=== PATIENT | female | born 1935 | race Caucasian/White ===

== ENCOUNTER → 2020-03-10 11:20 | Outpatient (CLI) | payer OTHER, SELFPAY ==
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
== END ==
PROVIDERS: PCP Student in an Organized Health Care Education/Training Program; Referring Provider Student in an Organized Health Care Education/Training Program; Visit Provider Student in an Organized Health Care Education/Training Program
DX: M43.12 Spondylolisthesis, cervical region (principal); M50.321 Other cervical disc degeneration at C4-C5 level
CPT/HCPCS: 72040

== ENCOUNTER → 2020-03-31 12:49 | Outpatient (CLI) | payer OTHER, SELFPAY ==
--- NOTE | 2020-03-31 12:52 | DI.RAD.S_ITS ---
PROCEDURE: FL BARIUM SWALLOW W SPEECH INDICATIONS: Aspiration COMPARISON: None. TECHNIQUE: Examination was conducted in conjunction with speech pathology per standard protocol. In the lateral projection, filming was performed of the patient swallowing. AP projection filming may also be performed with patient swallowing. COMPARISON: FINDINGS: Function: The oral preparatory phase appears normal, with proper containment. The subsequent oral propulsive phase, pharyngeal phase, and esophageal phase of swallowing also appear normal with all proffered substances. No laryngotracheal penetration or aspiration. No pathologic vallecular pooling. Morphology: No cricopharyngeal bar is identified. No cervical esophageal webs. No Zenker's diverticulum. No strictures. IMPRESSION: No laryngotracheal penetration or aspiration. Dictated by: Ruma Hector MD, PhD on 03/31/2020 at 15:06 Approved by: Ruma Hector MD, PhD on 03/31/2020 at 15:06
--- NOTE | 2020-04-05 12:51 | ST.SWALLOW ---
Visit Care Team Role Provider Type Vargas Riley MD Attending Provider Physician Primary Care Provider Referring Provider Specialty: Internal Medicine Address: [address] [place] [address], [address] [place] [address], [id number] Email: [email or web address] Modified Barium Swallow Study INGREDIENT MIXER Modified Barium Swallow Study Start: 04/01/20 15:20 Freq: Status: Active Protocol: Document 03/31/20 15:20 RAMA (Rec: 04/01/20 15:30 RAMA [id number]) Modified Barium Swallow Study Total Time Visit Start Time 13:30 Visit Stop Time 14:10 Total Visit Minutes [address] Vargas Riley Reason for Referral Aspiration; Unspecified foreign body in respiratory tract Setting Setting Outpatient Care Patient Information Identification Type Name,ID Card Patient History The pt is an 84-yr-old female who c/o frequent coughing and throat clearing, increased with, but not isolated to, oral intake. This has been ongoing for ~20 yrs. The pt has seen many doctors regarding this, without clear identification of cause. She does have a hx of chronic sinusitis. Swallow study was ordered to r/o aspiration as cause of throat congestion. Medical records indicate paraspinal cervical muscle dysfunction. Subjective Observations The pt arrived on time accompanied by her son, who was educated on results with the pt after the study was completed. The pt was seated in fluoroscopy chair, explained procedure, and was in agreement with proceeding. Patient Positioning Position View Lateral Imaging Lateral View Textures Administered Trials Presented Thin Liquid via Spoon,Thin Liquid via Cup,Reserve Liquid via Spoon,Reserve Liquid via Cup,Honey Liquid via Spoon, Dysphagia Blenderized Textures ,Regular Textures Oral Phase Source: MBSIMP (TM) (C) Bolus Specific Scoring Grid Lip Closure No Impairment (WNL) Tongue Control During Bolus Hold No Impairment (WNL) Bolus Prep/Mastication Mild Impairment Bolus Transport/Lingual Motion No Impairment (WNL) A/P Lingual Propulsion Delay No Oral Residue Mild Impairment Residue Clearing No Impairment (WNL) Nasal Regurgitation No Additional Oral Phase Observations Oral Peripheral Exam: Upper dentition is implants; lower front dentition is natural in good condition for age. 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 Pt states for this reason she tends to eat soft foods. All features were symmetrical and WNL of strength, ROM and coordination for age upon oral exam. Oral Prep/Swallow Phases: WFL. Mildly reduced lingual- palatal seal resulted in mild oral residue, which was sufficiently cleared with additional swallow. Prior to secondary swallow, however, oral residue did frequently escape to pharynx while airway was open, which increases the pt's risk of aspiration. She required verbal prompts to produce second swallow. Reduced dentition resulted in mashing-style mastication, which was sufficient for mastication of cookie but is expected to be insufficient for textures such as raw produce and tough meats. Pharyngeal Phase Source: MBSIMP (TM) (C) Bolus Specific Scoring Grid Delayed Initiation of Pharyngeal Swallow Yes: Thin & reg texture escaped to pyriform sinuses; NTL & oral res to vallecula Number of Seconds Delayed (seconds) 1-4 Soft Palate Elevation No Impairment (WNL) Tongue Base Strength/Range of Motion WFL Residue Along the Tongue Base Yes Clearance of Residue Along Tongue Base Minimal Impairment Laryngeal Elevation Mild Impairment Anterior Hyoid Movement Mild Impairment Epiglottic Range of Motion Mild Impairment Vallecular Residue Yes Clearance of Vallecular Residue No Impairment (WNL) Laryngeal Vestibular Closure Mild Impairment Pharyngeal Stripping Wave WFL Posterior Pharyngeal Wall Residue No Upper Esophageal Sphincter Opening No Impairment (WNL) Residue in the Pyriform Sinuses No Esophageal Clearance Upright Position Minimal Impairment Pharyngoesophageal Backflow Observed No: Occasional mild stasis below UES observed, quickly cleared. Additional Pharyngeal Phase Observations Upon close video evaluation, silent flash penetration of thin liquids into laryngeal vestibule was observed during sequential cup sips. No aspiration was noted. Reduced oral sensation and/or lingual weakness resulted in delayed swallow trigger with thin and nectar-thick liquids. Thin liquid and cookie escaped to pyriform sinuses and NTL to vallecula prior to swallow initiation, increasing risk of aspiration. Trigger was timely with HTL and pureed texture. The pt naturally consumed all trials with head in chin-tuck position d/t curvature of cervical spine. This position did not appear to aid oral containment. A/P View Clinical Impressions Dysphagia Type Mild Oropharyngeal Dysphagia secondary to advanced age Findings Oral dysphagia is secondary to limited dentition, impacting mastication with increased complexity of textures; mildly reduced lingual-palatal seal, resulting in oral residue; and reduced oral sensation and /or lingual weakness, resulting in delayed swallow trigger with some consistencies, including oral residue. Pharyngeal dysphagia is secondary to reduced muscle strength and reduce sensation, resulting in incomplete airway closure, reduced hyolaryngeal elevation and anterior propulsion, and mildly reduced epiglottic inversion. These impairments resulted in silent penetration of thin liquids into the laryngeal vestibule (PAS 2) and collection of spilled oral residue in pharynx. The pt did not spontaneously swallow collected residue. When prompted to swallow, the residue cleared. Swallow function with oral intake does not explain her chronic throat clearing, particularly given her apparent reduced sensation. However, these impairments may contribute to reduced management of postnasal drip, if present. Specifically, reduced sensation may lead to absent swallow trigger and silent aspiration of nasal discharge, which may in turn result in laryngeal or pulmonary congestion, triggering chronic coughing. Question laryngeal irritation from long-term coughing and/or subsequent habitual behavior, as well. ENT consultation is recommended for assessment. Immediate results of the MBSS were shared with the pt and her son. Therapy was not recommended at that time; however, upon close review of MBSS video, impairments are identified that may be corrected or improved with outpatient therapy, thus reducing her risk of aspiration and, possibly, reducing chronic cough. Rehabilitation Potential Good Patient Appropriate for Therapy Yes: The pt may benefit from brief outpatient therapy. Recommendations Diet Liquids Order Reserve Diet Order Mechanical Soft Medication Recommendation As Tolerated Aspiration Precautions Recommended Precautions Upright at 90 Degrees,Small Bites/Sips,Double Swallow Treatment Plan Therapy Recommendations Outpatient Speech Therapy Additional Recommended Referrals The pt is scheduled for ENT consultation, which is recommended. Compensatory Strategies Recommendations Sitting Upright (90 deg), Double Swallow,Small Bites and Sips Short Term Goals 1. The pt will perform safe swallow strategies with minimal cuing to reduce risk of aspiration. 2. The pt will perform exercises, with written instructions, to increase efficiency of swallow and decrease risk of aspiration. Nursing Home Goals 1. The pt will tolerate least restrictive diet to meet her nutrition and hydration needs. Placement Recommendation After Discharge Home,Home Care,Outpatient Therapy
== END ==
PROVIDERS: PCP Student in an Organized Health Care Education/Training Program; Referring Provider Student in an Organized Health Care Education/Training Program; Visit Provider Student in an Organized Health Care Education/Training Program
DX: T17.908A Unspecified foreign body in respiratory tract, part unspecified causing other injury, initial encounter (principal)
CPT/HCPCS: 74230; 92611

== ENCOUNTER → 2020-04-16 16:35 | Outpatient (CLI) | payer OTHER, SELFPAY ==
[2020-04-16 18:03] LABS: Add Manual Diff / Slide Review NO; Basophils Absolute Auto 100 /uL (0-100); Basophils Percent Auto 1.4 % (0-2); Eosinophils Absolute Auto 200 /uL (0-450); Eosinophils Percent Auto 3.8 % (2-4); Hemoglobin 9.5 g/dL (12.0-16.0); Lymphocytes Absolute Auto 1000 /uL (1100-4500); Lymphocytes Percent Auto 17.8 % (25-40); Mean Corpuscular HGB Conc 30.8 % (30-36); Mean Corpuscular Hemoglobin 23.3 PG (26-34); Mean Corpuscular Volume 75.8 fL (80-100); Monocytes Absolute Auto 400 /uL (0-900); Monocytes Percent Auto 7.3 % (3-14); Neutrophils Absolute Auto 3700 /uL (1500-7000); Neutrophils Percent Auto 69.7 % (50-75); Platelet Count 162 X10^3/uL (150-400); Red Blood Cell Count 4.08 X10^6/uL (4.0-5.2); Red Cell Distribution Width 19.6 % (11.6-14.8); White Blood Cell Count 5.4 X10^3/uL (4.5-11.0)
[2020-04-16 19:00] LABS: HEMOLYSIS < 15 (0-50); NT-proBNP (BNP-Adult 18+) 1470 pg/mL (<450)
[2020-04-16 19:18] LABS: Alanine Aminotransferase 10 IU/L (<35); Albumin 4.1 g/dL (3.5-5.0); Albumin Globulin Ratio 1.3 (1.0-2.8); Alkaline Phosphatase 63 U/L (38-126); Aspartate Aminotransferase 25 IU/L (14-36); BUN Creatinine Ratio 28.9 (6-22); Bilirubin Total 0.3 mg/dL (0.2-1.3); Blood Urea Nitrogen 33 mg/dL (7-17); Calcium 9.2 mg/dL (8.4-10.2); Carbon Dioxide 25 mmol/L (22-32); Chloride 105 mmol/L (98-107); Estimated Glomerular Filt Rate 45.4 mL/min (>60); Globulin 3.1 g/dL (1.7-4.1); Glucose 129 mg/dL (80-110); Potassium 4.1 mmol/L (3.4-5.1); Sodium 142 mmol/L (137-145); Total Protein 7.2 g/dL (6.3-8.2)
[2020-04-16 19:41] LABS: Vitamin B12 833 pg/mL (239-931)
[2020-04-17 15:27] LABS: HEMOLYSIS < 15 (0-50); Iron 46 ug/dL (37-170)
[2020-04-17 15:37] LABS: Percent Iron Saturation 11 % (15-50); Total Iron Binding Capacity 436 ug/dL (265-497); Transferrin 360 mg/dL (206-381)
[2020-04-17 21:38] LABS: Reticulocyte Count, Percent 0.7 % (1.06-2.63)
== END ==
PROVIDERS: PCP Student in an Organized Health Care Education/Training Program; Referring Provider Student in an Organized Health Care Education/Training Program; Visit Provider Student in an Organized Health Care Education/Training Program
DX: R53.83 Other fatigue (principal); E55.9 Vitamin D deficiency, unspecified; E03.9 Hypothyroidism, unspecified; I10 Essential (primary) hypertension; Z79.899 Other long term (current) drug therapy; E87.70 Fluid overload, unspecified; D64.9 Anemia, unspecified
CPT/HCPCS: 36415; 80053; 82306; 82607; 83540; 83550; 83880; 85025; 85045

== ENCOUNTER → 2020-04-29 15:38 | Outpatient (CLI) | payer OTHER, SELFPAY ==
--- NOTE | 2020-04-29 | DI.CT.S_ITS ---
PROCEDURE: CT SINUS SCREEN WO CON INDICATIONS: CHRONIC PANSINUSITIS TECHNIQUE: Noncontrast 3.0 mm axial images acquired from the frontal sinuses to the mid-sella, with coronal and sagittal reformats. For radiation dose reduction, the following was used: automated exposure control, adjustment of mA and/or kV according to patient size. COMPARISON: None. FINDINGS: Image quality: Excellent. Maxillary Sinuses: There is near complete opacification seen of the right maxillary sinus. Frothy material can be seen within the left maxillary sinus. There is demineralization of the medial cueva of the maxillary sinuses. Ethmoid Air Cells: There is near complete opacification seen of the ethmoid air cells. Portions of the ethmoid air cells have been removed. Remaining ethmoid air cells are demineralized. Sphenoid Sinuses: No bony remodeling or destruction. Mild mucosal thickening is seen within the sphenoid sinuses. Frontal Sinuses: No bony remodeling or destruction. Sinu at least moderate mucosal thickening is seen within the frontal sinuses. Ostiomeatal Complexes: Ostiomeatal complexes are patent. No Di cells. Miscellaneous: Visualized intra-orbital contents are normal. The middle turbinates and superior turbinates have been removed. Nasal polyps are seen posteriorly. There is minimal leftward nasal septal deviation. Incidental note is made of hyperostosis frontalis. This is not considered to be pathologic in a woman of this age. IMPRESSION: Postoperative changes, with removal of the superior turbinates and the middle turbinates and portions the ethmoid air cell septations. Findings of chronic sinusitis can be seen, with demineralization of the medial cueva of the maxillary sinuses as well as the remaining ethmoid bony septations. Paranasal sinus disease is seen, which is most prominent within the right maxillary sinus and the ethmoid air cells. Apparent nasal polyps can be seen posteriorly. Dictated by: Ortiz Duvall M.D. on 04/29/2020 at 15:18 Approved by: Ortiz Duvall M.D. on 04/29/2020 at 15:21
== END ==
PROVIDERS: PCP Student in an Organized Health Care Education/Training Program; Referring Provider Otolaryngology; Visit Provider Otolaryngology
DX: J32.4 Chronic pansinusitis (principal)
CPT/HCPCS: 70486

== ENCOUNTER → 2020-05-12 16:22 | Outpatient (CLI) | payer OTHER, SELFPAY ==
[2020-05-12 16:51] LABS: Reticulocyte Count, Percent 1.7 % (1.06-2.63)
[2020-05-12 16:52] LABS: Hematocrit 33.8 % (36-46); Hemoglobin 10.5 g/dL (12.0-16.0); Mean Corpuscular HGB Conc 30.9 % (30-36); Mean Corpuscular Hemoglobin 24.5 PG (26-34); Mean Corpuscular Volume 79.1 fL (80-100); Platelet Count 163 X10^3/uL (150-400); Red Blood Cell Count 4.27 X10^6/uL (4.0-5.2); Red Cell Distribution Width 22.9 % (11.6-14.8); White Blood Cell Count 6.8 X10^3/uL (4.5-11.0)
[2020-05-12 17:05] LABS: HEMOLYSIS < 15 (0-50); Iron 39 ug/dL (37-170)
[2020-05-12 17:07] LABS: BUN Creatinine Ratio 31.3 (6-22); Blood Urea Nitrogen 31 mg/dL (7-17); Carbon Dioxide 26 mmol/L (22-32); Chloride 106 mmol/L (98-107); Estimated Glomerular Filt Rate 53.4 mL/min (>60); Glucose 107 mg/dL (80-110); HEMOLYSIS < 15 (0-50); Potassium 4.2 mmol/L (3.4-5.1); Sodium 141 mmol/L (137-145)
[2020-05-12 17:14] LABS: NT-proBNP (BNP-Adult 18+) 2270 pg/mL (<450)
[2020-05-12 17:16] LABS: Percent Iron Saturation 9 % (15-50); Total Iron Binding Capacity 419 ug/dL (265-497); Transferrin 337 mg/dL (206-381)
[2020-05-12 17:40] LABS: Ferritin 27 ng/mL (11-264)
[2020-05-12 18:10] LABS: Folate > 20.0 ng/mL (2.76-20.0)
== END ==
PROVIDERS: PCP Student in an Organized Health Care Education/Training Program; Referring Provider Student in an Organized Health Care Education/Training Program; Visit Provider Student in an Organized Health Care Education/Training Program
DX: D64.9 Anemia, unspecified (principal); E87.70 Fluid overload, unspecified; N17.9 Acute kidney failure, unspecified
CPT/HCPCS: 36415; 80048; 82728; 82746; 83540; 83550; 83880; 85027; 85045

== ENCOUNTER 2020-06-22 16:18 | Observation (INO) | payer OTHER, SELFPAY ==
[2020-06-22] VITALS (14 sets, daily range): BP systolic 113–148; BP diastolic 47–95; PULSE 70–84; RESP 16–29; TEMP 36.2–36.4; O2SAT 87–96; BMI 37.8
--- NOTE | 2020-06-22 16:29 | DI.RAD.S_ITS ---
PROCEDURE: XR CHEST 1V INDICATIONS: chest pain TECHNIQUE: One view of the chest was acquired. COMPARISON: None. FINDINGS: Surgical changes and devices: None. Lungs and pleura: Mild coarsened appearance is present within the right base. Mediastinum: Mediastinal contours appear normal. Heart size is enlarged. Bones and chest wall: No suspicious bony lesions. Overlying soft tissues appear unremarkable. IMPRESSION: Mild coarsened appearance of the right base. This could represent dependent edema versus developing pneumonia. Dictated by: Noreen Monahan M.D. on 06/22/2020 at 17:18 Approved by: Noreen Monahan M.D. on 06/22/2020 at 17:21
[2020-06-22] MEDS: ASPIRIN 81 MG CHEW TAB 324 MG PO (16:50)
[2020-06-22 16:57] LABS: Add Manual Diff / Slide Review NO; Basophils Absolute Auto 0 /uL (0-100); Basophils Percent Auto 0.5 % (0-2); Eosinophils Absolute Auto 200 /uL (0-450); Eosinophils Percent Auto 2.4 % (2-4); Hematocrit 38.3 % (36-46); Hemoglobin 12.3 g/dL (12.0-16.0); Lymphocytes Absolute Auto 1200 /uL (1100-4500); Lymphocytes Percent Auto 14.5 % (25-40); Mean Corpuscular HGB Conc 32.1 % (30-36); Mean Corpuscular Hemoglobin 26.7 PG (26-34); Mean Corpuscular Volume 83.3 fL (80-100); Monocytes Absolute Auto 600 /uL (0-900); Monocytes Percent Auto 6.9 % (3-14); Neutrophils Absolute Auto 6300 /uL (1500-7000); Neutrophils Percent Auto 75.7 % (50-75); Platelet Count 161 X10^3/uL (150-400); Red Blood Cell Count 4.59 X10^6/uL (4.0-5.2); White Blood Cell Count 8.3 X10^3/uL (4.5-11.0)
[2020-06-22 17:00] LABS: INR 1.3 (0.9-1.3); Prothrombin Time 15.3 SECONDS (10.1-12.7)
[2020-06-22 17:02] LABS: PTT Partial Thromboplastin Tim 38 SECONDS (26.4-36.2)
[2020-06-22 17:04] LABS: Alanine Aminotransferase 14 IU/L (<35); Albumin 4.3 g/dL (3.5-5.0); Albumin Globulin Ratio 1.2 (1.0-2.8); Alkaline Phosphatase 71 U/L (38-126); Aspartate Aminotransferase 32 IU/L (14-36); BUN Creatinine Ratio 29.2 (6-22); Bilirubin Total 0.5 mg/dL (0.2-1.3); Blood Urea Nitrogen 45 mg/dL (7-17); Calcium 9.4 mg/dL (8.4-10.2); Carbon Dioxide 33 mmol/L (22-32); Chloride 99 mmol/L (98-107); Creatine Kinase 83 U/L (30-135); Estimated Glomerular Filt Rate 32.1 mL/min (>60); Globulin 3.6 g/dL (1.7-4.1); Glucose 107 mg/dL (80-110); HEMOLYSIS 18 (0-50); Lipase 255 U/L (23-300); Potassium 3.5 mmol/L (3.4-5.1); Sodium 140 mmol/L (137-145); Total Protein 7.9 g/dL (6.3-8.2)
--- NOTE | 2020-06-22 17:14 | ED_ITS ---
HPI - Chest Pain General Chief Complaint: Chest Pain Stated Complaint: HARD TIME BREATHING SWEATING SHOULDER PAIN Time Seen by Provider: 06/22/20 16:40 Mode of arrival: Wheelchair History of Present Illness HPI narrative: 84-year-old woman with a history of atrial fibrillation for which she is on apixaban, coronary disease with stenting many years ago, hypertension, hyperlipidemia, congestive heart failure, hypothyroidism presents with 24 hours of increasing anginal type symptoms. Yesterday with doing some simple activities around her house she had some chest pain between her shoulder blades, mild diaphoresis and mild dyspnea that did yevgeniy with rest. This morning she woke up and was more fatigued and short of breath than usual. At 11:00 a.m. she had a particularly severe episode while she was going to the bathroom with pain so severe between the shoulder blades that she had difficulty pulling her pants back. Again, with rest it resolved. She went to a previously scheduled physical therapy appointment (neck pain after a mild fall in number of months ago) and while at physical therapy had pain between her shoulder blades recurrent, diaphoretic, increasing shortness of breath pain up the left side of her neck and was brought to the emergency room for further evaluation. Once resting on the stretcher in the emergency department she is again pain-free. She recently moved from [place] and has been living at [facility] for the last 3 months. She is accompanied by her son in the emergency department. Related Data Home Medications Medication Instructions Recorded Confirmed amlodipine 10 mg tablet 10 mg PO DAILY 03/10/20 04/16/20 diclofenac sodium 1 % topical gel 2 gram TOP QID 03/10/20 04/16/20 zoledronic acid 4 mg intravenous 1 mg IV each 03/10/20 04/16/20 solution Previous Rx's Medication Instructions Recorded furosemide 40 mg tablet 40 mg PO QAM #30 tab 05/13/20 potassium chloride 10 mEq 10 meq PO DAILY #30 tab 05/13/20 tablet,extended release ferrous sulfate 325 mg (65 mg 325 mg PO Q OTHER DAY #45 tab 05/14/20 iron) tablet apixaban 2.5 mg tablet 2.5 mg PO BID #180 tab 05/28/20 budesonide 0.5 mg/2 mL suspension 0.5 mg IRRIGATION DAILY #180 ml 05/28/20 for nebulization levothyroxine 25 mcg tablet 25 mcg PO DAILY #90 tab 05/28/20 lovastatin 20 mg tablet 20 mg PO DAILY #90 tab 05/28/20 sertraline 100 mg tablet 100 mg PO DAILY #90 tab 05/28/20 triamterene 75 1 tab PO DAILY #90 tab 05/28/20 mg-hydrochlorothiazide 50 mg tablet naltrexone 50 mg tablet 50 mg PO DAILY #30 tab 06/08/20 Allergies Allergy/AdvReac Type Severity Reaction Status Date / Time gabapentin AdvReac Mild Sedation Verified 06/22/20 16:28 at 100mg Review of Systems Review of Systems Narrative: Pertinent positive and negative findings as per HPI Remainder of review of systems is otherwise unremarkable for Constitutional: Fevers, chills, ENT: No sore throat, ear pain Respiratory: Cough, wheeze, dyspnea GI: vomiting, : Dysuria, hematuria, flank pain MS: Muscle weakness, numbness, joint swelling or warmth Neuro: Syncope, dizziness, tingling Patient History Medical History (Updated 06/22/20 @ 18:12 by Maggie Ramirez MD) Atrial fibrillation Essential hypertension Hypothyroidism Major depression Mixed hyperlipidemia Volume overload Social History Smoking Status: Former smoker Smoking Status: Former smoker Substance Use Type: does not use Exam Narrative Exam Narrative: General: Healthy appearing, in no acute distress. Able to give a complete and coherent history. Well-nourished well-developed HEENT: Moist mucous membranes, normal sclera with reactive pupils, mildly hard of hearing Neck: No JVD, supple Respiratory: Lungs are clear to auscultation, no wheezing no rales no rhonchi. Full and symmetrical air movement Cardiac: Irregular rate and rhythm no murmurs no bruits Abdomen: Soft, nontender good bowel tones, no flank pain Skin: Warm and dry, no rashes Neurologic: Grossly neurologically intact with no obvious asymmetries or abnormalities Extremities: No trauma, 2+ lower extremity edema with mild chronic venous stasis changes Psych: Cooperative, appropriate insight and affect Initial Vital Signs Initial Vital Signs: Vital Signs Temperature 97.6 F 06/22/20 16:23 Pulse Rate 70 06/22/20 16:23 Respiratory Rate 16 06/22/20 16:23 Blood Pressure 118/74 06/22/20 16:23 Pulse Oximetry 90 L 06/22/20 16:23 Course Orders Ordered: ED Orders 06/22/20 16:29 XR chest 1V Stat EKG-12 Lead Stat 06/22/20 16:40 Complete Blood Count AUTO DIFF Stat Comprehensive Metabolic Panel Stat Lipase Stat Partial Thromboplastin Time Stat Prothrombin Time INR Stat Troponin & CK Cardiac Panel Stat 06/22/20 17:10 COVID19 Stat 06/22/20 17:53 EKG-12 Lead Stat Nitroglycerin (Nitroglycerin 0.4 Mg Sl Tab) 0.4 mg SL [id number] PRN PRN Reason: Chest Pain Discontinued Medications Aspirin (Aspirin 81 Mg Chew Tab) 324 mg PO NOW ONE Stop: 06/22/20 16:43 Last Admin: 06/22/20 16:50 Dose: 324 mg Documented by: BTONER Nitroglycerin (Nitroglycerin Oint 1 Inch/Gm Oint...G.) 0.5 inch TOP NOW ONE Stop: 06/22/20 17:28 Last Admin: 06/22/20 17:45 Dose: 0.5 inch Documented by: Vital Signs Vital signs: Vital Signs - 8 hr 06/22/20 16:23 06/22/20 16:45 06/22/20 16:46 Temperature 97.6 F Pulse Rate 70 83 82 Respiratory Rate 16 29 H 28 H Blood Pressure 118/74 113/78 Pulse Oximetry 90 L 96 96 06/22/20 17:45 Temperature Pulse Rate 77 Respiratory Rate Blood Pressure 139/95 H Pulse Oximetry MDM - Chest Pain Medical Records Data Attestation: I reviewed the patient's medical records. Lab Data Attestation: I reviewed the patient's lab results. Result diagrams: 06/22/20 16:40 06/22/20 16:40 Labs: Lab Results 06/22/20 06/22/20 06/22/20 Range/Units 16:40 16:40 16:40 WBC 8.3 (4.5-11.0) X10^3/uL RBC 4.59 (4.0-5.2) X10^6/uL Hgb 12.3 (12.0-16.0) g/dL Hct 38.3 (36-46) % MCV 83.3 (80-100) fL MCH 26.7 (26-34) PG MCHC 32.1 (30-36) % RDW 23.0 H (11.6-14.8) % Plt Count 161 (150-400) X10^3/uL Neut % (Auto) 75.7 H (50-75) % Lymph % (Auto) 14.5 L (25-40) % Morehouse % (Auto) 6.9 (3-14) % Eos % (Auto) 2.4 (2-4) % Baso % (Auto) 0.5 (0-2) % Neut # (Auto) 6300 (5810-7615) /uL Lymph # (Auto) 1200 (3193-4779) /uL Morehouse # (Auto) 600 (0-900) /uL Eos # (Auto) 200 (0-450) /uL Baso # (Auto) 0 (0-100) /uL RBC Morphology See below Poikilocytosis 1+ H Anisocytosis 1+ H Ovalocytes 1+ H PT 15.3 H (10.1-12.7) SECONDS INR 1.3 (0.9-1.3) APTT 38 H (26.4-36.2) SECONDS Sodium 140 (137-145) mmol/L Potassium 3.5 (3.4-5.1) mmol/L Chloride 99 (98-107) mmol/L Carbon Dioxide 33 H (22-32) mmol/L BUN 45 H (7-17) mg/dL Creatinine 1.54 H (0.52-1.04) mg/dL Estimated GFR 32.1 L (>60) mL/min BUN/Creatinine Ratio 29.2 H (6-22) Glucose 107 (80-110) mg/dL Calcium 9.4 (8.4-10.2) mg/dL Total Bilirubin 0.5 (0.2-1.3) mg/dL AST 32 (14-36) IU/L ALT 14 (<35) IU/L Alkaline Phosphatase 71 (38-126) U/L Total Creatine Kinase 83 (30-135) U/L CK-MB (CK-2) TNP CK-MB (CK-2) Rel Index TNP Troponin I < 0.012 (0.01-0.034) ng/mL Total Protein 7.9 (6.3-8.2) g/dL Albumin 4.3 (3.5-5.0) g/dL Globulin 3.6 (1.7-4.1) g/dL Albumin/Globulin Ratio 1.2 (1.0-2.8) Lipase 255 (23-300) U/L COVID-19 PCR (Negative) 06/22/ Range/Units 17:10 WBC (4.5-11.0) X10^3/uL RBC (4.0-5.2) X10^6/uL Hgb (12.0-16.0) g/dL Hct (36-46) % MCV (80-100) fL MCH (26-34) PG MCHC (30-36) % RDW (11.6-14.8) % Plt Count (150-400) X10^3/uL Neut % (Auto) (50-75) % Lymph % (Auto) (25-40) % Morehouse % (Auto) (3-14) % Eos % (Auto) (2-4) % Baso % (Auto) (0-2) % Neut # (Auto) (6053-1422) /uL Lymph # (Auto) (4250-5797) /uL Morehouse # (Auto) (0-900) /uL Eos # (Auto) (0-450) /uL Baso # (Auto) (0-100) /uL RBC Morphology Poikilocytosis Anisocytosis Ovalocytes PT (10.1-12.7) SECONDS INR (0.9-1.3) APTT (26.4-36.2) SECONDS Sodium (137-145) mmol/L Potassium (3.4-5.1) mmol/L Chloride (98-107) mmol/L Carbon Dioxide (22-32) mmol/L BUN (7-17) mg/dL Creatinine (0.52-1.04) mg/dL Estimated GFR (>60) mL/min BUN/Creatinine Ratio (6-22) Glucose (80-110) mg/dL Calcium (8.4-10.2) mg/dL Total Bilirubin (0.2-1.3) mg/dL AST (14-36) IU/L ALT (<35) IU/L Alkaline Phosphatase (38-126) U/L Total Creatine Kinase (30-135) U/L CK-MB (CK-2) CK-MB (CK-2) Rel Index Troponin I (0.01-0.034) ng/mL Total Protein (6.3-8.2) g/dL Albumin (3.5-5.0) g/dL Globulin (1.7-4.1) g/dL Albumin/Globulin Ratio (1.0-2.8) Lipase (23-300) U/L COVID-19 PCR Negative (Negative) Imaging Data Chest x-ray: Radiologist's Impression: FINDINGS: Surgical changes and devices: None. Lungs and pleura: Mild coarsened appearance is present within the right base. Mediastinum: Mediastinal contours appear normal. Heart size is enlarged. Bones and chest wall: No suspicious bony lesions. Overlying soft tissues appear unremarkable. IMPRESSION: Mild coarsened appearance of the right base. This could represent dependent edema versus developing pneumonia. Dictated by: Noreen Monahan M.D. on 06/22/2020 at 17:18 ECG Data Attestation: I personally reviewed and interpreted this ECG as follows: Interpretation: Atrial fibrillation at a rate of [address] depression in leads 2, AVF and V6 with no ST elevation appreciated. No prior EKGs are available for comparison #2: Completely pain-free at time of EKG Atrial fibrillation at a rate of [address]-T wave changes have normalized No ischemic changes noted MDM Narrative Medical decision making narrative: 84-year-old woman with 24 hours of what sounds like progressive exertional angina, continues to be resolved with rest. Recently established in the [facility]. Diagnosed with anemia and volume overload and diuretics were added in mid May. With the addition of the diuretic, creatinine has increased from 0.99-1.5 for and her anemia has resolved. Over last 24 hours she has had at least 3 distinct episodes of anginal-type chest pain. Initial troponin is unremarkable however EKG shows atrial fibrillation with some mild ST depression inferior laterally. She currently is on apixaban and pain-free 1729 Dr Mello. If EKG changes, then would need to go to [facility]. In the absence of that, would recomment seriel enzymes and stress testing tomorrow. EKG is repeated in the absence of chest pain and inferior lateral ST T wave depressions have completely resolved. Patient is currently on apixaban, heparin is not recommended at this point. Half an inch of nitropaste is placed and she remains pain free at this time. Care is reviewed with Dr. Aj, will be admitted to the hospitalist service with plan as outlined above. Discharge Plan Departure Patient Disposition: Admitted as Observation Clinical Impression: Coronary artery disease with exertional angina
[2020-06-22 17:15] LABS: Troponin I < 0.012 ng/mL (0.01-0.034)
[2020-06-22 17:26] LABS: Anisocytosis 1+; Poikilocytosis 1+
[2020-06-22 17:27] LABS: Ovalocytes 1+
[2020-06-22] MEDS: NITROGLYCERIN OINT 1 INCH/GM OINT...G. 0.5 INCH TOP (17:45)
--- NOTE | 2020-06-22 17:47 | PC.NURSE ---
pt reports having pain in her upper back last evening. again this am. son brought her in. pt recently started on Lasix, K+, and iron after leg swelling a few months ago.
[2020-06-22 18:08] LABS: COVID19 -Nasal RAPID Negative (Negative)
[2020-06-22] MEDS: APIXABAN 5 MG TABLET 2.5 MG PO (21:08)
[2020-06-22 21:30] LABS: NT-proBNP (BNP-Adult 18+) 1970 pg/mL (<450)
[2020-06-22 21:32] LABS: Troponin I < 0.012 ng/mL (0.01-0.034)
[2020-06-23] VITALS (9 sets, daily range): BP systolic 117–135; BP diastolic 51–98; PULSE 52–74; RESP 16–22; TEMP 35.8–36.4; O2SAT 94–96
[2020-06-23] MEDS: ACETAMINOPHEN 325 MG TABLET 650 MG PO (00:01)
--- NOTE | 2020-06-23 00:19 | PC.NURSE ---
Denies any CP & other discomfort. But requested 2 tabs. of Tylenol. States I normally take 2 Tylenol at home to help me sleep. 650 mg. of Tylenol administered, will cont. POC & monitor.
--- NOTE | 2020-06-23 03:54 | PM.HP.1 ---
History of Present Illness History of Present Illness Date Patient Seen: 06/22/20 Time Patient Seen: 20:55 Chief complaint: HARD TIME BREATHING SWEATING SHOULDER PAIN Narrative: This is a aissatou 84-year-old woman Liana Power who presented to the ER with increased anginal pain, focused between her shoulder blades. Yesterday while doing some simple activities around her house she had some chest pain between her shoulder blades, mild diaphoresis and mild dyspnea that did yevgeniy with rest. This morning she woke up and was more fatigued and short of breath than usual. At 11:00 a.m. she had a particularly severe episode while she was going to the bathroom with pain so severe between the shoulder blades that she had difficulty pulling her pants back. Again, with rest it resolved. She went to a previously scheduled physical therapy appointment (neck pain after a mild fall in number of months ago) and while at physical therapy had pain between her shoulder blades recurrent, diaphoretic, increasing shortness of breath pain up the left side of her neck. Patient has a history of atrial fibrillation for which she is on apixaban, coronary disease with stenting 2009, hypertension, hyperlipidemia, congestive heart failure, major depression, hypothyroidism, anemia. Patient's exploration manager is who approximately 1 month ago diagnosed her with fluid overload and peripheral edema placed her on Lasix and potassium patient had been living in [facility] and moved here 3 months ago to live at [facility], her son Raimundo Power lives close. Patients mother and a sister who are both and had heart attacks in their 50s. Once resting on the stretcher in the emergency department she was again pain-free. Patient is resting comfortably in her bed, she is unable to recall when this pain started exactly and is momentarily a poor historian her son notes that while she has only been living with him for the past 3 months he has noted some memory issues and difficulty finding words while conversing with each other. Patient denies any chest pain shortness of breath at this time, denies any previous change in vision weakness difficulty with speech swallowing balance or coordination. She she does note increased fatigue level for the past week, and her son agrees. Patient's son denies any neurological deficits since she has come to live with him. Patient History Medical History (Updated 06/23/20 @ 04:50 by [facility]) Atrial fibrillation CHF (congestive heart failure), NYHA class III Essential hypertension Hypothyroidism Major depression Mixed hyperlipidemia Varicose vein of leg Volume overload Surgical History (Updated 06/23/20 @ 04:50 by JACQUELINE Dewitt) H/O abdominal hysterectomy History of appendectomy History of cataract surgery History of lumbar surgery History of removal of ovarian cyst History of total bilateral knee replacement Family & Social History Family History (Updated 06/23/20 @ 04:51 by JACQUELINE Dewitt) Sister Cancer Heart attack Brother Cancer Mother Heart attack Social History: household members Son lives in the area Prior Living Arrangements [facility] independent Safety & Behavioral: Feels Safe in Current Yes Environment Been Physically Hurt or No Threatened By a Person Suicidal Ideation Description None Suicide Plan Description No Plan Tobacco & Substance use: Smoking Status Former smoker x 50 years alcohol intake never Substance Use Type does not use Meds Home Medications and Allergies Home Medications Medication Instructions Recorded Confirmed Type diclofenac sodium 1 % topical gel 2 gram TOP QID 03/10/20 06/22/20 History furosemide 40 mg tablet 40 mg PO QAM #30 tab 05/13/20 06/22/20 Rx potassium chloride 10 mEq 10 meq PO DAILY #30 tab 05/13/20 06/22/20 Rx tablet,extended release ferrous sulfate 325 mg (65 mg 325 mg PO Q OTHER DAY #45 tab 05/14/20 06/22/20 Rx iron) tablet budesonide 0.5 mg/2 mL suspension 0.5 mg IRRIGATION DAILY #180 ml 05/28/20 06/22/20 Rx for nebulization levothyroxine 25 mcg tablet 25 mcg PO DAILY #90 tab 05/28/20 06/22/20 Rx lovastatin 20 mg tablet 20 mg PO DAILY #90 tab 05/28/20 06/22/20 Rx sertraline 100 mg tablet 100 mg PO DAILY #90 tab 05/28/20 06/22/20 Rx triamterene 75 1 tab PO DAILY #90 tab 05/28/20 06/22/20 Rx mg-hydrochlorothiazide 50 mg tablet naltrexone 50 mg tablet 50 mg PO DAILY #30 tab 06/08/20 06/22/20 Rx apixaban [Eliquis] 2.5 mg PO BID 06/22/20 06/22/20 History oxybutynin chloride 5 mg PO DAILY 06/22/20 06/22/20 History Allergies Allergy/AdvReac Type Severity Reaction Status Date / Time gabapentin AdvReac Mild Sedation Verified 06/22/20 16:28 at 100mg Review of Systems Review of Systems ROS: Yes All systems reviewed with the patient and are negative except as otherwise documented Constitutional Constitutional: Reports excessive sweating and Reports fatigue Cardiovascular Cardiovascular: Reports radiating jaw, neck or arm pain (between shoulder blades ) and Reports palpitations Respiratory Respiratory: Reports system reviewed and no additional complaints, except as documented Gastrointestinal Gastrointestinal: Reports system reviewed and no additional complaints, except as documented Genitourinary Genitourinary: Reports system reviewed and no additional complaints, except as documented Musculoskeletal Musculoskeletal: Reports system reviewed and no additional complaints, except as documented Integumentary/Breasts Skin/Breast: Reports system reviewed and no additional complaints, except as documented Neurologic Neurologic: Reports system reviewed and no additional complaints, except as documented Psychiatric Psychiatric: Reports system reviewed and no additional complaints, except as documented Endocrine Endocrine: Reports excessive sweating, Reports fatigue and Reports palpitations Hematologic/Lymphatic Hematologic/Lymphatic: Reports system reviewed and no additional complaints, except as documented Allergic/Immunologic Allergic/Immunologic: Reports system reviewed and no additional complaints, except as documented Exam Vital Signs (past 8 hours): - 06/22/20 20:55 06/22/20 21:01 06/23/20 00:00 Temperature 97.1 F L 97.0 F L Pulse Rate 84 62 Respiratory Rate 18 16 Blood Pressure 125/47 L 120/51 L Pulse Oximetry 95 96 94 Oxygen Delivery Method Room Air,CPAP Narrative Exam Narrative: Exam Narrative: General: This is a aissatou well groomed, well nourished, female who appears stated age, in no acute distress. Though having to stop and take breaths within a sentence. Her ability to recall a detailed history has decreased only slight from ER notes. HEENT: Normocephalic atraumatic, extraocular muscles intact, normal sclera with reactive pupils, mildly hard of hearing, and missing her dentures. Neck: Supple symmetric trachea midline, no thyroid enlargement, no nontender, no masses, No JVD Respiratory: Lungs in all ortiz are clear to auscultation, no wheezing no rales no rhonchi. Full and symmetrical air movement Cardiac: Irregular rate and rhythm no murmurs no bruits Abdomen: Soft, nontender hyperactive bowel sounds in all 4 quadrants, no guarding or rebound, negative for organomegaly, or masses no CVA tenderness. Skin: Warm and dry, intact without ulcerations, petechiae, or rashes Neurologic: Grossly neurologically intact with no obvious asymmetries or abnormalities Extremities: No cyanosis, clubbing, or edema noted on exam, full range of motion intact and radial and pedal pulses normal. Psych: Cooperative, appropriate insight and affect Objective Labs Result Diagrams: 06/22/20 16:40 06/22/20 16:40 Labs: Laboratory Results - last 24 hr 06/22/20 06/22/20 06/22/20 16:40 16:40 16:40 WBC 8.3 RBC 4.59 Hgb 12.3 Hct 38.3 MCV 83.3 MCH 26.7 MCHC 32.1 RDW 23.0 H Plt Count 161 Neut % (Auto) 75.7 H Lymph % (Auto) 14.5 L [place] % (Auto) 6.9 Eos % (Auto) 2.4 Baso % (Auto) 0.5 Neut # (Auto) 6300 Lymph # (Auto) 1200 [place] # (Auto) 600 Eos # (Auto) 200 Baso # (Auto) 0 RBC Morphology See below Poikilocytosis 1+ H Anisocytosis 1+ H Ovalocytes 1+ H PT 15.3 H INR 1.3 APTT 38 H Sodium 140 Potassium 3.5 Chloride 99 Carbon Dioxide 33 H BUN 45 H Creatinine 1.54 H Estimated GFR 32.1 L BUN/Creatinine Ratio 29.2 H Glucose 107 Calcium 9.4 Total Bilirubin 0.5 AST 32 ALT 14 Alkaline Phosphatase 71 Total Creatine Kinase 83 CK-MB (CK-2) TNP CK-MB (CK-2) Rel Index TNP Troponin I < 0.012 NT-Pro-B Natriuret Pep Total Protein 7.9 Albumin 4.3 Globulin 3.6 Albumin/Globulin Ratio 1.2 Lipase 255 COVID-19 PCR 06/22/20 06/22/20 06/22/20 17:10 21:00 21:00 WBC RBC Hgb Hct MCV MCH MCHC RDW Plt Count Neut % (Auto) Lymph % (Auto) Sum[place] % (Auto) Eos % (Auto) Baso % (Auto) Neut # (Auto) Lymph # (Auto) [place] # (Auto) Eos # (Auto) Baso # (Auto) RBC Morphology Poikilocytosis Anisocytosis Ovalocytes PT INR APTT Sodium Potassium Chloride Carbon Dioxide BUN Creatinine Estimated GFR BUN/Creatinine Ratio Glucose Calcium Total Bilirubin AST ALT Alkaline Phosphatase Total Creatine Kinase CK-MB (CK-2) CK-MB (CK-2) Rel Index Troponin I < 0.012 NT-Pro-B Natriuret Pep 1970 H Total Protein Albumin Globulin Albumin/Globulin Ratio Lipase COVID-19 PCR Negative Assessment & Plan Assessment & Plan narrative: Patient was admitted progressive exertional angina, continues to be resolved with rest. Over last 24 hours she has had at least 3 distinct episodes of anginal-type chest pain. Initial troponin is unremarkable however EKG shows atrial fibrillation with some mild ST depression inferior laterally. 1730 Dr Mello. ER consult If pt has EKG changes is to be transferred to [facility]. Patient is to be admitted for serial enzymes and stress test tomorrow. Repeat EKG in the ER demonstrated inferior lateral ST T wave depressions had completely resolved. Patient requires inpatient medical decision making and management to mitigate her comorbidities of atrial fibrillation coronary artery disease with stents hypertension hyperlipidemia CHF and recent history of volume overload and anemia. 1. Coronary artery disease with exertional angina acute on chronic, present on admission possible AMI -EKG AFib at a rate of [address] depression in leads to AVF and V4 through V6, chest x-ray: Right base mild coarsed-? pneumonia/dependent edema ?, bicarb 33, BUN 45, creatinine 1.54, GFR 32.1, proBNP 1970 -monitor patient for edema and fluid overload, IV lock in no fluids at this time, patient on tele monitoring, vital signs Q 4, I&O Q shift, weight daily. -repeat morning labs amylase, BNP, CBC, D-dimer, magnesium, troponin times 2 q.6 hours. -echo scheduled for tomorrow -continue lovastatin 20 mg once daily -patient was provided nitro paste in the emergency room and angina resolved. 2. Congestive heart failure NYHA functional class 3, acute on chronic, with secondary volume overload and anemia, present on admission -anemia resolved hemoglobin 12.3/hematocrit 38.3 will hold patient's ferrous sulfate. Bicarb 33 -workup for evaluation for COPD, per GOLD guidelines -continue Lasix 40 mg q.day, potassium 10 mEq q.day, continue budesonide 0.5mg/2ml neb -respiratory consult in the morning, physical therapy and OT evaluation -patient continue CPAP usage -chest x-ray see results above -Diagnosed with anemia and volume overload and diuretics were added in mid May. With the addition of the diuretic, creatinine has increased from 0.99-1.5 for and her anemia has resolved. Will continue to monitor patient for fluid overload. 3. Atrial fibrillation, acute on chronic, present on admission -continue patient's apixaban 2.5 mg, and monitor patient's EKG for ST changes. -echo scheduled for tomorrow -EKG see results above -patient to continue on tele medicine -Diagnosed with anemia and volume overload and diuretics were added in mid May. With the addition of the diuretic, creatinine has increased from 0.99-1.5 for and her anemia has resolved. Will continue to monitor labs 4. Essential hypertension, chronic, well controlled, present on admission -Patient to continue the triamterene 75 mg/HCTZ 50 mg p.o. q.day -vital signs Q 4 hours 5. Major depression, chronic, stable, present on admission -patient denies depressive symptoms, or suicidal ideation at this time -patient to continue sertraline 100 mg once daily 6. Hypothyroidism, chronic, present on admission -TSH in the morning, after discussion with the patient and her son they are unsure why she is on thyroid medication has never been given a clear diagnosis for hypothyroidism will test TSH and determine if we will stop her levothyroxine 25 mcg per family's request. Will continue level thyroxine until such time. VTE prophylaxis: Patient is currently on apixaban, heparin is not recommended at this point. Code status: Full code Decision maker: Trung [employer] [id number]: Patient has completed Scores [facility] [place] coma scale eye opening: Spontaneous [place] coma scale verbal response: Orientated [place] coma scale motor response: Obey commands [place] coma scale total score: 15 CHADS-VASc Congestive heart failure: yes Hypertension: yes Age 75 years or older: yes Diabetes mellitus: no Vascular disease: yes Age 65 to 74 years: no Sex category (female): Female Cardiac Risk Index Revised Cardiac Risk Index (Ruben Criteria) [%]: 2.4 Wells' Criteria for PE Clinical signs and symptoms of DVT: No PE is #1 Dx or equally likely: No Heart rate > 100: No Immobilization at least 3 days or surg in previous 4 weeks: No History of PE or DVT: No Hemoptysis: No Malignancy w/Treatment within 6 months or palliative: No Wells' PE Score total: 0 Quality VTE Deep Vein Thrombosis/Pulmonary Embolism Present on Admission: No
[2020-06-23 05:48] LABS: Add Manual Diff / Slide Review NO; Basophils Absolute Auto 100 /uL (0-100); Eosinophils Absolute Auto 200 /uL (0-450); Eosinophils Percent Auto 3.7 % (2-4); Hematocrit 36.6 % (36-46); Hemoglobin 11.6 g/dL (12.0-16.0); Lymphocytes Absolute Auto 1300 /uL (1100-4500); Lymphocytes Percent Auto 24.1 % (25-40); Mean Corpuscular HGB Conc 31.8 % (30-36); Mean Corpuscular Hemoglobin 26.5 PG (26-34); Mean Corpuscular Volume 83.1 fL (80-100); Monocytes Absolute Auto 500 /uL (0-900); Monocytes Percent Auto 9.2 % (3-14); Neutrophils Absolute Auto 3400 /uL (1500-7000); Platelet Count 147 X10^3/uL (150-400); White Blood Cell Count 5.5 X10^3/uL (4.5-11.0)
[2020-06-23 05:53] LABS: D Dimer 208 ng/mL (<230)
[2020-06-23 05:55] LABS: Amylase 67 U/L (30-110); BUN Creatinine Ratio 39.5 (6-22); Blood Urea Nitrogen 45 mg/dL (7-17); Calcium 9.1 mg/dL (8.4-10.2); Carbon Dioxide 36 mmol/L (22-32); Chloride 99 mmol/L (98-107); Estimated Glomerular Filt Rate 45.4 mL/min (>60); Glucose 98 mg/dL (80-110); HEMOLYSIS < 15 (0-50); Magnesium 1.9 mg/dL (1.6-2.3); Potassium 3.4 mmol/L (3.4-5.1); Sodium 138 mmol/L (137-145)
[2020-06-23 06:05] LABS: Troponin I 0.013 ng/mL (0.01-0.034)
[2020-06-23 06:28] LABS: Anisocytosis 1+; Hypochromasia 1+; Microcytosis 1+
[2020-06-23] MEDS: BUDESONIDE 0.5 MG/2 ML NEB INH (07:50)
--- NOTE | 2020-06-23 08:09 | DI.ECHO.S_ITS ---
[place] +---------+ [facility] +---------+ : : [address] : : : : [id number] : : : : Phone: [phone] Echocardiogram Report + + :Name: NATACHA ZAMUDIO Study Date: 06/23/2020 Height: 61 in : :[facility] Weight: 200 lb : : Gender: Female BSA: 1.9 m2 : :: 1935 Age: 84 yrs BP: 125/47 mmHg: :Reason For Study: R/O ACS : :Ordering Physician: OTTONIEL, : :LES MURPHY Performed By: Radha Adair : :Referring: LES PERES : + + Interpretation Summary The left ventricle is mildly dilated. The ejection fraction is estimated to be 40-45%. Left ventricular function has slightly worsened compared to the previous exam. There is mild global hypokinesis of the left ventricle. The right ventricle is normal in size and function. There is severe biatrial enlargement. Procedure: A two-dimensional transthoracic echocardiogram with color flow and Doppler was performed in limited views only. The study quality was technically adequate. Comparison is made with the echocardiogram of 04/21/2020. The patient was in atrial fibrillation with controlled ventricular rate during the exam. Left Ventricle: The left ventricle is mildly dilated. The estimated left ventricular end diastolic volume is 125 ml. There is normal left ventricular wall thickness. The ejection fraction is estimated to be 40-45%. Left ventricular function has slightly worsened compared to the previous exam. There is mild global hypokinesis of the left ventricle. Right Ventricle: The right ventricle is normal in size and function. Atria: There is severe biatrial enlargement. Great Vessels: The IVC is of normal diameter and collapses greater than 50% with a sniff. This suggests a low right atrial pressure of 3 mm Hg. Pericardium/ Pleura There is no pericardial effusion. There is no pleural effusion. MMode/2D Measurements & Calculations LVIDd: 5.7 cm LA A2 area: 47.2 cm2 LVIDs: 4.3 cm LA A4 area: 33.8 cm2 FS: 24.3 % LA length (vol): 7.1 cm IVSd: 0.91 cm LA vol: 190.1 ml LVPWd: 1.0 cm LA vol index: 100.6 ml/m2 LV parrish. diameter/BSA (cm/m^2): 3.0 LV sys. diameter/BSA (cm/m^2): 2.3 RA long axis: 7.9 cm RVD1 (basal): 3.2 cm RA area: 36.3 cm2 TAPSE: 2.1 cm RA vol: 141.1 ml RA : 74.7 ml/m2 IVC diam: 1.4 cm Reading Physician:01:45 PM
[2020-06-23] MEDS: FUROSEMIDE 40 MG TABLET PO (09:43)
[2020-06-23] MEDS: POTASSIUM CHLORIDE 10 MEQ TAB PO (09:43)
[2020-06-23] MEDS: LOVASTATIN 20 MG TABLET PO (09:43)
[2020-06-23] MEDS: SERTRALINE 50 MG TABLET 100 MG PO (09:44)
[2020-06-23] MEDS: TRIAMTERENE/HCTZ 37.5/25 TABLET 1 CAP PO (09:44)
[2020-06-23] MEDS: LEVOTHYROXINE 25 MCG TABLET PO (09:44)
[2020-06-23] MEDS: APIXABAN 5 MG TABLET 2.5 MG PO (09:44)
--- NOTE | 2020-06-23 10:01 | PC.NURSE ---
Addendum entered by Diana Silveira R.N. 06/23/20 12:42: Pt back to [facility] via w/c for the second half of her test. Original Note: Patient to [facility] for stress test via wheelchair.
--- NOTE | 2020-06-23 11:37 | OT.IP.EVAL ---
Past Medical History (Last Updated 06/23/20 @ 04:50 by Juliana Denson [facility] Atrial fibrillation CHF (congestive heart failure), NYHA class III Essential hypertension Hypothyroidism Major depression Mixed hyperlipidemia Varicose vein of leg Volume overload Surgical History (Last Updated 06/23/20 @ 04:50 by [facility] H/O abdominal hysterectomy History of appendectomy History of cataract surgery History of lumbar surgery History of removal of ovarian cyst History of total bilateral knee replacement Occupational Therapy Inpatient Evaluation/Re-Eval M1 PT/OT-IP Prior Functional Status Start: 06/23/20 18:37 Freq: NEEDED Status: Active Protocol: Document 06/23/20 10:46 [facility] (Rec: 06/23/20 19:02 [facility] [id number]) Medical Review Prior Functional Status Medical History Reviewed Yes Communication WNL. Able to make needs known. Mobility and Gait Modified IND with use of 4WW for all mobility and amb at baseline. Activities of Daily Living and IADL's Pt able to do basic ADl's and her son has just started to assist for medication needs and to start assisting for pt's finances. Social History Household Members none Living Arrangements [facility] Facility Number of Floors (Floors) One Floor Number of Stairs To Enter/Railing? 0 ANAMIKA Home Environment Standard Height Toilet,Walk in Shower,Built-In Shower Seat Home Equipment Four Wheel Walker,Straight Cane,Grab Bars Near Toilet, Grab Bars In Shower Employment Status Unknown Additional Social History Comment Pt lives alone in [facility]. Pt moved here 3 months ago from [place]. Pt's son lives closeby who can assist if needed. M2 OT-IP Current Condition Start: 06/23/20 19:02 Freq: Status: Active Protocol: Document 06/23/20 10:46 [facility] (Rec: 06/23/20 19:02 [facility] [id number]) Occupational Therapy Current Condition Current Condition Evaluation Date 06/23/20 Treatment Diagnosis Angina possible CHF Diagnosis Onset Date 06/22/20 M3 OT- IP Subjective and Pain Start: 06/23/20 19:02 Freq: Status: Active Protocol: Document 06/23/20 10:46 [facility] (Rec: 06/23/20 19:02 [facility] [id number]) OT- Subjective Occupational Therapy Visit Type Type Initial Evaluation Visit Start Time 10:45 Visit Stop Time 11:37 Total Visit Minutes 52 Occupational Therapy Visit Comments Patient Comments Pt agreed to do OT eval, pt's son present in the room. Patient/Caregiver Goals TO go home. OT Pain Assessment Pain When Pain Assessed At Rest Pain Present Pain Present Denied Pain M4 OT- IP ADL's Start: 06/23/20 19:02 Freq: Status: Active Protocol: Document 06/23/20 10:46 [facility] (Rec: 06/23/20 19:02 [facility] [id number]) OT NOT-[id number] Comments OT Self-Feeding Comments Pt NPO due to waiting medical testing. OT ADL-Grooming General Evaluation Grooming Ability Standby Assistance Comments OT Grooming Comments VC to keep the 4WW close to her as walking off without it. OT ADL-Oral Care General Eval Oral Care Ability Independent OT ADL-Dressing General Eval Lower Body Dressing Ability Standby Assistance Comments OT Dressing Comments Pt able to do LB dressing with distant supervision. OT ADL-Toileting General Evaluation Toileting Ability Standby Assistance Comments OT Toileting Comments Pt able to do all toileting needs with distant supervision. OT ADL-Bathing Comments OT Bathing Comments NOt performed as pt too tired. M5 OT- IP IADL's Start: 06/23/20 19:02 Freq: Status: Active Protocol: Document 06/23/20 10:46 [facility] (Rec: 06/23/20 19:02 [facility] [id number]) OT-Instrumental Activities of Daily Living Home Safety Awareness Awareness of Need for Assistance at Home Decreased Awareness Ability to Problem Solve Emergency Able to Problem Solve Situations Medication Management Medication Management Comments Pt's son states to start assisting pt with medications, as he has seen that at times she forgets to take her medications Money Management Money Management Comments Pt's son states will now take over her finances. Meal Preparation Meal Preparation Caregiver Provides Assist Fabrication Technician Fabrication Technician Caregiver Provides Assist Driving Driving Concerns Identified Regarding Safety M6 OT- IP Functional Cognition Start: 06/23/20 19:02 Freq: Status: Active Protocol: Document 06/23/20 10:46 [facility] (Rec: 06/23/20 19:02 [facility] [id number]) Cognitive Factors Limiting Selfcare Function Cognitive Ability Level of Alertness Alert Patient Orientation Name,Year,Day of Week,Place Attention Span Ability Capable of Focused Attention, Capable of Sustained Attention Ability to Follow Commands Able to Follow One Step Commands Memory Description Short Term Impaired,Working Impaired Safety Awareness Underestimates Need for Assistance Problem Solving Ability Unable to Identify Errors, Needs Assist to Identify Solutions Executive Function Ability Unable to Filter Distractions, Unable to Remember Details Cognitive Tests SLUMS Pt scored 20/30 which normal score for pt's level of education is 25/30. 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 Pt only able to recall 9 animals in one minute, able to recall 4/5 objects after time passed, not able to recall 4 digit number backwards, not able to draw the number on the clock correctly or draw in the hour hands correctly after time given, and able to answer 2/4 questions right after time passed. Cognitive Comments Cognitive Assessment Comments Pt not recalling to lock the brakes of the 4WW, in addition pointed out to her son the the brakes are not locking properly. Pt also during the session forgot her 4WW. Pt able to say that she uses her 4WW at all times however at times forget to use it, therefore would be a fall risk . Able to give pt and son information regarding factors that influences falls. M7 OT- IP Mobility and Balance Start: 06/23/20 19:02 Freq: Status: Active Protocol: Document 06/23/20 10:46 [facility] (Rec: 06/23/20 19:02 [facility] [id number]) OT- Bed Mobility Assessment Rolling Type of Rolling Roll to Left Level of Assistance Standby Assistance Supine to Sit Supine to Sit Assist Standby Assistance Sit to Supine Sit to Supine Assist Standby Assistance,Bedrails OT-Transfer Assessment Sit to and From Stand Sit to and from Stand Standby Assistance,Contact Guard Assistance,1 Person Assistance Transfers Transfer Ability Standby Assistance,Contact Guard Assistance Technique Transfer Destination Bed,Chair,Toilet Transfer Technique Stand Step Pivot Devices Transfer Assistive Devices None,Gait Belt,4 Wheeled Walker Comments Mobility Comments Pt would benefit from a bed rail for bed mobility needs and pt's son states good understanding. Pt mainly SBA to distant SBA with use of 4WW however at time pt forgetting to use 4WW is CGA for balance as unsteady on her feet. OT- Balance Assessment Sitting Balance and Reactions Static Sitting Balance Ability Good Dynamic Sitting Balance Ability Fair Standing Balance and Reactions Static Standing Balance Ability Fair M8 OT- IP Objective Assessments Start: 06/23/20 19:02 Freq: Status: Active Protocol: Document 06/23/20 10:46 [facility] (Rec: 06/23/20 19:02 [facility] [id number]) OT Gross Range of Motion Upper Extremity Range of Motion ROM Impairments grossly WFL OT Strength Comments Strength Comments 4/5 for BUE OT-Muscle Tone Assessment Muscle Tone WNL Yes M9 OT- IP Assessment and Plan Start: 06/23/20 19:03 Freq: Status: Active Protocol: Document 06/23/20 10:46 [facility] (Rec: 06/23/20 19:02 [facility] [id number]) OT Summary Assessment and Plan Potential Rehabilitation Potential Good Analytic Complexity at Evaluation Low Summary OT Impairments Functional Cognition, Functional Mobility,Bathing, Shower Transfers,Activity Tolerance Progress Towards Goals Progressing Toward Goals Assessment Summary Pt low complexity and main barriers are decreased functional cognition especially with short term memory, decreased dynamic balance especially when she forgets to use her 4WW, and now needing her son to take over doing her medications and finances. Per pt feels that she is baseline with her needs. Ot recommending pt has increased assist especially for IADl needs and would benefit from more assist at home or even go to facility with higher care. Pt's son aware or pt's needs and states to provide with more assist for her. Pt currently has a Life Alert and ability to call for assist at her independent facility. Pt would benefit from home health to help facilitate ways to help with her memory. Goals Grooming Goal Independent Dressing Goal Independent Toileting Goal Independent Bathing Goal Independent Toilet Transfer Goal Independent Shower Transfer Goal Independent Patient/Caregiver Education Goal Caregiver Independent Assisting Patient Days to Meet Goals 3 Frequency of Treatment Frequency Of Treatment Once a Day Treatment Plan OT Treatment Plan ADL Training,Functional Cognition Training,Functional Mobility,Patient/Family Education,Discharge Planning Other Treatment Recommendations and Next shower if still here Treatment Focus Discharge Recommendations Pt would benefit from bed rail OT Discharge Recommendations Home with Assistance,Home Health Transportation Needs at Discharge Private Vehicle
--- NOTE | 2020-06-23 13:04 | CM.DANOTE ---
Patient is an 84 year old female who was admitted on 06/22/20 for SOB, Shoulder Pain. Pt has [facility] for insurance and her PCP is Dr. Vargas Riley. EMR was reviewed. Per MD, pt with coronary artery, Angina at baseline likely with possible CHF. Echo, EKG, and stress test ordered to determine POC needs. PT/OT ordered and pending. SW met bedside with pt and very pleasant son/DPDRISS Eubanks and explained role and they confirm that pt recently moved to [place] from [place] and lives at [facility] and was thriving and independent with ADL's. Son also lives in [place] nearby and was deemed Essential Visitor for the pt as he checks pt's bp daily and provides meds daily to the pt otherwise she is active and independent. Pt is not currently established with a Hand Tile Maker but is agreeable with referral if needed. Pt has been utilizing outpt PT with [facility] at [facility] weekly and was at her appt when she was sent to ED to be evaluated yesterday due to back pain, bp issues, and sweaty. Son very involved and helpful in coordinating any care and aware that pt may be able to d/c home soon pending PT/OT and stress test or if further cardiology issues arise she may need to be transferred. Discharge needs unclear at this time. Plan: SW to follow closely for PT/OT eval and recommendations and Stress test results to determine if she is safe for d/c back to [facility] via son POV and any further identified needs. VICENTE Estevez Discharge Planning/Care Management CM Discharge Assessment Start: 06/23/20 13:01 Freq: Status: Active Protocol: Document 06/23/20 13:02 (Rec: 06/23/20 13:04 [id number]) Discharge Planning Assessment Assigned Chair Finisher VICENTE Carmen/Assigned Designee Name son Raimundo Pwoer Contact Information [phone] Advance Directives? No Advance Directives on File No History Provided By Patient,Medical Record Has Patient been admitted in last 30 No days? Prior Living Arrangements Residential Facility Comment [facility] Independent Household Members none Type of transporation used prior to Relies on Others admit Facility Name Admitted From: [facility] [address] Willing to Return to Facility? Yes Independent with ADL's Yes Is patient alert and oriented? Yes Needs Assistance With Managing Medications,Home Chores / Shopping Caregiver for Another No Community Services used prior to Physical Therapy admission: Comment was established with PT [facility] PT Patient/Family Preference Home with Home Health Barriers to Discharge No Discharge Plan Home with Home Health Community Services Physical Therapy,Home Health Nurse Transportation Arrangement Son bedside and lives local and can provide transport Additional Comment Pending PT/OT eval and recommendations and Stress Test results Whiteboard Updated in Patient Room with Yes name and ext. # of Chair Finisher Review Status In Process Please Provide Date Initial DC 06/23/20 Assessment Was Performed Next Review Type Continued Stay Review
--- NOTE | 2020-06-23 15:37 | PT.IIE ---
Surgical History (Last Updated 06/23/20 @ 04:50 by [facility]) H/O abdominal hysterectomy History of appendectomy History of cataract surgery History of lumbar surgery History of removal of ovarian cyst History of total bilateral knee replacement Medical History (Last Updated 06/23/20 @ 04:50 [facility] Atrial fibrillation CHF (congestive heart failure), NYHA class III Essential hypertension Hypothyroidism Major depression Mixed hyperlipidemia Varicose vein of leg Volume overload Physical Therapy Inpatient Evaluation/Re-Eval M1 PT/OT-IP Prior Functional Status Start: 06/23/20 08:31 Freq: NEEDED Status: Active Protocol: Document 06/23/20 15:37 [facility] (Rec: 06/23/20 17:14 [facility] [id number]) Medical Review Prior Functional Status Medical History Reviewed Yes Communication WNL. Able to make needs known. Mobility and Gait Modified IND with use of 4WW for all mobility and amb at baseline. Activities of Daily Living and IADL's IND for basic ADLs but needs asisstance for other ADLs. Social History Household Members none Living Arrangements [facility] Facility Number of Floors (Floors) One Floor Number of Stairs To Enter/Railing? 0 ANAMIKA Home Environment Standard Height Toilet,Walk in Shower,Built-In Shower Seat Home Equipment Four Wheel Walker,Straight Cane,Grab Bars Near Toilet, Grab Bars In Shower Employment Status Unknown Additional Social History Comment Pt lives alone in [facility]. Pt moved here 3 months ago from [place]. Pt's son lives closeby who can assist if needed. M2 PT-IP Current Condition Start: 06/23/20 08:31 Freq: NEEDED Status: Active Protocol: Document 06/23/20 15:37 [facility] (Rec: 06/23/20 17:10 [facility] [id number]) Physical Therapy Current Condition Current Condition Evaluation Date 06/23/20 Treatment Diagnosis Angina, sweating, difficulty breathing; Decreased activity tolerance Onset Date 06/22/20 Weight Bearing Status Weight Bearing Status Full Weight Bearing M3 PT-IP Subjective Start: 06/23/20 08:31 Freq: NEEDED Status: Active Protocol: Document 06/23/20 15:37 [facility] (Rec: 06/23/20 17:10 [facility] [id number]) Subjective Physical Therapy Visit Type Type Initial Evaluation Visit Start Time 15:14 Visit Stop Time 15:37 Total Visit Minutes 23 Notes SPT Jose led session under direct supervision of PT Blanco. Number of TEST RACK OPERATOR Visits 0 Physical Therapy Visit Comments Patient Comments Pt is agreeable to do PT. M4 PT-IP Mobility and Gait Start: 06/23/20 08:31 Freq: NEEDED Status: Active Protocol: Document 06/23/20 15:37 [facility] (Rec: 06/23/20 17:10 [facility] [id number]) PT-Bed Mobility Assessment Supine to Sit Supine to Sit Minimal Assistance,1 Person Assistance Sit to Supine Sit to Supine Standby Assistance PT-Transfer Assessment Sit to and From Stand Sit to and from Stand Contact Guard Assistance,Use of Upper Extremities Equipment Transfer Assistive Device Gait Belt,4 Wheeled Walker Orthotic/Prosthetic Devices or Brace: No Transfers Transfer Destination Bed,Chair Transfer Technique Amb with 4WW Transfer Ability Level of Assist Contact Guard Assistance,Use of Upper Extremities Comments Mobility Comments Pt was sitting in chair upon arrival. Pt completed sit to stand with 4WW, B armrests, and CGA. Pt then amb ~210 ft with 4WW and CGA. Pt demonstrated step-through gait pattern with decreased step length and decreased feet clearance. Pt c/o fatigue towards the end of the amb. HR maintained in the 60s and 70s and SPO2 maintained in the 90s throughout amb. Pt sat down on L EOB 4WW CGA. Pt completed sit to supine and scooted to the R side with SBA . Pt required 1P min ELECTRICAL AND RADIO MOCK UP MECHANIC for supine to sit at EOB. Pt then stood up, amb ~2 ft, and sat down on chair with CGA FWW. Pt was reclined comfortably in chair. Call light placed within reach. Gait Assessment Gait Gait Assistance Required: Contact Guard Assist Distance (Feet) 210 Assistive Devices Assistive Device Gait Belt,4 Wheeled Walker Orthotic/Prosthetic Devices or Brace: No Gait Deviations General Gait Pattern Decreased Stride Length, Decreased Feet Clearance Factors Limiting Gait Function Factors Limiting Gait Function Decreased Activity Tolerance, Decreased Strength,Poor Balance,Respiratory Distress Comments Gait Comments See mobility comments. Stair Climbing Assessment Comments Stair Climbing Comments Not assessed. PT-Balance Assessment Sitting Balance and Reactions Static Sitting Balance Ability Normal Dynamic Sitting Balance Ability Normal Standing Balance and Reactions Static Standing Balance Ability Good Dynamic Standing Balance Ability Good M5 PT-IP Objective Assessments Start: 06/23/20 08:31 Freq: NEEDED Status: Active Protocol: Document 06/23/20 15:37 [facility] (Rec: 06/23/20 17:10 [facility] [id number]) Orientation Orientation/Cognition Level of Alertness Alert Orientation Name,Age,Birthday,Month,Date, Year,Day of Week,Place, Situation Language Function Ability No Deficits Noted Safety Awareness Understands Safety Issues Memory Description Short Term Impaired Comments Pt is alert but slightly confused. Per OT's assessment, pt scored 20/30 on SLUMS. Gross Range of Motion Lower Extremity ROM Assessment Within Functional Limits Strength Lower Extremity Strength Assessment Within Functional Limits Coordination Assessment Gross Coordination Gross Coordination WNL Muscle Tone Muscle Tone WNL Yes M6 PT-IP Treatment Start: 06/23/20 08:31 Freq: NEEDED Status: Active Protocol: Document 06/23/20 15:37 [facility] (Rec: 06/23/20 17:10 [facility] [id number]) Physical Therapy Treatment Education Education Provided Safety M7 PT-IP Assessment and Plan Start: 06/23/20 08:31 Freq: NEEDED Status: Active Protocol: Document 06/23/20 15:37 [facility] (Rec: 06/23/20 17:10 [facility] [id number]) PT Summary Assessment and Plan Potential Rehabilitation Potential Good Status of Condition at Evaluation Evolving Summary Impairments Pain,ROM,Strength,Balance, Cognition,Bed Mobility, Transfers,Gait,Activity Tolerance Assessment Summary Liana is a 84 yo female who was admitted to the hospital for angina, sweating, and difficulty breathing. At baseline, pt is modified IND with use of 4WW for all mobility and amb. On evaluation, pt requires CGA- SBA for sit to supine, sit <> supine, and amb and requires 1P min ELECTRICAL AND RADIO MOCK UP MECHANIC for supine to sit. Pt amb ~210 ft with 4WW CGA. Pt c/o fatigue towards the end of amb. PT anticipates pt will be safe to d/c home once medically cleared. Pt will benefit from outpatient or HH PT to improve her endurance and balance. Goals Bed Mobility Goal Independent Transfer Goal Independent,Four Wheeled Walker Gait Goal Independent,Four Wheel Walker Gait Distance 300 Days to Meet Goals 3 Frequency of Treatment Frequency Of Treatment Once a Day Treatment Plan Physical Therapy Treatment Plan Bed Mobility Training,Transfer Training,Gait Training, Therapeutic Exercise,Balance Retraining,Post Op Education, Discharge Planning,Hot or Cold Pack,Neuromuscular Re-ed Other Recommendations and Next Treatment check vital signs Focus cont mobility as tolerated Recommendations To Nursing Amount of Assist Needed 1 Person Assist Discharge Recommendations PT Discharge Recommendations Home with Assistance,Home Health,Outpatient PT Transportation Needs at Discharge Private Vehicle This session was led by SPT Jose Rachel and supervised by me PT Gregg Patricio. I personally reviewed and approved this eval noted as well.
[2020-06-23] MEDS: BISACODYL 5 MG TABLET 10 MG PO (15:47)
--- NOTE | 2020-06-23 17:25 | P.DS_ITS ---
History of Present Illness History of Present Illness Date Patient Seen: 06/23/20 Time Patient Seen: 17:25 Chief complaint: HARD TIME BREATHING SWEATING SHOULDER PAIN Narrative: As per GRABIEL Dewitt: This is a aissatou 84-year-old woman Liana Power who presented to the ER with increased anginal pain, focused between her shoulder blades. Yesterday while doing some simple activities around her house she had some chest pain between her shoulder blades, mild diaphoresis and mild dyspnea that did yevgeniy with rest. This morning she woke up and was more fatigued and short of breath than usual. At 11:00 a.m. she had a particularly severe episode while she was going to the bathroom with pain so severe between the shoulder blades that she had difficulty pulling her pants back. Again, with rest it resolved. She went to a previously scheduled physical therapy appointment (neck pain after a mild fall in number of months ago) and while at physical therapy had pain between her shoulder blades recurrent, diaphoretic, increasing shortness of breath pain up the left side of her neck. Patient has a history of atrial fibrillation for which she is on apixaban, coronary disease with stenting 2009, hypertension, hyperlipidemia, congestive heart failure, major depression, hypothyroidism, anemia. 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 Patients mother and a sist er who are both and had heart attacks in their 50s. Once resting on the stretcher in the emergency department she was again pain-free. Patient is resting comfortably in her bed, she is unable to recall when this pain started exactly and is momentarily a poor historian her son notes that wh ile she has only been living with him for the past 3 months he has noted some memory issues and difficulty finding words while conversing with each other. Patient denies any chest pain shortness of breath at this time, denies any previous change in vision weakness difficulty with speech swallowing balance or coordination. She she does note increased fatigue level for the past week, and her son agrees. Patient's son denies any neurological deficits since she has come to live with him. Discharge Providers Provider Date of admission: 06/22/20 18:24 Discharge Date: 06/23/20 Primary care physician: Vargas Riley MD Consults: 06/22/20 20:35 Consult to Discharge Planning Routine Comment: Consult to Occupational Therapy Evaluate & Treat Comment: Physician Instructions: Evaluate and treat Consult to Physical Therapy Evaluate & Treat Comment: Physician Instructions: Evaluate and Treat 06/23/20 05:39 Consult to Respiratory Therapy Evaluate & Treat Comment: CHF exacerbation poss COPD Physician Instructions: Evaluate and treat Discharge provider: Jagdeep Aj DO Summary Hospital Course Discharge Diagnosis: Please see hospital course by problem list noted below Hospital Course: This is an 84-year-old female with past medical history of ch ronic atrial fibrillation, CAD, Patient was admitted progressive exertional angina. Her troponins remained unremarkable. Initially she had some T-wave inversions that then resolved in the emergency department. Cardiology recommended stress testing for further evaluation which was deemed not indic ative of ischemia. Echocardiogram with limited views showed a mild decrease in her ejection fraction to 40-45%. Her symptoms had improved at the time of discharge after light diuresis. She was discharged, and recommend follow-up with her primary care provider as soon as possible for referral to Cardiology. 1. Coronary artery disease with exertional angina, acute on chronic, present on admission, improved -EKG AFib at a rate of [address] depression in leads to AVF and V4 through V6 which improved in the ER. Troponins unremarkable. -stress testing performed per cardiology recommendations, results deemed not indicative of ischemia. -continue medical management with primary care provider, including statin. She is on eliquis for afib. 2. Congestive heart failure, borderline diastolic, acute on chronic, present on admission -consider outpatient PFT for further evaluation. -EF previously normal, limited TTE now 40-45%, borderline systolic failure, may be related to limited evaluation. -consider repeat echo after continued medical therapy. -recommend outpatient evaluation by cardiology. -patient was given light diuresis with slight improvement in symptoms. Continue outpatient furosemide. 3. Atrial fibrillation, acute on chronic, present on admission -continue patient's apixaban 2.5 mg 4. Essential hypertension, chronic, well controlled, present on admission -Patient to continue the triamterene 75 mg/HCTZ 50 mg p.o. q.day, consider cessation of HCTZ while on furosemide as well. 5. Major depression, chronic, stable, present on admission -patient denies depressive symptoms, or suicidal ideation at this time -patient to continue sertraline 100 mg once daily 6. Hypothyroidism, chronic, present on admission - continue home levothyroxine. Exam Vital Signs (past 8 hours): - 06/23/20 11:31 06/23/20 15:38 06/23/20 16:42 Temperature 97.6 F 97.6 F Pulse Rate 60 74 Respiratory Rate 20 18 Blood Pressure 135/71 129/98 H Pulse Oximetry 96 94 94 Oxygen Delivery Method Room Air Oxygen Flow Rate 0 Narrative Exam Narrative: General: Well-developed, well nourished, female who appears stated age, in no acute distress. HEENT: Normocephalic atraumatic, extraocular muscles intact, normal sclera with reactive pupils, mildly hard of hearing, and missing her dentures. Neck: Supple symmetric trachea midline, no thyroid enlargement, no nontender, no masses, No JVD Respiratory: Lungs in all ortiz are clear to auscultation, no wheezing no rales no rhonchi. Full and symmetrical air movement Cardiac: Irregularly irregular rhythm with normal rate, no murmurs, rubs, or gallops. Abdomen: Soft, nontender hyperactive bowel sounds in all 4 quadrants, no guarding or rebound, negative for organomegaly, or masses no CVA tenderness. Skin: Warm and dry, intact without ulcerations, petechiae, or rashes Neurologic: Grossly neurologically intact with no obvious asymmetries or abnormalities Extremities: No cyanosis, clubbing, or edema noted on exam, full range of motion intact and radial and pedal pulses normal. Psych: Cooperative, appropriate insight and affect Objective Labs Result Diagrams: 06/23/20 05:35 06/23/20 05:35 Labs: Laboratory Results - last 24 hr 06/22/20 06/22/20 06/22/20 16:40 17:10 21:00 WBC RBC Hgb Hct MCV MCH MCHC RDW Plt Count Neut % (Auto) Lymph % (Auto) [place] % (Auto) Eos % (Auto) Baso % (Auto) Neut # (Auto) Lymph # (Auto) [place] # (Auto) Eos # (Auto) Baso # (Auto) RBC Morphology See below Hypochromasia Poikilocytosis 1+ H Anisocytosis 1+ H Microcytosis Ovalocytes 1+ H D-Dimer Sodium Potassium Chloride Carbon Dioxide BUN Creatinine Estimated GFR BUN/Creatinine Ratio Glucose Calcium Magnesium Troponin I < 0.012 NT-Pro-B Natriuret Pep Amylase COVID-19 PCR Negative 06/22/20 06/23/20 06/23/20 21:00 05:35 05:35 WBC 5.5 RBC 4.40 Hgb 11.6 L Hct 36.6 MCV 83.1 MCH 26.5 MCHC 31.8 RDW 23.0 H Plt Count 147 L Neut % (Auto) 62.0 Lymph % (Auto) 24.1 L [place] % (Auto) 9.2 Eos % (Auto) 3.7 Baso % (Auto) 1.0 Neut # (Auto) 3400 Lymph # (Auto) 1300 [place] # (Auto) 500 Eos # (Auto) 200 Baso # (Auto) 100 RBC Morphology See below Hypochromasia 1+ H Poikilocytosis Anisocytosis 1+ H Microcytosis 1+ H Ovalocytes D-Dimer 208 Sodium Potassium Chloride Carbon Dioxide BUN Creatinine Estimated GFR BUN/Creatinine Ratio Glucose Calcium Magnesium Troponin I NT-Pro-B Natriuret Pep 1970 H Amylase COVID-19 PCR 06/23/20 05:35 WBC RBC Hgb Hct MCV MCH MCHC RDW Plt Count Neut % (Auto) Lymph % (Auto) [place] % (Auto) Eos % (Auto) Baso % (Auto) Neut # (Auto) Lymph # (Auto) [place] # (Auto) Eos # (Auto) Baso # (Auto) RBC Morphology Hypochromasia Poikilocytosis Anisocytosis Microcytosis Ovalocytes D-Dimer Sodium 138 Potassium 3.4 Chloride 99 Carbon Dioxide 36 H BUN 45 H Creatinine 1.14 H Estimated GFR 45.4 L BUN/Creatinine Ratio 39.5 H Glucose 98 Calcium 9.1 Magnesium 1.9 Troponin I 0.013 NT-Pro-B Natriuret Pep Amylase 67 COVID-19 PCR PFSH Medical History (Updated 06/23/20 @ 04:50 by JACQUELINE Dewitt) Atrial fibrillation CHF (congestive heart failure), NYHA class III Essential hypertension Hypothyroidism Major depression Mixed hyperlipidemia Varicose vein of leg Volume overload Surgical History (Updated 06/23/20 @ 04:50 by JACQUELINE Dewitt) H/O abdominal hysterectomy History of appendectomy History of cataract surgery History of lumbar surgery History of removal of ovarian cyst History of total bilateral knee replacement Family History (Updated 06/23/20 @ 04:51 by Juliana Denson [facility]) Sister Cancer Heart attack Brother Cancer Mother Heart attack Social History household members: none Smoking Status: Former smoker alcohol intake: never Discharge Plan Discharge Plan Patient Disposition: Home Provider Discharge Comment: You were admitted to the hospital with back pain, possible atypical heart pain. You had a stress test which was deemed low risk. Please follow up with Dr. Riley for a referral to cardiology, try and see him next week sometime to check on your symptoms. No medication changes are recommended. Your blood pressure has been okay here. Discharge orders & Medications Prescriptions: Continued furosemide 40 mg tablet 40 mg PO QAM Qty: 30 RF: 1 potassium chloride 10 mEq tablet extended release 10 meq PO DAILY Qty: 30 RF: 1 ferrous sulfate 325 mg (65 mg iron) tablet 325 mg PO Q OTHER DAY Qty: 45 RF: 1 levothyroxine 25 mcg tablet 25 mcg PO DAILY Qty: 90 RF: 3 lovastatin 20 mg tablet 20 mg PO DAILY Qty: 90 RF: 3 sertraline 100 mg tablet 100 mg PO DAILY Qty: 90 RF: 3 triamterene-hydrochlorothiazid 75-50 mg tablet 1 tab PO DAILY Qty: 90 RF: 3 budesonide 0.5 mg/2 mL suspension for nebulization 0.5 mg irrigation DAILY Qty: 180 RF: 3 naltrexone 50 mg tablet 50 mg PO DAILY Qty: 30 RF: 0 diclofenac sodium 1 % gel 2 gram TOP QID RF: 0 Eliquis 2.5 mg Tablet 2.5 mg PO BID RF: 0 oxybutynin chloride 5 mg Tablet 5 mg PO DAILY RF: 0 Follow up/Referrals: Vargas Riley MD [Primary Care Provider] - 1 Week Diet/Activity/Treatments Diet: Diet as Tolerated Activity: As tolerated Visit Report/Discharge Packet Instructions: Heart-Healthy Diet, DI for Atrial Fibrillation, DI for Atypical Chest Pain, Heart Healthy Physical Activity Discharge Data Primary Care Provider: Vargas Riley Attending Provider: Jagdeep Aj VTE Deep Vein Thrombosis/Pulmonary Embolism Present on Admission: No
--- NOTE | 2020-06-23 18:37 | DI.NM.S_ITS ---
DATE OF SERVICE: 06/23/2020 PROCEDURE PERFORMED: Pharmacologic vasodilator stress and rest myocardial perfusion imaging with gating to assess ejection fraction and regional wall motion. ORDERING PROVIDER: Dr. Jagdeep Aj. INDICATIONS: The patient is an 84-year-old female with a history of DE and stenting who presents with interscapular back and chest discomfort. CARDIAC STRESS: 0.4 mg of regadenoson was infused per protocol, augmented with hand sales expert home theater exercise. With this, she had no chest discomfort. Her resting ECG shows atrial fibrillation with occasional PVCs, at times, in a bigeminal pattern. With stress, there were no significant ST-segment shifts. Per protocol, 27.3 millicuries of technetium-99m Myoview was injected and she was imaged 20 minutes later using a gated SPECT acquisition protocol. Earlier in the day while at rest, she had been injected with 12.2 millicuries technetium- 99m Myoview and was imaged 30 minutes later, again using a gated SPECT protocol. FINDINGS: 1. Raw data: There is fair myocardial tracer uptake although the resting images are of somewhat poor quality. There are no prone images to assess for attenuation artifact. Significant breast attenuation artifact is clearly evident. Lung/heart ratio is at the upper limits of normal at 0.40, and the TID ratio was normal at 1.09. 2. Quantitated gated SPECT: Post-stress ejection fraction is estimated at 49% with mild global hypokinesis, possibly somewhat worse in the anterior wall, but no other obvious focal wall motion abnormality. Resting ejection fraction is 53%. The left ventricular volumes are moderately increased with a resting end- diastolic volume of 183 mL. 3. The post-stress supine images show a mild perfusion defect in the mid and distal anterior wall, extending into the anterolateral wall distally. There are no prone images to assess for breast attenuation artifact. The resting images show a similar perfusion pattern without any clear areas of significant improvement. CONCLUSIONS: 1. Abnormal myocardial perfusion study. 2. Mild, fixed mid to distal anterior and anterolateral perfusion defect, likely representing previous myocardial infarction although breast attenuation artifact cannot be entirely excluded. There is no compelling evidence for any significant myocardial ischemia. 3. Mildly reduced left ventricular systolic function with moderately increased left ventricular volumes. 4. No chest discomfort or ECG changes with pharmacologic vasodilator stress. Liana Power - EDMUNDO/mirela/saji doc#: [id number]/job#: [id number] dd: 06/23/2020 16:51:00 dt: 06/23/2020 18:25:00 DICTATING MD/COPIES TO: Rah Mello MD; Jagdeep Aj M.D. COPIES MNE: MERCEDEZ;
--- NOTE | 2020-06-23 18:50 | PC.NURSE ---
Patient was discharge in stable condition. VSS. escorted out to personal vehicle where son was waiting. Patient belongings were taken by son prior to d/c. Patient was able to ambulate to vehicle without difficulty. IV and Tele was removed, compression drg. was placed over IV site as patient was bleeding even after pressure was placed.
== END 2020-06-23 18:52 | disposition home or self-care (01) ==
LOC: ED 18:12 → AC 18:25
PROVIDERS: Nurse Practitioner Family; Admitting Provider Internal Medicine; Emergency Provider Emergency Medicine; PCP Student in an Organized Health Care Education/Training Program; Visit Provider Internal Medicine
DX: I25.119 Atherosclerotic heart disease of native coronary artery with unspecified angina pectoris (principal); R07.9 Chest pain, unspecified; I48.91 Unspecified atrial fibrillation; I10 Essential (primary) hypertension; I50.9 Heart failure, unspecified; E03.9 Hypothyroidism, unspecified; E78.5 Hyperlipidemia, unspecified; F32.9 Major depressive disorder, single episode, unspecified; Z01.812 Encounter for preprocedural laboratory examination; Z20.828 Contact with and (suspected) exposure to other viral communicable diseases
CPT/HCPCS: 36415; 71045; 78452; 80048; 80053; 82150; 82550; 83690; 83735; 83880; 84484; 85025; 85379; 85610; 85730; 87635; 93005; 93010; 93017; 93307; 94640; 94760; 97161; 97165; 97530; 99283; 99284; G0378; A9502; J2785

== ENCOUNTER → 2020-07-01 10:35 | Outpatient (CLI) | payer OTHER, SELFPAY ==
[2020-06-22 21:17] VITALS: BMI 37.8
[2020-07-01 11:48] LABS: Appearance Urine UA CLEAR; Bilirubin Urine UA NEGATIVE (NEGATIVE); Color Urine UA YELLOW; Glucose Urine UA NEGATIVE (Negative); Ketones Urine UA NEGATIVE (NEGATIVE); Leukocyte Esterase Urine UA TRACE (NEGATIVE); Nitrite Urine UA NEGATIVE (Negative); Occult Blood Urine UA TRACE-INTACT (Negative); Protein Urine UA NEGATIVE (Negative); Specific Gravity Urine UA 1.015 (1.000-1.035); Urobilinogen Urine UA 0.2 E.U./dL (0.2)
[2020-07-01 11:59] LABS: Amorphous Sediment Urine 1+; Bacteria Urine Few (2-10); Culture Indicated Urine Cult Not Indicated; Hyaline Casts Urine 0-1/LPF; RBC Urine 0-1/HPF (0-5/HPF); Squamous Epithelial Cell Urine 5-10 /HPF (0-5/HPF); WBC Urine 5-10/HPF (0-5/HPF)
== END ==
PROVIDERS: PCP Student in an Organized Health Care Education/Training Program; Referring Provider Student in an Organized Health Care Education/Training Program; Visit Provider Student in an Organized Health Care Education/Training Program
DX: R30.0 Dysuria (principal)
CPT/HCPCS: 81001

== ENCOUNTER → 2020-07-22 13:23 | Outpatient (CLI) | payer MEDICARE, SELFPAY ==
[2020-06-22 21:17] VITALS: BMI 37.8
[2020-07-22 14:04] LABS: Appearance Urine UA CLEAR; Bilirubin Urine UA NEGATIVE (NEGATIVE); Color Urine UA YELLOW; Glucose Urine UA NEGATIVE (Negative); Ketones Urine UA NEGATIVE (NEGATIVE); Leukocyte Esterase Urine UA 1+ (NEGATIVE); Nitrite Urine UA NEGATIVE (Negative); Occult Blood Urine UA 1+ (Negative); Protein Urine UA NEGATIVE (Negative); Urobilinogen Urine UA 0.2 E.U./dL (0.2)
[2020-07-22 14:20] LABS: Bacteria Urine Occasional (0-1); Culture Indicated Urine Specimen Cultured; RBC Urine 0-1/HPF (0-5/HPF); Squamous Epithelial Cell Urine 1-5 /HPF (0-5/HPF); WBC Urine 1-5/HPF (0-5/HPF)
== END ==
PROVIDERS: PCP Student in an Organized Health Care Education/Training Program; Referring Provider Student in an Organized Health Care Education/Training Program; Visit Provider Student in an Organized Health Care Education/Training Program
DX: R30.0 Dysuria (principal)
CPT/HCPCS: 81001; 87077; 87086; 87147; 87186

== ENCOUNTER → 2020-08-10 14:48 | Outpatient (CLI) | payer MEDICARE, SELFPAY ==
[2020-06-22 21:17] VITALS: BMI 37.8
[2020-08-10 18:34] LABS: Appearance Urine UA CLEAR; Bilirubin Urine UA NEGATIVE (NEGATIVE); Color Urine UA YELLOW; Glucose Urine UA NEGATIVE (Negative); Ketones Urine UA NEGATIVE (NEGATIVE); Leukocyte Esterase Urine UA TRACE (NEGATIVE); Nitrite Urine UA NEGATIVE (Negative); Occult Blood Urine UA 1+ (Negative); Protein Urine UA NEGATIVE (Negative); Urobilinogen Urine UA 0.2 E.U./dL (0.2)
[2020-08-10 19:05] LABS: Bacteria Urine Occasional (0-1); Culture Indicated Urine Specimen Cultured; RBC Urine 0-1/HPF (0-5/HPF); Squamous Epithelial Cell Urine 1-5 /HPF (0-5/HPF); WBC Urine 1-5/HPF (0-5/HPF)
== END ==
PROVIDERS: PCP Student in an Organized Health Care Education/Training Program; Referring Provider Student in an Organized Health Care Education/Training Program; Visit Provider Student in an Organized Health Care Education/Training Program
DX: R30.0 Dysuria (principal)
CPT/HCPCS: 81001; 87086

== ENCOUNTER → 2020-09-02 15:04 | Outpatient (CLI) | payer MEDICARE, SELFPAY ==
[2020-09-01 16:36] VITALS: BMI 37.8
== END ==
PROVIDERS: PCP Student in an Organized Health Care Education/Training Program; Visit Provider Specialist
DX: N39.0 Urinary tract infection, site not specified (principal); N95.2 Postmenopausal atrophic vaginitis; Z87.440 Personal history of urinary (tract) infections
CPT/HCPCS: 81002; 87077; 87086; 87147; 87186; 99214

== ENCOUNTER 2020-09-08 14:30 | Outpatient (RCR) | payer MEDICARE, OTHER, SELFPAY ==
--- NOTE | 2020-04-28 15:15 | PT.OPPOC ---
Physical, Occupational & Speech Therapy At [facility] Current Diagnoses Stiffness of other specified joint, not elsewhere classified (04/28/20) Cervicalgia (04/28/20) Muscle weakness (generalized) (04/28/20) Other muscle spasm (04/28/20) Abnormal posture (04/28/20) Visit Care Team Role Provider Type Vargas Riley MD Attending Provider Physician Primary Care Provider Referring Provider Specialty: Internal Medicine Address: [address] [place] [address], [address], [facility] Email: [email or web address] Plan Of Care PT-OP-T Assessment and Plan Start: 04/29/20 09:20 Freq: Status: Active Protocol: Document 04/28/20 15:15 DLM (Rec: 04/30/20 15:29 DLM [email or web address]) Physical Therapy Assessment Rehab Potential Rehabilitation Potential Good Evaluation Complexity Number of Personal Factors/Comorbidities 3 or More Number of Body Systems Impaired 4 or More Clinical Presentation at Evaluation Evolving Impairments Impairments Activity Tolerance,Functional Activities,Functional Mobility ,Pain,Posture,ROM,Soft Tissue Mobility,Strength Other Concerns Fall Risk yes Goals Three Impairment Decreased cervical strength Short Term Goal (STG) pt will be able to hold head up to eat STG Duration 4 weeks Skilled Nursing Goal (LTG) pt will be able to hold head up to look ahead for functional gait for at least 200 feet with 4WW LTG Duration 12 weeks Two Impairment Cervical pain, 7/10 constant Short Term Goal (STG) Decrease her cervical pain to intermittent STG Duration 4 weeks Skilled Nursing Goal (LTG) Decrease her cervical pain to 3/10 intermittent to improve functional use of neck. LTG Duration 12 weeks One Impairment Decreased cervical AROM Short Term Goal (STG) Pt will be able to lift head to look straight ahead STG Duration 4 weeks Skilled Nursing Goal (LTG) Pt will increase her neck AROM to at least 50% from upright position to allow for functional looking and motion LTG Duration 12 weeks Assessment Summary Assessment Liana presents with severe cervical impairments that limit the functional use of her neck. Her x-ray report shows ligamental laxity at C4- 5 and moderaly severe DDD C5-6 . Her greatest pain at this time is in the soft tissue surrounding the neck with significant tightness. She reports intermittent itching in her arms but no clear pain at this time. She is a good candidate for physical therapy to address her impairments. Anticipate we will have to progress her ROM slowly since I suspect it has been in this severely flexed and right sidebent position since at least September of 2019. Any improvement in her neck AROM will have a positive impact on her ability to eat/swallow and look where she is ambulating. Physical Therapy Plan Frequency and Duration Frequency of Treatment 2x/Week Duration of Treatment 12 weeks Plan of Care Start Date 04/28/20 Plan of Care End Date 07/29/20 Therapeutic Interventions Therapeutic Interventions Home Exercise Program,Joint Mobilizations,Manual Therapy, Patient/Caregiver Education, Self-Care/Home Management,Soft Tissue Mobilization,Taping, Therapeutic Activities, Therapeutic Exercises Modalities Cold Pack/Ice Massage,Electric Stimulation,Hot Packs, Ultrasound Other Therapeutic Interventions Clarify pt allergies before doing any taping Next Visit Focus/Plan Next Note Type Treatment Note Next Visit Plan Submitted for insurance auth for treatment, begin manual therapy and gentle exercises, consider US Plan of Care Dates Plan of Care Start Date 04/28/20 Plan of Care End Date 07/29/20 Electronically Signed by: Angi Harding, PT 04/30/20 5042 Please Sign and Return: I have reviewed this Plan of Care and certify that the skilled therapy services above are required to meet the patient?s needs. Physician Signature Date Printed Name and Credentials
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
--- NOTE | 2020-06-22 16:26 | PT-OP ANOTE ---
Pt attended todays session and immediately reported pain between her shoulder blades. After attempting to use the recumbent elliptical, she noted she was very short of breath, and started sweating severely. Blood pressure was measured at 180/100. Therapist decided to take patient up to ED for testing. Pt's son was contacted and informed.
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
--- NOTE | 2020-07-22 14:20 | PT-OP ANOTE ---
Pt cancelled today's appt due to sore from covid vaccine and not feeling well.
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
--- NOTE | 2020-07-27 14:41 | PT.OPPOC ---
Physical, Occupational & Speech Therapy At [facility] Current Diagnoses Stiffness of other specified joint, not elsewhere classified (07/27/20) Cervicalgia (07/27/20) Muscle weakness (generalized) (07/27/20) Other muscle spasm (07/27/20) Abnormal posture (07/27/20) Visit Care Team Role Provider Type Vargas Riley MD Attending Provider Physician Primary Care Provider Referring Provider Specialty: Internal Medicine Address: [address] [place] [address], [address], [facility] Email: [email or web address] Plan Of Care PT-OP-T Assessment and Plan Start: 04/29/20 09:20 Freq: Status: Active Protocol: Document 07/27/20 13:47 DCW (Rec: 07/27/20 14:40 DCW [id number]) Physical Therapy Assessment Impairments Impairments Activity Tolerance,Functional Activities,Functional Mobility ,Pain,Posture,ROM,Soft Tissue Mobility,Strength Goals Three Impairment Decreased cervical strength Short Term Goal (STG) pt will be able to hold head up to eat STG Duration Met Longterm Goal (LTG) pt will be able to hold head up to look ahead for functional gait for at least 200 feet with 4WW LTG Duration 08/27/20 Two Impairment Cervical pain, 7/10 constant Short Term Goal (STG) Decrease her cervical pain to intermittent STG Duration Met Secondary Special Education Teacher Goal (LTG) Decrease her cervical pain to 3/10 intermittent to improve functional use of neck. LTG Duration 08/27/20 One Impairment Decreased cervical AROM Short Term Goal (STG) Pt will be able to lift head to look straight ahead STG Duration Met Longterm Goal (LTG) Pt will increase her neck AROM to at least 50% from upright position to allow for functional looking and motion LTG Duration 08/27/20 Assessment Summary Assessment Pt making great improvement. Able to hold head in neutral position during ambulation, showing minimal, if any, lateral flexion. Pt slightly stillforward flexed, still limited cervical extension. Continued therapy likely beneficial for improving ROM, posture, and strength. Physical Therapy Plan Frequency and Duration Frequency of Treatment 2x/Week Duration of Treatment 8 weeks Plan of Care Start Date 07/27/20 Plan of Care End Date 09/21/20 Therapeutic Interventions Therapeutic Interventions Home Exercise Program,Joint Mobilizations,Manual Therapy, Patient/Caregiver Education, Self-Care/Home Management,Soft Tissue Mobilization,Taping, Therapeutic Activities, Therapeutic Exercises Modalities Cold Pack/Ice Massage,Electric Stimulation,Hot Packs, Ultrasound Other Therapeutic Interventions Clarify pt allergies before doing any taping Next Visit Focus/Plan Next Note Type Treatment Note Next Visit Plan Assess wall posture added to HEP and added standing ther ex and walk with trekk poles in PT only. Continue CS extension seated with ball/rolled towel behind head and TB HEP in sitting unsupported, manual therapy, and progress to gait activities focusing on spinal extension-possibly try overhead reaching activities to work balance and promote CS extension. Plan of Care Dates Plan of Care Start Date 07/27/20 Plan of Care End Date 09/21/20 Electronically Signed by: Roosevelt Law, PT 07/27/20 [id number] Please Sign and Return: I have reviewed this Plan of Care and certify that the skilled therapy services above are required to meet the patient?s needs. Physician Signature Date Printed Name and Credentials Clinical Instructor Signature Printed Name and Credentials
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
== END 2020-11-12 10:01 | disposition home or self-care (01) ==
LOC: PHYS 14:30
PROVIDERS: PCP Student in an Organized Health Care Education/Training Program; Referring Provider Student in an Organized Health Care Education/Training Program; Visit Provider Student in an Organized Health Care Education/Training Program
DX: M62.838 Other muscle spasm (principal); M54.2 Cervicalgia; R29.3 Abnormal posture; M62.81 Muscle weakness (generalized); M25.69 Stiffness of other specified joint, not elsewhere classified
CPT/HCPCS: 97110; 97116; 97140; 97162

== ENCOUNTER 2020-09-29 14:30 | Outpatient (RCR) | payer MEDICARE, SELFPAY ==
[2020-09-02 15:51] VITALS: BMI 37.8
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
--- NOTE | 2020-09-21 15:40 | PT.OPPOC ---
Physical, Occupational & Speech Therapy At [facility] Current Diagnoses Benign paroxysmal vertigo, unspecified ear (09/21/20) Benign paroxysmal vertigo, right ear (09/21/20) Dizziness and giddiness (09/21/20) Visit Care Team Role Provider Type Vargas Riley MD Attending Provider Physician Family Provider Primary Care Provider Referring Provider Specialty: Internal Medicine Address: [address] [place] [address], [address], [address] Email: [email or web address] Plan Of Care PT-OP-T Assessment and Plan Start: 09/21/20 15:23 Freq: Status: Active Protocol: Document 09/21/20 13:45 DCW (Rec: 09/21/20 15:40 DCW [id number]) Physical Therapy Assessment Rehab Potential Rehabilitation Potential Good Evaluation Complexity Number of Personal Factors/Comorbidities 1-2 Number of Body Systems Impaired 1-2 Clinical Presentation at Evaluation Unstable Goals Two Impairment Positive right Noelle-Hallpike Nursing Home Goal (LTG) Negative positional testing bilaterally LTG Duration 10/22/20 One Impairment Pt reports inability to lie down due to dizziness Nursing Home Goal (LTG) Pt to report no dizziness with bed mobility for two weeks LTG Duration 10/22/20 Assessment Summary Assessment During right [place]-Hallpike test , pt complained of vertigo and demonstrated up-beating, torsional nystagmus lasting approximately 15 seconds, consistent with diagnosis of right-sided posterior canal BPPV, canalithiasis-type. Pt was treated with a right-sided modified Mily maneuver. Pt very fatigued after one treatment, and was unwilling to undergo further testing or treatment at today's session, preferring instead to leave it for next visit. Pt was educated on BPPV, expectations for treatment, possible recurrence (BPPV has a ~50% recurrence rate in the five years following treatment), and post-Mily restrictions. Pt to return in ~1 week for a follow-up appointment, and intermittently afterward as indicated for treatment of BPPV. Physical Therapy Plan Frequency and Duration Frequency of Treatment 1-2x/week Duration of Treatment 6 weeks Plan of Care Start Date 09/21/20 Plan of Care End Date 11/02/20 Therapeutic Interventions Therapeutic Interventions Balance Training,Canalithic Repositioning,Manual Therapy, Neuromuscular Re-education, Therapeutic Exercises, Vestibular Rehabilitation Next Visit Focus/Plan Next Note Type Treatment Note Next Visit Plan Positional testing, CRM as indicated Plan of Care Dates Plan of Care Start Date 09/21/20 Plan of Care End Date 11/02/20 Electronically Signed by: Roosevelt Law, PT 09/21/20 [id number] Please Sign and Return: I have reviewed this Plan of Care and certify that the skilled therapy services above are required to meet the patient?s needs. Physician Signature Date Printed Name and Credentials Clinical Instructor Signature Printed Name and Credentials
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
== END 2020-10-01 08:56 | disposition home or self-care (01) ==
LOC: PHYS 14:30
PROVIDERS: Family Provider Student in an Organized Health Care Education/Training Program; PCP Student in an Organized Health Care Education/Training Program; Referring Provider Student in an Organized Health Care Education/Training Program; Visit Provider Student in an Organized Health Care Education/Training Program
DX: H81.10 Benign paroxysmal vertigo, unspecified ear (principal); H81.11 Benign paroxysmal vertigo, right ear
CPT/HCPCS: 95992; 97140; 97161

== ENCOUNTER → 2020-10-08 09:29 | Outpatient (CLI) | payer MEDICARE, SELFPAY ==
[2020-09-02 15:51] VITALS: BMI 37.8
[2020-10-08 10:05] LABS: Hematocrit 39.9 % (36-46); Hemoglobin 12.8 g/dL (12.0-16.0); Mean Corpuscular Hemoglobin 29.5 PG (26-34); Mean Corpuscular Volume 92.2 fL (80-100); Platelet Count 154 X10^3/uL (150-400); Red Blood Cell Count 4.33 X10^6/uL (4.0-5.2); Red Cell Distribution Width 16.3 % (11.6-14.8); White Blood Cell Count 4.8 X10^3/uL (4.5-11.0)
[2020-10-08 10:29] LABS: BUN Creatinine Ratio 35.3 (6-22); Blood Urea Nitrogen 41 mg/dL (7-17); Calcium 9.6 mg/dL (8.4-10.2); Carbon Dioxide 31 mmol/L (22-32); Chloride 101 mmol/L (98-107); Estimated Glomerular Filt Rate 44.5 mL/min (>60); Glucose 104 mg/dL (80-110); HEMOLYSIS < 15 (0-50); Potassium 3.9 mmol/L (3.4-5.1); Sodium 142 mmol/L (137-145)
[2020-10-10 13:07] LABS: HEMOLYSIS < 15 (0-50); Iron 72 ug/dL (37-170)
[2020-10-10 13:23] LABS: Percent Iron Saturation 19 % (15-50); Total Iron Binding Capacity 385 ug/dL (265-497); Transferrin 295 mg/dL (206-381)
== END ==
PROVIDERS: Family Provider Student in an Organized Health Care Education/Training Program; PCP Student in an Organized Health Care Education/Training Program; Referring Provider Student in an Organized Health Care Education/Training Program; Visit Provider Student in an Organized Health Care Education/Training Program
DX: D50.9 Iron deficiency anemia, unspecified (principal); E87.70 Fluid overload, unspecified; I10 Essential (primary) hypertension; Z79.899 Other long term (current) drug therapy
CPT/HCPCS: 36415; 80048; 83540; 83550; 85027

== ENCOUNTER → 2020-12-01 14:44 | Outpatient (CLI) | payer MEDICARE, SELFPAY ==
[2020-09-02 15:51] VITALS: BMI 37.8
[2020-12-01 15:39] LABS: BUN Creatinine Ratio 30.6 (6-22); Blood Urea Nitrogen 34 mg/dL (7-17); Calcium 9.7 mg/dL (8.4-10.2); Carbon Dioxide 31 mmol/L (22-32); Chloride 100 mmol/L (98-107); Estimated Glomerular Filt Rate 46.8 mL/min (>60); Glucose 113 mg/dL (80-110); HEMOLYSIS < 15 (0-50); Potassium 3.7 mmol/L (3.4-5.1); Sodium 142 mmol/L (137-145)
== END ==
PROVIDERS: Family Provider Student in an Organized Health Care Education/Training Program; PCP Student in an Organized Health Care Education/Training Program; Referring Provider Specialist; Visit Provider Specialist
DX: N39.0 Urinary tract infection, site not specified (principal)
CPT/HCPCS: 36415; 80048

== ENCOUNTER → 2020-12-07 12:00 | Outpatient (CLI) | payer MEDICARE, SELFPAY ==
[2020-09-02 15:51] VITALS: BMI 37.8
--- NOTE | 2020-12-07 12:02 | DI.CT.S_ITS ---
PROCEDURE: CT ABDOMEN PELVIS WO/W CON INDICATIONS: Frequent UTI TECHNIQUE: Optional 5 mm thick noncontrast images acquired from the diaphragm to the symphysis pubis. After the administration of intravenous contrast, 5 mm thick images acquired from the diaphragm to the symphysis pubis after a 10-minute delay. 2 mm thick coronal and sagittal reformats were then performed of the kidneys and ureters. For radiation dose reduction, the following was used: automated exposure control, adjustment of mA and/or kV according to patient size. COMPARISON: None. FINDINGS: Image quality: Excellent. Lung bases: Lung bases are clear. Four-chamber cardiomegaly. Severe coronary artery calcifications. Urinary system: Both kidneys are normal in size, without hydronephrosis or nephrolithiasis on pre-contrast images. No perinephric fat stranding. There is normal bilateral renal enhancement. Renal calyces appear normal in morphology when filled with contrast. Incidental 5 cm exophytic left upper pole renal cyst. Opacified portions of both ureters demonstrate normal caliber. Bladder wall thickness is normal. No calcified bladder stones. Other solid organs: Liver is normal in size and enhancement. Gallbladder is unremarkable . Biliary system is non dilated. Pancreas enhances normally. Spleen is normal in size and enhancement. No adrenal nodules. Peritoneum and bowel: Bowel loops demonstrate normal wall thickness and caliber. No free fluid or air. Advanced sigmoid diverticulosis and diffuse colonic diverticulosis. No evidence of diverticulitis. Nodes and vessels: No retroperitoneal or mesenteric adenopathy by size criteria. Moderate abdominal aortic aneurysm measuring 3.4 x 3.7 cm. Abdominal wall: Small periumbilical hernia containing fat. Pelvis: No pathologic free pelvic fluid. Small bilateral inguinal hernias containing fat. No inguinal adenopathy. Remote hysterectomy. Bones: No suspicious bony lesions. No acute vertebral body compression fractures. Remote right hemilaminectomy and right rosibel and pedicle screw fixation at L4-L5. Probable residual canal stenosis. Severe canal stenosis at L3-L4 and probably moderate canal stenosis at L2-L3. IMPRESSION: 1. No evidence of renal stones, ureteral stones, hydronephrosis, or malignancy. 2. Advanced coronary artery CT atherosclerotic calcifications, four-chamber cardiomegaly. 3. 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 4. Advanced diverticulosis without evidence of diverticulitis. 5. Moderate aortic aneurysm. 6. Bilateral small fat containing inguinal hernias. Dictated by: Aldo Ray M.D. on 12/07/2020 at 13:35 Approved by: Aldo Ray M.D. on 12/07/2020 at 13:42
== END ==
PROVIDERS: Family Provider Student in an Organized Health Care Education/Training Program; PCP Student in an Organized Health Care Education/Training Program; Referring Provider Specialist; Visit Provider Specialist
DX: N39.0 Urinary tract infection, site not specified (principal); Z87.440 Personal history of urinary (tract) infections; K57.90 Diverticulosis of intestine, part unspecified, without perforation or abscess without bleeding; I71.9 Aortic aneurysm of unspecified site, without rupture; K40.00 Bilateral inguinal hernia, with obstruction, without gangrene, not specified as recurrent
CPT/HCPCS: 74178; Q9967

== ENCOUNTER 2021-01-04 13:00 | Outpatient (RCR) | payer MEDICARE, SELFPAY ==
[2020-09-02 15:51] VITALS: BMI 37.8
--- NOTE | 2020-11-08 17:08 | PT.OIE ---
Current Diagnoses Other specific arthropathies, not elsewhere classified, right shoulder (11/08/20) Past Medical History (Last Updated 09/03/20 @ 14:06 by John Connell MD) Arthritis Atrial fibrillation Chest pain CHF (congestive heart failure), NYHA class III Chronic UTI COPD (chronic obstructive pulmonary disease) Coronary stent patent Depression Essential hypertension High blood pressure History of UTI Hypercholesteremia Hypothyroidism Inflammatory bowel disease Major depression Mixed hyperlipidemia Obstructive sleep apnea Osteoarthritis Osteoporosis Postmenopausal atrophic vaginitis UTI (urinary tract infection) Varicose vein of leg Volume overload Past Surgical History (Last Reviewed 09/03/20 @ 14:02 by John Connell MD) H/O abdominal hysterectomy H/O cystoscopy H/O vaginal hysterectomy History of appendectomy History of bladder suspension procedure History of cataract surgery History of lumbar surgery History of removal of ovarian cyst History of total bilateral knee replacement Previous back surgery Total knee replacement status Visit Care Team Role Provider Type Vargas Riley MD Attending Provider Physician Family Provider Primary Care Provider Referring Provider Specialty: Internal Medicine Address: [address] [place] [address], [address], [facility] Email: [email or web address] Physical Therapy Initial Evaluation PT-OP-A Visit Information Start: 11/08/20 12:46 Freq: Status: Active Protocol: Document 11/08/20 09:45 HH (Rec: 11/08/20 12:54 [email or web address]) Out-Patient Physical Therapy Visit Information Visit Information Visit Type Initial Evaluation Visit Note son Raimundo attended session Visit Start Time 09:45 Visit Stop Time 10:30 Total Visit Minutes 45 Visit Number 07/27 Number of V[employer] CREWMEMBER Visits 0 Evaluation Information Evaluation Date 11/08/20 Precautions Precautions Osteopororsis bruise easily depression COPD, A-fib PT-OP-B Current Condition Start: 11/08/20 12:46 Freq: Status: Active Protocol: Document 11/08/20 09:45 HH (Rec: 11/08/20 12:54 [email or web address]) Current Condition History of Current Condition Onset Date years ago but getting worse since 2months ago Current Complaints severe R shoulder pain, decreased in shoulder mobility and strength History of Current Condition Liana is a 84 yo female here with her son today at the clinic for her worsening R shoulder pain. She stated her shoulder does have limited mobility prior but has gotten a lot more painful 7/10 since 2 months ago. Her pain has been affecting her sleep every night even though she sleeps on her back. she also has significant difficulty kelli/ doff bra, jacket and reach over >80 degrees flexion/ abduction. Son Raimundo has to have her with dressing sometimes. Denies tingling/ numbness sensation. Pt recently had a course of PT here for her R sided neck pain and she said it helped her a lot. Pt's cervical x-ray has shown laxity at c4-5 and severe DDD C5-6. Pt uses 4WW with a significant FHP and thoracic kyphosis at baseline. Treatment Goals Patient/Caregiver Goals 1. to regain shoulder mobility and strength 2. to be able to kelli/doff clothes with minimal pain Current Functional Impairments (Reported) Functional Limitations- ADL's unable to reach overhead/ behind her back to kelli/doff jacket, shirts/ bra. Son often needs to assist Functional Limitations- Mobility/Gait uses 4WW at all time Functional Limitations- Other unable to reach overhead unable to maintain good quality of sleep at night d/t severe pain. PT-OP-C Subjective Start: 11/08/20 12:46 Freq: Status: Active Protocol: Document 11/08/20 09:45 (Rec: 11/08/20 17:08 [email or web address]) Patient Questionnaires Quick Dash- Upper Extremity Quick Dash UE Score 70.45 Quick Dash UE Impairment 60 to 79% Impaired (Score 60- 79) PT-OP-E Functional Tests Start: 11/08/20 12:46 Freq: Status: Active Protocol: Document 11/08/20 09:45 HH (Rec: 11/08/20 17:08 [email or web address]) Functional Tests Apley's Scratch Test Action 1- Left to AC joint Action 1- Right unable to reach opposite shoulder Action 2- Left CT junction Action 2- Right R hand up to R ear Action 3- Left T10 Action 3- Right R lateral buttock PT-OP-F Manual Assessment Start: 11/08/20 12:46 Freq: Status: Active Protocol: Document 11/08/20 09:45 HH (Rec: 11/08/20 17:08 [email or web address]) Manual Assessments Soft Tissue Assessment Soft Tissue Mobility Assessment significant hypertonicity at R Pecs, Long bicep tendon and infraspinatus moderate tonicity at supraspinatus and teresminor. Joint Mobility Assessment Joint Mobility Assessment significant muscle guarding noted with PROM on R. Unable to assess joint end feeling. PT-OP-G Mobility & Gait Start: 11/08/20 12:46 Freq: Status: Active Protocol: Document 11/08/20 09:45 HH (Rec: 11/08/20 17:08 [email or web address]) OP Gait Assessment Assistive Devices Assistive Device 4 Wheeled Walker Gait Deviations General Gait Pattern Decreased Stride Length, Decreased Feet Clearance, Flexed Trunk Factors Limiting Gait Function Factors Limiting Gait Function Decreased Activity Tolerance, Decreased Strength,Limited Range of Motion,Pain,Poor Balance,Respiratory Distress PT-OP-J Posture/Palpation/Skin Start: 11/08/20 12:46 Freq: Status: Active Protocol: Document 11/08/20 09:45 HH (Rec: 11/08/20 17:08 [email or web address]) Posture Evaluation Position Standing Head/C-Spine Posture Forward Head T-Spine Posture Increased Kyphosis Shoulder Posture (L) Rounded,(R) Rounded,(R) Forward PT-OP-K Range of Motion Start: 11/08/20 12:46 Freq: Status: Active Protocol: Document 11/08/20 09:45 HH (Rec: 11/08/20 17:08 [email or web address]) Cervical Spine Range of Motion Cervical Spine Active Degrees Testing Position Sitting Flexion 60 Extension 28 Rotation Left 45 Rotation Right 35 Lateral Flexion Left 20 Lateral Flexion Right 20 ROM Limitations Soft Tissue Tightness,Muscle Weakness,Pain Comments pain on R side > L at end range for all ROM Shoulder Goniometric Range of Motion Shoulder Right Passive Shoulder ROM WFL No Testing Position Sitting Flexion 80 Abduction 70 Left Active Shoulder ROM WFL Yes Testing Position Sitting Flexion 115 Abduction 125 External Rotation at 90 degrees 70 Abduction Internal Rotation 80 Right Active Shoulder ROM WFL No Testing Position Sitting Flexion 45 Abduction 40 Comments unable to reach external rotation and internal rotation d/t significant pain severe pain for all ROM pt shows contralateral trunk lean to compensate for R shoulder abd and trunk extension for shoulder flexion . PT-OP-L Special Tests Start: 11/08/20 12:46 Freq: Status: Active Protocol: Document 11/08/20 09:45 HH (Rec: 11/08/20 17:08 [email or web address]) Special Tests Shoulder Special Tests Drop Arm Rotator Cuff Test Results +ve R Comments lift off til 40 degrees but unable to hold trunk compensation noted. AC Joint Compression Test Results severe pain on RUE Other Special Tests Special Tests unable to perform special test d/t significant R shoulder pain for all mobility. PT-OP-Q Treatments Start: 11/08/20 12:46 Freq: Status: Active Protocol: Document 11/08/20 09:45 HH (Rec: 11/08/20 17:08 [email or web address]) Manual Therapy Treatment Soft Tissue Mobilization RTC Body Location R Mobilization Type Sustained Pressure,Trigger Point Release Intensity/Depth Superficial Body Position Hooklying Comments infrapsinatus pecs Body Location R Mobilization Type Sustained Pressure,Trigger Point Release Intensity/Depth Superficial Body Position Hooklying Comments significant pain pec minor and insertion of pec major. bicep tendon Body Location R Mobilization Type Sustained Pressure,Trigger Point Release Intensity/Depth Superficial Body Position Hooklying Comments @ long head tendon Self-Care/Home Management Treatment Education Patient Education Home Exercise Program,Pain Management,Posture,Safety Caregiver Education educated son Raimundo to acquire overhead lauren for future ROM ex at home for patient. PT-OP-T Assessment and Plan Start: 11/08/20 12:46 Freq: Status: Active Protocol: Document 11/08/20 09:45 (Rec: 11/08/20 17:08 [email or web address]) Physical Therapy Assessment Rehab Potential Rehabilitation Potential Fair Evaluation Complexity Number of Personal Factors/Comorbidities 3 or More Number of Body Systems Impaired 4 or More Clinical Presentation at Evaluation Stable Impairments Impairments Activity Tolerance,Balance, Functional Activities, Functional Mobility,Gait,Pain, Posture,ROM,Soft Tissue Mobility,Strength,Tone, Transfers Goals pain Impairment pt has severe pain which wakes her up every night Short Term Goal (STG) pt will have less pain in a daily basis so she can maintain her sleep 3 times/ week without being waken up STG Duration 6 weeks Usp Goal (LTG) pt will have less pain in a daily basis so she can maintain her sleep 5 times/ week without being waken up LTG Duration 12 weeks ROM Impairment pt has very limited shoulder ROM Short Term Goal (STG) pt will show improvements in all planes of R shoulder ROM by 15 degrees so she can kelli /doff shirts/ bra and jacket without increase pain. STG Duration 6 weeks Liquor Inspector Goal (LTG) pt will show improvements in all planes of R shoulder ROM by 30degrees so she can kelli / doff shirts/ bra and jacket without any trunk compensation and increase in pain LTG Duration 12 weeks quickdash Impairment pt scores 70.45 Short Term Goal (STG) pt will score <60 on Quickdash to improve her overall quality of life with less pain . STG Duration 6 weeks Usp Goal (LTG) pt will score <45 on Quickdash to improve her overall quality of life with less pain . LTG Duration 12 weeks Assessment Summary Assessment Liana is a 84 yo fragile female her for her new onset of R severe shoulder pain 01/15 started 2 months ago without known injury. Upon assessment, pt shows signs of frozen shoulder who has very limited AROM (flexion =45, abd= 40) and PROM (80 & 90 degrees). D/ t pt severe pain with any movements, this makes accurate assessment difficulty such as special test, strength and ROM testings. Pt did feel some relief with manual therapy on musculature at R shoulder. Pt will benefit to attempt a course of skilled therapy to reduce her pain sensitivity initially, in order to improve her overall R shoulder ROM, strength and activity tolerance. However, I expect this is possibly a long rehab d/t her cormobidities and overall mobility. Physical Therapy Plan Frequency and Duration Frequency of Treatment 2x/Week Duration of Treatment 12 [email or web address] Plan of Care Start Date 11/08/20 Plan of Care End Date 02/06/21 Therapeutic Interventions Therapeutic Interventions Aquatic Therapy,Balance Training,Gait Training,Home Exercise Program,Joint Mobilizations,Neuromuscular Re -education,Orthotic/Prosthetic Management,Patient/Caregiver Education,Self-Care/Home Management,Soft Tissue Mobilization,Taping, Therapeutic Activities, Therapeutic Exercises Modalities Biofeedback,Cold Pack/Ice Massage,Electric Stimulation, Hot Packs,Infrared Therapy, Iontophoresis,Paraffin Bath, Traction- Mechanical, Ultrasound Next Visit Focus/Plan Next Note Type Treatment Note Next Visit Plan start with manual on RTC, pecs , PROM joint mob lauren if possible.
--- NOTE | 2020-11-08 17:08 | PT.OPPOC ---
Physical, Occupational & Speech Therapy At [facility] Current Diagnoses Other specific arthropathies, not elsewhere classified, right shoulder (11/08/20) Visit Care Team Role Provider Type Vargas Riley MD Attending Provider Physician Family Provider Primary Care Provider Referring Provider Specialty: Internal Medicine Address: [address] [place] [address], [address], [facility] Email: [email or web address] Plan Of Care PT-OP-T Assessment and Plan Start: 11/08/20 12:46 Freq: Status: Active Protocol: Document 11/08/20 09:45 (Rec: 11/08/20 17:08 [email or web address]) Physical Therapy Assessment Rehab Potential Rehabilitation Potential Fair Evaluation Complexity Number of Personal Factors/Comorbidities 3 or More Number of Body Systems Impaired 4 or More Clinical Presentation at Evaluation Stable Impairments Impairments Activity Tolerance,Balance, Functional Activities, Functional Mobility,Gait,Pain, Posture,ROM,Soft Tissue Mobility,Strength,Tone, Transfers Goals pain Impairment pt has severe pain which wakes her up every night Short Term Goal (STG) pt will have less pain in a daily basis so she can maintain her sleep 3 times/ week without being waken up STG Duration 6 weeks Group Home Goal (LTG) pt will have less pain in a daily basis so she can maintain her sleep 5 times/ week without being waken up LTG Duration 12 weeks ROM Impairment pt has very limited shoulder ROM Short Term Goal (STG) pt will show improvements in all planes of R shoulder ROM by 15 degrees so she can kelli /doff shirts/ bra and jacket without increase pain. STG Duration 6 weeks [employer] Intelligence Officer Chief Goal (LTG) pt will show improvements in all planes of R shoulder ROM by 30degrees so she can kelli / doff shirts/ bra and jacket without any trunk compensation and increase in pain LTG Duration 12 weeks quickdash Impairment pt scores 70.45 Short Term Goal (STG) pt will score <60 on Quickdash to improve her overall quality of life with less pain . STG Duration 6 weeks Group Home Goal (LTG) pt will score <45 on Quickdash to improve her overall quality of life with less pain . LTG Duration 12 weeks Assessment Summary Assessment Liana is a 84 yo fragile female her for her new onset of R severe shoulder pain 01/15 started 2 months ago without known injury. Upon assessment, pt shows signs of frozen shoulder who has very limited AROM (flexion =45, abd= 40) and PROM (80 & 90 degrees). D/ t pt severe pain with any movements, this makes accurate assessment difficulty such as special test, strength and ROM testings. Pt did feel some relief with manual therapy on musculature at R shoulder. Pt will benefit to attempt a course of skilled therapy to reduce her pain sensitivity initially, in order to improve her overall R shoulder ROM, strength and activity tolerance. However, I expect this is possibly a long rehab d/t her cormobidities and overall mobility. Physical Therapy Plan Frequency and Duration Frequency of Treatment 2x/Week Duration of Treatment 12 [email or web address] Plan of Care Start Date 11/08/20 Plan of Care End Date 02/06/21 Therapeutic Interventions Therapeutic Interventions Aquatic Therapy,Balance Training,Gait Training,Home Exercise Program,Joint Mobilizations,Neuromuscular Re -education,Orthotic/Prosthetic Management,Patient/Caregiver Education,Self-Care/Home Management,Soft Tissue Mobilization,Taping, Therapeutic Activities, Therapeutic Exercises Modalities Biofeedback,Cold Pack/Ice Massage,Electric Stimulation, Hot Packs,Infrared Therapy, Iontophoresis,Paraffin Bath, Traction- Mechanical, Ultrasound Next Visit Focus/Plan Next Note Type Treatment Note Next Visit Plan start with manual on RTC, pecs , PROM joint mob lauren if possible. Plan of Care Dates Plan of Care Start Date 11/08/20 Plan of Care End Date 02/06/21 Electronically Signed by: Gregg Patricio PT 11/08/20 [id number] Please Sign and Return: I have reviewed this Plan of Care and certify that the skilled therapy services above are required to meet the patient?s needs. Physician Signature Date Printed Name and Credentials Clinical Instructor Signature Printed Name and Credentials
--- NOTE | 2020-11-12 11:14 | PT.OTN ---
Current Diagnoses Other specific arthropathies, not elsewhere classified, right shoulder (11/12/20) Physical Therapy Treatment Note PT-OP-A Visit Information Start: 11/08/20 12:46 Freq: Status: Active Protocol: Document 11/12/20 10:32 HH (Rec: 11/12/20 11:14 HH [id number]) Out-Patient Physical Therapy Visit Information Visit Information Visit Type Treatment Note Visit Start Time 10:32 Visit Stop Time 11:15 Total Visit Minutes 43 Visit Number 08/27 Number of BINDER CUTTER HAND Visits 0 PT-OP-B Current Condition Start: 11/08/20 12:46 Freq: Status: Active Protocol: Document 11/08/20 09:45 HH (Rec: 11/08/20 12:54 HH [email or web address]) Current Condition History of Current Condition Onset Date years ago but getting worse since 2months ago Current Complaints severe R shoulder pain, decreased in shoulder mobility and strength History of Current Condition Liana is a 84 yo female here with her son today at the clinic for her worsening R shoulder pain. She stated her shoulder does have limited mobility prior but has gotten a lot more painful 7/10 since 2 months ago. Her pain has been affecting her sleep every night even though she sleeps on her back. she also has significant difficulty kelli/ doff bra, jacket and reach over >80 degrees flexion/ abduction. Son Raimundo has to have her with dressing sometimes. Denies tingling/ numbness sensation. Pt recently had a course of PT here for her R sided neck pain and she said it helped her a lot. Pt's cervical x-ray has shown laxity at c4-5 and severe DDD C5-6. Pt uses 4WW with a significant FHP and thoracic kyphosis at baseline. Treatment Goals Patient/Caregiver Goals 1. to regain shoulder mobility and strength 2. to be able to kelli/doff clothes with minimal pain Current Functional Impairments (Reported) Functional Limitations- ADL's unable to reach overhead/ behind her back to kelli/doff jacket, shirts/ bra. Son often needs to assist Functional Limitations- Mobility/Gait uses 4WW at all time Functional Limitations- Other unable to reach overhead unable to maintain good quality of sleep at night d/t severe pain. PT-OP-C Subjective Start: 11/08/20 12:46 Freq: Status: Active Protocol: Document 11/12/20 10:32 HH (Rec: 11/12/20 11:14 HH [id number]) OP-PT Subjective Patient Comments Patient Comments i think my pain was a little less at night yesterday. Patient Reported Progress Improving PT-OP-E Functional Tests Start: 11/08/20 12:46 Freq: Status: Active Protocol: Document 11/08/20 09:45 HH (Rec: 11/08/20 17:08 [email or web address]) Functional Tests Apley's Scratch Test Action 1- Left to AC joint Action 1- Right unable to reach opposite shoulder Action 2- Left CT junction Action 2- Right R hand up to R ear Action 3- Left T10 Action 3- Right R lateral buttock PT-OP-F Manual Assessment Start: 11/08/20 12:46 Freq: Status: Active Protocol: Document 11/08/20 09:45 HH (Rec: 11/08/20 17:08 [email or web address]) Manual Assessments Soft Tissue Assessment Soft Tissue Mobility Assessment significant hypertonicity at R Pecs, Long bicep tendon and infraspinatus moderate tonicity at supraspinatus and teresminor. Joint Mobility Assessment Joint Mobility Assessment significant muscle guarding noted with PROM on R. Unable to assess joint end feeling. PT-OP-G Mobility & Gait Start: 11/08/20 12:46 Freq: Status: Active Protocol: Document 11/08/20 09:45 HH (Rec: 11/08/20 17:08 [email or web address]) OP Gait Assessment Assistive Devices Assistive Device 4 Wheeled Walker Gait Deviations General Gait Pattern Decreased Stride Length, Decreased Feet Clearance, Flexed Trunk Factors Limiting Gait Function Factors Limiting Gait Function Decreased Activity Tolerance, Decreased Strength,Limited Range of Motion,Pain,Poor Balance,Respiratory Distress PT-OP-J Posture/Palpation/Skin Start: 11/08/20 12:46 Freq: Status: Active Protocol: Document 11/08/20 09:45 HH (Rec: 11/08/20 17:08 [email or web address]) Posture Evaluation Position Standing Head/C-Spine Posture Forward Head T-Spine Posture Increased Kyphosis Shoulder Posture (L) Rounded,(R) Rounded,(R) Forward PT-OP-K Range of Motion Start: 11/08/20 12:46 Freq: Status: Active Protocol: Document 11/08/20 09:45 HH (Rec: 11/08/20 17:08 [email or web address]) Cervical Spine Range of Motion Cervical Spine Active Degrees Testing Position Sitting Flexion 60 Extension 28 Rotation Left 45 Rotation Right 35 Lateral Flexion Left 20 Lateral Flexion Right 20 ROM Limitations Soft Tissue Tightness,Muscle Weakness,Pain Comments pain on R side > L at end range for all ROM Shoulder Goniometric Range of Motion Shoulder Right Passive Shoulder ROM WFL No Testing Position Sitting Flexion 80 Abduction 70 Left Active Shoulder ROM WFL Yes Testing Position Sitting Flexion 115 Abduction 125 External Rotation at 90 degrees 70 Abduction Internal Rotation 80 Right Active Shoulder ROM WFL No Testing Position Sitting Flexion 45 Abduction 40 Comments unable to reach external rotation and internal rotation d/t significant pain severe pain for all ROM pt shows contralateral trunk lean to compensate for R shoulder abd and trunk extension for shoulder flexion . PT-OP-L Special Tests Start: 11/08/20 12:46 Freq: Status: Active Protocol: Document 11/08/20 09:45 HH (Rec: 11/08/20 17:08 [email or web address]) Special Tests Shoulder Special Tests Drop Arm Rotator Cuff Test Results +ve R Comments lift off til 40 degrees but unable to hold trunk compensation noted. AC Joint Compression Test Results severe pain on RUE Other Special Tests Special Tests unable to perform special test d/t significant R shoulder pain for all mobility. PT-OP-Q Treatments Start: 11/08/20 12:46 Freq: Status: Active Protocol: Document 11/12/20 10:32 HH (Rec: 11/12/20 11:14 HH [id number]) Therapeutic Exercises Supine Exercises PROM Supine Exercise Name flexion, abduction Side right Reps/Minutes 8 mins Comments flexion up to 80, abduction approx 90 Standing Exercises OH lauren Standing Exercise Name up to approx 90 degrees Side bilateral Comments for HEP Manual Therapy Treatment Soft Tissue Mobilization RTC Body Location R Mobilization Type Sustained Pressure,Trigger Point Release Intensity/Depth Superficial Body Position Hooklying Comments infrapsinatus pecs Body Location R Mobilization Type Sustained Pressure,Trigger Point Release Intensity/Depth Superficial Body Position Hooklying Comments significant pain pec minor and insertion of pec major. bicep tendon Body Location R Mobilization Type Sustained Pressure,Trigger Point Release Intensity/Depth Superficial Body Position Hooklying Comments @ long head tendon Joint Mobilizations scap Joint R Comments movement inititation elevation, depression, retraction, protraction stiffness noted. PT-OP-T Assessment and Plan Start: 11/08/20 12:46 Freq: Status: Active Protocol: Document 11/12/20 10:32 (Rec: 11/12/20 11:14 [id number]) Physical Therapy Assessment Goals pain Impairment pt has severe pain which wakes her up every night Short Term Goal (STG) pt will have less pain in a daily basis so she can maintain her sleep 3 times/ week without being waken up STG Duration 6 weeks Environmental Compliance Specialist Goal (LTG) pt will have less pain in a daily basis so she can maintain her sleep 5 times/ week without being waken up LTG Duration 12 weeks ROM Impairment pt has very limited shoulder ROM Short Term Goal (STG) pt will show improvements in all planes of R shoulder ROM by 15 degrees so she can kelli /doff shirts/ bra and jacket without increase pain. STG Duration 6 weeks Custodial Goal (LTG) pt will show improvements in all planes of R shoulder ROM by 30degrees so she can kelli / doff shirts/ bra and jacket without any trunk compensation and increase in pain LTG Duration 12 weeks quickdash Impairment pt scores 70.45 Short Term Goal (STG) pt will score <60 on Quickdash to improve her overall quality of life with less pain . STG Duration 6 weeks Custodial Goal (LTG) pt will score <45 on Quickdash to improve her overall quality of life with less pain . LTG Duration 12 weeks Two Impairment Positive right [place]Hall[place] LTG Duration Met One Impairment Pt reports inability to lie down due to dizziness LTG Duration Met Assessment Summary Assessment today session focused on manual therapy for pain desensitization. Noticed pt has significant crepitus at R GH joint which indicates possible severe OA. She overall leticia well with improved passive ROM. Added pulleys to her HEP. Physical Therapy Plan Frequency and Duration Frequency of Treatment 2x/Week Duration of Treatment 12 [email or web address] Plan of Care Start Date 11/08/20 Plan of Care End Date 02/06/21 Therapeutic Interventions Therapeutic Interventions Aquatic Therapy,Balance Training,Gait Training,Home Exercise Program,Joint Mobilizations,Neuromuscular Re -education,Orthotic/Prosthetic Management,Patient/Caregiver Education,Self-Care/Home Management,Soft Tissue Mobilization,Taping, Therapeutic Activities, Therapeutic Exercises Modalities Biofeedback,Cold Pack/Ice Massage,Electric Stimulation, Hot Packs,Infrared Therapy, Iontophoresis,Paraffin Bath, Traction- Mechanical, Ultrasound Discharge Physical Therapy Discharge Reasons Goals Met Next Visit Focus/Plan Next Note Type Treatment Note Next Visit Plan start with manual on RTC, pecs , PROM at this point joint mob lauren if possible.
--- NOTE | 2020-11-17 16:09 | PT.OTN ---
Current Diagnoses Other specific arthropathies, not elsewhere classified, right shoulder (11/17/20) Physical Therapy Treatment Note PT-OP-A Visit Information Start: 11/08/20 12:46 Freq: Status: Active Protocol: Document 11/17/20 15:13 HH (Rec: 11/17/20 16:09 HH [id number]) Out-Patient Physical Therapy Visit Information Visit Information Visit Type Treatment Note Visit Start Time 15:15 Visit Stop Time 16:00 Total Visit Minutes 45 Visit Number / Number of SENIOR JAVA UI DEVELOPER Visits 0 PT-OP-B Current Condition Start: 11/08/20 12:46 Freq: Status: Active Protocol: Document 11/08/20 09:45 HH (Rec: 11/08/20 12:54 HH [email or web address]) Current Condition History of Current Condition Onset Date years ago but getting worse since 2months ago Current Complaints severe R shoulder pain, decreased in shoulder mobility and strength History of Current Condition Liana is a 84 yo female here with her son today at the clinic for her worsening R shoulder pain. She stated her shoulder does have limited mobility prior but has gotten a lot more painful 7/10 since 2 months ago. Her pain has been affecting her sleep every night even though she sleeps on her back. she also has significant difficulty kelli/ doff bra, jacket and reach over >80 degrees flexion/ abduction. Son Raimundo has to have her with dressing sometimes. Denies tingling/ numbness sensation. Pt recently had a course of PT here for her R sided neck pain and she said it helped her a lot. Pt's cervical x-ray has shown laxity at c4-5 and severe DDD C5-6. Pt uses 4WW with a significant FHP and thoracic kyphosis at baseline. Treatment Goals Patient/Caregiver Goals 1. to regain shoulder mobility and strength 2. to be able to kelli/doff clothes with minimal pain Current Functional Impairments (Reported) Functional Limitations- ADL's unable to reach overhead/ behind her back to kelli/doff jacket, shirts/ bra. Son often needs to assist Functional Limitations- Mobility/Gait uses 4WW at all time Functional Limitations- Other unable to reach overhead unable to maintain good quality of sleep at night d/t severe pain. PT-OP-C Subjective Start: 11/08/20 12:46 Freq: Status: Active Protocol: Document 11/17/20 15:13 HH (Rec: 11/17/20 16:09 [id number]) OP-PT Subjective Patient Comments Patient Comments My shoulder is getting better because i slept pretty good without ibuprofen for the very first time from couple night ago. Patient Reported Progress Improving PT-OP-E Functional Tests Start: 11/08/20 12:46 Freq: Status: Active Protocol: Document 11/08/20 09:45 HH (Rec: 11/08/20 17:08 [email or web address]) Functional Tests Apley's Scratch Test Action 1- Left to AC joint Action 1- Right unable to reach opposite shoulder Action 2- Left CT junction Action 2- Right R hand up to R ear Action 3- Left T10 Action 3- Right R lateral buttock PT-OP-F Manual Assessment Start: 11/08/20 12:46 Freq: Status: Active Protocol: Document 11/08/20 09:45 HH (Rec: 11/08/20 17:08 [email or web address]) Manual Assessments Soft Tissue Assessment Soft Tissue Mobility Assessment significant hypertonicity at R Pecs, Long bicep tendon and infraspinatus moderate tonicity at supraspinatus and teresminor. Joint Mobility Assessment Joint Mobility Assessment significant muscle guarding noted with PROM on R. Unable to assess joint end feeling. PT-OP-G Mobility & Gait Start: 11/08/20 12:46 Freq: Status: Active Protocol: Document 11/08/20 09:45 HH (Rec: 11/08/20 17:08 [email or web address]) OP Gait Assessment Assistive Devices Assistive Device 4 Wheeled Walker Gait Deviations General Gait Pattern Decreased Stride Length, Decreased Feet Clearance, Flexed Trunk Factors Limiting Gait Function Factors Limiting Gait Function Decreased Activity Tolerance, Decreased Strength,Limited Range of Motion,Pain,Poor Balance,Respiratory Distress PT-OP-J Posture/Palpation/Skin Start: 11/08/20 12:46 Freq: Status: Active Protocol: Document 11/08/20 09:45 HH (Rec: 11/08/20 17:08 [email or web address]) Posture Evaluation Position Standing Head/C-Spine Posture Forward Head T-Spine Posture Increased Kyphosis Shoulder Posture (L) Rounded,(R) Rounded,(R) Forward PT-OP-K Range of Motion Start: 11/08/20 12:46 Freq: Status: Active Protocol: Document 11/08/20 09:45 HH (Rec: 11/08/20 17:08 [email or web address]) Cervical Spine Range of Motion Cervical Spine Active Degrees Testing Position Sitting Flexion 60 Extension 28 Rotation Left 45 Rotation Right 35 Lateral Flexion Left 20 Lateral Flexion Right 20 ROM Limitations Soft Tissue Tightness,Muscle Weakness,Pain Comments pain on R side > L at end range for all ROM Shoulder Goniometric Range of Motion Shoulder Right Passive Shoulder ROM WFL No Testing Position Sitting Flexion 80 Abduction 70 Left Active Shoulder ROM WFL Yes Testing Position Sitting Flexion 115 Abduction 125 External Rotation at 90 degrees 70 Abduction Internal Rotation 80 Right Active Shoulder ROM WFL No Testing Position Sitting Flexion 45 Abduction 40 Comments unable to reach external rotation and internal rotation d/t significant pain severe pain for all ROM pt shows contralateral trunk lean to compensate for R shoulder abd and trunk extension for shoulder flexion . PT-OP-L Special Tests Start: 11/08/20 12:46 Freq: Status: Active Protocol: Document 11/08/20 09:45 HH (Rec: 11/08/20 17:08 [email or web address]) Special Tests Shoulder Special Tests Drop Arm Rotator Cuff Test Results +ve R Comments lift off til 40 degrees but unable to hold trunk compensation noted. AC Joint Compression Test Results severe pain on RUE Other Special Tests Special Tests unable to perform special test d/t significant R shoulder pain for all mobility. PT-OP-Q Treatments Start: 11/08/20 12:46 Freq: Status: Active Protocol: Document 11/17/20 15:13 HH (Rec: 11/17/20 16:09 [id number]) Therapeutic Exercises Supine Exercises shoulder ER w/ dowel Side bilateral Resistance AAROM Reps/Minutes 5 x2 Comments pain noted. cues on pain free range PROM Supine Exercise Name flexion, abduction Side right Reps/Minutes 8 mins Comments flexion up to 80, abduction approx 90 shld ff w/dowel Side bilateral Resistance AAROM Reps/Minutes 5x3 Comments pain noted, cues to pain free range Sitting Exercises scap retraction Sitting Exercise Name cervical ext w/ chin nod awareness positioning then scap retract/down Side bilateral Reps/Minutes 5 sec x5 Standing Exercises OH lauren Standing Exercise Name up to approx 90 degrees Side bilateral Comments for HEP Manual Therapy Treatment Soft Tissue Mobilization RTC Body Location R Mobilization Type Sustained Pressure,Trigger Point Release Intensity/Depth Superficial Body Position Hooklying Comments infrapsinatus pecs Body Location R Mobilization Type Sustained Pressure,Trigger Point Release Intensity/Depth Superficial Body Position Hooklying Comments reduced pain pec minor and insertion of pec major. bicep tendon Body Location R Mobilization Type Sustained Pressure,Trigger Point Release Intensity/Depth Superficial Body Position Hooklying Comments @ long head tendon PT-OP-T Assessment and Plan Start: 11/08/20 12:46 Freq: Status: Active Protocol: Document 11/17/20 15:13 (Rec: 11/17/20 16:09 [id number]) Physical Therapy Assessment Goals pain Impairment pt has severe pain which wakes her up every night Short Term Goal (STG) pt will have less pain in a daily basis so she can maintain her sleep 3 times/ week without being waken up STG Duration 6 weeks Prison Goal (LTG) pt will have less pain in a daily basis so she can maintain her sleep 5 times/ week without being waken up LTG Duration 12 weeks ROM Impairment pt has very limited shoulder ROM Short Term Goal (STG) pt will show improvements in all planes of R shoulder ROM by 15 degrees so she can kelli /doff shirts/ bra and jacket without increase pain. STG Duration 6 weeks Prison Goal (LTG) pt will show improvements in all planes of R shoulder ROM by 30degrees so she can kelli / doff shirts/ bra and jacket without any trunk compensation and increase in pain LTG Duration 12 weeks quickdash Impairment pt scores 70.45 Short Term Goal (STG) pt will score <60 on Quickdash to improve her overall quality of life with less pain . STG Duration 6 weeks Office Machines Sales Representative Goal (LTG) pt will score <45 on Quickdash to improve her overall quality of life with less pain . LTG Duration 12 weeks Assessment Summary Assessment Pt rpeorts improved night pain and able to sleep the past few nights without taking ibuprofen. Gave pt HEP with JIHAN aguilar with cane and scap retraction. Physical Therapy Plan Frequency and Duration Frequency of Treatment 2x/Week Duration of Treatment 12 [email or web address] Plan of Care Start Date 11/08/20 Plan of Care End Date 02/06/21 Therapeutic Interventions Therapeutic Interventions Aquatic Therapy,Balance Training,Gait Training,Home Exercise Program,Joint Mobilizations,Neuromuscular Re -education,Orthotic/Prosthetic Management,Patient/Caregiver Education,Self-Care/Home Management,Soft Tissue Mobilization,Taping, Therapeutic Activities, Therapeutic Exercises Modalities Biofeedback,Cold Pack/Ice Massage,Electric Stimulation, Hot Packs,Infrared Therapy, Iontophoresis,Paraffin Bath, Traction- Mechanical, Ultrasound Next Visit Focus/Plan Next Note Type Treatment Note Next Visit Plan start with manual on RTC, pecs , PROM at this point joint mob lauren if possible.
--- NOTE | 2020-11-19 11:17 | PT.OTN ---
Current Diagnoses Other specific arthropathies, not elsewhere classified, right shoulder (11/19/20) Physical Therapy Treatment Note PT-OP-A Visit Information Start: 11/08/20 12:46 Freq: Status: Active Protocol: Document 11/19/20 10:32 HH (Rec: 11/19/20 11:17 HH [id number]) Out-Patient Physical Therapy Visit Information Visit Information Visit Type Treatment Note Visit Start Time 10:30 Visit Stop Time 11:25 Total Visit Minutes 55 Visit Number 10/25 Number of INDUSTRIAL REHABILITATION CONSULTANT Visits 0 PT-OP-B Current Condition Start: 11/08/20 12:46 Freq: Status: Active Protocol: Document 11/08/20 09:45 HH (Rec: 11/08/20 12:54 HH [email or web address]) Current Condition History of Current Condition Onset Date years ago but getting worse since 2months ago Current Complaints severe R shoulder pain, decreased in shoulder mobility and strength History of Current Condition Liana is a 84 yo female here with her son today at the clinic for her worsening R shoulder pain. She stated her shoulder does have limited mobility prior but has gotten a lot more painful 7/10 since 2 months ago. Her pain has been affecting her sleep every night even though she sleeps on her back. she also has significant difficulty kelli/ doff bra, jacket and reach over >80 degrees flexion/ abduction. Son Raimundo has to have her with dressing sometimes. Denies tingling/ numbness sensation. Pt recently had a course of PT here for her R sided neck pain and she said it helped her a lot. Pt's cervical x-ray has shown laxity at c4-5 and severe DDD C5-6. Pt uses 4WW with a significant FHP and thoracic kyphosis at baseline. Treatment Goals Patient/Caregiver Goals 1. to regain shoulder mobility and strength 2. to be able to kelli/doff clothes with minimal pain Current Functional Impairments (Reported) Functional Limitations- ADL's unable to reach overhead/ behind her back to kelli/doff jacket, shirts/ bra. Son often needs to assist Functional Limitations- Mobility/Gait uses 4WW at all time Functional Limitations- Other unable to reach overhead unable to maintain good quality of sleep at night d/t severe pain. PT-OP-C Subjective Start: 11/08/20 12:46 Freq: Status: Active Protocol: Document 11/19/20 10:32 HH (Rec: 11/19/20 11:17 [id number]) OP-PT Subjective Patient Comments Patient Comments My shoulder is hurting more yesterday but i did sleep well after i saw you last time Patient Reported Progress Same PT-OP-E Functional Tests Start: 11/08/20 12:46 Freq: Status: Active Protocol: Document 11/08/20 09:45 HH (Rec: 11/08/20 17:08 [email or web address]) Functional Tests Apley's Scratch Test Action 1- Left to AC joint Action 1- Right unable to reach opposite shoulder Action 2- Left CT junction Action 2- Right R hand up to R ear Action 3- Left T10 Action 3- Right R lateral buttock PT-OP-F Manual Assessment Start: 11/08/20 12:46 Freq: Status: Active Protocol: Document 11/08/20 09:45 HH (Rec: 11/08/20 17:08 [email or web address]) Manual Assessments Soft Tissue Assessment Soft Tissue Mobility Assessment significant hypertonicity at R Pecs, Long bicep tendon and infraspinatus moderate tonicity at supraspinatus and teresminor. Joint Mobility Assessment Joint Mobility Assessment significant muscle guarding noted with PROM on R. Unable to assess joint end feeling. PT-OP-G Mobility & Gait Start: 11/08/20 12:46 Freq: Status: Active Protocol: Document 11/08/20 09:45 HH (Rec: 11/08/20 17:08 [email or web address]) OP Gait Assessment Assistive Devices Assistive Device 4 Wheeled Walker Gait Deviations General Gait Pattern Decreased Stride Length, Decreased Feet Clearance, Flexed Trunk Factors Limiting Gait Function Factors Limiting Gait Function Decreased Activity Tolerance, Decreased Strength,Limited Range of Motion,Pain,Poor Balance,Respiratory Distress PT-OP-J Posture/Palpation/Skin Start: 11/08/20 12:46 Freq: Status: Active Protocol: Document 11/08/20 09:45 HH (Rec: 11/08/20 17:08 [email or web address]) Posture Evaluation Position Standing Head/C-Spine Posture Forward Head T-Spine Posture Increased Kyphosis Shoulder Posture (L) Rounded,(R) Rounded,(R) Forward PT-OP-K Range of Motion Start: 11/08/20 12:46 Freq: Status: Active Protocol: Document 11/08/20 09:45 HH (Rec: 11/08/20 17:08 [email or web address]) Cervical Spine Range of Motion Cervical Spine Active Degrees Testing Position Sitting Flexion 60 Extension 28 Rotation Left 45 Rotation Right 35 Lateral Flexion Left 20 Lateral Flexion Right 20 ROM Limitations Soft Tissue Tightness,Muscle Weakness,Pain Comments pain on R side > L at end range for all ROM Shoulder Goniometric Range of Motion Shoulder Right Passive Shoulder ROM WFL No Testing Position Sitting Flexion 80 Abduction 70 Left Active Shoulder ROM WFL Yes Testing Position Sitting Flexion 115 Abduction 125 External Rotation at 90 degrees 70 Abduction Internal Rotation 80 Right Active Shoulder ROM WFL No Testing Position Sitting Flexion 45 Abduction 40 Comments unable to reach external rotation and internal rotation d/t significant pain severe pain for all ROM pt shows contralateral trunk lean to compensate for R shoulder abd and trunk extension for shoulder flexion . PT-OP-L Special Tests Start: 11/08/20 12:46 Freq: Status: Active Protocol: Document 11/08/20 09:45 HH (Rec: 11/08/20 17:08 [email or web address]) Special Tests Shoulder Special Tests Drop Arm Rotator Cuff Test Results +ve R Comments lift off til 40 degrees but unable to hold trunk compensation noted. AC Joint Compression Test Results severe pain on RUE Other Special Tests Special Tests unable to perform special test d/t significant R shoulder pain for all mobility. PT-OP-Q Treatments Start: 11/08/20 12:46 Freq: Status: Active Protocol: Document 11/19/20 10:32 HH (Rec: 11/19/20 11:17 [id number]) Manual Therapy Treatment Soft Tissue Mobilization RTC Body Location R Mobilization Type Sustained Pressure,Trigger Point Release Intensity/Depth Superficial Body Position Hooklying Comments infrapsinatus pecs Body Location R Mobilization Type Sustained Pressure,Trigger Point Release Intensity/Depth Superficial Body Position Hooklying Comments pain at pec minor and insertion of pec major. bicep tendon Body Location R Mobilization Type Sustained Pressure,Trigger Point Release Intensity/Depth Superficial Body Position Hooklying Comments @ long head tendon PT-OP-R Modalities Start: 11/08/20 12:46 Freq: Status: Active Protocol: Document 11/19/20 10:32 HH (Rec: 11/19/20 11:17 [id number]) Hot Pack/Cold Pack Treatment MHP Location R shoulder Patient Position Hooklying Treatment Duration (minutes) 10 Patient Tolerance Good Ultrasound Therapy Treatment Right Shoulder Treatment Duration (minutes) 5 Patient Position Hooklying Coupling Medium Ultrasound Gel Applicator Size (cm2) 5 Frequency Setting (mHz) 1 Mode Setting Continuous Duty Cycle 100% Intensity Setting (w/cm2) 1.2 Comments R GHJ PT-OP-T Assessment and Plan Start: 11/08/20 12:46 Freq: Status: Active Protocol: Document 11/19/20 10:32 (Rec: 11/19/20 11:17 HH [id number]) Physical Therapy Assessment Goals pain Impairment pt has severe pain which wakes her up every night Short Term Goal (STG) pt will have less pain in a daily basis so she can maintain her sleep 3 times/ week without being waken up STG Duration 6 weeks Penitentiary Goal (LTG) pt will have less pain in a daily basis so she can maintain her sleep 5 times/ week without being waken up LTG Duration 12 weeks ROM Impairment pt has very limited shoulder ROM Short Term Goal (STG) pt will show improvements in all planes of R shoulder ROM by 15 degrees so she can kelli /doff shirts/ bra and jacket without increase pain. STG Duration 6 weeks Potable Water Treatment Operator Goal (LTG) pt will show improvements in all planes of R shoulder ROM by 30degrees so she can kelli / doff shirts/ bra and jacket without any trunk compensation and increase in pain LTG Duration 12 weeks quickdash Impairment pt scores 70.45 Short Term Goal (STG) pt will score <60 on Quickdash to improve her overall quality of life with less pain . STG Duration 6 weeks Penitentiary Goal (LTG) pt will score <45 on Quickdash to improve her overall quality of life with less pain . LTG Duration 12 weeks Assessment Summary Assessment pt has more pain possibly d/t soulder flexion exercise with PVC bar from last visit. This session focused mostly on manual therapy,ultrasound and hot pack for pain management. pt leticia session well Physical Therapy Plan Frequency and Duration Frequency of Treatment 2x/Week Duration of Treatment 12 [email or web address] Plan of Care Start Date 11/08/20 Plan of Care End Date 02/06/21 Therapeutic Interventions Therapeutic Interventions Aquatic Therapy,Balance Training,Gait Training,Home Exercise Program,Joint Mobilizations,Neuromuscular Re -education,Orthotic/Prosthetic Management,Patient/Caregiver Education,Self-Care/Home Management,Soft Tissue Mobilization,Taping, Therapeutic Activities, Therapeutic Exercises Modalities Biofeedback,Cold Pack/Ice Massage,Electric Stimulation, Hot Packs,Infrared Therapy, Iontophoresis,Paraffin Bath, Traction- Mechanical, Ultrasound Next Visit Focus/Plan Next Note Type Treatment Note Next Visit Plan start with manual on RTC, pecs , PROM at this point joint mob lauren if possible.
--- NOTE | 2020-11-24 15:21 | PT.OTN ---
Current Diagnoses Other specific arthropathies, not elsewhere classified, right shoulder (11/24/20) Physical Therapy Treatment Note PT-OP-A Visit Information Start: 11/08/20 12:46 Freq: Status: Active Protocol: Document 11/24/20 12:58 HH (Rec: 11/24/20 15:21 HH [id number]) Out-Patient Physical Therapy Visit Information Visit Information Visit Type Treatment Note Visit Note pt is 10 mins late Visit Start Time 13:10 Visit Stop Time 14:05 Total Visit Minutes 55 Visit Number 11/24 Number of ROLLER COASTER OPERATOR Visits 0 PT-OP-B Current Condition Start: 11/08/20 12:46 Freq: Status: Active Protocol: Document 11/08/20 09:45 HH (Rec: 11/08/20 12:54 HH [email or web address]) Current Condition History of Current Condition Onset Date years ago but getting worse since 2months ago Current Complaints severe R shoulder pain, decreased in shoulder mobility and strength History of Current Condition Liana is a 84 yo female here with her son today at the clinic for her worsening R shoulder pain. She stated her shoulder does have limited mobility prior but has gotten a lot more painful 7/10 since 2 months ago. Her pain has been affecting her sleep every night even though she sleeps on her back. she also has significant difficulty kelli/ doff bra, jacket and reach over >80 degrees flexion/ abduction. Son Raimundo has to have her with dressing sometimes. Denies tingling/ numbness sensation. Pt recently had a course of PT here for her R sided neck pain and she said it helped her a lot. Pt's cervical x-ray has shown laxity at c4-5 and severe DDD C5-6. Pt uses 4WW with a significant FHP and thoracic kyphosis at baseline. Treatment Goals Patient/Caregiver Goals 1. to regain shoulder mobility and strength 2. to be able to kelli/doff clothes with minimal pain Current Functional Impairments (Reported) Functional Limitations- ADL's unable to reach overhead/ behind her back to kelli/doff jacket, shirts/ bra. Son often needs to assist Functional Limitations- Mobility/Gait uses 4WW at all time Functional Limitations- Other unable to reach overhead unable to maintain good quality of sleep at night d/t severe pain. PT-OP-C Subjective Start: 11/08/20 12:46 Freq: Status: Active Protocol: Document 11/24/20 12:58 HH (Rec: 11/24/20 15:21 [id number]) OP-PT Subjective Patient Comments Patient Comments I felt pretty good but last night Patient Reported Progress Same PT-OP-E Functional Tests Start: 11/08/20 12:46 Freq: Status: Active Protocol: Document 11/08/20 09:45 HH (Rec: 11/08/20 17:08 [email or web address]) Functional Tests Apley's Scratch Test Action 1- Left to AC joint Action 1- Right unable to reach opposite shoulder Action 2- Left CT junction Action 2- Right R hand up to R ear Action 3- Left T10 Action 3- Right R lateral buttock PT-OP-F Manual Assessment Start: 11/08/20 12:46 Freq: Status: Active Protocol: Document 11/08/20 09:45 HH (Rec: 11/08/20 17:08 [email or web address]) Manual Assessments Soft Tissue Assessment Soft Tissue Mobility Assessment significant hypertonicity at R Pecs, Long bicep tendon and infraspinatus moderate tonicity at supraspinatus and teresminor. Joint Mobility Assessment Joint Mobility Assessment significant muscle guarding noted with PROM on R. Unable to assess joint end feeling. PT-OP-G Mobility & Gait Start: 11/08/20 12:46 Freq: Status: Active Protocol: Document 11/08/20 09:45 HH (Rec: 11/08/20 17:08 [email or web address]) OP Gait Assessment Assistive Devices Assistive Device 4 Wheeled Walker Gait Deviations General Gait Pattern Decreased Stride Length, Decreased Feet Clearance, Flexed Trunk Factors Limiting Gait Function Factors Limiting Gait Function Decreased Activity Tolerance, Decreased Strength,Limited Range of Motion,Pain,Poor Balance,Respiratory Distress PT-OP-J Posture/Palpation/Skin Start: 11/08/20 12:46 Freq: Status: Active Protocol: Document 11/08/20 09:45 HH (Rec: 11/08/20 17:08 [email or web address]) Posture Evaluation Position Standing Head/C-Spine Posture Forward Head T-Spine Posture Increased Kyphosis Shoulder Posture (L) Rounded,(R) Rounded,(R) Forward PT-OP-K Range of Motion Start: 11/08/20 12:46 Freq: Status: Active Protocol: Document 11/08/20 09:45 HH (Rec: 11/08/20 17:08 [email or web address]) Cervical Spine Range of Motion Cervical Spine Active Degrees Testing Position Sitting Flexion 60 Extension 28 Rotation Left 45 Rotation Right 35 Lateral Flexion Left 20 Lateral Flexion Right 20 ROM Limitations Soft Tissue Tightness,Muscle Weakness,Pain Comments pain on R side > L at end range for all ROM Shoulder Goniometric Range of Motion Shoulder Right Passive Shoulder ROM WFL No Testing Position Sitting Flexion 80 Abduction 70 Left Active Shoulder ROM WFL Yes Testing Position Sitting Flexion 115 Abduction 125 External Rotation at 90 degrees 70 Abduction Internal Rotation 80 Right Active Shoulder ROM WFL No Testing Position Sitting Flexion 45 Abduction 40 Comments unable to reach external rotation and internal rotation d/t significant pain severe pain for all ROM pt shows contralateral trunk lean to compensate for R shoulder abd and trunk extension for shoulder flexion . PT-OP-L Special Tests Start: 11/08/20 12:46 Freq: Status: Active Protocol: Document 11/08/20 09:45 HH (Rec: 11/08/20 17:08 [email or web address]) Special Tests Shoulder Special Tests Drop Arm Rotator Cuff Test Results +ve R Comments lift off til 40 degrees but unable to hold trunk compensation noted. AC Joint Compression Test Results severe pain on RUE Other Special Tests Special Tests unable to perform special test d/t significant R shoulder pain for all mobility. PT-OP-Q Treatments Start: 11/08/20 12:46 Freq: Status: Active Protocol: Document 11/24/20 12:58 HH (Rec: 11/24/20 15:21 HH [id number]) Therapeutic Exercises Supine Exercises PROM Supine Exercise Name flexion, abduction Side right Reps/Minutes 8 mins Comments very painful today. Sitting Exercises scap retraction Side bilateral Reps/Minutes 10 x2 Standing Exercises OH lauren Standing Exercise Name up to approx 90 degrees Side bilateral Comments for HEP Manual Therapy Treatment Soft Tissue Mobilization RTC Body Location R Mobilization Type Sustained Pressure,Trigger Point Release Intensity/Depth Superficial Body Position Hooklying Comments infrapsinatus pecs Body Location R Mobilization Type Sustained Pressure,Trigger Point Release Intensity/Depth Superficial Body Position Hooklying Comments pain at pec minor and insertion of pec major. bicep tendon Body Location R Mobilization Type Sustained Pressure,Trigger Point Release Intensity/Depth Superficial Body Position Hooklying Comments @ long head tendon Self-Care/Home Management Treatment Education Patient Education Body Mechanics,Home Exercise Program,Joint Protection,Pain Management,Posture Other Education educated pt to use extra pillow to place behind her R shoulder during sleep for shoulder stability. PT-OP-R Modalities Start: 11/08/20 12:46 Freq: Status: Active Protocol: Document 11/24/20 12:58 (Rec: 11/24/20 15:21 [id number]) Electric Stimulation Electric Stimulation Interferential Current (IFC) Body Location R shoulder Duration (Minutes) 10 Patient Position Supine Hot Pack/Cold Pack Treatment MHP Location R shoulder Patient Position Hooklying Treatment Duration (minutes) 10 Patient Tolerance Good Ultrasound Therapy Treatment Right Shoulder Treatment Duration (minutes) 5 Patient Position Hooklying Coupling Medium Ultrasound Gel Applicator Size (cm2) 5 Frequency Setting (mHz) 1 Mode Setting Continuous Duty Cycle 100% Intensity Setting (w/cm2) 1.2 Comments R GHJ PT-OP-T Assessment and Plan Start: 11/08/20 12:46 Freq: Status: Active Protocol: Document 11/24/20 12:58 (Rec: 11/24/20 15:21 [email or web address]) Physical Therapy Assessment Goals pain Impairment pt has severe pain which wakes her up every night Short Term Goal (STG) pt will have less pain in a daily basis so she can maintain her sleep 3 times/ week without being waken up STG Duration 6 weeks Snf Goal (LTG) pt will have less pain in a daily basis so she can maintain her sleep 5 times/ week without being waken up LTG Duration 12 weeks ROM Impairment pt has very limited shoulder ROM Short Term Goal (STG) pt will show improvements in all planes of R shoulder ROM by 15 degrees so she can kelli /doff shirts/ bra and jacket without increase pain. STG Duration 6 weeks Snf Goal (LTG) pt will show improvements in all planes of R shoulder ROM by 30degrees so she can kelli / doff shirts/ bra and jacket without any trunk compensation and increase in pain LTG Duration 12 weeks quickdash Impairment pt scores 70.45 Short Term Goal (STG) pt will score <60 on Quickdash to improve her overall quality of life with less pain . STG Duration 6 weeks Snf Goal (LTG) pt will score <45 on Quickdash to improve her overall quality of life with less pain . LTG Duration 12 weeks Assessment Summary Assessment Pt cont to have high pain sensitivity. Educated pt to acquire lauren since she feels relieved using it in the clinic. Also Spent time educating her to [place pillow underneath R shoulder for support during sleep for pain management. Used modalities ( estim + hot pack ) at the end session for pain management and pt felt great after Physical Therapy Plan Frequency and Duration Frequency of Treatment 2x/Week Duration of Treatment 12 [email or web address] Plan of Care Start Date 11/08/20 Plan of Care End Date 02/06/21 Therapeutic Interventions Therapeutic Interventions Aquatic Therapy,Balance Training,Gait Training,Home Exercise Program,Joint Mobilizations,Neuromuscular Re -education,Orthotic/Prosthetic Management,Patient/Caregiver Education,Self-Care/Home Management,Soft Tissue Mobilization,Taping, Therapeutic Activities, Therapeutic Exercises Modalities Biofeedback,Cold Pack/Ice Massage,Electric Stimulation, Hot Packs,Infrared Therapy, Iontophoresis,Paraffin Bath, Traction- Mechanical, Ultrasound Discharge Physical Therapy Discharge Reasons Goals Met Next Visit Focus/Plan Next Note Type Treatment Note Next Visit Plan start with manual on RTC, pecs , PROM at this point joint mob lauren if possible.
--- NOTE | 2020-12-01 16:12 | PT.OTN ---
Current Diagnoses Other specific arthropathies, not elsewhere classified, right shoulder (12/01/20) Physical Therapy Treatment Note PT-OP-A Visit Information Start: 11/08/20 12:46 Freq: Status: Active Protocol: Document 12/01/20 15:27 HH (Rec: 12/01/20 16:12 HH [id number]) Out-Patient Physical Therapy Visit Information Visit Information Visit Type Treatment Note Visit Start Time 15:18 Visit Stop Time 16:11 Total Visit Minutes 53 Visit Number 12/25 Number of SNAP SHEARER Visits 0 PT-OP-B Current Condition Start: 11/08/20 12:46 Freq: Status: Active Protocol: Document 11/08/20 09:45 HH (Rec: 11/08/20 12:54 HH [email or web address]) Current Condition History of Current Condition Onset Date years ago but getting worse since 2months ago Current Complaints severe R shoulder pain, decreased in shoulder mobility and strength History of Current Condition Liana is a 84 yo female here with her son today at the clinic for her worsening R shoulder pain. She stated her shoulder does have limited mobility prior but has gotten a lot more painful 7/10 since 2 months ago. Her pain has been affecting her sleep every night even though she sleeps on her back. she also has significant difficulty kelli/ doff bra, jacket and reach over >80 degrees flexion/ abduction. Son Raimundo has to have her with dressing sometimes. Denies tingling/ numbness sensation. Pt recently had a course of PT here for her R sided neck pain and she said it helped her a lot. Pt's cervical x-ray has shown laxity at c4-5 and severe DDD C5-6. Pt uses 4WW with a significant FHP and thoracic kyphosis at baseline. Treatment Goals Patient/Caregiver Goals 1. to regain shoulder mobility and strength 2. to be able to kelli/doff clothes with minimal pain Current Functional Impairments (Reported) Functional Limitations- ADL's unable to reach overhead/ behind her back to kelli/doff jacket, shirts/ bra. Son often needs to assist Functional Limitations- Mobility/Gait uses 4WW at all time Functional Limitations- Other unable to reach overhead unable to maintain good quality of sleep at night d/t severe pain. PT-OP-C Subjective Start: 11/08/20 12:46 Freq: Status: Active Protocol: Document 12/01/20 15:27 HH (Rec: 12/01/20 16:12 [id number]) OP-PT Subjective Patient Comments Patient Comments I got my lauren now. Sindhu been using a pillow to place underneath my shoulder to sleep and it helped. But my twin bed is so small so it keeps falling off. Patient Reported Progress Improving PT-OP-E Functional Tests Start: 11/08/20 12:46 Freq: Status: Active Protocol: Document 11/08/20 09:45 HH (Rec: 11/08/20 17:08 [email or web address]) Functional Tests Apley's Scratch Test Action 1- Left to AC joint Action 1- Right unable to reach opposite shoulder Action 2- Left CT junction Action 2- Right R hand up to R ear Action 3- Left T10 Action 3- Right R lateral buttock PT-OP-F Manual Assessment Start: 11/08/20 12:46 Freq: Status: Active Protocol: Document 11/08/20 09:45 HH (Rec: 11/08/20 17:08 [email or web address]) Manual Assessments Soft Tissue Assessment Soft Tissue Mobility Assessment significant hypertonicity at R Pecs, Long bicep tendon and infraspinatus moderate tonicity at supraspinatus and teresminor. Joint Mobility Assessment Joint Mobility Assessment significant muscle guarding noted with PROM on R. Unable to assess joint end feeling. PT-OP-G Mobility & Gait Start: 11/08/20 12:46 Freq: Status: Active Protocol: Document 11/08/20 09:45 HH (Rec: 11/08/20 17:08 [email or web address]) OP Gait Assessment Assistive Devices Assistive Device 4 Wheeled Walker Gait Deviations General Gait Pattern Decreased Stride Length, Decreased Feet Clearance, Flexed Trunk Factors Limiting Gait Function Factors Limiting Gait Function Decreased Activity Tolerance, Decreased Strength,Limited Range of Motion,Pain,Poor Balance,Respiratory Distress PT-OP-J Posture/Palpation/Skin Start: 11/08/20 12:46 Freq: Status: Active Protocol: Document 11/08/20 09:45 HH (Rec: 11/08/20 17:08 [email or web address]) Posture Evaluation Position Standing Head/C-Spine Posture Forward Head T-Spine Posture Increased Kyphosis Shoulder Posture (L) Rounded,(R) Rounded,(R) Forward PT-OP-K Range of Motion Start: 11/08/20 12:46 Freq: Status: Active Protocol: Document 11/08/20 09:45 HH (Rec: 11/08/20 17:08 [email or web address]) Cervical Spine Range of Motion Cervical Spine Active Degrees Testing Position Sitting Flexion 60 Extension 28 Rotation Left 45 Rotation Right 35 Lateral Flexion Left 20 Lateral Flexion Right 20 ROM Limitations Soft Tissue Tightness,Muscle Weakness,Pain Comments pain on R side > L at end range for all ROM Shoulder Goniometric Range of Motion Shoulder Right Passive Shoulder ROM WFL No Testing Position Sitting Flexion 80 Abduction 70 Left Active Shoulder ROM WFL Yes Testing Position Sitting Flexion 115 Abduction 125 External Rotation at 90 degrees 70 Abduction Internal Rotation 80 Right Active Shoulder ROM WFL No Testing Position Sitting Flexion 45 Abduction 40 Comments unable to reach external rotation and internal rotation d/t significant pain severe pain for all ROM pt shows contralateral trunk lean to compensate for R shoulder abd and trunk extension for shoulder flexion . PT-OP-L Special Tests Start: 11/08/20 12:46 Freq: Status: Active Protocol: Document 11/08/20 09:45 HH (Rec: 11/08/20 17:08 [email or web address]) Special Tests Shoulder Special Tests Drop Arm Rotator Cuff Test Results +ve R Comments lift off til 40 degrees but unable to hold trunk compensation noted. AC Joint Compression Test Results severe pain on RUE Other Special Tests Special Tests unable to perform special test d/t significant R shoulder pain for all mobility. PT-OP-Q Treatments Start: 11/08/20 12:46 Freq: Status: Active Protocol: Document 12/01/20 15:27 HH (Rec: 12/01/20 16:12 [id number]) Therapeutic Exercises Standing Exercises OH lauren Standing Exercise Name flexion, scaption, abduction Side bilateral Comments for HEP wall posture, back to wall Standing Exercise Name with scap retraction Resistance standing Equipment Used 4WW locked in front Reps/Minutes 5 sec hold x5 Comments cued upright posture wall Manual Therapy Treatment Soft Tissue Mobilization RTC Body Location R Mobilization Type Sustained Pressure,Trigger Point Release Intensity/Depth Superficial Body Position Hooklying Comments infrapsinatus pecs Body Location R Mobilization Type Sustained Pressure,Trigger Point Release Intensity/Depth Superficial Body Position Hooklying Comments pain at pec minor and insertion of pec major. bicep tendon Body Location R Mobilization Type Sustained Pressure,Trigger Point Release Intensity/Depth Superficial Body Position Hooklying Comments @ long head tendon PT-OP-R Modalities Start: 11/08/20 12:46 Freq: Status: Active Protocol: Document 12/01/20 15:27 (Rec: 12/01/20 16:12 [id number]) Hot Pack/Cold Pack Treatment MHP Location R shoulder Patient Position Hooklying Treatment Duration (minutes) 10 Patient Tolerance Good Ultrasound Therapy Treatment Right Shoulder Treatment Duration (minutes) 5 Patient Position Hooklying Coupling Medium Ultrasound Gel Applicator Size (cm2) 5 Frequency Setting (mHz) 1 Mode Setting Continuous Duty Cycle 100% Intensity Setting (w/cm2) 1.5 Comments R GHJ PT-OP-T Assessment and Plan Start: 11/08/20 12:46 Freq: Status: Active Protocol: Document 12/01/20 15:27 (Rec: 12/01/20 16:12 [id number]) Physical Therapy Assessment Goals pain Impairment pt has severe pain which wakes her up every night Short Term Goal (STG) pt will have less pain in a daily basis so she can maintain her sleep 3 times/ week without being waken up STG Duration 6 weeks Gas Refrigerator Servicer Goal (LTG) pt will have less pain in a daily basis so she can maintain her sleep 5 times/ week without being waken up LTG Duration 12 weeks ROM Impairment pt has very limited shoulder ROM Short Term Goal (STG) pt will show improvements in all planes of R shoulder ROM by 15 degrees so she can kelli /doff shirts/ bra and jacket without increase pain. STG Duration 6 weeks Gas Refrigerator Servicer Goal (LTG) pt will show improvements in all planes of R shoulder ROM by 30degrees so she can kelli / doff shirts/ bra and jacket without any trunk compensation and increase in pain LTG Duration 12 weeks quickdash Impairment pt scores 70.45 Short Term Goal (STG) pt will score <60 on Quickdash to improve her overall quality of life with less pain . STG Duration 6 weeks Gas Refrigerator Servicer Goal (LTG) pt will score <45 on Quickdash to improve her overall quality of life with less pain . LTG Duration 12 weeks Assessment Summary Assessment Pt shows reduced pain and slight increased ROM today. She also acquired her new shoulder lauren which will be beneficial to her. Spent time educating pt to be compliant with her HEP everyday. Physical Therapy Plan Frequency and Duration Frequency of Treatment 2x/Week Duration of Treatment 12 [email or web address] Plan of Care Start Date 11/08/20 Plan of Care End Date 02/06/21 Therapeutic Interventions Therapeutic Interventions Aquatic Therapy,Balance Training,Gait Training,Home Exercise Program,Joint Mobilizations,Neuromuscular Re -education,Orthotic/Prosthetic Management,Patient/Caregiver Education,Self-Care/Home Management,Soft Tissue Mobilization,Taping, Therapeutic Activities, Therapeutic Exercises Modalities Biofeedback,Cold Pack/Ice Massage,Electric Stimulation, Hot Packs,Infrared Therapy, Iontophoresis,Paraffin Bath, Traction- Mechanical, Ultrasound Next Visit Focus/Plan Next Note Type Treatment Note Next Visit Plan start with manual on RTC, pecs , PROM at this point joint mob lauren if possible.
--- NOTE | 2020-12-03 12:12 | PT.OTN ---
Current Diagnoses Other specific arthropathies, not elsewhere classified, right shoulder (12/03/20) Physical Therapy Treatment Note PT-OP-A Visit Information Start: 11/08/20 12:46 Freq: Status: Active Protocol: Document 12/03/20 10:32 HH (Rec: 12/03/20 12:08 HH [id number]) Out-Patient Physical Therapy Visit Information Visit Information Visit Type Treatment Note Visit Start Time 10:32 Visit Stop Time 11:26 Total Visit Minutes 54 Visit Number 01/24 Number of DATA SCIENCES DIRECTOR Visits 0 PT-OP-B Current Condition Start: 11/08/20 12:46 Freq: Status: Active Protocol: Document 11/08/20 09:45 HH (Rec: 11/08/20 12:54 HH [email or web address]) Current Condition History of Current Condition Onset Date years ago but getting worse since 2months ago Current Complaints severe R shoulder pain, decreased in shoulder mobility and strength History of Current Condition Liana is a 84 yo female here with her son today at the clinic for her worsening R shoulder pain. She stated her shoulder does have limited mobility prior but has gotten a lot more painful 7/10 since 2 months ago. Her pain has been affecting her sleep every night even though she sleeps on her back. she also has significant difficulty kelli/ doff bra, jacket and reach over >80 degrees flexion/ abduction. Son Raimundo has to have her with dressing sometimes. Denies tingling/ numbness sensation. Pt recently had a course of PT here for her R sided neck pain and she said it helped her a lot. Pt's cervical x-ray has shown laxity at c4-5 and severe DDD C5-6. Pt uses 4WW with a significant FHP and thoracic kyphosis at baseline. Treatment Goals Patient/Caregiver Goals 1. to regain shoulder mobility and strength 2. to be able to kelli/doff clothes with minimal pain Current Functional Impairments (Reported) Functional Limitations- ADL's unable to reach overhead/ behind her back to kelli/doff jacket, shirts/ bra. Son often needs to assist Functional Limitations- Mobility/Gait uses 4WW at all time Functional Limitations- Other unable to reach overhead unable to maintain good quality of sleep at night d/t severe pain. PT-OP-C Subjective Start: 11/08/20 12:46 Freq: Status: Active Protocol: Document 12/03/20 10:32 HH (Rec: 12/03/20 12:08 [id number]) OP-PT Subjective Patient Comments Patient Comments Im a little sore today but its not too bad now. I bring my towel to check if i support my shoulder the right way at night. Patient Reported Progress Improving PT-OP-E Functional Tests Start: 11/08/20 12:46 Freq: Status: Active Protocol: Document 11/08/20 09:45 HH (Rec: 11/08/20 17:08 [email or web address]) Functional Tests Apley's Scratch Test Action 1- Left to AC joint Action 1- Right unable to reach opposite shoulder Action 2- Left CT junction Action 2- Right R hand up to R ear Action 3- Left T10 Action 3- Right R lateral buttock PT-OP-F Manual Assessment Start: 11/08/20 12:46 Freq: Status: Active Protocol: Document 11/08/20 09:45 HH (Rec: 11/08/20 17:08 [email or web address]) Manual Assessments Soft Tissue Assessment Soft Tissue Mobility Assessment significant hypertonicity at R Pecs, Long bicep tendon and infraspinatus moderate tonicity at supraspinatus and teresminor. Joint Mobility Assessment Joint Mobility Assessment significant muscle guarding noted with PROM on R. Unable to assess joint end feeling. PT-OP-G Mobility & Gait Start: 11/08/20 12:46 Freq: Status: Active Protocol: Document 11/08/20 09:45 HH (Rec: 11/08/20 17:08 [email or web address]) OP Gait Assessment Assistive Devices Assistive Device 4 Wheeled Walker Gait Deviations General Gait Pattern Decreased Stride Length, Decreased Feet Clearance, Flexed Trunk Factors Limiting Gait Function Factors Limiting Gait Function Decreased Activity Tolerance, Decreased Strength,Limited Range of Motion,Pain,Poor Balance,Respiratory Distress PT-OP-J Posture/Palpation/Skin Start: 11/08/20 12:46 Freq: Status: Active Protocol: Document 11/08/20 09:45 HH (Rec: 11/08/20 17:08 [email or web address]) Posture Evaluation Position Standing Head/C-Spine Posture Forward Head T-Spine Posture Increased Kyphosis Shoulder Posture (L) Rounded,(R) Rounded,(R) Forward PT-OP-K Range of Motion Start: 11/08/20 12:46 Freq: Status: Active Protocol: Document 11/08/20 09:45 HH (Rec: 11/08/20 17:08 [email or web address]) Cervical Spine Range of Motion Cervical Spine Active Degrees Testing Position Sitting Flexion 60 Extension 28 Rotation Left 45 Rotation Right 35 Lateral Flexion Left 20 Lateral Flexion Right 20 ROM Limitations Soft Tissue Tightness,Muscle Weakness,Pain Comments pain on R side > L at end range for all ROM Shoulder Goniometric Range of Motion Shoulder Right Passive Shoulder ROM WFL No Testing Position Sitting Flexion 80 Abduction 70 Left Active Shoulder ROM WFL Yes Testing Position Sitting Flexion 115 Abduction 125 External Rotation at 90 degrees 70 Abduction Internal Rotation 80 Right Active Shoulder ROM WFL No Testing Position Sitting Flexion 45 Abduction 40 Comments unable to reach external rotation and internal rotation d/t significant pain severe pain for all ROM pt shows contralateral trunk lean to compensate for R shoulder abd and trunk extension for shoulder flexion . PT-OP-L Special Tests Start: 11/08/20 12:46 Freq: Status: Active Protocol: Document 11/08/20 09:45 HH (Rec: 11/08/20 17:08 [email or web address]) Special Tests Shoulder Special Tests Drop Arm Rotator Cuff Test Results +ve R Comments lift off til 40 degrees but unable to hold trunk compensation noted. AC Joint Compression Test Results severe pain on RUE Other Special Tests Special Tests unable to perform special test d/t significant R shoulder pain for all mobility. PT-OP-Q Treatments Start: 11/08/20 12:46 Freq: Status: Active Protocol: Document 12/03/20 10:32 HH (Rec: 12/03/20 12:08 [id number]) Therapeutic Exercises Supine Exercises PROM Supine Exercise Name flexion, abduction Side right Reps/Minutes 8 mins Comments very painful today. Standing Exercises OH lauren Standing Exercise Name flexion, scaption, abduction Side bilateral Reps/Minutes 8 mins wall posture, back to wall Standing Exercise Name with scap retraction Resistance standing Equipment Used 4WW locked in front Reps/Minutes 5 sec hold x5 Comments cued upright posture wall Manual Therapy Treatment Soft Tissue Mobilization RTC Body Location R Mobilization Type Sustained Pressure,Trigger Point Release Intensity/Depth Superficial Body Position Hooklying Comments infrapsinatus pecs Body Location R Mobilization Type Sustained Pressure,Trigger Point Release Intensity/Depth Superficial Body Position Hooklying Comments pain at pec minor and insertion of pec major. bicep tendon Body Location R Mobilization Type Sustained Pressure,Trigger Point Release Intensity/Depth Superficial Body Position Hooklying Comments @ long head tendon PT-OP-R Modalities Start: 11/08/20 12:46 Freq: Status: Active Protocol: Document 12/03/20 10:32 (Rec: 12/03/20 12:08 [id number]) Hot Pack/Cold Pack Treatment MHP Location R shoulder Patient Position Hooklying Treatment Duration (minutes) 10 Patient Tolerance Good Ultrasound Therapy Treatment Right Shoulder Treatment Duration (minutes) 5 Patient Position Hooklying Coupling Medium Ultrasound Gel Applicator Size (cm2) 5 Frequency Setting (mHz) 1 Mode Setting Continuous Duty Cycle 100% Intensity Setting (w/cm2) 1.5 Comments R GHJ PT-OP-T Assessment and Plan Start: 11/08/20 12:46 Freq: Status: Active Protocol: Document 12/03/20 10:32 (Rec: 12/03/20 12:08 [id number]) Physical Therapy Assessment Goals pain Impairment pt has severe pain which wakes her up every night Short Term Goal (STG) pt will have less pain in a daily basis so she can maintain her sleep 3 times/ week without being waken up STG Duration 6 weeks Insurance Sales Producer Goal (LTG) pt will have less pain in a daily basis so she can maintain her sleep 5 times/ week without being waken up LTG Duration 12 weeks ROM Impairment pt has very limited shoulder ROM Short Term Goal (STG) pt will show improvements in all planes of R shoulder ROM by 15 degrees so she can kelli /doff shirts/ bra and jacket without increase pain. STG Duration 6 weeks [facility] Goal (LTG) pt will show improvements in all planes of R shoulder ROM by 30degrees so she can kelli / doff shirts/ bra and jacket without any trunk compensation and increase in pain LTG Duration 12 weeks quickdash Impairment pt scores 70.45 Short Term Goal (STG) pt will score <60 on Quickdash to improve her overall quality of life with less pain . STG Duration 6 weeks Insurance Sales Producer Goal (LTG) pt will score <45 on Quickdash to improve her overall quality of life with less pain . LTG Duration 12 weeks Assessment Summary Assessment pt came in with increased shoulder pain but improved after lauren exercises. 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 She has significant muscle guarding and joint crepitus with minimal movements. Explained to pt to do HEP such as lauren at home frequently. Physical Therapy Plan Frequency and Duration Frequency of Treatment 2x/Week Duration of Treatment 12 [email or web address] Plan of Care Start Date 11/08/20 Plan of Care End Date 02/06/21 Therapeutic Interventions Therapeutic Interventions Aquatic Therapy,Balance Training,Gait Training,Home Exercise Program,Joint Mobilizations,Neuromuscular Re -education,Orthotic/Prosthetic Management,Patient/Caregiver Education,Self-Care/Home Management,Soft Tissue Mobilization,Taping, Therapeutic Activities, Therapeutic Exercises Modalities Biofeedback,Cold Pack/Ice Massage,Electric Stimulation, Hot Packs,Infrared Therapy, Iontophoresis,Paraffin Bath, Traction- Mechanical, Ultrasound Next Visit Focus/Plan Next Note Type Treatment Note Next Visit Plan start with manual on RTC, pecs , PROM at this point joint mob lauren if possible.
--- NOTE | 2020-12-08 16:13 | PT.OTN ---
Current Diagnoses Other specific arthropathies, not elsewhere classified, right shoulder (12/08/20) Physical Therapy Treatment Note PT-OP-A Visit Information Start: 11/08/20 12:46 Freq: Status: Active Protocol: Document 12/08/20 15:27 HH (Rec: 12/08/20 16:13 HH [id number]) Out-Patient Physical Therapy Visit Information Visit Information Visit Type Treatment Note Visit Start Time 15:15 Visit Stop Time 16:10 Total Visit Minutes 55 Visit Number 02/24 Number of SNAKER TRACTOR DRIVER Visits 0 PT-OP-B Current Condition Start: 11/08/20 12:46 Freq: Status: Active Protocol: Document 11/08/20 09:45 HH (Rec: 11/08/20 12:54 HH [email or web address]) Current Condition History of Current Condition Onset Date years ago but getting worse since 2months ago Current Complaints severe R shoulder pain, decreased in shoulder mobility and strength History of Current Condition Liana is a 84 yo female here with her son today at the clinic for her worsening R shoulder pain. She stated her shoulder does have limited mobility prior but has gotten a lot more painful 7/10 since 2 months ago. Her pain has been affecting her sleep every night even though she sleeps on her back. she also has significant difficulty kelli/ doff bra, jacket and reach over >80 degrees flexion/ abduction. Son Raimundo has to have her with dressing sometimes. Denies tingling/ numbness sensation. Pt recently had a course of PT here for her R sided neck pain and she said it helped her a lot. Pt's cervical x-ray has shown laxity at c4-5 and severe DDD C5-6. Pt uses 4WW with a significant FHP and thoracic kyphosis at baseline. Treatment Goals Patient/Caregiver Goals 1. to regain shoulder mobility and strength 2. to be able to kelli/doff clothes with minimal pain Current Functional Impairments (Reported) Functional Limitations- ADL's unable to reach overhead/ behind her back to kelli/doff jacket, shirts/ bra. Son often needs to assist Functional Limitations- Mobility/Gait uses 4WW at all time Functional Limitations- Other unable to reach overhead unable to maintain good quality of sleep at night d/t severe pain. PT-OP-C Subjective Start: 11/08/20 12:46 Freq: Status: Active Protocol: Document 12/08/20 15:27 HH (Rec: 12/08/20 16:13 [id number]) OP-PT Subjective Patient Comments Patient Comments Using pillow support under my R shoulder has been very helpful at night. I do think my pain has been less during the week since starting PT. But im still not doing too much with my home exercises and i know i need to be more compliant: Patient Reported Progress Improving PT-OP-E Functional Tests Start: 11/08/20 12:46 Freq: Status: Active Protocol: Document 11/08/20 09:45 HH (Rec: 11/08/20 17:08 [email or web address]) Functional Tests Apley's Scratch Test Action 1- Left to AC joint Action 1- Right unable to reach opposite shoulder Action 2- Left CT junction Action 2- Right R hand up to R ear Action 3- Left T10 Action 3- Right R lateral buttock PT-OP-F Manual Assessment Start: 11/08/20 12:46 Freq: Status: Active Protocol: Document 11/08/20 09:45 HH (Rec: 11/08/20 17:08 [email or web address]) Manual Assessments Soft Tissue Assessment Soft Tissue Mobility Assessment significant hypertonicity at R Pecs, Long bicep tendon and infraspinatus moderate tonicity at supraspinatus and teresminor. Joint Mobility Assessment Joint Mobility Assessment significant muscle guarding noted with PROM on R. Unable to assess joint end feeling. PT-OP-G Mobility & Gait Start: 11/08/20 12:46 Freq: Status: Active Protocol: Document 11/08/20 09:45 HH (Rec: 11/08/20 17:08 [email or web address]) OP Gait Assessment Assistive Devices Assistive Device 4 Wheeled Walker Gait Deviations General Gait Pattern Decreased Stride Length, Decreased Feet Clearance, Flexed Trunk Factors Limiting Gait Function Factors Limiting Gait Function Decreased Activity Tolerance, Decreased Strength,Limited Range of Motion,Pain,Poor Balance,Respiratory Distress PT-OP-J Posture/Palpation/Skin Start: 11/08/20 12:46 Freq: Status: Active Protocol: Document 11/08/20 09:45 HH (Rec: 11/08/20 17:08 [email or web address]) Posture Evaluation Position Standing Head/C-Spine Posture Forward Head T-Spine Posture Increased Kyphosis Shoulder Posture (L) Rounded,(R) Rounded,(R) Forward PT-OP-K Range of Motion Start: 11/08/20 12:46 Freq: Status: Active Protocol: Document 11/08/20 09:45 HH (Rec: 11/08/20 17:08 [email or web address]) Cervical Spine Range of Motion Cervical Spine Active Degrees Testing Position Sitting Flexion 60 Extension 28 Rotation Left 45 Rotation Right 35 Lateral Flexion Left 20 Lateral Flexion Right 20 ROM Limitations Soft Tissue Tightness,Muscle Weakness,Pain Comments pain on R side > L at end range for all ROM Shoulder Goniometric Range of Motion Shoulder Right Passive Shoulder ROM WFL No Testing Position Sitting Flexion 80 Abduction 70 Left Active Shoulder ROM WFL Yes Testing Position Sitting Flexion 115 Abduction 125 External Rotation at 90 degrees 70 Abduction Internal Rotation 80 Right Active Shoulder ROM WFL No Testing Position Sitting Flexion 45 Abduction 40 Comments unable to reach external rotation and internal rotation d/t significant pain severe pain for all ROM pt shows contralateral trunk lean to compensate for R shoulder abd and trunk extension for shoulder flexion . PT-OP-L Special Tests Start: 11/08/20 12:46 Freq: Status: Active Protocol: Document 11/08/20 09:45 HH (Rec: 11/08/20 17:08 [email or web address]) Special Tests Shoulder Special Tests Drop Arm Rotator Cuff Test Results +ve R Comments lift off til 40 degrees but unable to hold trunk compensation noted. AC Joint Compression Test Results severe pain on RUE Other Special Tests Special Tests unable to perform special test d/t significant R shoulder pain for all mobility. PT-OP-Q Treatments Start: 11/08/20 12:46 Freq: Status: Active Protocol: Document 12/08/20 15:27 HH (Rec: 12/08/20 16:13 [id number]) Therapeutic Exercises Sitting Exercises shoulder ER Side bilateral Equipment Used PVC Reps/Minutes 8 x2 Comments cues on keeping elbows next to ribcage, pain noted. Standing Exercises OH lauren Standing Exercise Name flexion, scaption, abduction Side bilateral Reps/Minutes 8 mins wall posture, back to wall Standing Exercise Name with scap retraction Resistance standing Equipment Used 4WW locked in front Reps/Minutes 5 sec hold x5 x2 Comments cued upright posture wall PT-OP-R Modalities Start: 11/08/20 12:46 Freq: Status: Active Protocol: Document 12/08/20 15:27 HH (Rec: 12/08/20 16:13 [id number]) Hot Pack/Cold Pack Treatment MHP Location R shoulder Patient Position Hooklying Treatment Duration (minutes) 10 Patient Tolerance Good Ultrasound Therapy Treatment Right Shoulder Treatment Duration (minutes) 8 Patient Position Hooklying Coupling Medium Ultrasound Gel Applicator Size (cm2) 5 Frequency Setting (mHz) 1 Mode Setting Continuous Duty Cycle 100% Intensity Setting (w/cm2) 1.5 Comments R GHJ PT-OP-T Assessment and Plan Start: 11/08/20 12:46 Freq: Status: Active Protocol: Document 12/08/20 15:27 (Rec: 12/08/20 16:13 [id number]) Physical Therapy Assessment Goals pain Impairment pt has severe pain which wakes her up every night Short Term Goal (STG) pt will have less pain in a daily basis so she can maintain her sleep 3 times/ week without being waken up STG Duration 6 weeks Television Specialist Goal (LTG) pt will have less pain in a daily basis so she can maintain her sleep 5 times/ week without being waken up LTG Duration 12 weeks ROM Impairment pt has very limited shoulder ROM Short Term Goal (STG) pt will show improvements in all planes of R shoulder ROM by 15 degrees so she can kelli /doff shirts/ bra and jacket without increase pain. STG Duration 6 weeks Television Specialist Goal (LTG) pt will show improvements in all planes of R shoulder ROM by 30degrees so she can kelli / doff shirts/ bra and jacket without any trunk compensation and increase in pain LTG Duration 12 weeks quickdash Impairment pt scores 70.45 Short Term Goal (STG) pt will score <60 on Quickdash to improve her overall quality of life with less pain . STG Duration 6 weeks Television Specialist Goal (LTG) pt will score <45 on Quickdash to improve her overall quality of life with less pain . LTG Duration 12 weeks Assessment Summary Assessment Pt stated with improved pain since IE and better sleep at night with pillow support. However, pt's ROM is still very limited with significant crepitus. Continue ROM ex as leticia Physical Therapy Plan Frequency and Duration Frequency of Treatment 2x/Week Duration of Treatment 12 [email or web address] Plan of Care Start Date 11/08/20 Plan of Care End Date 02/06/21 Therapeutic Interventions Therapeutic Interventions Aquatic Therapy,Balance Training,Gait Training,Home Exercise Program,Joint Mobilizations,Neuromuscular Re -education,Orthotic/Prosthetic Management,Patient/Caregiver Education,Self-Care/Home Management,Soft Tissue Mobilization,Taping, Therapeutic Activities, Therapeutic Exercises Modalities Biofeedback,Cold Pack/Ice Massage,Electric Stimulation, Hot Packs,Infrared Therapy, Iontophoresis,Paraffin Bath, Traction- Mechanical, Ultrasound Next Visit Focus/Plan Next Note Type Treatment Note Next Visit Plan start with manual on RTC, pecs , PROM at this point joint mob lauren if possible.
--- NOTE | 2020-12-10 16:00 | PT.OTN ---
Current Diagnoses Other specific arthropathies, not elsewhere classified, right shoulder (12/10/20) Physical Therapy Treatment Note PT-OP-A Visit Information Start: 11/08/20 12:46 Freq: Status: Active Protocol: Document 12/10/20 15:51 OF (Rec: 12/10/20 16:00 OF [email or web address]) Out-Patient Physical Therapy Visit Information Visit Information Visit Type Treatment Note Visit Start Time 15:15 Visit Stop Time 15:52 Total Visit Minutes 37 Visit Number 03/27 Number of AUTOMOTIVE ELECTRICIAN HELPER Visits 0 Evaluation Information Evaluation Date 11/08/20 Precautions Precautions Osteopororsis bruise easily depression COPD, A-fib PT-OP-B Current Condition Start: 11/08/20 12:46 Freq: Status: Active Protocol: Document 11/08/20 09:45 HH (Rec: 11/08/20 12:54 HH [email or web address]) Current Condition History of Current Condition Onset Date years ago but getting worse since 2months ago Current Complaints severe R shoulder pain, decreased in shoulder mobility and strength History of Current Condition Liana is a 84 yo female here with her son today at the clinic for her worsening R shoulder pain. She stated her shoulder does have limited mobility prior but has gotten a lot more painful 7/10 since 2 months ago. Her pain has been affecting her sleep every night even though she sleeps on her back. she also has significant difficulty kelli/ doff bra, jacket and reach over >80 degrees flexion/ abduction. Son Raimundo has to have her with dressing sometimes. Denies tingling/ numbness sensation. Pt recently had a course of PT here for her R sided neck pain and she said it helped her a lot. Pt's cervical x-ray has shown laxity at c4-5 and severe DDD C5-6. Pt uses 4WW with a significant FHP and thoracic kyphosis at baseline. Treatment Goals Patient/Caregiver Goals 1. to regain shoulder mobility and strength 2. to be able to kelli/doff clothes with minimal pain Current Functional Impairments (Reported) Functional Limitations- ADL's unable to reach overhead/ behind her back to kelli/doff jacket, shirts/ bra. Son often needs to assist Functional Limitations- Mobility/Gait uses 4WW at all time Functional Limitations- Other unable to reach overhead unable to maintain good quality of sleep at night d/t severe pain. PT-OP-C Subjective Start: 11/08/20 12:46 Freq: Status: Active Protocol: Document 12/10/20 15:51 OF (Rec: 12/10/20 16:00 OF [email or web address]) OP-PT Subjective Patient Comments Patient Comments Pt states she is tired, had a big day at [facility] Patient Reported Progress Same OP-PT Pain Assessment Pain Assessment Grid Paper Pain Assessment Grid Completed Yes: 10/16 at R shldr PT-OP-E Functional Tests Start: 11/08/20 12:46 Freq: Status: Active Protocol: Document 11/08/20 09:45 HH (Rec: 11/08/20 17:08 [email or web address]) Functional Tests Apley's Scratch Test Action 1- Left to AC joint Action 1- Right unable to reach opposite shoulder Action 2- Left CT junction Action 2- Right R hand up to R ear Action 3- Left T10 Action 3- Right R lateral buttock PT-OP-F Manual Assessment Start: 11/08/20 12:46 Freq: Status: Active Protocol: Document 11/08/20 09:45 HH (Rec: 11/08/20 17:08 [email or web address]) Manual Assessments Soft Tissue Assessment Soft Tissue Mobility Assessment significant hypertonicity at R Pecs, Long bicep tendon and infraspinatus moderate tonicity at supraspinatus and teresminor. Joint Mobility Assessment Joint Mobility Assessment significant muscle guarding noted with PROM on R. Unable to assess joint end feeling. PT-OP-G Mobility & Gait Start: 11/08/20 12:46 Freq: Status: Active Protocol: Document 11/08/20 09:45 HH (Rec: 11/08/20 17:08 [email or web address]) OP Gait Assessment Assistive Devices Assistive Device 4 Wheeled Walker Gait Deviations General Gait Pattern Decreased Stride Length, Decreased Feet Clearance, Flexed Trunk Factors Limiting Gait Function Factors Limiting Gait Function Decreased Activity Tolerance, Decreased Strength,Limited Range of Motion,Pain,Poor Balance,Respiratory Distress PT-OP-J Posture/Palpation/Skin Start: 11/08/20 12:46 Freq: Status: Active Protocol: Document 11/08/20 09:45 HH (Rec: 11/08/20 17:08 [email or web address]) Posture Evaluation Position Standing Head/C-Spine Posture Forward Head T-Spine Posture Increased Kyphosis Shoulder Posture (L) Rounded,(R) Rounded,(R) Forward PT-OP-K Range of Motion Start: 11/08/20 12:46 Freq: Status: Active Protocol: Document 11/08/20 09:45 HH (Rec: 11/08/20 17:08 HH [email or web address]) Cervical Spine Range of Motion Cervical Spine Active Degrees Testing Position Sitting Flexion 60 Extension 28 Rotation Left 45 Rotation Right 35 Lateral Flexion Left 20 Lateral Flexion Right 20 ROM Limitations Soft Tissue Tightness,Muscle Weakness,Pain Comments pain on R side > L at end range for all ROM Shoulder Goniometric Range of Motion Shoulder Right Passive Shoulder ROM WFL No Testing Position Sitting Flexion 80 Abduction 70 Left Active Shoulder ROM WFL Yes Testing Position Sitting Flexion 115 Abduction 125 External Rotation at 90 degrees 70 Abduction Internal Rotation 80 Right Active Shoulder ROM WFL No Testing Position Sitting Flexion 45 Abduction 40 Comments unable to reach external rotation and internal rotation d/t significant pain severe pain for all ROM pt shows contralateral trunk lean to compensate for R shoulder abd and trunk extension for shoulder flexion . PT-OP-L Special Tests Start: 11/08/20 12:46 Freq: Status: Active Protocol: Document 11/08/20 09:45 HH (Rec: 11/08/20 17:08 HH [email or web address]) Special Tests Shoulder Special Tests Drop Arm Rotator Cuff Test Results +ve R Comments lift off til 40 degrees but unable to hold trunk compensation noted. AC Joint Compression Test Results severe pain on RUE Other Special Tests Special Tests unable to perform special test d/t significant R shoulder pain for all mobility. PT-OP-Q Treatments Start: 11/08/20 12:46 Freq: Status: Active Protocol: Document 12/10/20 15:51 OF (Rec: 12/10/20 16:00 OF [email or web address]) Therapeutic Exercises Supine Exercises PROM Supine Exercise Name flexion, abduction Side right Reps/Minutes 8 mins Comments very painful today. Limited to 90 degrees DNF Supine Exercise Name chin nod head contact table Reps/Minutes 5 x5 Sitting Exercises GH extension Sitting Exercise Name GH extension Cervical Extension Sitting Exercise Name Ball > towel roll behind head Reps/Minutes 5x10 sec Comments standing with cues for shoulder retraction Standing Exercises OH lauren Standing Exercise Name flexion, scaption, abduction Side bilateral Reps/Minutes 8 mins standing rows and GH ext Side bilateral Resistance Tb #2 Reps/Minutes 2x10 Comments Cues for tall posture, scap stab, CS neutral ext- row Manual Therapy Treatment Soft Tissue Mobilization 2 Intensity/Depth Moderate Body Position Supine Comments A/P, inferior glides Self-Care/Home Management Treatment Education Patient Education Home Exercise Program Other Education Pt agreeable to AAROM for shoulder flexion and ABD PT-OP-R Modalities Start: 11/08/20 12:46 Freq: Status: Active Protocol: Document 12/08/20 15:27 HH (Rec: 12/08/20 16:13 HH [id number]) Hot Pack/Cold Pack Treatment MHP Location R shoulder Patient Position Hooklying Treatment Duration (minutes) 10 Patient Tolerance Good Ultrasound Therapy Treatment Right Shoulder Treatment Duration (minutes) 8 Patient Position Hooklying Coupling Medium Ultrasound Gel Applicator Size (cm2) 5 Frequency Setting (mHz) 1 Mode Setting Continuous Duty Cycle 100% Intensity Setting (w/cm2) 1.5 Comments R GHJ PT-OP-T Assessment and Plan Start: 11/08/20 12:46 Freq: Status: Active Protocol: Document 12/10/20 15:51 OF (Rec: 12/10/20 16:00 OF [email or web address]) Physical Therapy Assessment Rehab Potential Rehabilitation Potential Good Evaluation Complexity Number of Personal Factors/Comorbidities 1-2 Number of Body Systems Impaired 1-2 Impairments Impairments Balance,Coordination, Functional Activities Assessment Summary Assessment Pt has limited shoulder ROM, difficulty with AAROM. She is pleasant, requires cues for proper set up and positioning for AAROM Physical Therapy Plan Frequency and Duration Frequency of Treatment 2x/Week Duration of Treatment 12 weeks Plan of Care Start Date 11/08/20 Plan of Care End Date 02/06/21 Next Visit Focus/Plan Next Note Type Treatment Note Next Visit Plan continue AAROM, progress mobs, postural work
--- NOTE | 2020-12-13 16:04 | PT.OTN ---
Current Diagnoses Other specific arthropathies, not elsewhere classified, right shoulder (12/13/20) Physical Therapy Treatment Note PT-OP-A Visit Information Start: 11/08/20 12:46 Freq: Status: Active Protocol: Document 12/13/20 13:01 HH (Rec: 12/13/20 13:50 HH [id number]) Out-Patient Physical Therapy Visit Information Visit Information Visit Type Progress Note Visit Start Time 13:00 Visit Stop Time 13:54 Total Visit Minutes 54 Visit Number 04/26 Number of [employer] Visits 0 PT-OP-B Current Condition Start: 11/08/20 12:46 Freq: Status: Active Protocol: Document 11/08/20 09:45 HH (Rec: 11/08/20 12:54 HH [email or web address]) Current Condition History of Current Condition Onset Date years ago but getting worse since 2months ago Current Complaints severe R shoulder pain, decreased in shoulder mobility and strength History of Current Condition Liana is a 84 yo female here with her son today at the clinic for her worsening R shoulder pain. She stated her shoulder does have limited mobility prior but has gotten a lot more painful 7/10 since 2 months ago. Her pain has been affecting her sleep every night even though she sleeps on her back. she also has significant difficulty kelli/ doff bra, jacket and reach over >80 degrees flexion/ abduction. Son Raimundo has to have her with dressing sometimes. Denies tingling/ numbness sensation. Pt recently had a course of PT here for her R sided neck pain and she said it helped her a lot. Pt's cervical x-ray has shown laxity at c4-5 and severe DDD C5-6. Pt uses 4WW with a significant FHP and thoracic kyphosis at baseline. Treatment Goals Patient/Caregiver Goals 1. to regain shoulder mobility and strength 2. to be able to kelli/doff clothes with minimal pain Current Functional Impairments (Reported) Functional Limitations- ADL's unable to reach overhead/ behind her back to kelli/doff jacket, shirts/ bra. Son often needs to assist Functional Limitations- Mobility/Gait uses 4WW at all time Functional Limitations- Other unable to reach overhead unable to maintain good quality of sleep at night d/t severe pain. PT-OP-C Subjective Start: 11/08/20 12:46 Freq: Status: Active Protocol: Document 12/13/20 13:01 HH (Rec: 12/13/20 13:50 [id number]) OP-PT Subjective Patient Comments Patient Comments Sindhu been sleeping better becuase of putting a pillow underneath my R shoulder Patient Reported Progress Same PT-OP-E Functional Tests Start: 11/08/20 12:46 Freq: Status: Active Protocol: Document 11/08/20 09:45 HH (Rec: 11/08/20 17:08 [email or web address]) Functional Tests Apley's Scratch Test Action 1- Left to AC joint Action 1- Right unable to reach opposite shoulder Action 2- Left CT junction Action 2- Right R hand up to R ear Action 3- Left T10 Action 3- Right R lateral buttock PT-OP-F Manual Assessment Start: 11/08/20 12:46 Freq: Status: Active Protocol: Document 11/08/20 09:45 HH (Rec: 11/08/20 17:08 [email or web address]) Manual Assessments Soft Tissue Assessment Soft Tissue Mobility Assessment significant hypertonicity at R Pecs, Long bicep tendon and infraspinatus moderate tonicity at supraspinatus and teresminor. Joint Mobility Assessment Joint Mobility Assessment significant muscle guarding noted with PROM on R. Unable to assess joint end feeling. PT-OP-G Mobility & Gait Start: 11/08/20 12:46 Freq: Status: Active Protocol: Document 11/08/20 09:45 HH (Rec: 11/08/20 17:08 [email or web address]) OP Gait Assessment Assistive Devices Assistive Device 4 Wheeled Walker Gait Deviations General Gait Pattern Decreased Stride Length, Decreased Feet Clearance, Flexed Trunk Factors Limiting Gait Function Factors Limiting Gait Function Decreased Activity Tolerance, Decreased Strength,Limited Range of Motion,Pain,Poor Balance,Respiratory Distress PT-OP-J Posture/Palpation/Skin Start: 11/08/20 12:46 Freq: Status: Active Protocol: Document 11/08/20 09:45 HH (Rec: 11/08/20 17:08 [email or web address]) Posture Evaluation Position Standing Head/C-Spine Posture Forward Head T-Spine Posture Increased Kyphosis Shoulder Posture (L) Rounded,(R) Rounded,(R) Forward PT-OP-K Range of Motion Start: 11/08/20 12:46 Freq: Status: Active Protocol: Document 12/13/20 13:01 (Rec: 12/13/20 16:04 [id number]) Shoulder Goniometric Range of Motion Shoulder Right Passive Shoulder ROM WFL No Testing Position Sitting Flexion 90 Abduction 84 PT-OP-L Special Tests Start: 11/08/20 12:46 Freq: Status: Active Protocol: Document 11/08/20 09:45 (Rec: 11/08/20 17:08 [email or web address]) Special Tests Shoulder Special Tests Drop Arm Rotator Cuff Test Results +ve R Comments lift off til 40 degrees but unable to hold trunk compensation noted. AC Joint Compression Test Results severe pain on RUE Other Special Tests Special Tests unable to perform special test d/t significant R shoulder pain for all mobility. PT-OP-Q Treatments Start: 11/08/20 12:46 Freq: Status: Active Protocol: Document 12/13/20 13:01 (Rec: 12/13/20 13:50 [id number]) Therapeutic Exercises Standing Exercises OH lauren Standing Exercise Name flexion, scaption, abduction Side bilateral Reps/Minutes 8 mins PT-OP-R Modalities Start: 11/08/20 12:46 Freq: Status: Active Protocol: Document 12/13/20 13:01 (Rec: 12/13/20 13:50 [id number]) Ultrasound Therapy Treatment Right Shoulder Treatment Duration (minutes) 8 Patient Position Hooklying Coupling Medium Ultrasound Gel Applicator Size (cm2) 5 Frequency Setting (mHz) 1 Mode Setting Continuous Duty Cycle 100% Intensity Setting (w/cm2) 1.5 Comments R GHJ PT-OP-T Assessment and Plan Start: 11/08/20 12:46 Freq: Status: Active Protocol: Document 12/13/20 13:01 (Rec: 12/13/20 13:50 [id number]) Physical Therapy Assessment Goals pain Impairment pt has severe pain which wakes her up every night Short Term Goal (STG) 6/7 goal met pt has been sleeping well with a pillow underneath her R shoulder. Pt has not been waking up by pain couple nights a week. pt will have less pain in a daily basis so she can maintain her sleep 3 times/ week without being waken up STG Duration 6 weeks Skilled Nursing Goal (LTG) pt will have less pain in a daily basis so she can maintain her sleep 5 times/ week without being waken up LTG Duration 12 weeks ROM Impairment pt has very limited shoulder ROM Short Term Goal (STG) 6/7 cont in progress FF= 88degrees passively abd= 85 degrees passively. pt will show improvements in all planes of R shoulder ROM by 15 degrees so she can kelli /doff shirts/ bra and jacket without increase pain. STG Duration 6 weeks Skilled Nursing Goal (LTG) pt will show improvements in all planes of R shoulder ROM by 30degrees so she can kelli / doff shirts/ bra and jacket without any trunk compensation and increase in pain LTG Duration 12 weeks quickdash Impairment pt scores 70.45 Short Term Goal (STG) 6 goal met. Pt scores 59 points today. pt will score <60 on Quickdash to improve her overall quality of life with less pain . STG Duration 6 weeks Skilled Nursing Goal (LTG) pt will score <45 on Quickdash to improve her overall quality of life with less pain . LTG Duration 12 weeks Assessment Summary Assessment [facility] today. Pt reports she has improved quality of sleep recently with the support from pillow underneath her R shoulder. However, her ROM and strength and overall pain have been the same since IE possibly d/t her severe OA. Spent most of this session to educate patient to reach out her PCP and possibly get a second opinion from orthopedic surgeon. Pt most likely might benefit from cortisone injection for pain management. Discussed with pt to continue PT for 1x/wk x 4 weeks and focus on ROM and pain management. Physical Therapy Plan Frequency and Duration Frequency of Treatment 1x/Week Duration of Treatment 12 weeks Plan of Care Start Date 11/08/20 Plan of Care End Date 02/06/21 Therapeutic Interventions Therapeutic Interventions Aquatic Therapy,Balance Training,Gait Training,Home Exercise Program,Joint Mobilizations,Neuromuscular Re -education,Orthotic/Prosthetic Management,Patient/Caregiver Education,Self-Care/Home Management,Soft Tissue Mobilization,Taping, Therapeutic Activities, Therapeutic Exercises Modalities Biofeedback,Cold Pack/Ice Massage,Electric Stimulation, Hot Packs,Infrared Therapy, Iontophoresis,Paraffin Bath, Traction- Mechanical, Ultrasound Next Visit Focus/Plan Next Note Type Treatment Note Next Visit Plan continue AAROM, progress mobs, postural work
--- NOTE | 2020-12-21 13:51 | PT.OTN ---
Current Diagnoses Other specific arthropathies, not elsewhere classified, right shoulder (12/21/20) Physical Therapy Treatment Note PT-OP-A Visit Information Start: 11/08/20 12:46 Freq: Status: Active Protocol: Document 12/21/20 12:59 HH (Rec: 12/21/20 13:51 HH [id number]) Out-Patient Physical Therapy Visit Information Visit Information Visit Type Treatment Note Visit Start Time 13:00 Visit Stop Time 13:55 Total Visit Minutes 55 Visit Number 05/27 Number of FOSTER WINDER Visits 0 PT-OP-B Current Condition Start: 11/08/20 12:46 Freq: Status: Active Protocol: Document 11/08/20 09:45 HH (Rec: 11/08/20 12:54 HH [email or web address]) Current Condition History of Current Condition Onset Date years ago but getting worse since 2months ago Current Complaints severe R shoulder pain, decreased in shoulder mobility and strength History of Current Condition Liana is a 84 yo female here with her son today at the clinic for her worsening R shoulder pain. She stated her shoulder does have limited mobility prior but has gotten a lot more painful 7/10 since 2 months ago. Her pain has been affecting her sleep every night even though she sleeps on her back. she also has significant difficulty kelli/ doff bra, jacket and reach over >80 degrees flexion/ abduction. Son Raimundo has to have her with dressing sometimes. Denies tingling/ numbness sensation. Pt recently had a course of PT here for her R sided neck pain and she said it helped her a lot. Pt's cervical x-ray has shown laxity at c4-5 and severe DDD C5-6. Pt uses 4WW with a significant FHP and thoracic kyphosis at baseline. Treatment Goals Patient/Caregiver Goals 1. to regain shoulder mobility and strength 2. to be able to kelli/doff clothes with minimal pain Current Functional Impairments (Reported) Functional Limitations- ADL's unable to reach overhead/ behind her back to kelli/doff jacket, shirts/ bra. Son often needs to assist Functional Limitations- Mobility/Gait uses 4WW at all time Functional Limitations- Other unable to reach overhead unable to maintain good quality of sleep at night d/t severe pain. PT-OP-C Subjective Start: 11/08/20 12:46 Freq: Status: Active Protocol: Document 12/21/20 12:59 HH (Rec: 12/21/20 13:51 HH [id number]) OP-PT Subjective Patient Comments Patient Comments My sleep has been getting better because of the pillow and doing the lauren before bed. Patient Reported Progress Improving PT-OP-E Functional Tests Start: 11/08/20 12:46 Freq: Status: Active Protocol: Document 11/08/20 09:45 HH (Rec: 11/08/20 17:08 [email or web address]) Functional Tests Apley's Scratch Test Action 1- Left to AC joint Action 1- Right unable to reach opposite shoulder Action 2- Left CT junction Action 2- Right R hand up to R ear Action 3- Left T10 Action 3- Right R lateral buttock PT-OP-F Manual Assessment Start: 11/08/20 12:46 Freq: Status: Active Protocol: Document 11/08/20 09:45 HH (Rec: 11/08/20 17:08 [email or web address]) Manual Assessments Soft Tissue Assessment Soft Tissue Mobility Assessment significant hypertonicity at R Pecs, Long bicep tendon and infraspinatus moderate tonicity at supraspinatus and teresminor. Joint Mobility Assessment Joint Mobility Assessment significant muscle guarding noted with PROM on R. Unable to assess joint end feeling. PT-OP-G Mobility & Gait Start: 11/08/20 12:46 Freq: Status: Active Protocol: Document 11/08/20 09:45 HH (Rec: 11/08/20 17:08 [email or web address]) OP Gait Assessment Assistive Devices Assistive Device 4 Wheeled Walker Gait Deviations General Gait Pattern Decreased Stride Length, Decreased Feet Clearance, Flexed Trunk Factors Limiting Gait Function Factors Limiting Gait Function Decreased Activity Tolerance, Decreased Strength,Limited Range of Motion,Pain,Poor Balance,Respiratory Distress PT-OP-J Posture/Palpation/Skin Start: 11/08/20 12:46 Freq: Status: Active Protocol: Document 11/08/20 09:45 HH (Rec: 11/08/20 17:08 [email or web address]) Posture Evaluation Position Standing Head/C-Spine Posture Forward Head T-Spine Posture Increased Kyphosis Shoulder Posture (L) Rounded,(R) Rounded,(R) Forward PT-OP-K Range of Motion Start: 11/08/20 12:46 Freq: Status: Active Protocol: Document 12/13/20 13:01 HH (Rec: 12/13/20 16:04 [id number]) Shoulder Goniometric Range of Motion Shoulder Right Passive Shoulder ROM WFL No Testing Position Sitting Flexion 90 Abduction 84 PT-OP-L Special Tests Start: 11/08/20 12:46 Freq: Status: Active Protocol: Document 11/08/20 09:45 HH (Rec: 11/08/20 17:08 [email or web address]) Special Tests Shoulder Special Tests Drop Arm Rotator Cuff Test Results +ve R Comments lift off til 40 degrees but unable to hold trunk compensation noted. AC Joint Compression Test Results severe pain on RUE Other Special Tests Special Tests unable to perform special test d/t significant R shoulder pain for all mobility. PT-OP-Q Treatments Start: 11/08/20 12:46 Freq: Status: Active Protocol: Document 12/21/20 12:59 HH (Rec: 12/21/20 13:51 [id number]) Therapeutic Exercises Supine Exercises shoulder ER w/ dowel Supine Exercise Name for HEP Side bilateral Reps/Minutes 10 x2 Comments cues to keep shoulder close to ribcage. Standing Exercises OH lauren Standing Exercise Name flexion, scaption, abduction Side bilateral Reps/Minutes 8 mins Comments less pain reported. wall posture, back to wall Standing Exercise Name with scap retraction Resistance standing Equipment Used 4WW locked in front Reps/Minutes 5 sec hold x5 x2 Comments cued upright posture wall PT-OP-R Modalities Start: 11/08/20 12:46 Freq: Status: Active Protocol: Document 12/21/20 12:59 HH (Rec: 12/21/20 13:51 [id number]) Hot Pack/Cold Pack Treatment MHP Location R shoulder Patient Position Hooklying Treatment Duration (minutes) 10 Patient Tolerance Good Ultrasound Therapy Treatment Right Shoulder Treatment Duration (minutes) 8 Patient Position Hooklying Coupling Medium Ultrasound Gel Applicator Size (cm2) 5 Frequency Setting (mHz) 1 Mode Setting Continuous Duty Cycle 100% Intensity Setting (w/cm2) 1.5 Comments R GHJ PT-OP-T Assessment and Plan Start: 11/08/20 12:46 Freq: Status: Active Protocol: Document 12/21/20 12:59 HH (Rec: 12/21/20 13:51 [id number]) Physical Therapy Assessment Goals pain Impairment pt has severe pain which wakes her up every night Short Term Goal (STG) 6 goal met pt has been sleeping well with a pillow underneath her R shoulder. Pt has not been waking up by pain couple nights a week. pt will have less pain in a daily basis so she can maintain her sleep 3 times/ week without being waken up STG Duration 6 weeks Snf Goal (LTG) pt will have less pain in a daily basis so she can maintain her sleep 5 times/ week without being waken up LTG Duration 12 weeks ROM Impairment pt has very limited shoulder ROM Short Term Goal (STG) 6 cont in progress FF= 88degrees passively abd= 85 degrees passively. pt will show improvements in all planes of R shoulder ROM by 15 degrees so she can kelli /doff shirts/ bra and jacket without increase pain. STG Duration 6 weeks Respiratory Care Assistant Goal (LTG) pt will show improvements in all planes of R shoulder ROM by 30degrees so she can kelli / doff shirts/ bra and jacket without any trunk compensation and increase in pain LTG Duration 12 weeks quickdash Impairment pt scores 70.45 Short Term Goal (STG) 12/13 goal met. Pt scores 59 points today. pt will score <60 on Quickdash to improve her overall quality of life with less pain . STG Duration 6 weeks Snf Goal (LTG) pt will score <45 on Quickdash to improve her overall quality of life with less pain . LTG Duration 12 weeks Assessment Summary Assessment pt has not been seen for 2 weeks and she reports her pain is getting less with improved sleep. She has been more compliant to her HEP. Added supine shoulder ER today. Physical Therapy Plan Frequency and Duration Frequency of Treatment 1x/Week Duration of Treatment 12 weeks Plan of Care Start Date 11/08/20 Plan of Care End Date 02/06/21 Therapeutic Interventions Therapeutic Interventions Aquatic Therapy,Balance Training,Gait Training,Home Exercise Program,Joint Mobilizations,Neuromuscular Re -education,Orthotic/Prosthetic Management,Patient/Caregiver Education,Self-Care/Home Management,Soft Tissue Mobilization,Taping, Therapeutic Activities, Therapeutic Exercises Modalities Biofeedback,Cold Pack/Ice Massage,Electric Stimulation, Hot Packs,Infrared Therapy, Iontophoresis,Paraffin Bath, Traction- Mechanical, Ultrasound Next Visit Focus/Plan Next Note Type Treatment Note Next Visit Plan continue AAROM, progress mobs, postural work
--- NOTE | 2020-12-28 13:43 | PT.OTN ---
Current Diagnoses Other specific arthropathies, not elsewhere classified, right shoulder (12/28/20) Physical Therapy Treatment Note PT-OP-A Visit Information Start: 11/08/20 12:46 Freq: Status: Active Protocol: Document 12/28/20 13:00 HH (Rec: 12/28/20 13:43 HH [id number]) Out-Patient Physical Therapy Visit Information Visit Information Visit Type Treatment Note Visit Start Time 13:00 Visit Stop Time 13:54 Total Visit Minutes 54 Visit Number 06/26 Number of CATERING DRIVER Visits 0 PT-OP-B Current Condition Start: 11/08/20 12:46 Freq: Status: Active Protocol: Document 11/08/20 09:45 HH (Rec: 11/08/20 12:54 HH [email or web address]) Current Condition History of Current Condition Onset Date years ago but getting worse since 2months ago Current Complaints severe R shoulder pain, decreased in shoulder mobility and strength History of Current Condition Liana is a 84 yo female here with her son today at the clinic for her worsening R shoulder pain. She stated her shoulder does have limited mobility prior but has gotten a lot more painful 7/10 since 2 months ago. Her pain has been affecting her sleep every night even though she sleeps on her back. she also has significant difficulty kelli/ doff bra, jacket and reach over >80 degrees flexion/ abduction. Son Raimundo has to have her with dressing sometimes. Denies tingling/ numbness sensation. Pt recently had a course of PT here for her R sided neck pain and she said it helped her a lot. Pt's cervical x-ray has shown laxity at c4-5 and severe DDD C5-6. Pt uses 4WW with a significant FHP and thoracic kyphosis at baseline. Treatment Goals Patient/Caregiver Goals 1. to regain shoulder mobility and strength 2. to be able to kelli/doff clothes with minimal pain Current Functional Impairments (Reported) Functional Limitations- ADL's unable to reach overhead/ behind her back to kelli/doff jacket, shirts/ bra. Son often needs to assist Functional Limitations- Mobility/Gait uses 4WW at all time Functional Limitations- Other unable to reach overhead unable to maintain good quality of sleep at night d/t severe pain. PT-OP-C Subjective Start: 11/08/20 12:46 Freq: Status: Active Protocol: Document 12/28/20 13:00 HH (Rec: 12/28/20 13:43 [id number]) OP-PT Subjective Patient Comments Patient Comments My shoulder only wakes me occasionally when my pillows slip out of the way. My pain is normally 3 but 6 when it gets bad Patient Reported Progress Improving PT-OP-E Functional Tests Start: 11/08/20 12:46 Freq: Status: Active Protocol: Document 11/08/20 09:45 HH (Rec: 11/08/20 17:08 [email or web address]) Functional Tests Apley's Scratch Test Action 1- Left to AC joint Action 1- Right unable to reach opposite shoulder Action 2- Left CT junction Action 2- Right R hand up to R ear Action 3- Left T10 Action 3- Right R lateral buttock PT-OP-F Manual Assessment Start: 11/08/20 12:46 Freq: Status: Active Protocol: Document 11/08/20 09:45 HH (Rec: 11/08/20 17:08 [email or web address]) Manual Assessments Soft Tissue Assessment Soft Tissue Mobility Assessment significant hypertonicity at R Pecs, Long bicep tendon and infraspinatus moderate tonicity at supraspinatus and teresminor. Joint Mobility Assessment Joint Mobility Assessment significant muscle guarding noted with PROM on R. Unable to assess joint end feeling. PT-OP-G Mobility & Gait Start: 11/08/20 12:46 Freq: Status: Active Protocol: Document 11/08/20 09:45 HH (Rec: 11/08/20 17:08 [email or web address]) OP Gait Assessment Assistive Devices Assistive Device 4 Wheeled Walker Gait Deviations General Gait Pattern Decreased Stride Length, Decreased Feet Clearance, Flexed Trunk Factors Limiting Gait Function Factors Limiting Gait Function Decreased Activity Tolerance, Decreased Strength,Limited Range of Motion,Pain,Poor Balance,Respiratory Distress PT-OP-J Posture/Palpation/Skin Start: 11/08/20 12:46 Freq: Status: Active Protocol: Document 11/08/20 09:45 HH (Rec: 11/08/20 17:08 [email or web address]) Posture Evaluation Position Standing Head/C-Spine Posture Forward Head T-Spine Posture Increased Kyphosis Shoulder Posture (L) Rounded,(R) Rounded,(R) Forward PT-OP-K Range of Motion Start: 11/08/20 12:46 Freq: Status: Active Protocol: Document 12/13/20 13:01 (Rec: 12/13/20 16:04 [id number]) Shoulder Goniometric Range of Motion Shoulder Right Passive Shoulder ROM WFL No Testing Position Sitting Flexion 90 Abduction 84 PT-OP-L Special Tests Start: 11/08/20 12:46 Freq: Status: Active Protocol: Document 11/08/20 09:45 HH (Rec: 11/08/20 17:08 [email or web address]) Special Tests Shoulder Special Tests Drop Arm Rotator Cuff Test Results +ve R Comments lift off til 40 degrees but unable to hold trunk compensation noted. AC Joint Compression Test Results severe pain on RUE Other Special Tests Special Tests unable to perform special test d/t significant R shoulder pain for all mobility. PT-OP-Q Treatments Start: 11/08/20 12:46 Freq: Status: Active Protocol: Document 12/28/20 13:00 (Rec: 12/28/20 13:43 [id number]) Therapeutic Exercises Supine Exercises shoulder ER w/ dowel Supine Exercise Name for HEP Side bilateral Reps/Minutes 10 x2 Comments cues to keep shoulder close to ribcage. Standing Exercises shoulder ER Standing Exercise Name AAROM Equipment Used PVC Comments cues with elbow to ribcage, [place] lauren Standing Exercise Name flexion, scaption, abduction Side bilateral Reps/Minutes 8 mins Comments less pain reported. wall posture, back to wall Standing Exercise Name with scap retraction Resistance standing Equipment Used 4WW locked in front Reps/Minutes 5 sec hold x5 x2 Comments cued upright posture wall PT-OP-R Modalities Start: 11/08/20 12:46 Freq: Status: Active Protocol: Document 12/28/20 13:00 (Rec: 12/28/20 13:43 [id number]) Hot Pack/Cold Pack Treatment MHP Location R shoulder Patient Position Hooklying Treatment Duration (minutes) 10 Patient Tolerance Good Ultrasound Therapy Treatment Right Shoulder Treatment Duration (minutes) 8 Patient Position Hooklying Coupling Medium Ultrasound Gel Applicator Size (cm2) 5 Frequency Setting (mHz) 1 Mode Setting Continuous Duty Cycle 100% Intensity Setting (w/cm2) 1.5 Comments R GHJ PT-OP-T Assessment and Plan Start: 11/08/20 12:46 Freq: Status: Active Protocol: Document 12/28/20 13:00 (Rec: 12/28/20 13:43 [id number]) Physical Therapy Assessment Goals pain Impairment pt has severe pain which wakes her up every night Short Term Goal (STG) 6/7 goal met pt has been sleeping well with a pillow underneath her R shoulder. Pt has not been waking up by pain couple nights a week. pt will have less pain in a daily basis so she can maintain her sleep 3 times/ week without being waken up STG Duration 6 weeks Group Home Goal (LTG) pt will have less pain in a daily basis so she can maintain her sleep 5 times/ week without being waken up LTG Duration 12 weeks ROM Impairment pt has very limited shoulder ROM Short Term Goal (STG) 6/7 cont in progress FF= 88degrees passively abd= 85 degrees passively. pt will show improvements in all planes of R shoulder ROM by 15 degrees so she can kelli /doff shirts/ bra and jacket without increase pain. STG Duration 6 weeks Clearance Coordinator Goal (LTG) pt will show improvements in all planes of R shoulder ROM by 30degrees so she can kelli / doff shirts/ bra and jacket without any trunk compensation and increase in pain LTG Duration 12 weeks quickdash Impairment pt scores 70.45 Short Term Goal (STG) 67 goal met. Pt scores 59 points today. pt will score <60 on Quickdash to improve her overall quality of life with less pain . STG Duration 6 weeks Clearance Coordinator Goal (LTG) pt will score <45 on Quickdash to improve her overall quality of life with less pain . LTG Duration 12 weeks Assessment Summary Assessment Pt has less night pain and has been compliant to her HEP. However, there's not much meaningful ROM incresae. Added ER stretch in upright position with minimal pain. Expect pt to be DC next week. Physical Therapy Plan Frequency and Duration Frequency of Treatment 1x/Week Duration of Treatment 12 weeks Plan of Care Start Date 11/08/20 Plan of Care End Date 02/06/21 Therapeutic Interventions Therapeutic Interventions Aquatic Therapy,Balance Training,Gait Training,Home Exercise Program,Joint Mobilizations,Neuromuscular Re -education,Orthotic/Prosthetic Management,Patient/Caregiver Education,Self-Care/Home Management,Soft Tissue Mobilization,Taping, Therapeutic Activities, Therapeutic Exercises Modalities Biofeedback,Cold Pack/Ice Massage,Electric Stimulation, Hot Packs,Infrared Therapy, Iontophoresis,Paraffin Bath, Traction- Mechanical, Ultrasound Next Visit Focus/Plan Next Note Type Treatment Note Next Visit Plan continue JIHAN, progress mobs, postural work
--- NOTE | 2021-01-04 13:53 | PT.OTN ---
Current Diagnoses Other specific arthropathies, not elsewhere classified, right shoulder (01/04/21) Physical Therapy Treatment Note PT-OP-A Visit Information Start: 11/08/20 12:46 Freq: Status: Active Protocol: Document 01/04/21 13:03 HH (Rec: 01/04/21 13:50 HH [id number]) Out-Patient Physical Therapy Visit Information Visit Information Visit Type Discharge Summary Visit Start Time 13:01 Visit Stop Time 13:54 Total Visit Minutes 53 Visit Number Number of TOBACCO WEIGHER Visits 0 PT-OP-B Current Condition Start: 11/08/20 12:46 Freq: Status: Active Protocol: Document 11/08/20 09:45 HH (Rec: 11/08/20 12:54 HH [email or web address]) Current Condition History of Current Condition Onset Date years ago but getting worse since 2months ago Current Complaints severe R shoulder pain, decreased in shoulder mobility and strength History of Current Condition Liana is a 84 yo female here with her son today at the clinic for her worsening R shoulder pain. She stated her shoulder does have limited mobility prior but has gotten a lot more painful 7/10 since 2 months ago. Her pain has been affecting her sleep every night even though she sleeps on her back. she also has significant difficulty kelli/ doff bra, jacket and reach over >80 degrees flexion/ abduction. Son Raimundo has to have her with dressing sometimes. Denies tingling/ numbness sensation. Pt recently had a course of PT here for her R sided neck pain and she said it helped her a lot. Pt's cervical x-ray has shown laxity at c4-5 and severe DDD C5-6. Pt uses 4WW with a significant FHP and thoracic kyphosis at baseline. Treatment Goals Patient/Caregiver Goals 1. to regain shoulder mobility and strength 2. to be able to kelli/doff clothes with minimal pain Current Functional Impairments (Reported) Functional Limitations- ADL's unable to reach overhead/ behind her back to kelli/doff jacket, shirts/ bra. Son often needs to assist Functional Limitations- Mobility/Gait uses 4WW at all time Functional Limitations- Other unable to reach overhead unable to maintain good quality of sleep at night d/t severe pain. PT-OP-C Subjective Start: 11/08/20 12:46 Freq: Status: Active Protocol: Document 01/04/21 13:03 HH (Rec: 01/04/21 13:50 [id number]) OP-PT Subjective Patient Comments Patient Comments I havent done much exercise the past few days since its so hot. But if i do it, my days will be better. I can sleep pretty well consistently Patient Reported Progress Same PT-OP-E Functional Tests Start: 11/08/20 12:46 Freq: Status: Active Protocol: Document 11/08/20 09:45 HH (Rec: 11/08/20 17:08 [email or web address]) Functional Tests Apley's Scratch Test Action 1- Left to AC joint Action 1- Right unable to reach opposite shoulder Action 2- Left CT junction Action 2- Right R hand up to R ear Action 3- Left T10 Action 3- Right R lateral buttock PT-OP-F Manual Assessment Start: 11/08/20 12:46 Freq: Status: Active Protocol: Document 11/08/20 09:45 HH (Rec: 11/08/20 17:08 [email or web address]) Manual Assessments Soft Tissue Assessment Soft Tissue Mobility Assessment significant hypertonicity at R Pecs, Long bicep tendon and infraspinatus moderate tonicity at supraspinatus and teresminor. Joint Mobility Assessment Joint Mobility Assessment significant muscle guarding noted with PROM on R. Unable to assess joint end feeling. PT-OP-G Mobility & Gait Start: 11/08/20 12:46 Freq: Status: Active Protocol: Document 11/08/20 09:45 HH (Rec: 11/08/20 17:08 [email or web address]) OP Gait Assessment Assistive Devices Assistive Device 4 Wheeled Walker Gait Deviations General Gait Pattern Decreased Stride Length, Decreased Feet Clearance, Flexed Trunk Factors Limiting Gait Function Factors Limiting Gait Function Decreased Activity Tolerance, Decreased Strength,Limited Range of Motion,Pain,Poor Balance,Respiratory Distress PT-OP-J Posture/Palpation/Skin Start: 11/08/20 12:46 Freq: Status: Active Protocol: Document 11/08/20 09:45 HH (Rec: 11/08/20 17:08 [email or web address]) Posture Evaluation Position Standing Head/C-Spine Posture Forward Head T-Spine Posture Increased Kyphosis Shoulder Posture (L) Rounded,(R) Rounded,(R) Forward PT-OP-K Range of Motion Start: 11/08/20 12:46 Freq: Status: Active Protocol: Document 12/13/20 13:01 (Rec: 12/13/20 16:04 [id number]) Shoulder Goniometric Range of Motion Shoulder Right Passive Shoulder ROM WFL No Testing Position Sitting Flexion 90 Abduction 84 PT-OP-L Special Tests Start: 11/08/20 12:46 Freq: Status: Active Protocol: Document 11/08/20 09:45 HH (Rec: 11/08/20 17:08 [email or web address]) Special Tests Shoulder Special Tests Drop Arm Rotator Cuff Test Results +ve R Comments lift off til 40 degrees but unable to hold trunk compensation noted. AC Joint Compression Test Results severe pain on RUE Other Special Tests Special Tests unable to perform special test d/t significant R shoulder pain for all mobility. PT-OP-Q Treatments Start: 11/08/20 12:46 Freq: Status: Active Protocol: Document 01/04/21 13:03 HH (Rec: 01/04/21 13:50 [id number]) Therapeutic Exercises Supine Exercises shoulder ER w/ dowel Supine Exercise Name for HEP Side bilateral Reps/Minutes 10 x2 Comments cues to keep shoulder close to ribcage. Standing Exercises [place] lauren Standing Exercise Name flexion, scaption, abduction Side bilateral Reps/Minutes 8 mins Comments less pain reported. wall posture, back to wall Standing Exercise Name with scap retraction Resistance standing Equipment Used 4WW locked in front Reps/Minutes 5 sec hold x5 x2 Comments cued upright posture wall Manual Therapy Treatment Soft Tissue Mobilization RTC Body Location R Mobilization Type Sustained Pressure,Trigger Point Release Intensity/Depth Superficial Body Position Hooklying Comments infrapsinatus pecs Body Location R Mobilization Type Sustained Pressure,Trigger Point Release Intensity/Depth Superficial Body Position Hooklying Comments pain at pec minor and insertion of pec major. PT-OP-R Modalities Start: 11/08/20 12:46 Freq: Status: Active Protocol: Document 01/04/21 13:03 (Rec: 01/04/21 13:50 [id number]) Hot Pack/Cold Pack Treatment Cold Pack Patient Position Hooklying Treatment Duration (minutes) 15 Patient Tolerance Good Ultrasound Therapy Treatment Right Shoulder Treatment Duration (minutes) 8 Patient Position Hooklying Coupling Medium Ultrasound Gel Applicator Size (cm2) 5 Frequency Setting (mHz) 1 Mode Setting Continuous Duty Cycle 100% Intensity Setting (w/cm2) 1.5 Comments R GHJ PT-OP-T Assessment and Plan Start: 11/08/20 12:46 Freq: Status: Active Protocol: Document 01/04/21 13:03 (Rec: 01/04/21 13:50 [id number]) Physical Therapy Assessment Goals pain Impairment pt has severe pain which wakes her up every night Short Term Goal (STG) 6 goal met pt has been sleeping well with a pillow underneath her R shoulder. Pt has not been waking up by pain couple nights a week. pt will have less pain in a daily basis so she can maintain her sleep 3 times/ week without being waken up STG Duration 6 weeks Piping Blocker Goal (LTG) pt will have less pain in a daily basis so she can maintain her sleep 5 times/ week without being waken up LTG Duration 12 weeks ROM Impairment pt has very limited shoulder ROM Short Term Goal (STG) 6/7 cont in progress FF= 88degrees passively abd= 85 degrees passively. pt will show improvements in all planes of R shoulder ROM by 15 degrees so she can kelli /doff shirts/ bra and jacket without increase pain. STG Duration 6 weeks Care Home Goal (LTG) pt will show improvements in all planes of R shoulder ROM by 30degrees so she can kelli / doff shirts/ bra and jacket without any trunk compensation and increase in pain LTG Duration 12 weeks quickdash Impairment pt scores 70.45 Short Term Goal (STG) 6/7 goal met. Pt scores 59 points today. pt will score <60 on Quickdash to improve her overall quality of life with less pain . STG Duration 6 weeks Care Home Goal (LTG) pt will score <45 on Quickdash to improve her overall quality of life with less pain . LTG Duration 12 weeks Assessment Summary Assessment pt's progress has been plateaued but she noticed she is able to manage her symptoms by using lauren, scap retraction. Pt agrees to be discharged today. Physical Therapy Plan Frequency and Duration Frequency of Treatment 1x/Week Duration of Treatment 12 weeks Plan of Care Start Date 11/08/20 Plan of Care End Date 02/06/21 Therapeutic Interventions Therapeutic Interventions Aquatic Therapy,Balance Training,Gait Training,Home Exercise Program,Joint Mobilizations,Neuromuscular Re -education,Orthotic/Prosthetic Management,Patient/Caregiver Education,Self-Care/Home Management,Soft Tissue Mobilization,Taping, Therapeutic Activities, Therapeutic Exercises Modalities Biofeedback,Cold Pack/Ice Massage,Electric Stimulation, Hot Packs,Infrared Therapy, Iontophoresis,Paraffin Bath, Traction- Mechanical, Ultrasound Next Visit Focus/Plan Next Note Type Treatment Note Next Visit Plan continue AAROM, progress mobs, postural work
== END 2021-01-04 14:20 | disposition home or self-care (01) ==
LOC: PHYS 13:00
PROVIDERS: Family Provider Student in an Organized Health Care Education/Training Program; PCP Student in an Organized Health Care Education/Training Program; Referring Provider Student in an Organized Health Care Education/Training Program; Visit Provider Student in an Organized Health Care Education/Training Program
DX: M12.811 Other specific arthropathies, not elsewhere classified, right shoulder (principal)
CPT/HCPCS: 95851; 97032; 97035; 97110; 97140; 97163; 97535

== ENCOUNTER → 2021-03-10 12:14 | Outpatient (CLI) | payer MEDICARE, SELFPAY ==
[2020-09-02 15:51] VITALS: BMI 37.8
[2021-03-10 13:31] LABS: Alanine Aminotransferase 14 IU/L (<35); Albumin 4.5 g/dL (3.5-5.0); Albumin Globulin Ratio 1.4 (1.0-2.8); Alkaline Phosphatase 53 U/L (38-126); Aspartate Aminotransferase 33 IU/L (14-36); BUN Creatinine Ratio 27.8 (6-22); Bilirubin Total 0.5 mg/dL (0.2-1.3); Blood Urea Nitrogen 25 mg/dL (7-17); Calcium 9.2 mg/dL (8.4-10.2); Carbon Dioxide 28 mmol/L (22-32); Chloride 105 mmol/L (98-107); Estimated Glomerular Filt Rate 59.5 mL/min (>60); Globulin 3.2 g/dL (1.7-4.1); Glucose 93 mg/dL (80-110); HEMOLYSIS < 15 (0-50); Lactate Dehydrogenase 571 U/L (313-618); Potassium 3.9 mmol/L (3.4-5.1); Sodium 141 mmol/L (137-145); Total Protein 7.7 g/dL (6.3-8.2)
[2021-03-10 13:45] LABS: HEMOLYSIS < 15 (0-50); Iron 76 ug/dL (37-170)
[2021-03-10 13:55] LABS: Percent Iron Saturation 21 % (15-50); Total Iron Binding Capacity 360 ug/dL (265-497); Transferrin 299 mg/dL (206-381)
[2021-03-10 14:05] LABS: Ferritin 52 ng/mL (11-264)
[2021-03-10 14:09] LABS: Add Manual Diff / Slide Review NO; Basophils Absolute Auto 0 /uL (0-100); Basophils Percent Auto 0.9 % (0-2); Eosinophils Absolute Auto 100 /uL (0-450); Eosinophils Percent Auto 2.7 % (2-4); Hematocrit 39.8 % (36-46); Lymphocytes Absolute Auto 900 /uL (1100-4500); Lymphocytes Percent Auto 16.6 % (25-40); Mean Corpuscular HGB Conc 32.8 % (30-36); Mean Corpuscular Hemoglobin 31.1 PG (26-34); Mean Corpuscular Volume 94.8 fL (80-100); Monocytes Absolute Auto 400 /uL (0-900); Monocytes Percent Auto 7.2 % (3-14); Neutrophils Absolute Auto 3900 /uL (1500-7000); Neutrophils Percent Auto 72.6 % (50-75); Platelet Count 134 X10^3/uL (150-400); Red Cell Distribution Width 15.4 % (11.6-14.8); White Blood Cell Count 5.3 X10^3/uL (4.5-11.0)
[2021-03-10 14:15] LABS: Reticulocyte Count, Percent 1.1 % (1.06-2.63)
[2021-03-10 14:18] LABS: TSH w/ Reflex to FT4 3.28 uIU/mL (0.47-4.68)
[2021-03-10 14:20] LABS: Vitamin B12 911 pg/mL (239-931)
== END ==
PROVIDERS: Family Provider Student in an Organized Health Care Education/Training Program; PCP Student in an Organized Health Care Education/Training Program; Referring Provider Student in an Organized Health Care Education/Training Program; Visit Provider Student in an Organized Health Care Education/Training Program
DX: R53.83 Other fatigue (principal); D50.9 Iron deficiency anemia, unspecified
CPT/HCPCS: 36415; 80053; 82607; 82728; 83540; 83550; 83615; 84443; 85025; 85045

== ENCOUNTER → 2021-03-28 11:00 | Outpatient (CLI) | payer MEDICARE, SELFPAY ==
[2020-09-02 15:51] VITALS: BMI 37.8
== END ==
PROVIDERS: Family Provider Student in an Organized Health Care Education/Training Program; PCP Student in an Organized Health Care Education/Training Program; Referring Provider Student in an Organized Health Care Education/Training Program; Visit Provider Student in an Organized Health Care Education/Training Program
DX: Z78.0 Asymptomatic menopausal state (principal); M85.852 Other specified disorders of bone density and structure, left thigh; M85.851 Other specified disorders of bone density and structure, right thigh
CPT/HCPCS: 77080

== ENCOUNTER 2021-04-24 20:16 | Emergency (ER) | payer MEDICARE, SELFPAY ==
[2020-09-02 15:51] VITALS: BMI 37.8
[2021-04-24] VITALS (7 sets, daily range): BP systolic 123–159; BP diastolic 62–68; PULSE 68–76; RESP 24–28; TEMP 36.5; O2SAT 94–97; BMI 38.0
--- NOTE | 2021-04-24 20:33 | DI.RAD.S_ITS ---
PROCEDURE: XR CHEST 1V INDICATIONS: short of breath, leg swelling, off lasix TECHNIQUE: One view of the chest was acquired. COMPARISON: [facility], CR, XR CHEST 1V, 06/22/2020, 16:40. FINDINGS: Surgical changes and devices: None. Lungs and pleura: Mild interstitial prominence suggesting mild pulmonary congestion. No pleural effusions or pneumothorax. Mediastinum: Mediastinal contours appear normal. Heart size is [id number] increased. Aortic calcification consistent with atherosclerosis. Bones and chest wall: No suspicious bony lesions. Overlying soft tissues appear unremarkable. IMPRESSION: 1. Aoplanqi-fa-tofebt cardiomegaly. 2. Mild pulmonary congestion. No confluent pulmonary edema. Dictated by: Isabelle Bui M.D. on 04/24/2021 at 21:05 Approved by: Isabelle Bui M.D. on 04/24/2021 at 21:07
[2021-04-24 20:53] LABS: Add Manual Diff / Slide Review NO; Basophils Absolute Auto 0 /uL (0-100); Basophils Percent Auto 0.9 % (0-2); Eosinophils Absolute Auto 100 /uL (0-450); Eosinophils Percent Auto 2.5 % (2-4); Hematocrit 37.1 % (36-46); Hemoglobin 11.9 g/dL (12.0-16.0); Lymphocytes Absolute Auto 900 /uL (1100-4500); Lymphocytes Percent Auto 15.9 % (25-40); Mean Corpuscular HGB Conc 32.1 % (30-36); Mean Corpuscular Volume 96.5 fL (80-100); Monocytes Absolute Auto 400 /uL (0-900); Monocytes Percent Auto 6.8 % (3-14); Neutrophils Absolute Auto 4100 /uL (1500-7000); Neutrophils Percent Auto 73.9 % (50-75); Platelet Count 139 X10^3/uL (150-400); Red Blood Cell Count 3.85 X10^6/uL (4.0-5.2); Red Cell Distribution Width 15.3 % (11.6-14.8); White Blood Cell Count 5.5 X10^3/uL (4.5-11.0)
[2021-04-24 21:13] LABS: Alanine Aminotransferase 17 IU/L (<35); Albumin 4.3 g/dL (3.5-5.0); Albumin Globulin Ratio 1.4 (1.0-2.8); Alkaline Phosphatase 48 U/L (38-126); Aspartate Aminotransferase 30 IU/L (14-36); BUN Creatinine Ratio 33.7 (6-22); Bilirubin Total 0.3 mg/dL (0.2-1.3); Blood Urea Nitrogen 35 mg/dL (7-17); Calcium 9.4 mg/dL (8.4-10.2); Carbon Dioxide 24 mmol/L (22-32); Chloride 109 mmol/L (98-107); Creatine Kinase 69 U/L (30-135); Estimated Glomerular Filt Rate 50.4 mL/min (>60); Globulin 3.1 g/dL (1.7-4.1); Glucose 127 mg/dL (80-110); HEMOLYSIS < 15 (0-50); Magnesium 1.7 mg/dL (1.6-2.3); Sodium 144 mmol/L (137-145); Total Protein 7.4 g/dL (6.3-8.2)
[2021-04-24 21:24] LABS: NT-proBNP (BNP-Adult 18+) 3790 pg/mL (<450); Troponin I < 0.012 ng/mL (0.01-0.034)
--- NOTE | 2021-04-25 04:06 | ED_ITS ---
HPI - SOB/Dyspnea General Chief Complaint: Shortness of Breath/Dyspnea Stated Complaint: SOB SWELLING RETAINING FLUID Time Seen by Provider: 04/24/21 20:25 Source: patient Mode of arrival: Wheelchair Limitations: no limitations History of Present Illness HPI Narrative: 85-year-old female former smoker with history of AFib on anticoagulation, hyperlipidemia, hypertension, CHF presents with her son in the chief complaint of of some mild shortness of breath and fatigue over the past few days. She has had some increased shortness of breath with exertion, when lying flat and states that she thinks her ankles are a bit swollen. She has no significant work of breathing and denies any dizziness, weakness or lighth eadedness. Additionally, she has been treated by ENT for a sinus infection with antibiotics. She denies any abdominal pain, nausea, vomiting or diarrhea. She has had no dysuria, frequency or urgency. 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 Her symptoms seem to be correlated with this change Related Data Home Medications Medication Instructions Recorded Confirmed Calicum 1 tab PO DAILY 10/26/20 03/10/21 VITAMIN E 400 unit PO DAILY 10/26/20 03/10/21 cholecalciferol (vitamin D3) 50 50 mcg PO DAILY 11/25/20 03/10/21 mcg (2,000 unit) capsule mecobalamin (vitamin B12) 1,000 1,000 mcg PO DAILY 11/25/20 03/10/21 mcg chewable tablet Previous Rx's Medication Instructions Recorded budesonide 0.5 mg/2 mL suspension 0.5 mg IRRIGATION DAILY #180 ml 05/28/20 for nebulization levothyroxine 25 mcg tablet 25 mcg PO DAILY #90 tab 05/28/20 lovastatin 20 mg tablet 20 mg PO DAILY #90 tab 05/28/20 sertraline 100 mg tablet 100 mg PO DAILY #90 tab 05/28/20 apixaban 5 mg tablet 5 mg PO BID #60 tab 07/01/20 furosemide 40 mg tablet 40 mg PO Q OTHER DAY #15 tab 07/01/20 ospemifene 60 mg tablet (Osphena) 60 mg PO DAILY #90 tab 09/07/20 potassium chloride 10 mEq 10 meq PO Q OTHER DAY #45 tab 11/09/20 tablet,extended release estradiol (Estrace) 1 g VAGINAL .COMPLEX #42.5 g 11/16/20 clobetasol 0.05 % topical gel 1 applic TOPICAL DAILY #30 g 02/23/21 ferrous sulfate 325 mg (65 mg 325 mg PO Q OTHER DAY #45 tab 04/19/21 iron) tablet triamterene 75 1 tab PO DAILY #90 tab 04/21/21 mg-hydrochlorothiazide 50 mg tablet Allergies Allergy/AdvReac Type Severity Reaction Status Date / Time gabapentin AdvReac Mild Sedation Verified 03/10/21 11:29 at 100mg Review of Systems Review of Systems Narrative: GENERAL: Denies chills, fatigue, malaise, fever, sweats. HEENT: Denies sinus pain, ear pain, sore throat, difficulty swallowing, dizziness. RESPIRATORY: See HPI CARDIOVASCULAR: See HPI GASTROINTESTINAL: Denies nausea, vomiting, abdominal pain, diarrhea, constipation, melena. : Denies dysuria, frequency, incontinence, hematuria, urinary retention. MUSCULOSKELETAL: See HPI SKIN: Denies rash, skin lesions, or other NEUROLOGIC: Denies weakness, headache, numbness, change in speech, confusion, seizures, incoordination. PSYCHIATRIC: No concerning psychosocial issues. 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 Social History marital status: number of children: 4 household members: none Smoking Status: Former smoker alcohol intake: never Smoking Status: Former smoker Substance Use Type: does not use Exam Narrative Exam Narrative: GENERAL: [85 year old patient appears stated age. Well-developed patient, in mild distress. GCS 15 no significant work of breathing, no need for supplemental oxygen. No conversational dyspnea HEAD: Atraumatic. Normocephalic. EYES: Pupils equal round and reactive. Extraocular motions intact. No scleral icterus. No injection or drainage. ENT: Nose without bleeding, purulent drainage. Throat without erythema, tons illar hypertrophy or exudate. Airway patent. NECK: Trachea midline. Non tender CARDIOVASCULAR: Regular rate and rhythm without murmurs, gallops, or rubs. RESPIRATORY: Very faint crackles in bilateral bases, no use of accessory muscles or intercostals GASTROINTESTINAL: Abdomen soft, non-tender, nondistended. EXTREMITIES: Very minimal swelling around the ankles, no significant lower extremity edema BACK: Nontender without deformity or crepitance. No flank tenderness. NEURO: AOx3. SKIN: No rash or erythema of visible areas Initial Vital Signs Initial Vital Signs: Vital Signs Pulse Rate 76 04/24/21 20:41 Respiratory Rate 26 H 04/24/21 20:41 Pulse Oximetry 95 04/24/21 20:41 Course Orders Ordered: ED Orders 04/24/21 20:33 XR chest 1V Stat EKG-12 Lead Stat 04/24/21 20:40 Complete Blood Count AUTO DIFF Stat Comprehensive Metabolic Panel Stat Magnesium Stat NT-proBNP (BNP-Adult 18+) Stat Troponin & CK Cardiac Panel Stat Vital Signs Vital signs: Vital Signs - 8 hr 04/24/21 20:41 04/24/21 20:47 04/24/21 21:00 Temperature 97.7 F Pulse Rate 76 68 73 Respiratory Rate 26 H 26 H 28 H Blood Pressure 154/68 H Pulse Oximetry 95 96 94 04/24/21 21:01 04/24/21 21:30 04/24/21 21:31 Temperature Pulse Rate 70 71 70 Respiratory Rate 27 H 27 H 24 Blood Pressure 159/62 H 123/62 Pulse Oximetry 94 94 95 04/24/21 22:00 Temperature Pulse Rate 70 Respiratory Rate 24 Blood Pressure Pulse Oximetry 97 MDM - SOB/Dyspnea Lab Data Result diagrams: 04/24/21 20:40 04/24/21 20:40 Labs: Lab Results 04/24/21 04/24/21 Range/Units 20:40 20:40 WBC 5.5 (4.5-11.0) X10^3/uL RBC 3.85 L (4.0-5.2) X10^6/uL Hgb 11.9 L (12.0-16.0) g/dL Hct 37.1 (36-46) % MCV 96.5 (80-100) fL MCH 31.0 (26-34) PG MCHC 32.1 (30-36) % RDW 15.3 H (11.6-14.8) % Plt Count 139 L (150-400) X10^3/uL Neut % (Auto) 73.9 (50-75) % Lymph % (Auto) 15.9 L (25-40) % Ballard % (Auto) 6.8 (3-14) % Eos % (Auto) 2.5 (2-4) % Baso % (Auto) 0.9 (0-2) % Neut # (Auto) 4100 (2423-5375) /uL Lymph # (Auto) 900 L (4653-2173) /uL Ballard # (Auto) 400 (0-900) /uL Eos # (Auto) 100 (0-450) /uL Baso # (Auto) 0 (0-100) /uL Sodium 144 (137-145) mmol/L Potassium 4.0 (3.4-5.1) mmol/L Chloride 109 H (98-107) mmol/L Carbon Dioxide 24 (22-32) mmol/L BUN 35 H (7-17) mg/dL Creatinine 1.04 (0.52-1.04) mg/dL Estimated GFR 50.4 L (>60) mL/min BUN/Creatinine Ratio 33.7 H (6-22) Glucose 127 H (80-110) mg/dL Calcium 9.4 (8.4-10.2) mg/dL Magnesium 1.7 (1.6-2.3) mg/dL Total Bilirubin 0.3 (0.2-1.3) mg/dL AST 30 (14-36) IU/L ALT 17 (<35) IU/L Alkaline Phosphatase 48 (38-126) U/L Total Creatine Kinase 69 (30-135) U/L CK-MB (CK-2) TNP CK-MB (CK-2) Rel Index TNP Troponin I < 0.012 (0.01-0.034) ng/mL NT-Pro-B Natriuret Pep 3790 H (<450) pg/mL Total Protein 7.4 (6.3-8.2) g/dL Albumin 4.3 (3.5-5.0) g/dL Globulin 3.1 (1.7-4.1) g/dL Albumin/Globulin Ratio 1.4 (1.0-2.8) Imaging Data Chest x-ray: Radiologist's Impression: [address] [address] XRay Report Signed Patient: Liana Power MR#: [id number] : 1935 Acct:[id number] Age/Sex: 85 / F Date of Service: 04/24/21 Loc: ED Accession Number: [id number] ?? Procedure: XR chest 1V Ordering Provider: Chinedu Sanchez D.O. PROCEDURE:? XR CHEST 1V ? INDICATIONS:? short of breath, leg swelling, off lasix ? TECHNIQUE:? One view of the chest was acquired.? ? COMPARISON:? [facility], CR, XR CHEST 1V, 06/22/2020, 16:40. ? FINDINGS:? ? Surgical changes and devices:? None.? ? Lungs and pleura:? Mild interstitial prominence suggesting mild pulmonary congestion.? No pleural effusions or pneumothorax.? ? Mediastinum:? Mediastinal contours appear normal.? Heart size is moderate-to- severely increased.? Aortic calcification consistent with atherosclerosis. ? Bones and chest wall:? No suspicious bony lesions.? Overlying soft tissues appear unremarkable.? ? IMPRESSION:? ? 1. [id number]-dj-[id number] cardiomegaly. 2. Mild pulmonary congestion.? No confluent pulmonary edema.? Dictated by: Isabelle Bui M.D. on 04/24/2021 at 21:05 ? ? Approved by: Isabelle Bui M.D. on 04/24/2021 at 21:07 ? MDM Narrative Medical decision making narrative: Patient has many classic features of an acute exacerbation of CHF after stopping her Lasix. This includes orthopnea, exertional dyspnea, and minimal lower extremity swelling. Chest x-ray shows some subtle findings and her BNP is elevated. This being said she is not any significant respiratory distress and requires no supplemental oxygen. I discussed with the patient and family about starting back up on the Lasix as it was most recently prescribed and following closely with her care team. She has been given return precautions and questions have been answered to their apparent satisfaction Discharge Plan Departure Patient Disposition: Home Clinical Impression: Acute CHF Qualifiers: Heart failure type: unspecified Qualified Code(s): I50.9 - Heart failure, unspecified Instructions: DI for Heart Failure, DI for Fatigue Activity Restrictions/Additional Instructions: *You have been diagnosed with [fatigue and swelling, likely due to a slight exacerbation of congestive heart failure *What to do: * please go back on your Lasix as previously prescribed (every other day) and otherwise continue to take your regular medications as directed. [ ] New medication prescriptions sent to your pharmacy: [ ] [ ] New medication written as a paper prescription [x ] No new medications given *Please follow up with your primary care provider in 2-3 days, call for an appointment. Let them know you were seen in the Emergency Department and that we ask that you be seen in follow up. We will electronically transmit a record of today's note if your PCP is in our system *If you do not have a primary care provider please contact the [facility] Resource line at [phone]. They will ask some questions about your medical history and help get you set up with a doctor in the community. *Return to Emergency Department if you should have any new, worsening or concerning symptoms, such as [fever greater than 101 F, shaking chills, worsening pain, persistent vomiting or other bothersome symptoms] Prescriptions: No Action levothyroxine 25 mcg tablet 25 mcg PO DAILY Qty: 90 RF: 3 lovastatin 20 mg tablet 20 mg PO DAILY Qty: 90 RF: 3 sertraline 100 mg tablet 100 mg PO DAILY Qty: 90 RF: 3 budesonide 0.5 mg/2 mL suspension for nebulization 0.5 mg irrigation DAILY Qty: 180 RF: 3 Osphena 60 mg tablet 60 mg PO DAILY Qty: 90 RF: 3 potassium chloride 10 mEq tablet extended release 10 meq PO Q OTHER DAY Qty: 45 RF: 1 clobetasol 0.05 % gel 1 applic topical DAILY Qty: 30 RF: 1 ferrous sulfate 325 mg (65 mg iron) tablet 325 mg PO Q OTHER DAY Qty: 45 RF: 1 triamterene-hydrochlorothiazid 75-50 mg tablet 1 tab PO DAILY Qty: 90 RF: 3 estradiol [Estrace] 0.01 % (0.1 mg/gram) cream 1 g vaginal .COMPLEX Qty: 42.5 RF: 1 Eliquis 5 mg tablet 5 mg PO BID Qty: 60 RF: 11 furosemide 40 mg tablet 40 mg PO Q OTHER DAY Qty: 15 RF: 11 Calicum 600 mg 1 tab PO DAILY RF: 0 VITAMIN E 400 unit PO DAILY RF: 0 cholecalciferol (vitamin D3) 50 mcg (2,000 unit) capsule 50 mcg PO DAILY RF: 0 mecobalamin (vitamin B12) 1,000 mcg tablet,chewable 1,000 mcg PO DAILY RF: 0 Referrals: Vargas Riley MD [Primary Care Provider] -
== END 2021-04-24 22:34 | disposition home or self-care (01) ==
PROVIDERS: Emergency Provider Emergency Medicine; Family Provider Student in an Organized Health Care Education/Training Program; PCP Student in an Organized Health Care Education/Training Program
DX: I11.0 Hypertensive heart disease with heart failure (principal); Z87.891 Personal history of nicotine dependence
CPT/HCPCS: 36415; 71045; 80053; 82550; 83735; 83880; 84484; 85025; 93005; 93010; 99283; 99285

== ENCOUNTER → 2021-06-03 10:29 | Outpatient (CLI) | payer MEDICARE, SELFPAY ==
[2020-09-02 15:51] VITALS: BMI 37.8
[2021-06-03 11:53] LABS: COVID19 -Nasal RAPID Negative (Negative)
== END ==
PROVIDERS: Family Provider Student in an Organized Health Care Education/Training Program; PCP Student in an Organized Health Care Education/Training Program; Visit Provider Nurse Practitioner Family
DX: Z20.822 Contact with and (suspected) exposure to COVID-19 (principal)
CPT/HCPCS: 87635; C9803

== ENCOUNTER → 2021-06-06 07:27 | Outpatient (CLI) | payer MEDICARE, SELFPAY ==
[2020-09-02 15:51] VITALS: BMI 37.8
--- NOTE | 2021-06-06 | DI.ECHO.S_ITS ---
[place] [facility]---------+ [facility] +---------+ : : [address] : : : : [id number] : : : : Phone: [phone]+ Echocardiogram Report + + :Name: NATACHA ZAMUDIO Study Date: 06/06/2021 Height: 61 in : :[facility] ReadingLocation: Weight: 215 lb : : Gender: Female BSA: 1.9 m2 : :: 1935 Age: 85 yrs BP: 137/92 mmHg: :Reason For Study: ATHEROSCLEROTIC HEART DISEASE : :Ordering Physician: WALTER, : :ANGELICA Performed By: Radha Adair : :Referring: ANGELICA WATSON : + + Interpretation Summary The left ventricle is mildly dilated. The ejection fraction is estimated to be 35-40%. Diastolic function could not be accurately assessed due to atrial fibrillation. Right ventricular systolic function is at the lower limits of normal. Severe biatrial enlargement. There is severe mitral regurgitation. There is mild aortic regurgitation. There is moderate to severe tricuspid regurgitation. PASP is approximately 55 to 60 mmHg. Compared to the prior study dated 06/23/2020, the EF has decreased slightly. Procedure: A two-dimensional transthoracic echocardiogram with color flow and Doppler was performed. The study quality was technically adequate. Comparison is made with the echocardiogram of 06/23/2020. The patient was in atrial fibrillation with heart rates between 53-77 bpm during the exam. Left Ventricle: The left ventricle is mildly dilated. The estimated left ventricular end diastolic volume is 126 ml. There is normal left ventricular wall thickness. The ejection fraction is estimated to be 35-40%. Diastolic function could not be accurately assessed due to atrial fibrillation. Right Ventricle: The right ventricle is normal size. Right ventricular systolic function is at the lower limits of normal. Atria: Both atria are severely dilated. There is no Doppler evidence for an interatrial shunt. Mitral Valve: There is moderate mitral annular calcification. The mitral valve leaflets are mildly calcified. There is severe mitral regurgitation. Aortic Valve: The aortic valve is trileaflet. The aortic valve opens well. There is no aortic valve stenosis. There is mild aortic regurgitation. Tricuspid Valve: The tricuspid valve leaflets are thin and pliable. There is moderate to severe tricuspid regurgitation. PASP is approximately 55 to 60 mmHg. Pulmonic Valve: The pulmonic valve leaflets are thin and pliable; valve motion is normal. There is mild pulmonic regurgitation. Great Vessels: The aortic root is normal size. The dimensions of the ascending aorta are normal. The IVC is of normal diameter and collapses greater than 50% with a sniff. This suggests a low right atrial pressure of 3 mm Hg. Pericardium/ Pleura There is no pericardial effusion. There is no pleural effusion. MMode/2D Measurements & Calculations LVIDd: 5.7 cm LVOT diam: 2.1 cm LVIDs: 4.6 cm Ao root diam: 3.6 cm FS: 19.3 % asc Aorta Diam: 3.3 cm IVSd: 0.94 cm Ao Arch Diam (Prox Trans): 2.3 cm LVPWd: 0.98 cm LV parrish. diameter/BSA (cm/m^2): 2.9 LV sys. diameter/BSA (cm/m^2): 2.3 LA A2 area: 43.9 cm2 RA long axis: 8.8 cm LA A4 area: 41.2 cm2 RA area: 40.3 cm2 LA length (vol): 8.0 cm RA vol: 156.9 ml LA vol: 191.0 ml RA : 80.6 ml/m2 LA vol index: 98.0 ml/m2 IVC diam: 1.8 cm RVD1 (basal): 3.7 cm TAPSE: 1.7 cm Doppler Measurements & Calculations Ao V2 max: 109.4 cm/sec LVOT Max Shahab: 65.3 cm/sec Ao V2 mean: 77.9 cm/sec LV V1 max P.7 mmHg Ao max P.8 mmHg LV V1 VTI: 15.7 cm Ao mean P.7 mmHg DIAMOND(I,D): 2.5 cm2 Ao V2 VTI: 22.8 cm DIAMOND(V,D): 2.1 cm2 sev ratio: 0.69 DIAMOND indexed to BSA (cm^2/m^2): 1.3 AI P1/2t: 1111 msec AI dec slope: 95.1 cm/sec2 Med Peak E' Shahab: 4.2 cm/sec TR max shahab: 362.3 cm/sec Lat Peak E' Shahab: 6.1 cm/sec TR max P.5 mmHg MVA(VTI): 1.2 cm2 PA V2 max: 74.9 cm/sec MR ERO: 0.23 cm2 PA V2 mean: 49.2 cm/sec PA mean P.1 mmHg PA pr(Accel): 41.3 mmHg MV V2 mean: 94.1 cm/sec MR PISA: 3.6 cm2 MV mean P.7 mmHg MR flow rate: 135.3 cm3/sec MV V2 VTI: 49.1 cm MR PISA radius: 0.76 cm SV(LVOT): 56.5 ml Reading Physician:10:55 AM
--- NOTE | 2021-06-07 18:25 | DI.NM.S_ITS ---
DATE OF SERVICE: 06/06/2021 PROCEDURE: Pharmacological perfusion study. DATE OF STUDY: June 06, 2021. INDICATIONS: Underlying CAD with history of TN, CHF with LV ejection fraction 40-45 percent June 2020, atrial fibrillation, hypertension and hyperlipidemia. RADIOPHARMACEUTICAL: 25.7 millicurie technetium-99m Myoview IV was injected at stress and 23.8 millicurie technetium-99m Myoview IV was injected at rest. CARDIAC STRESS: The patient underwent IV Lexiscan perfusion study under the supervision of an attending staff. The patient remained hemodynamically stable. No anginal symptoms. Baseline rhythm was AFib with some nonspecific ST/T changes. During stress, no convincing new ischemic changes seen. The patient remained in AFib. RAW DATA: Breast shadow was seen. There was increased subdiaphragmatic activity. GATED STUDY: Resting LV ejection fraction 49 percent and stress LV ejection fraction 38 percent. Global hypokinesis. Resting end-diastolic volume 232 mL. TID ratio 0.99 and lung heart ratio 0.22, which is within normal limits. On June 22, 2020, resting LV ejection fraction was 53 percent and stress LV ejection fraction 49 percent, and resting end-diastolic volume was 183 mL. MYOCARDIAL PERFUSION SCAN: Please note, there are no stress prone images. Stress supine and resting supine images were compared to each other. There is a predominantly fixed, small to moderate size, mildly decreased perfusion of mid to distal anterior wall extending into the distal anterior lateral wall. In addition to the fixed defect, there is a moderate size reversible perfusion defect in the inferior wall as well as inferolateral wall. CONCLUSION: This is an abnormal moderate to high risk myocardial perfusion study. The patient has predominantly fixed, small to moderate size, mildly decreased perfusion of mid to distal anterior wall extending into the distal anterolateral wall which could be due to previous TN however breast attenuation artifact cannot be ruled out. This defect was seen in June 2020 as well. In addition to that, there is another moderate size reversible perfusion defect in the inferior wall extending into the inferolateral wall which was not seen in June 2020, suggesting reversible ischemia in the dominant RCA territory. In comparison to previous study done in June 2020, there is a worsening LV dilatation. Resting end- diastolic volume 232 mL. Previously it was 183 mL. Post stress ejection fraction has decreased to 38 percent. In the previous study, post stress ejection fraction was 49 percent. Liana Power KATE/mirela/margo doc#: [id number]/job#: [id number] dd: 06/07/2021 17:13:00 dt: 06/07/2021 18:10:00 DICTATING MD/COPIES TO: Bettina Clemons MD COPIES MNE: ALLISON;
== END ==
PROVIDERS: Family Provider Student in an Organized Health Care Education/Training Program; PCP Student in an Organized Health Care Education/Training Program; Referring Provider Nurse Practitioner Acute Care; Visit Provider Nurse Practitioner Acute Care
DX: I08.3 Combined rheumatic disorders of mitral, aortic and tricuspid valves (principal); R94.39 Abnormal result of other cardiovascular function study; I25.119 Atherosclerotic heart disease of native coronary artery with unspecified angina pectoris; I25.2 Old myocardial infarction; I48.91 Unspecified atrial fibrillation; I11.0 Hypertensive heart disease with heart failure; E78.5 Hyperlipidemia, unspecified
CPT/HCPCS: 78452; 93017; 93306; A9502; J2785

== ENCOUNTER → 2021-06-10 08:55 | Outpatient (CLI) | payer MEDICARE, SELFPAY ==
[2020-09-02 15:51] VITALS: BMI 37.8
[2021-06-10 09:24] LABS: Add Manual Diff / Slide Review NO; Basophils Absolute Auto 100 /uL (0-100); Basophils Percent Auto 1.4 % (0-2); Eosinophils Absolute Auto 200 /uL (0-450); Eosinophils Percent Auto 4.8 % (2-4); Hematocrit 40.7 % (36-46); Hemoglobin 13.4 g/dL (12.0-16.0); Lymphocytes Absolute Auto 900 /uL (1100-4500); Lymphocytes Percent Auto 20.7 % (25-40); Mean Corpuscular Hemoglobin 30.9 PG (26-34); Mean Corpuscular Volume 93.6 fL (80-100); Monocytes Absolute Auto 300 /uL (0-900); Monocytes Percent Auto 7.4 % (3-14); Neutrophils Absolute Auto 2900 /uL (1500-7000); Neutrophils Percent Auto 65.7 % (50-75); Platelet Count 128 X10^3/uL (150-400); Red Blood Cell Count 4.35 X10^6/uL (4.0-5.2); Red Cell Distribution Width 14.7 % (11.6-14.8); White Blood Cell Count 4.3 X10^3/uL (4.5-11.0)
[2021-06-10 09:35] LABS: INR 1.3 (0.9-1.3); Prothrombin Time 15.3 SECONDS (10.1-12.7)
[2021-06-10 10:34] LABS: BUN Creatinine Ratio 33.3 (6-22); Blood Urea Nitrogen 30 mg/dL (7-17); Calcium 9.5 mg/dL (8.4-10.2); Carbon Dioxide 31 mmol/L (22-32); Chloride 104 mmol/L (98-107); Cholesterol 134 mg/dL (140-199); Estimated Glomerular Filt Rate 59.5 mL/min (>60); Glucose 104 mg/dL (80-110); HDL Cholesterol 40 mg/dL (40-60); HEMOLYSIS < 15 (0-50); LDL Cholesterol Calculated 72 mg/dL (<100); Potassium 4.2 mmol/L (3.4-5.1); Sodium 142 mmol/L (137-145); Triglycerides 112 mg/dL (35-150)
== END ==
PROVIDERS: Family Provider Student in an Organized Health Care Education/Training Program; PCP Student in an Organized Health Care Education/Training Program; Referring Provider Internal Medicine Cardiovascular Disease; Visit Provider Internal Medicine Cardiovascular Disease
DX: E78.5 Hyperlipidemia, unspecified (principal); I50.9 Heart failure, unspecified; I25.119 Atherosclerotic heart disease of native coronary artery with unspecified angina pectoris
CPT/HCPCS: 36415; 80048; 80061; 85025; 85610

== ENCOUNTER 2021-06-13 12:20 | Emergency (ER) | payer MEDICARE, SELFPAY ==
[2020-09-02 15:51] VITALS: BMI 37.8
[2021-06-13 12:25] VITALS: BP 136/78; PULSE 74; RESP 22; TEMP 36.4; O2SAT 94; BMI 40.6
[2021-06-13 12:28] VITALS: PULSE 71; O2SAT 94
[2021-06-13 12:30] VITALS: BP 136/78; PULSE 76; O2SAT 93
[2021-06-13 13:00] VITALS: BP 142/65; PULSE 51; O2SAT 94
[2021-06-13 13:30] VITALS: BP 142/67; PULSE 57; O2SAT 94
--- NOTE | 2021-06-13 13:32 | DI.RAD.S_ITS ---
PROCEDURE: XR FEMUR LT MIN 2V INDICATIONS: Leg pain TECHNIQUE: 2 views of the femur were acquired. COMPARISON: None. FINDINGS: Bones: No fractures or dislocations. No suspicious bony lesions. Knee arthroplasty is present. Hardware is intact. Soft tissues: No suspicious soft tissue calcifications or masses. IMPRESSION: No visualized acute fracture or dislocation. However, if clinical concern and/or pain persist, short interval imaging followup in 7-10 days is recommended, as occult injury cannot be definitively excluded. Dictated by: Noreen Monahan M.D. on 06/13/2021 at 14:35 Approved by: Noreen Monahan M.D. on 06/13/2021 at 14:36
--- NOTE | 2021-06-13 13:32 | DI.RAD.S_ITS ---
PROCEDURE: XR TIBIA FIBULA LT 2V INDICATIONS: Leg pain TECHNIQUE: 2 views of the tibia and fibula were acquired. COMPARISON: [facility], CR, XR FEMUR LT MIN 2V, 06/13/2021, 13:36. [facility], CR, XR KNEE LT 3V, 06/13/2021, 13:36. FINDINGS: Bones: No fractures or dislocations. No suspicious bony lesions. Knee arthroplasty is present without evidence of hardware fracture or periprosthetic lucency to suggest loosening. Soft tissues: No suspicious soft tissue calcifications or masses. IMPRESSION: No visualized acute fracture or dislocation. However, if clinical concern and/or pain persist, short interval imaging followup in 7-10 days is recommended, as occult injury cannot be definitively excluded. Dictated by: Noreen Monahan M.D. on 06/13/2021 at 14:36 Approved by: Noreen Monahan M.D. on 06/13/2021 at 14:37
--- NOTE | 2021-06-13 13:32 | DI.RAD.S_ITS ---
PROCEDURE: XR KNEE LT 3V INDICATIONS: Leg pain TECHNIQUE: 3 views of the knee were acquired. COMPARISON: None. FINDINGS: Bones: No fractures or dislocations. No suspicious bony lesions. The arthroplasty is present. Hardware is intact without evidence of hardware fracture or periprosthetic lucency to suggest loosening. Soft tissues: No joint effusion. No suspicious soft tissue calcifications. IMPRESSION: No visualized acute fracture or dislocation. However, if clinical concern and/or pain persist, short interval imaging followup in 7-10 days is recommended, as occult injury cannot be definitively excluded. Dictated by: Noreen Monahan M.D. on 06/13/2021 at 14:36 Approved by: Noreen Monahan M.D. on 06/13/2021 at 14:36
--- NOTE | 2021-06-13 13:32 | DI.US.S_ITS ---
PROCEDURE: US PERIPH VENOUS LOW EXTREM LT INDICATIONS: LEFT CHA PAIN. HISTORY OF DEEP VEIN THROMBOSIS. TECHNIQUE: Real-time imaging, as well as color and pulse Doppler interrogation, were performed of the lower extremity deep veins from the inguinal ligament to the popliteal fossa. COMPARISON: None. FINDINGS: The common femoral, femoral and popliteal veins are normally compressible, and free of intraluminal thrombus. Color and pulse Doppler demonstrate normal phasic intraluminal flow. There is normal augmentation response to distal compression maneuver. IMPRESSION: Negative for deep venous thrombosis. Dictated by: Ortiz Duvall M.D. on 06/13/2021 at 13:06 Approved by: Ortiz Duvall M.D. on 06/13/2021 at 13:06
--- NOTE | 2021-06-13 13:35 | ED.EXTPRO ---
HPI - Extremity Problem <Sarthak Calle PA-C - Last Filed: 06/13/21 15:24> General Chief complaint: Extremity Problem,Nontraumatic Stated complaint: Lt Leg Hurt Time Seen by Provider: 06/13/21 12:35 Source: patient and family Mode of arrival: Ambulatory Limitations: no limitations History of Present Illness HPI Narrative: 85-year-old female with past medical history CAD, status post stents, AFib on Eliquis, hypothyroidism, hypertension, hyperlipidemia, COPD, CHF presents to the ED with 3 days of left craig pain. Patient brought in by her son, who states that she had a coronary perfusion study performed last week, is headed to the [facility] in a couple days for further diagnosis/treatment of new blockages. Patient is on metoprolol, furosemide, triamterene hydrochlorothiazide. Patient denies numbness, tingling, weakness. Patient denies fever, chills, chest pain, shortness of breath, cough, abdominal pain, nausea, vomiting, lightheadedness, dizziness, syncope. Patient has a distant history of DVT. Patient denies trauma. Related Data Home Medications Medication Instructions Recorded Confirmed Calicum 1 tab PO DAILY 10/26/20 03/10/21 VITAMIN E 400 unit PO DAILY 10/26/20 03/10/21 cholecalciferol (vitamin D3) 50 50 mcg PO DAILY 11/25/20 03/10/21 mcg (2,000 unit) capsule mecobalamin (vitamin B12) 1,000 1,000 mcg PO DAILY 11/25/20 03/10/21 mcg chewable tablet ResMed ASV 05/09/21 05/09/21 metoprolol succinate 25 mg 25 mg PO DAILY 05/09/21 05/09/21 tablet,extended release 24 hr omeprazole 20 mg capsule,delayed 20 mg PO DAILY 05/09/21 05/09/21 release Previous Rx's Medication Instructions Recorded budesonide 0.5 mg/2 mL suspension 0.5 mg (2 mL) IRRIGATION DAILY 05/28/20 for nebulization #180 ml lovastatin 20 mg tablet 20 mg PO DAILY #90 tab 05/28/20 apixaban 5 mg tablet 5 mg PO BID #60 tab 07/01/20 furosemide 40 mg tablet 40 mg PO Q OTHER DAY #15 tab 07/01/20 ospemifene 60 mg tablet (Osphena) 60 mg PO DAILY #90 tab 09/07/20 potassium chloride 10 mEq 10 meq PO Q OTHER DAY #45 tab 11/09/20 tablet,extended release estradiol (Estrace) 1 g VAGINAL .COMPLEX #42.5 g 11/16/20 clobetasol 0.05 % topical gel 1 applic TOPICAL DAILY #30 g 02/23/21 ferrous sulfate 325 mg (65 mg 325 mg PO Q OTHER DAY #45 tab 04/19/21 iron) tablet triamterene 75 1 tab PO DAILY #90 tab 04/21/21 mg-hydrochlorothiazide 50 mg tablet levothyroxine 25 mcg tablet 25 mcg PO DAILY #90 tab 05/19/21 mirabegron 50 mg tablet,extended 50 mg PO DAILY #90 tab 05/24/21 release 24 hr (Myrbetriq) sertraline 100 mg tablet 100 mg PO DAILY #90 tab 05/24/21 Allergies Allergy/AdvReac Type Severity Reaction Status Date / Time gabapentin AdvReac Mild Sedation Verified 06/13/21 12:32 at 100mg Review of Systems <Sarthak Calle PA-C - Last Filed: 06/13/21 15:24> Review of Systems ROS Unobtainable: All systems reviewed & are unremarkable except as noted in HPI and below Constitutional Constitutional: Denies chills, Denies fatigue, Denies fever(s), Denies frequent falls, Denies lethargy and Denies weakness Eyes Eyes: Denies change in vision, Denies eye discharge, Denies irritation and Denies loss of vision ENT Ears, Nose, Mouth, and Throat: Denies change in voice, Denies dizziness, Denies neck pain, Denies sore throat and Denies throat swelling Cardiovascular Cardiovascular: Denies chest pain, Denies irregular heart rhythm, Denies lightheadedness, Denies palpitations, Denies dyspnea, Denies dyspnea on exertion and Denies orthopnea Respiratory Respiratory: Denies cough, Denies dyspnea, Denies dyspnea on exertion and Denies wheezing Gastrointestinal Gastrointestinal: Denies abdominal pain, Denies change in bowel habits, Denies diarrhea, Denies nausea and Denies vomiting Genitourinary Genitourinary: Denies hematuria, Denies flank pain, Denies urinary incontinence and Denies urinary urgency Musculoskeletal Musculoskeletal: Denies back pain, Denies muscle weakness, Denies neck pain, Denies numbness and Denies tingling Comments: Left craig pain Integumentary/Breasts Skin/Breast: Denies pruritus, Denies erythema, Denies rash and Denies wounds Neurologic Neurologic: Denies behavioral changes, Denies confusion, Denies dizziness, Denies frequent falls, Denies loss of vision, Denies numbness, Denies tingling and Denies weakness Psychiatric Psychiatric: Denies anxiety, Denies behavioral changes, Denies confusion, Denies depression, Denies homicidal ideation and Denies suicidal ideation Endocrine Endocrine: Denies fatigue, Denies flushing and Denies palpitations Hematologic/Lymphatic Hematologic/Lymphatic: Denies easy bruising Allergic/Immunologic Allergic/Immunologic: Denies urticaria, Denies throat swelling and Denies wheezing Patient History <Sarthak Calle PA-C - Last Filed: 06/13/21 15:24> Medical History Arthritis Atrial fibrillation Chest pain CHF (congestive heart failure), NYHA class III Chronic UTI COPD (chronic obstructive pulmonary disease) Coronary stent patent Depression Essential hypertension High blood pressure Hypercholesteremia Hypothyroidism Inflammatory bowel disease Major depression Mixed hyperlipidemia Obstructive sleep apnea Osteoarthritis Osteoporosis 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 Social History marital status: number of children: 4 household members: none Smoking Status: Former smoker alcohol intake: never Smoking Status: Former smoker alcohol intake frequency: 0-2 drinks per day Substance Use Type: does not use Exam <Sarthak Calle PA-C - Last Filed: 06/13/21 15:24> Initial Vital Signs Initial Vital Signs: Vital Signs Temperature 97.6 F 06/13/21 12:25 Pulse Rate 74 06/13/21 12:25 Respiratory Rate 22 12/06/21 12:25 Blood Pressure 136/78 06/13/21 12:25 Pulse Oximetry 94 06/13/21 12:25 Const General: cooperative, healthy appearing and comfortable [facility] Head: normal to inspection Eyes General: appearance normal, both eyes and all related structures Neck Neck: normal visual inspection Chest Chest: normal inspection of the chest Resp Effort & Inspection: normal respiratory effort Auscultation: clear to auscultation bilaterally Cardio Rate: regular rate Rhythm: regular rhythm GI Inspection: normal to inspection Palpation: soft and No tender Skin General: no rashes or lesions noted Extrem General: normal to inspection, full ROM, capillary refill normal and no calf tenderness Left lower extremity: full ROM and normal capillary refill; No no edema Other: Left distal femur, left craig tender to palpation. No bruising, injuries, deformities noted. Range of motion intact. Strength and sensation intact. Neurovascularly intact. <Maggie Ramirez MD - Last Filed: 06/13/21 16:23> Initial Vital Signs Initial Vital Signs: Vital Signs Temperature 97.6 F 06/13/21 12:25 Pulse Rate 74 06/13/21 12:25 Respiratory Rate 22 06/13/21 12:25 Blood Pressure 136/78 06/13/21 12:25 Pulse Oximetry 94 06/13/21 12:25 Course <Sarthak Calle PA-C - Last Filed: 06/13/21 15:24> Course Course Narrative: Labs within normal limits. X-rays and lower extremity Doppler negative for fractures, dislocations, DVT. Patient's symptoms rectally due to musculoskeletal sprain or strain. Will discharge home with ED return precautions. Orders Ordered: ED Orders 06/13/21 13:32 perip venous low extrem lt Stat XR femur LT min 2V Stat XR knee LT 3V Stat XR tibia fibula LT 2V Stat 06/13/21 14:40 CBC Auto Diff [Complete Blood Count AUTO DIFF] Stat CMP [Comprehensive Metabolic Panel] Stat PT [Prothrombin Time INR] Stat PTT [Partial Thromboplastin Time] Stat Vital Signs Vital signs: Vital Signs - 8 hr 06/13/21 12:25 06/13/21 12:28 06/13/21 12:30 Temperature 97.6 F Pulse Rate 74 71 76 Respiratory Rate 22 Blood Pressure 136/78 136/78 Pulse Oximetry 94 94 93 12/06/21 13:00 06/13/21 13:30 06/13/21 15:21 Temperature Pulse Rate 51 L 57 L 57 L Respiratory Rate 17 Blood Pressure 142/65 H 142/67 H 157/74 H Pulse Oximetry 94 94 95 <Maggie Ramirez MD - Last Filed: 06/13/21 16:23> Orders Ordered: ED Orders 06/13/21 13:32 US periph venous low extrem lt Stat XR femur LT min 2V Stat XR knee LT 3V Stat XR tibia fibula LT 2V Stat 06/13/21 14:40 CBC Auto Diff [Complete Blood Count AUTO DIFF] Stat CMP [Comprehensive Metabolic Panel] Stat PT [Prothrombin Time INR] Stat PTT [Partial Thromboplastin Time] Stat Vital Signs Vital signs: Vital Signs - 8 hr 06/13/21 12:25 06/13/21 12:28 06/13/21 12:30 Temperature 97.6 F Pulse Rate 74 71 76 Respiratory Rate 22 Blood Pressure 136/78 136/78 Pulse Oximetry 94 94 93 06/13/21 13:00 06/13/21 13:30 06/13/21 15:21 Temperature Pulse Rate 51 L 57 L 57 L Respiratory Rate 17 Blood Pressure 142/65 H 142/67 H 157/74 H Pulse Oximetry 94 94 95 MDM - Extremity (Nontraumatic) <Sarthak Calle PA-C - Last Filed: 06/13/21 15:24> Lab Data Lab results narrative: Labs within normal limits Result diagrams: 06/13/21 14:40 06/13/21 14:40 Labs: Lab Results 06/13/21 06/13/21 06/13/21 Range/Units 14:40 14:40 14:40 WBC 5.3 (4.5-11.0) X10^3/uL RBC 4.20 (4.0-5.2) X10^6/uL Hgb 12.9 (12.0-16.0) g/dL Hct 39.1 (36-46) % MCV 93.2 (80-100) fL MCH 30.6 (26-34) PG MCHC 32.9 (30-36) % RDW 14.6 (11.6-14.8) % Plt Count 128 L (150-400) X10^3/uL Neut % (Auto) 68.3 (50-75) % Lymph % (Auto) 19.9 L (25-40) % Glenn % (Auto) 7.0 (3-14) % Eos % (Auto) 3.9 (2-4) % Baso % (Auto) 0.9 (0-2) % Neut # (Auto) 3600 (1010-5822) /uL Lymph # (Auto) 1100 (5085-5414) /uL Glenn # (Auto) 400 (0-900) /uL Eos # (Auto) 200 (0-450) /uL Baso # (Auto) 0 (0-100) /uL PT 19.0 H (10.1-12.7) SECONDS INR 1.7 H (0.9-1.3) APTT 40 H (26.4-36.2) SECONDS Sodium 140 (137-145) mmol/L Potassium 4.0 (3.4-5.1) mmol/L Chloride 102 (98-107) mmol/L Carbon Dioxide 30 (22-32) mmol/L BUN 30 H (7-17) mg/dL Creatinine 0.82 (0.52-1.04) mg/dL Estimated GFR > 60.0 (>60) mL/min BUN/Creatinine Ratio 36.6 H (6-22) Glucose 83 (80-110) mg/dL Calcium 9.2 (8.4-10.2) mg/dL Total Bilirubin 0.5 (0.2-1.3) mg/dL AST 31 (14-36) IU/L ALT 15 (<35) IU/L Alkaline Phosphatase 45 (38-126) U/L Total Protein 7.1 (6.3-8.2) g/dL Albumin 4.1 (3.5-5.0) g/dL Globulin 3.0 (1.7-4.1) g/dL Albumin/Globulin Ratio 1.4 (1.0-2.8) Urine Dip Bedside Urine Glucose Negative Bedside Urine Bilirubin - Negative Bedside Urine Ketone +/- 5 Urine Specific [place] 1.015 Bedside Urine Occult Blood - Negative Bedside Urine pH 6.0 Bedside Urine Protein - Negative Bedside Urine Urobilinogen - Negative Bedside Urine Nitrite - Negative Bedside Urine Leukocytes - Negative Esterase Imaging Data US - DVT: Radiologist's Impression: PROCEDURE:? US PERIPH VENOUS LOW EXTREM LT ? INDICATIONS:? LEFT CRAIG PAIN. HISTORY OF DEEP VEIN THROMBOSIS. ? TECHNIQUE:? Real-time imaging, as well as color and pulse Doppler interrogation, were performed of the lower extremity deep veins from the inguinal ligament to the popliteal fossa.? ? COMPARISON:? None. ? FINDINGS:? The common femoral, femoral and popliteal veins are normally compressible, and free of intraluminal thrombus.? Color and pulse Doppler demonstrate normal phasic intraluminal flow.? There is normal augmentation response to distal compression maneuver. ? ? IMPRESSION:? ? Negative for deep venous thrombosis. ? ? Dictated by: Ortiz Duvall M.D. on 06/13/2021 at 13:06 ? ? Approved by: Ortiz Duvall M.D. on 06/13/2021 at 13:06 ? Extremity x-ray #1: Radiologist's Impression: PROCEDURE:? XR TIBIA FIBULA LT 2V ? INDICATIONS:? Leg pain ? TECHNIQUE:? 2 views of the tibia and fibula were acquired.? ? COMPARISON:? [facility], CR, XR FEMUR LT MIN 2V, 06/13/2021, 13:36.? [facility], CR, XR KNEE LT 3V, 06/13/2021, 13:36. ? FINDINGS:? ? Bones:? No fractures or dislocations.? No suspicious bony lesions.? Knee arthroplasty is present without evidence of hardware fracture or periprosthetic lucency to suggest loosening. ? Soft tissues:? No suspicious soft tissue calcifications or masses.? ? IMPRESSION:? No visualized acute fracture or dislocation. However, if clinical concern and/or pain persist, short interval imaging followup in 7-10 days is recommended, as occult injury cannot be definitively excluded. ? ? Dictated by: Noreen Monahan M.D. on 06/13/2021 at 14:36 ? ? Approved by: Noreen Monahan M.D. on 06/13/2021 at 14:37 ? Extremity x-ray #2: Radiologist's Impression: PROCEDURE:? XR KNEE LT 3V ? INDICATIONS:? Leg pain ? TECHNIQUE:? 3 views of the knee were acquired.? ? COMPARISON:? None. ? FINDINGS:? ? Bones:? No fractures or dislocations.? No suspicious bony lesions.? The arthroplasty is present.? Hardware is intact without evidence of hardware fracture or periprosthetic lucency to suggest loosening. ? Soft tissues:? No joint effusion.? No suspicious soft tissue calcifications.? ? ? IMPRESSION:? No visualized acute fracture or dislocation. However, if clinical concern and/or pain persist, short interval imaging followup in 7-10 days is recommended, as occult injury cannot be definitively excluded. ? ? Dictated by: Noreen Monahan M.D. on 06/13/2021 at 14:36 ? ? Approved by: Noreen Monahan M.D. on 06/13/2021 at 14:36 ? Extremity x-ray #3: Radiologist's Impression: PROCEDURE:? XR FEMUR LT MIN 2V ? INDICATIONS:? Leg pain ? TECHNIQUE:? 2 views of the femur were acquired.? ? COMPARISON:? None. ? FINDINGS:? ? Bones:? No fractures or dislocations.? No suspicious bony lesions.? Knee arthroplasty is present.? Hardware is intact. ? Soft tissues:? No suspicious soft tissue calcifications or masses.? ? IMPRESSION:? No visualized acute fracture or dislocation. However, if clinical concern and/or pain persist, short interval imaging followup in 7-10 days is recommended, as occult injury cannot be definitively excluded. ? ? Dictated by: Noreen Monahan M.D. on 06/13/2021 at 14:35 ? ? Approved by: Noreen Monahan M.D. on 06/13/2021 at 14:36 ? [facility] Narrative Medical decision making narrative: 85-year-old female with past medical history CAD, status post stents, AFib on Eliquis, hypothyroidism, hypertension, hyperlipidemia, COPD, CHF presents to the ED with 3 days of left craig pain. Concern for DVT versus fracture/dislocation versus musculoskeletal strain/sprain. Will order Doppler ultrasound left lower extremity, x-rays left lower extremity, labs, coags. Will reassess. <Maggie Ramirez MD - Last Filed: 06/13/21 16:23> Lab Data Labs: Lab Results 06/13/21 06/13/21 06/13/21 Range/Units 14:40 14:40 14:40 WBC 5.3 (4.5-11.0) X10^3/uL RBC 4.20 (4.0-5.2) X10^6/uL Hgb 12.9 (12.0-16.0) g/dL Hct 39.1 (36-46) % MCV 93.2 (80-100) fL MCH 30.6 (26-34) PG MCHC 32.9 (30-36) % RDW 14.6 (11.6-14.8) % Plt Count 128 L (150-400) X10^3/uL Neut % (Auto) 68.3 (50-75) % Lymph % (Auto) 19.9 L (25-40) % Glenn % (Auto) 7.0 (3-14) % Eos % (Auto) 3.9 (2-4) % Baso % (Auto) 0.9 (0-2) % Neut # (Auto) 3600 (4132-9717) /uL Lymph # (Auto) 1100 (4402-0322) /uL Glenn # (Auto) 400 (0-900) /uL Eos # (Auto) 200 (0-450) /uL Baso # (Auto) 0 (0-100) /uL PT 19.0 H (10.1-12.7) SECONDS INR 1.7 H (0.9-1.3) APTT 40 H (26.4-36.2) SECONDS Sodium 140 (137-145) mmol/L Potassium 4.0 (3.4-5.1) mmol/L Chloride 102 (98-107) mmol/L Carbon Dioxide 30 (22-32) mmol/L BUN 30 H (7-17) mg/dL Creatinine 0.82 (0.52-1.04) mg/dL Estimated GFR > 60.0 (>60) mL/min BUN/Creatinine Ratio 36.6 H (6-22) Glucose 83 (80-110) mg/dL Calcium 9.2 (8.4-10.2) mg/dL Total Bilirubin 0.5 (0.2-1.3) mg/dL AST 31 (14-36) IU/L ALT 15 (<35) IU/L Alkaline Phosphatase 45 (38-126) U/L Total Protein 7.1 (6.3-8.2) g/dL Albumin 4.1 (3.5-5.0) g/dL Globulin 3.0 (1.7-4.1) g/dL Albumin/Globulin Ratio 1.4 (1.0-2.8) Urine Dip Bedside Urine Glucose Negative Bedside Urine Bilirubin - Negative Bedside Urine Ketone +/- 5 Urine Specific [place] 1.015 Bedside Urine Occult Blood - Negative Bedside Urine pH 6.0 Bedside Urine Protein - Negative Bedside Urine Urobilinogen - Negative Bedside Urine Nitrite - Negative Bedside Urine Leukocytes - Negative Esterase Discharge Plan Departure Patient Disposition: Home Clinical Impression: Acute leg pain Instructions: DI for Leg Pain Activity Restrictions/Additional Instructions: You were evaluated in the ED today for left leg pain. Your labs were normal. Your x-rays and ultrasound were normal, did not show any evidence of DVT or fractures/dislocations. You may take Tylenol or ibuprofen for your symptoms. Return to the ED if your pain worsens, you experience numbness, tingling, weakness. You may follow-up with your PCP. Prescriptions: No Action lovastatin 20 mg tablet 20 mg PO DAILY Qty: 90 3RF budesonide 0.5 mg/2 mL suspension for nebulization 0.5 mg irrigation DAILY Qty: 180 3RF Osphena 60 mg tablet 60 mg PO DAILY Qty: 90 3RF Rx Instructions: must administer with food, preferably a high-fat meal potassium chloride 10 mEq tablet extended release 10 meq PO Q OTHER DAY Qty: 45 1RF Rx Instructions: Every other day clobetasol 0.05 % gel 1 applic topical DAILY Qty: 30 1RF Rx Instructions: Apply to itchy area daily until symptoms resolve. May use intermittently as needed ferrous sulfate 325 mg (65 mg iron) tablet 325 mg PO Q OTHER DAY Qty: 45 1RF triamterene-hydrochlorothiazid 75-50 mg tablet 1 tab PO DAILY Qty: 90 3RF levothyroxine 25 mcg tablet 25 mcg PO DAILY Qty: 90 3RF Myrbetriq 50 mg tablet extended release 24 hr 50 mg PO DAILY Qty: 90 1RF sertraline 100 mg tablet 100 mg PO DAILY Qty: 90 2RF estradiol [Estrace] 0.01 % (0.1 mg/gram) cream 1 g vaginal .COMPLEX Qty: 42.5 1RF Rx Instructions: every night x14 days then twice weekly. Eliquis 5 mg tablet 5 mg PO BID Qty: 60 11RF furosemide 40 mg tablet 40 mg PO Q OTHER DAY Qty: 15 11RF Calicum 600 mg 1 tab PO DAILY 0RF VITAMIN E 400 unit PO DAILY 0RF metoprolol succinate 25 mg tablet extended release 24 hr 25 mg PO DAILY 0RF omeprazole 20 mg capsule,delayed release(DR/EC) 20 mg PO DAILY 0RF (DME) ResMed ASV See Rx Instructions .ROUTE .MEDSUPPLY 0RF Rx Instructions: EPAP: 1.0 Min: 6 Max PS: 15 cholecalciferol (vitamin D3) 50 mcg (2,000 unit) capsule 50 mcg PO DAILY 0RF mecobalamin (vitamin B12) 1,000 mcg tablet,chewable 1,000 mcg PO DAILY 0RF Referrals: Vargas Riley MD [Primary Care Provider] - <Maggie Ramirez MD - Last Filed: 06/13/21 16:23> Cosign ED Attending Cosignature Attestation: I was immediately available in the department for consultation throughout this patient's visit. I agree with documentation as above. Maggie Ramirez MD
[2021-06-13 14:55] LABS: Add Manual Diff / Slide Review NO; Basophils Absolute Auto 0 /uL (0-100); Basophils Percent Auto 0.9 % (0-2); Eosinophils Absolute Auto 200 /uL (0-450); Eosinophils Percent Auto 3.9 % (2-4); Hematocrit 39.1 % (36-46); Hemoglobin 12.9 g/dL (12.0-16.0); Lymphocytes Absolute Auto 1100 /uL (1100-4500); Lymphocytes Percent Auto 19.9 % (25-40); Mean Corpuscular HGB Conc 32.9 % (30-36); Mean Corpuscular Hemoglobin 30.6 PG (26-34); Mean Corpuscular Volume 93.2 fL (80-100); Monocytes Absolute Auto 400 /uL (0-900); Neutrophils Absolute Auto 3600 /uL (1500-7000); Neutrophils Percent Auto 68.3 % (50-75); Platelet Count 128 X10^3/uL (150-400); Red Cell Distribution Width 14.6 % (11.6-14.8); White Blood Cell Count 5.3 X10^3/uL (4.5-11.0)
[2021-06-13 15:02] LABS: INR 1.7 (0.9-1.3)
[2021-06-13 15:04] LABS: PTT Partial Thromboplastin Tim 40 SECONDS (26.4-36.2)
[2021-06-13 15:11] LABS: Alanine Aminotransferase 15 IU/L (<35); Albumin 4.1 g/dL (3.5-5.0); Albumin Globulin Ratio 1.4 (1.0-2.8); Alkaline Phosphatase 45 U/L (38-126); Aspartate Aminotransferase 31 IU/L (14-36); BUN Creatinine Ratio 36.6 (6-22); Bilirubin Total 0.5 mg/dL (0.2-1.3); Blood Urea Nitrogen 30 mg/dL (7-17); Calcium 9.2 mg/dL (8.4-10.2); Carbon Dioxide 30 mmol/L (22-32); Chloride 102 mmol/L (98-107); Estimated Glomerular Filt Rate > 60.0 mL/min (>60); Glucose 83 mg/dL (80-110); HEMOLYSIS < 15 (0-50); Sodium 140 mmol/L (137-145); Total Protein 7.1 g/dL (6.3-8.2)
[2021-06-13 15:21] VITALS: BP 157/74; PULSE 57; RESP 17; O2SAT 95
== END 2021-06-13 15:28 | disposition home or self-care (01) ==
PROVIDERS: Emergency Provider Student in an Organized Health Care Education/Training Program; Family Provider Student in an Organized Health Care Education/Training Program; PCP Student in an Organized Health Care Education/Training Program
DX: M79.662 Pain in left lower leg (principal)
CPT/HCPCS: 36415; 73552; 73562; 73590; 80053; 81003; 85025; 85610; 85730; 93971; 99284

== ENCOUNTER → 2021-09-13 10:46 | Outpatient (CLI) | payer MEDICARE, SELFPAY ==
[2020-09-02 15:51] VITALS: BMI 37.8
[2021-09-13 14:38] LABS: BUN Creatinine Ratio 31.3 (6-22); Blood Urea Nitrogen 31 mg/dL (7-17); Calcium 9.2 mg/dL (8.4-10.2); Carbon Dioxide 30 mmol/L (22-32); Chloride 103 mmol/L (98-107); Estimated Glomerular Filt Rate 53.3 mL/min (>60); Glucose 122 mg/dL (80-110); HEMOLYSIS < 15 (0-50); Potassium 3.9 mmol/L (3.4-5.1); Sodium 142 mmol/L (137-145)
== END ==
PROVIDERS: Family Provider Student in an Organized Health Care Education/Training Program; PCP Student in an Organized Health Care Education/Training Program; Referring Provider Nurse Practitioner Acute Care; Visit Provider Nurse Practitioner Acute Care
DX: I50.20 Unspecified systolic (congestive) heart failure (principal)
CPT/HCPCS: 36415; 80048

== ENCOUNTER → 2022-04-21 13:30 | Outpatient (CLI) | payer MEDICARE, SELFPAY ==
[2020-09-02 15:51] VITALS: BMI 37.8
--- NOTE | 2022-04-21 14:12 | DI.ECHO.S_ITS ---
Interpretation Summary The left ventricle is mildly dilated. The ejection fraction is estimated to be 40-45%. There is moderate global hypokinesis of the left ventricle. Diastolic function could not be accurately assessed due to atrial fibrillation. The right ventricle is normal in size and function. Both atria are severely dilated. There is mild mitral regurgitation. There is mild aortic regurgitation. There is moderate tricuspid regurgitation. The right ventricular systolic pressure is estimated to be at least 46 mmHg based on an estimated right atrial pressure of 3 mm Hg. Compared to the prior study dated 06/06/2021, the EF has slightly increased while the PA pressure has decreased. Procedure: A two-dimensional transthoracic echocardiogram with color flow and Doppler was performed. The study quality was technically adequate. Comparison is made with the echocardiogram of 06/06/2021. Left Ventricle: The left ventricle is mildly dilated. There is normal left ventricular wall thickness. Left ventricular systolic function is moderately reduced. The ejection fraction is estimated to be 40-45%. There is moderate global hypokinesis of the left ventricle. Diastolic function could not be accurately assessed due to atrial fibrillation. Right Ventricle: The right ventricle is normal in size and function. Atria: Both atria are severely dilated. The interatrial septum grossly appears intact with no obvious evidence for an atrial septal defect. Mitral Valve: There is moderate mitral annular calcification. The mitral valve mean gradient is 5.8 mmHg. There is mild mitral regurgitation. Aortic Valve: The aortic valve opens well. There is no aortic valve stenosis. There is mild aortic regurgitation. Tricuspid Valve: The tricuspid valve is normal in structure and function. There is moderate tricuspid regurgitation. The right ventricular systolic pressure is estimated to be at least 46 mmHg based on an estimated right atrial pressure of 3 mm Hg. Pulmonic Valve: The pulmonic valve is not well seen, but is grossly normal. There is no pulmonic valvular regurgitation. Great Vessels: The aortic root is normal size. The dimensions of the ascending aorta are normal. The IVC is of normal diameter and collapses greater than 50% with a sniff. This suggests a low right atrial pressure of 3 mm Hg. Pericardium/ Pleura There is no pericardial effusion. There is no pleural effusion. MMode/2D Measurements & Calculations LVIDd: 6.1 cm LVOT diam: 2.2 cm LVIDs: 4.9 cm Ao root diam: 3.7 cm FS: 19.1 % asc Aorta Diam: 3.4 cm IVSd: 1.3 cm LVPWd: 1.2 cm LV parrish. diameter/BSA (cm/m^2): 3.1 LV sys. diameter/BSA (cm/m^2): 2.5 LA A4 area: 45.5 cm2 RA long axis: 8.4 cm LA length (vol): 8.6 cm RA area: 33.4 cm2 RA vol: 112.7 ml RA : 58.1 ml/m2 IVC diam: 2.0 cm TAPSE: 2.1 cm Doppler Measurements & Calculations Ao V2 max: 145.2 cm/sec LVOT Max Shahab: 86.1 cm/sec Ao V2 mean: 101.8 cm/sec LV V1 max P.0 mmHg Ao max P.4 mmHg LV V1 VTI: 19.6 cm Ao mean P.5 mmHg DIAMOND(I,D): 2.3 cm2 Ao V2 VTI: 32.5 cm DIAMOND(V,D): 2.3 cm2 sev ratio: 0.60 DIAMOND indexed to BSA (cm^2/m^2): 1.2 MVA(VTI): 1.6 cm2 TR max shahab: 327.0 cm/sec TR max P.8 mmHg MV V2 mean: 112.5 cm/sec SV(LVOT): 76.3 ml MV mean P.8 mmHg MV V2 VTI: 48.0 cm Reading Physician:05:07 PM
== END ==
PROVIDERS: Family Provider Student in an Organized Health Care Education/Training Program; PCP Student in an Organized Health Care Education/Training Program; Referring Provider Internal Medicine Cardiovascular Disease; Visit Provider Internal Medicine Cardiovascular Disease
DX: I50.20 Unspecified systolic (congestive) heart failure (principal); I08.3 Combined rheumatic disorders of mitral, aortic and tricuspid valves
CPT/HCPCS: 93306

== ENCOUNTER → 2022-07-26 15:35 | Outpatient (CLI) | payer MEDICARE, SELFPAY ==
[2020-09-02 15:51] VITALS: BMI 37.8
[2022-07-26 16:40] LABS: Add Manual Diff / Slide Review NO; Basophils Absolute Auto 100 /uL (0-100); Basophils Percent Auto 1.2 % (0-2); Eosinophils Absolute Auto 300 /uL (0-450); Eosinophils Percent Auto 4.9 % (2-4); Hematocrit 37.8 % (36-46); Hemoglobin 12.3 g/dL (12.0-16.0); Lymphocytes Absolute Auto 900 /uL (1100-4500); Lymphocytes Percent Auto 17.1 % (25-40); Mean Corpuscular HGB Conc 32.6 % (30-36); Mean Corpuscular Hemoglobin 30.4 PG (26-34); Mean Corpuscular Volume 93.5 fL (80-100); Monocytes Absolute Auto 400 /uL (0-900); Monocytes Percent Auto 7.4 % (3-14); Neutrophils Absolute Auto 3600 /uL (1500-7000); Neutrophils Percent Auto 69.4 % (50-75); Platelet Count 137 X10^3/uL (150-400); Red Blood Cell Count 4.04 X10^6/uL (4.0-5.2); Red Cell Distribution Width 14.1 % (11.6-14.8); White Blood Cell Count 5.2 X10^3/uL (4.5-11.0)
[2022-07-26 17:03] LABS: Alanine Aminotransferase 16 IU/L (<35); Alkaline Phosphatase 67 U/L (38-126); Aspartate Aminotransferase 27 IU/L (14-36); BUN Creatinine Ratio 31.3 (6-22); Bilirubin Total 0.3 mg/dL (0.2-1.3); Blood Urea Nitrogen 26 mg/dL (7-17); Carbon Dioxide 29 mmol/L (22-32); Chloride 103 mmol/L (98-107); Estimated Glomerular Filt Rate > 60 mL/min (>60); Glucose 136 mg/dL (80-110); HEMOLYSIS < 15 (0-50); Potassium 3.8 mmol/L (3.4-5.1); Sodium 142 mmol/L (137-145); Total Protein 7.5 g/dL (6.3-8.2)
[2022-07-28 16:48] LABS: Albumin Globulin Ratio 1.1 (1.0-2.8); Globulin 3.5 g/dL (1.7-4.1)
== END ==
PROVIDERS: Family Provider Student in an Organized Health Care Education/Training Program; PCP Student in an Organized Health Care Education/Training Program; Referring Provider Otolaryngology; Visit Provider Otolaryngology
DX: Z01.812 Encounter for preprocedural laboratory examination (principal)
CPT/HCPCS: 36415; 80053; 85025

== ENCOUNTER → 2022-11-07 13:37 | Outpatient (CLI) | payer MEDICARE, SELFPAY ==
[2020-09-02 15:51] VITALS: BMI 37.8
== END ==
PROVIDERS: Family Provider Student in an Organized Health Care Education/Training Program; PCP Student in an Organized Health Care Education/Training Program; Visit Provider Specialist
DX: I10 Essential (primary) hypertension (principal); N39.46 Mixed incontinence; N95.2 Postmenopausal atrophic vaginitis
CPT/HCPCS: 51798; 87077; 87086; 87186; 99215

== ENCOUNTER → 2022-12-11 09:58 | Outpatient (CLI) | payer MEDICARE, SELFPAY ==
[2020-09-02 15:51] VITALS: BMI 37.8
[2022-12-11 10:46] LABS: Amorphous Sediment Urine 1+; Bacteria Urine Occasional (0-1); Hyaline Casts Urine 0-1/LPF; RBC Urine 1-5/HPF (0-5/HPF); Squamous Epithelial Cell Urine 1-5 /HPF (0-5/HPF); WBC Urine 1-5/HPF (0-5/HPF)
== END ==
PROVIDERS: Family Provider Student in an Organized Health Care Education/Training Program; PCP Student in an Organized Health Care Education/Training Program; Visit Provider Specialist
DX: N39.46 Mixed incontinence (principal); N95.2 Postmenopausal atrophic vaginitis; Z87.440 Personal history of urinary (tract) infections
CPT/HCPCS: 81015; 99214

== ENCOUNTER → 2023-03-20 10:25 | Outpatient (CLI) | payer MEDICARE, SELFPAY ==
[2020-09-02 15:51] VITALS: BMI 37.8
[2023-03-20 12:36] LABS: Add Manual Diff / Slide Review NO; Basophils Absolute Auto 0 /uL (0-100); Basophils Percent Auto 0.7 % (0-2); Eosinophils Absolute Auto 200 /uL (0-450); Eosinophils Percent Auto 4.4 % (2-4); Hematocrit 37.9 % (36-46); Hemoglobin 12.7 g/dL (12.0-16.0); Lymphocytes Absolute Auto 1000 /uL (1100-4500); Lymphocytes Percent Auto 20.4 % (25-40); Mean Corpuscular HGB Conc 33.4 % (30-36); Mean Corpuscular Hemoglobin 30.4 PG (26-34); Monocytes Absolute Auto 300 /uL (0-900); Monocytes Percent Auto 6.7 % (3-14); Neutrophils Absolute Auto 3300 /uL (1500-7000); Neutrophils Percent Auto 67.8 % (50-75); Platelet Count 123 X10^3/uL (150-400); Red Blood Cell Count 4.16 X10^6/uL (4.0-5.2); Red Cell Distribution Width 16.6 % (11.6-14.8); White Blood Cell Count 4.9 X10^3/uL (4.5-11.0)
[2023-03-20 12:55] LABS: Hemoglobin A1C% w Est Avg Glu 5.4 % (4.0-6.0)
[2023-03-20 13:09] LABS: Alanine Aminotransferase 15 IU/L (<35); Albumin Globulin Ratio 1.5 (1.0-2.8); Alkaline Phosphatase 56 U/L (38-126); Aspartate Aminotransferase 31 IU/L (14-36); BUN Creatinine Ratio 28.9 (6-22); Bilirubin Total 0.6 mg/dL (0.2-1.3); Blood Urea Nitrogen 28 mg/dL (7-17); Calcium 8.7 mg/dL (8.4-10.2); Carbon Dioxide 26 mmol/L (22-32); Chloride 103 mmol/L (98-107); Cholesterol 124 mg/dL (140-199); Estimated Glomerular Filt Rate 57 mL/min (>60); Globulin 2.6 g/dL (1.7-4.1); Glucose 80 mg/dL (80-110); HDL Cholesterol 41 mg/dL (40-60); HEMOLYSIS < 15 (0-50); LDL Cholesterol Calculated 62 mg/dL (<100); Potassium 4.3 mmol/L (3.4-5.1); Sodium 139 mmol/L (137-145); Total Protein 6.6 g/dL (6.3-8.2); Triglycerides 105 mg/dL (35-150)
== END ==
PROVIDERS: Family Provider Student in an Organized Health Care Education/Training Program; PCP Pediatrics; Referring Provider Nurse Practitioner Acute Care; Visit Provider Nurse Practitioner Acute Care
DX: R53.83 Other fatigue (principal); I10 Essential (primary) hypertension; E78.5 Hyperlipidemia, unspecified; E03.9 Hypothyroidism, unspecified; E78.2 Mixed hyperlipidemia; Q30.9 Congenital malformation of nose, unspecified; Z87.440 Personal history of urinary (tract) infections
CPT/HCPCS: 36415; 80053; 80061; 83036; 84443; 85025

== ENCOUNTER 2023-03-26 14:25 | Emergency (ER) | payer MEDICARE, SELFPAY ==
[2020-09-02 15:51] VITALS: BMI 37.8
[2023-03-26 14:26] VITALS: BP 138/67; PULSE 68; RESP 16; TEMP 37; O2SAT 96; BMI 41.9
--- NOTE | 2023-03-26 14:47 | DI.CT.S_ITS ---
PROCEDURE: CT CERVICAL SPINE WO CON INDICATIONS: Fall on thinners TECHNIQUE: Noncontrast 3 mm thick sections acquired from the skull base to the T4 level. Sagittal and coronal reformats were then constructed. For radiation dose reduction, the following was used: automated exposure control, adjustment of mA and/or kV according to patient size. COMPARISON: None. FINDINGS: Image quality: Excellent. Bones: No fractures or dislocations. Visualized superior ribs are intact. Degenerative disc disease at C4-5, C5-6, and C6-7. Soft tissues: Prevertebral soft tissues are normal in thickness. No paravertebral hematomas. No apical pneumothoraces. The carotid bulbs have atherosclerotic calcifications. IMPRESSION: 1. No acute abnormality of the cervical spine. 2. Degenerative disc disease. Dictated by: Steffen Lazo M.D. on 03/26/2023 at 15:29 Approved by: Steffen Lazo M.D. on 03/26/2023 at 15:31
--- NOTE | 2023-03-26 14:47 | DI.CT.S_ITS ---
PROCEDURE: CT HEAD/BRAIN WO CON INDICATIONS: fall on thinners TECHNIQUE: Noncontrast 4.5 mm thick angled axial sections acquired from the foramen magnum to the vertex, with coronal and sagittal reformats. For radiation dose reduction, the following was used: automated exposure control, adjustment of mA and/or kV according to patient size. COMPARISON: None. FINDINGS: Image quality: Excellent. CSF spaces: Basal cisterns are patent. No extra-axial fluid collections. The ventricles are symmetric in size and shape. Brain: No intracranial bleeds or masses. There is cerebral volume loss for age, with resultant ventricular and sulcal prominence. There are periventricular and deep white matter chronic small vessel ischemic changes. There is intracranial internal carotid artery atherosclerosis. Skull and face: Calvarium and visualized facial bones appear intact, without suspicious lesions. Sinuses: Visualized sinuses and mastoids are clear. IMPRESSION: 1. No acute intracranial abnormality. 2. Cerebral volume loss and small vessel ischemic changes. Dictated by: Steffen Lazo M.D. on 03/26/2023 at 15:28 Approved by: Steffen Lazo M.D. on 03/26/2023 at 15:29
--- NOTE | 2023-03-26 15:33 | ED.FALL ---
HPI - Fall General Chief Complaint: Fall Stated Complaint: fell T-1 takes blood thinner Time Seen by Provider: 03/26/23 14:46 Source: patient and family Mode of arrival: Wheelchair History of Present Illness HPI Narrative: Patient is an 87-year-old female who is here for evaluation of a fall that occurred yesterday. Patient is not exactly sure how she fell but she thinks she just lost her balance. It was potentially the slippers she was wearing at the time. She did hit her head. No loss of consciousness. The paramedics did have to come and pick her up. She started have bruising around her left eye overnight. She also sustained an abrasion to her right knee. She is here with family because of the bruising around her left eye and the fall on blood thinners. Related Data Home Medications Medication Instructions Recorded Confirmed VITAMIN E 400 unit PO DAILY 10/26/20 02/20/23 cholecalciferol (vitamin D3) 50 50 mcg PO DAILY 11/25/20 02/20/23 mcg (2,000 unit) capsule mecobalamin (vitamin B12) 1,000 1,000 mcg PO DAILY 11/25/20 02/20/23 mcg chewable tablet ResMed ASV 05/09/21 02/20/23 Aircurve 10 ASV 03/09/22 02/20/23 Calicum 2 tab PO DAILY 06/06/22 02/20/23 furosemide 40 mg tablet 40 mg PO DAILY 06/06/22 02/20/23 metoprolol succinate 25 mg 25 mg PO DAILY 06/06/22 02/20/23 tablet,extended release 24 hr Previous Rx's Medication Instructions Recorded apixaban 5 mg tablet 5 mg PO BID #60 tabs 06/22/21 potassium chloride 10 mEq 10 meq PO DAILY #30 tabs 06/22/21 tablet,extended release clobetasol 0.05 % topical gel See Rx Instructions .Route 11/14/21 .COMPLEX #30 grams ferrous sulfate 325 mg (65 mg 325 mg PO 2XW #20 tabs 06/06/22 iron) tablet lovastatin 20 mg tablet 20 mg PO DAILY #90 tabs 06/06/22 levothyroxine 25 mcg tablet 25 mcg PO DAILY #90 tabs 07/31/22 mirabegron 50 mg tablet,extended 50 mg PO DAILY #90 tabs 07/31/22 release 24 hr (Myrbetriq) sertraline 100 mg tablet 100 mg PO DAILY #90 tabs 07/31/22 ospemifene 60 mg tablet (Osphena) 60 mg PO DAILY #90 tabs 11/07/22 cephalexin 250 mg capsule 250 mg PO BEDTIME #60 caps 12/11/22 clomipramine 25 mg capsule 25 mg PO DAILY OCD #90 caps 03/16/23 Allergies Allergy/AdvReac Type Severity Reaction Status Date / Time gabapentin AdvReac Mild Sedation Verified 02/20/23 11:22 at 100mg Review of Systems Constitutional Constitutional: Reports system reviewed and no additional complaints, except as documented Cardiovascular Cardiovascular: Reports system reviewed and no additional complaints, except as documented Musculoskeletal Musculoskeletal: Reports system reviewed and no additional complaints, except as documented Integumentary/Breasts Skin/Breast: Reports system reviewed and no additional complaints, except as documented Neurologic Neurologic: Reports system reviewed and no additional complaints, except as documented Hematologic/Lymphatic On Anticoagulants: No Patient History Medical History Anemia Arthritis Asthma Atrial fibrillation CHF (congestive heart failure), NYHA class III Chronic UTI Constipation COPD (chronic obstructive pulmonary disease) Coronary artery disease involving [place] heart Coronary artery disease with exertional angina Depression Essential hypertension High blood pressure History of UTI Hypothyroidism Inflammatory bowel disease Major depression Mixed hyperlipidemia Mixed incontinence Nasal septal perforation Nose abnormality Obstructive sleep apnea OCD (obsessive compulsive disorder) Osteoarthritis Osteoporosis 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 Rotator cuff arthropathy of right shoulder Sleep apnea Varicose vein of leg Surgical History Coronary stent patent H/O abdominal hysterectomy H/O cystoscopy H/O vaginal hysterectomy History of appendectomy History of bladder suspension procedure History of cataract surgery History of knee replacement History of liver biopsy History of lumbar surgery History of removal of ovarian cyst History of total bilateral knee replacement Previous back surgery Total knee replacement status Family History Sister Cancer Heart attack Brother Cancer Mother Heart attack Stroke Hypertension Father Hypertension Social History marital status: number of children: 4 household members: none Smoking Status: Former smoker alcohol intake: never Smoking Status: Former smoker alcohol intake frequency: 0-2 drinks per day Substance Use Type: does not use Exam Initial Vital Signs Initial Vital Signs: Vital Signs Temperature 98.6 F 03/26/23 14:26 Pulse Rate 68 03/26/23 14:26 Respiratory Rate 16 03/26/23 14:26 Blood Pressure 138/67 03/26/23 14:26 Pulse Oximetry 96 03/26/23 14:26 Oxygen Delivery Method Room Air 03/26/23 14:26 HENMT Head: normal to inspection and normocephalic Eyes Other: Bruising to the medial and inferior aspect of the left periorbital region Resp Effort & Inspection: normal respiratory effort Cardio Rate: regular rate Skin Other: Bruising to the periorbital region of the left eye and a skin abrasion to the anterior right knee. Neuro General: patient alert, patient awake and moves all extremities Extrem General: normal to inspection and capillary refill normal Course Orders Ordered: ED Orders 03/26/23 14:46 EKG-12 Lead Routine 03/26/23 14:47 CT cervical spine wo con Stat CT head/brain wo con Stat Vital Signs Vital signs: Vital Signs - 8 hr 03/26/23 14:26 Temperature 98.6 F Pulse Rate 68 Respiratory Rate 16 Blood Pressure 138/67 Pulse Oximetry 96 Oxygen Delivery Method Room Air MDM - Fall Imaging Data CT scan - head: Radiologist's Impression: PROCEDURE:? CT HEAD/BRAIN WO CON ? INDICATIONS:? fall on thinners ? TECHNIQUE:? Noncontrast 4.5 mm thick angled axial sections acquired from the foramen magnum to the vertex, with coronal and sagittal reformats.? For radiation dose reduction, the following was used:? automated exposure control, adjustment of mA and/or kV according to patient size.? ? COMPARISON:? None. ? FINDINGS:? Image quality:? Excellent.? ? CSF spaces:? Basal cisterns are patent.? No extra-axial fluid collections.? The ventricles are symmetric in size and shape.? ? Brain:? No intracranial bleeds or masses.? There is cerebral volume loss for age, with resultant ventricular and sulcal prominence.? There are periventricular and deep white matter chronic small vessel ischemic changes.? There is intracranial internal carotid artery atherosclerosis.? ? Skull and face:? Calvarium and visualized facial bones appear intact, without suspicious lesions.? ? Sinuses:? Visualized sinuses and mastoids are clear.? ? IMPRESSION:? 1. No acute intracranial abnormality. 2. Cerebral volume loss and small vessel ischemic changes.? CT - cervical spine: Radiologist's Impression: PROCEDURE:? CT CERVICAL SPINE WO CON ? INDICATIONS:? Fall on thinners ? TECHNIQUE:? Noncontrast 3 mm thick sections acquired from the skull base to the T4 level.? Sagittal and coronal reformats were then constructed.? For radiation dose reduction, the following was used:? automated exposure control, adjustment of mA and/or kV according to patient size.? ? COMPARISON:? None. ? FINDINGS:? Image quality:? Excellent.? ? Bones:? No fractures or dislocations.? Visualized superior ribs are intact.? Degenerative disc disease at C4-5, C5-6, and C6-7. ? Soft tissues:? Prevertebral soft tissues are normal in thickness.? No paravertebral hematomas.? No apical pneumothoraces.? The carotid bulbs have atherosclerotic calcifications. ? ? IMPRESSION:? 1. No acute abnormality of the cervical spine. 2. Degenerative disc disease.? ECG Data Interpretation: Atrial fibrillation Ventricular rate is [address] T wave changes MDM Narrative Medical decision making narrative: CT scan showed no acute pathology. Patient has no other orthopedic injuries. No further radiologic studies needed. Had a discussion with her regarding the importance of trying to avoid falling. We discussed things she could try at home to try to minimize this issue. Will discharge patient home. She was given return precautions. She expressed understanding and agreement. Discharge Plan Departure Patient Disposition: Home Clinical Impression: Contusion of eye, left Instructions: How to Prevent Falls Activity Restrictions/Additional Instructions: Continue to take all of your medications as directed. It is important that you try to avoid falling. Return to the emergency department for new or worsening symptoms. Prescriptions: No Action potassium chloride 10 mEq tablet extended release 10 meq PO DAILY Qty: 30 2RF clobetasol 0.05 % gel See Rx Instructions .ROUTE .COMPLEX Qty: 30 3RF Dose Instruction: APPLY TO ITCHY AREA DAILY UNTIL SYMPTOMS RESOLVE. MAY USE INTERMITTENTLY NEEDED Rx Instructions: APPLY TO ITCHY AREA DAILY UNTIL SYMPTOMS RESOLVE. MAY USE INTERMITTENTLY NEEDED metoprolol succinate 25 mg tablet extended release 24 hr 25 mg PO DAILY sertraline 100 mg tablet 100 mg PO DAILY Qty: 90 2RF Myrbetriq 50 mg tablet extended release 24 hr 50 mg PO DAILY Qty: 90 2RF levothyroxine 25 mcg tablet 25 mcg PO DAILY Qty: 90 2RF clomipramine 25 mg capsule 25 mg PO DAILY Qty: 90 0RF ferrous sulfate 325 mg (65 mg iron) tablet 325 mg PO 2XW Qty: 20 3RF furosemide 40 mg tablet 40 mg PO DAILY lovastatin 20 mg tablet 20 mg PO DAILY Qty: 90 3RF VITAMIN E 400 unit PO DAILY Calicum 600 mg 2 tab PO DAILY apixaban 5 mg tablet 5 mg PO BID Qty: 60 11RF (DME) ResMed ASV See Rx Instructions .Route .MEDSUPPLY Rx Instructions: EPAP: 1.0 Min: 6 Max PS: 15 (DME) Aircurve 10 ASV See Rx Instructions .Route .MEDSUPPLY Rx Instructions: Pressure: EPAP 7 Min PS 6 Max PS 15 DME: [facility] 02/2022 cholecalciferol (vitamin D3) 50 mcg (2,000 unit) capsule 50 mcg PO DAILY mecobalamin (vitamin B12) 1,000 mcg tablet,chewable 1,000 mcg PO DAILY Osphena 60 mg tablet 60 mg PO DAILY Qty: 90 5RF Rx Instructions: must administer with food, preferably a high-fat meal cephalexin 250 mg capsule 250 mg PO BEDTIME Qty: 60 0RF Referrals: Miki Soares MD [Primary Care Provider] - Stand Alone Forms: Patient Portal/API
[2023-03-26 16:09] VITALS: BP 136/108; PULSE 65; O2SAT 95
== END 2023-03-26 16:13 | disposition home or self-care (01) ==
PROVIDERS: Emergency Provider Emergency Medicine; Family Provider Student in an Organized Health Care Education/Training Program; PCP Pediatrics
DX: S00.12XA Contusion of left eyelid and periocular area, initial encounter (principal); S80.211A Abrasion, right knee, initial encounter; W18.30XA Fall on same level, unspecified, initial encounter; Z79.01 Long term (current) use of anticoagulants
CPT/HCPCS: 36415; 70450; 72125; 93005; 99284

== ENCOUNTER → 2023-03-30 10:45 | Outpatient (CLI) | payer MEDICARE, SELFPAY ==
[2020-09-02 15:51] VITALS: BMI 37.8
[2023-03-30 10:56] LABS: Appearance Urine UA CLEAR; Bilirubin Urine UA NEGATIVE (NEGATIVE); Color Urine UA YELLOW; Glucose Urine UA NEGATIVE (Negative); Ketones Urine UA NEGATIVE (NEGATIVE); Leukocyte Esterase Urine UA 1+ (NEGATIVE); Nitrite Urine UA NEGATIVE (Negative); Occult Blood Urine UA NEGATIVE (Negative); Protein Urine UA NEGATIVE (Negative); Urobilinogen Urine UA 0.2 E.U./dL (0.2)
[2023-03-30 11:06] LABS: Bacteria Urine None Seen; Culture Indicated Urine Specimen Cultured; RBC Urine 0-1/HPF (0-5/HPF); Squamous Epithelial Cell Urine 5-10 /HPF (0-5/HPF); WBC Urine 5-10/HPF (0-5/HPF)
== END ==
PROVIDERS: Family Provider Student in an Organized Health Care Education/Training Program; PCP Pediatrics; Referring Provider Pediatrics; Visit Provider Pediatrics
DX: E03.9 Hypothyroidism, unspecified (principal); E78.2 Mixed hyperlipidemia; Q30.9 Congenital malformation of nose, unspecified; Z87.440 Personal history of urinary (tract) infections; I10 Essential (primary) hypertension
CPT/HCPCS: 81001; 87086

== ENCOUNTER → 2023-04-19 11:49 | Outpatient (CLI) | payer MEDICARE, SELFPAY ==
[2020-09-02 15:51] VITALS: BMI 37.8
== END ==
PROVIDERS: Family Provider Student in an Organized Health Care Education/Training Program; PCP Pediatrics; Visit Provider Specialist
DX: Z87.440 Personal history of urinary (tract) infections (principal)
CPT/HCPCS: 87086

== ENCOUNTER → 2023-04-30 14:12 | Outpatient (CLI) | payer MEDICARE, SELFPAY ==
[2020-09-02 15:51] VITALS: BMI 37.8
--- NOTE | 2023-04-30 | DI.ECHO.S_ITS ---
[facility] +---------+ : : [address] [place] : : : : [id number] : : : : Phone: [phone] Echocardiogram Report + + :Name: NATACHA ZAMUDIO Study Date: 04/30/2023 Height: 61 in : :[facility] ReadingLocation: Weight: 218 lb : : Gender: Female BSA: 2.0 m2 : :: 1935 Age: 87 yrs BP: 137/73 mmHg: :Reason For Study: Chronic Systilic Heart Failure : :Ordering Physician: ANGELICA, : :WALTER Performed By: Carolyn Gamez : :Referring: WALTER DOMINGUEZ : + + Interpretation Summary The left ventricle is mildly dilated. The ejection fraction is estimated to be 35-40%. Diastolic function could not be accurately assessed due to atrial fibrillation. The left atrium is severely dilated. Right ventricular systolic function is mild to moderately reduced. The right atrium is mild to moderately dilated. There is moderate mitral regurgitation. There is mild aortic regurgitation. The right ventricular systolic pressure is estimated to be at least 41 mmHg based on an estimated right atrial pressure of 3 mm Hg. Compared to the prior study dated 04/21/2022, there is a slight decrease in biventricular systolic function. Procedure: A two-dimensional transthoracic echocardiogram with color flow and Doppler was performed. The study quality was technically adequate. Comparison is made with the echocardiogram of 04/21/2022. Left Ventricle: The left ventricle is mildly dilated. Left ventricular wall thickness is mildly increased. The ejection fraction is estimated to be 35- 40%. Diastolic function could not be accurately assessed due to atrial fibrillation. Right Ventricle: The right ventricle is normal size. Right ventricular systolic function is mild to moderately reduced. Atria: The left atrium is severely dilated. The right atrium is mild to moderately dilated. There is no Doppler evidence for an interatrial shunt. Mitral Valve: The mitral valve leaflets are slightly calcified. There is moderate mitral annular calcification. The mitral valve mean gradient is 4 mmHg. There is moderate mitral regurgitation. Aortic Valve: The aortic valve is trileaflet. There is mild aortic valve sclerosis. There is no aortic valve stenosis. There is mild aortic regurgitation. Tricuspid Valve: The tricuspid valve is normal. There is no tricuspid stenosis. There is mild to moderate tricuspid regurgitation. The right ventricular systolic pressure is estimated to be at least 41 mmHg based on an estimated right atrial pressure of 3 mm Hg. Pulmonic Valve: The pulmonic valve is not well visualized. There is no pulmonic valvular stenosis. There is trace pulmonic regurgitation. Great Vessels: The aortic root is normal size. The ascending aorta is normal in size. The pulmonary artery is normal size. The IVC is of normal diameter and collapses greater than 50% with a sniff. This suggests a low right atrial pressure of 3 mm Hg. Pericardium/ Pleura There is no pericardial effusion. MMode/2D Measurements & Calculations LVIDd: 5.4 cm LVOT diam: 2.0 cm LVIDs: 3.6 cm Ao root diam: 3.4 cm FS: 33.3 % asc Aorta Diam: 3.4 cm IVSd: 1.5 cm LVPWd: 1.2 cm LV parrish. diameter/BSA (cm/m^2): 2.8 LV sys. diameter/BSA (cm/m^2): 1.8 LA A2 area: 39.5 cm2 RA long axis: 6.9 cm LA A4 area: 28.8 cm2 RA area: 21.6 cm2 LA length (vol): 7.5 cm RA vol: 57.8 ml LA vol: 128.7 ml RA : 29.5 ml/m2 LA vol index: 65.7 ml/m2 RVD1 (basal): 3.1 cm LVLs ap4: 6.5 cm LVLd ap2: 6.8 cm TAPSE_phl: 1.4 cm LVLs ap2: 6.9 cm Doppler Measurements & Calculations Ao V2 max: 118.8 cm/sec LVOT Max Shahab: 62.4 cm/sec Ao V2 mean: 84.2 cm/sec LV V1 max P.6 mmHg Ao max P.0 mmHg LV V1 VTI: 14.1 cm Ao mean P.2 mmHg DIAMOND(I,D): 1.6 cm2 Ao V2 VTI: 27.9 cm DIAMOND(V,D): 1.6 cm2 sev ratio: 0.51 DIAMOND indexed to BSA (cm^2/m^2): 0.81 MVA(VTI): 1.0 cm2 TR max shahab: 262.3 cm/sec TR max P.9 mmHg PA V2 max: 83.9 cm/sec PA V2 mean: 55.5 cm/sec PA mean P.0 mmHg PA pr(Accel): 38.5 mmHg MV V2 mean: 88.2 cm/sec SV(LVOT): 44.4 ml MV mean P.7 mmHg MV V2 VTI: 44.0 cm AV VR_phl: 0.52 DIAMOND(VTI)/BSA_phl: 0.81 Reading Physician:11:00 AM
== END ==
PROVIDERS: Family Provider Student in an Organized Health Care Education/Training Program; PCP Pediatrics; Referring Provider Nurse Practitioner Acute Care; Visit Provider Nurse Practitioner Acute Care
DX: I08.3 Combined rheumatic disorders of mitral, aortic and tricuspid valves (principal); I50.22 Chronic systolic (congestive) heart failure
CPT/HCPCS: 93306

== ENCOUNTER → 2023-07-05 14:04 | Outpatient (CLI) | payer MEDICARE, SELFPAY ==
[2020-09-02 15:51] VITALS: BMI 37.8
== END ==
PROVIDERS: Family Provider Student in an Organized Health Care Education/Training Program; PCP Family Medicine; Visit Provider Family Medicine
DX: Z87.440 Personal history of urinary (tract) infections (principal)
CPT/HCPCS: 87086

== ENCOUNTER → 2023-08-23 09:02 | Outpatient (CLI) | payer MEDICARE, SELFPAY ==
[2020-09-02 15:51] VITALS: BMI 37.8
[2023-08-23 10:06] LABS: BUN Creatinine Ratio 34.3 (6-22); Blood Urea Nitrogen 34 mg/dL (7-17); Calcium 8.5 mg/dL (8.4-10.2); Carbon Dioxide 27 mmol/L (22-32); Chloride 106 mmol/L (98-107); Estimated Glomerular Filt Rate 55 mL/min (>60); Glucose 87 mg/dL (80-110); HEMOLYSIS < 15 (0-50); Potassium 4.4 mmol/L (3.4-5.1); Sodium 141 mmol/L (137-145)
== END ==
PROVIDERS: Family Provider Student in an Organized Health Care Education/Training Program; PCP Family Medicine; Referring Provider Internal Medicine Cardiovascular Disease; Visit Provider Internal Medicine Cardiovascular Disease
DX: I50.22 Chronic systolic (congestive) heart failure (principal)
CPT/HCPCS: 36415; 80048

== ENCOUNTER 2024-03-09 14:10 | Emergency (ER) | payer MEDICARE, SELFPAY ==
[2020-09-02 15:51] VITALS: BMI 37.8
[2024-03-09] VITALS (18 sets, daily range): BP systolic 111–205; BP diastolic 55–100; PULSE 58–86; RESP 18–29; TEMP 36.4; O2SAT 93–97; BMI 41.5
--- NOTE | 2024-03-09 14:36 | DI.RAD.S_ITS ---
PROCEDURE: XR CHEST 1V INDICATIONS: Shortness of breath TECHNIQUE: One view of the chest was acquired. COMPARISON: [facility], , XR CHEST 1V, 06/22/2020, 16:40. [facility], CR, XR CHEST 1V, 04/24/2021, 20:42. FINDINGS: Surgical changes and devices: None. Lungs and pleura: Lungs are clear. Apparent left retrocardiac opacity is favored to reflect overlying soft tissue. No pleural effusions or pneumothorax. Mediastinum: Mediastinal contours appear normal. Moderate to severe cardiomegaly, stable. Aortic arch is calcified, indicating atherosclerosis. Bones and chest wall: No suspicious bony lesions. Overlying soft tissues appear unremarkable. Degenerative changes of the right humeral head with remodeling. IMPRESSION: 1. No acute cardiopulmonary process. 2. Moderate to severe cardiomegaly, stable. Dictated by: Hellen Martell M.D. on 03/09/2024 at 14:09 Approved by: Hellen Martell M.D. on 03/09/2024 at 14:28
--- NOTE | 2024-03-09 14:53 | EKG_ITS ---
[facility] [address] [place] [address] Test Date: 2024-03-09 Pat Name: Liana Power Department: Room: Gender: Female [employer]: : 1935 Requested By: Order Number: [id number] Reading MD: Inocente Valladares MD Measurements Intervals Walker Rate: 69 P: AK: QRS: -35 QRSD: 90 T: 147 QT: 368 QTc: 394 Interpretive Statements Atrial fibrillation with premature ventricular or aberrantly conducted complexes Left axis deviation Inferior infarct , age undetermined Cannot rule out Anterior infarct , age undetermined NO SIGNIFICANT CHANGE FROM PRIOR TRACING Electronically Signed On 03-10-2024 8:59:32 PDT by Inocente Valladares MD
[2024-03-09 14:59] LABS: Add Manual Diff / Slide Review NO; Basophils Absolute Auto 100 /uL (0-100); Basophils Percent Auto 1.4 % (0-2); Eosinophils Absolute Auto 200 /uL (0-450); Eosinophils Percent Auto 3.3 % (2-4); Hematocrit 41.6 % (36-46); Hemoglobin 13.8 g/dL (12.0-16.0); Lymphocytes Absolute Auto 900 /uL (1100-4500); Lymphocytes Percent Auto 18.2 % (25-40); Mean Corpuscular HGB Conc 33.1 % (30-36); Mean Corpuscular Hemoglobin 31.8 PG (26-34); Monocytes Absolute Auto 400 /uL (0-900); Monocytes Percent Auto 7.7 % (3-14); Neutrophils Absolute Auto 3500 /uL (1500-7000); Neutrophils Percent Auto 69.4 % (50-75); Platelet Count 145 X10^3/uL (150-400); Red Blood Cell Count 4.33 X10^6/uL (4.0-5.2); Red Cell Distribution Width 14.3 % (11.6-14.8)
--- NOTE | 2024-03-09 15:04 | PC.NURSE ---
Pt is alert but not oriented to date or exact place. Son at bedside. He reports increasing urinary incontinence over past 2 weeks and concerns for dehydration. He also states she had an unwitnessed fall 2 nights ago and declined EMS transport. She denies hitting head. Is on thinners. C/O LEFT knee pain. She also reported lightheadedness, chest pain, and dark, tarry stool. Pt denies any chest pain at this time. Pt denies abdominal pain as well. Hx of cardiac stent and Afib. Call light within reach. Encouraged to use for needs.
[2024-03-09 15:08] LABS: Alanine Aminotransferase 14 IU/L (<35); Albumin 4.4 g/dL (3.5-5.0); Albumin Globulin Ratio 1.4 (1.0-2.8); Alkaline Phosphatase 41 U/L (38-126); Aspartate Aminotransferase 34 IU/L (14-36); BUN Creatinine Ratio 33.1 (6-22); Bilirubin Total 0.6 mg/dL (0.2-1.3); Blood Urea Nitrogen 43 mg/dL (7-17); Calcium 9.5 mg/dL (8.4-10.2); Carbon Dioxide 22 mmol/L (22-32); Chloride 104 mmol/L (98-107); Estimated Glomerular Filt Rate 40 mL/min (>60); Globulin 3.1 g/dL (1.7-4.1); Glucose 91 mg/dL (80-110); HEMOLYSIS 60 (0-50); Lactate (Lactic Acid) 1.5 mmol/L (0.7-2.1); Potassium 4.3 mmol/L (3.4-5.1); Sodium 140 mmol/L (137-145); Total Protein 7.5 g/dL (6.3-8.2)
[2024-03-09 15:11] LABS: INR 1.5 (0.9-1.3); Prothrombin Time 17.4 SECONDS (9.4-12.5)
[2024-03-09 15:19] LABS: NT-proBNP (BNP-Adult 18+) 1240 pg/mL (<450); Troponin I < 0.012 ng/mL (0.01-0.034)
--- NOTE | 2024-03-09 16:51 | ED.CHESTPAIN ---
HPI - Chest Pain General Chief Complaint: Chest Pain Stated Complaint: dizziness, chest pain, weakness Time Seen by Provider: 03/09/24 16:35 Related Data Home Medications Medication Instructions Recorded Confirmed VITAMIN E 400 unit PO DAILY 10/26/20 01/17/24 cholecalciferol (vitamin D3) 50 50 mcg PO DAILY 11/25/20 01/17/24 mcg (2,000 unit) capsule mecobalamin (vitamin B12) 1,000 1,000 mcg PO DAILY 11/25/20 01/17/24 mcg chewable tablet ResMed ASV 05/09/21 01/17/24 Aircurve 10 ASV 03/09/22 01/17/24 Calicum 2 tab PO DAILY 06/06/22 01/17/24 furosemide 40 mg tablet 40 mg PO DAILY 06/06/22 01/17/24 metoprolol succinate 25 mg 25 mg PO DAILY 06/06/22 01/17/24 tablet,extended release 24 hr Previous Rx's Medication Instructions Recorded apixaban 5 mg tablet 5 mg PO BID #60 tabs 06/22/21 potassium chloride 10 mEq 10 meq PO DAILY #30 tabs 06/22/21 tablet,extended release clobetasol 0.05 % topical gel See Rx Instructions .Route 11/14/21 .COMPLEX #30 grams lovastatin 20 mg tablet 20 mg PO DAILY #90 tabs 06/06/22 nystatin 100,000 unit/gram topical 1 applic topical BID #30 grams 11/23/23 powder nystatin 100,000 unit/gram topical 1 applic topical BID #15 grams 12/18/23 ointment sertraline 50 mg tablet 50 mg PO DAILY #30 tabs 12/19/23 clomipramine 25 mg capsule 25 mg PO DAILY OCD #90 caps 01/17/24 ferrous sulfate 325 mg (65 mg 325 mg PO 2XW #8 tabs 01/17/24 iron) tablet (FeroSul) levothyroxine 25 mcg tablet 25 mcg PO DAILY #90 tabs 01/17/24 sertraline 100 mg tablet 100 mg PO DAILY #90 tabs 01/17/24 mirabegron 50 mg tablet,extended 50 mg PO DAILY #90 tabs 01/18/24 release 24 hr (Myrbetriq) ospemifene 60 mg tablet (Osphena) 60 mg PO DAILY #90 tabs 01/21/24 Allergies Allergy/AdvReac Type Severity Reaction Status Date / Time gabapentin AdvReac Mild Sedation Verified 01/17/24 11:29 at 100mg Patient History Medical History (Updated 11/26/23 @ 08:57 by Jasmin Boston DO) CHF (congestive heart failure), NYHA class III Coronary artery disease with exertional angina Atrial fibrillation Sleep apnea OCD (obsessive compulsive disorder) Nose abnormality History of UTI Postmenopausal atrophic vaginitis Mixed incontinence High blood pressure Coronary artery disease involving [place] heart Chronic UTI Asthma Arthritis Anemia Rotator cuff arthropathy of right shoulder Postmenopausal atrophic vaginitis Osteoporosis Osteoarthritis Inflammatory bowel disease Depression COPD (chronic obstructive pulmonary disease) Obstructive sleep apnea Varicose vein of leg Constipation Major depression Mixed hyperlipidemia Essential hypertension Hypothyroidism Nasal septal perforation Surgical History History of liver biopsy History of knee replacement H/O vaginal hysterectomy History of bladder suspension procedure Total knee replacement status H/O cystoscopy Coronary stent patent Previous back surgery History of total bilateral knee replacement History of lumbar surgery History of appendectomy History of removal of ovarian cyst H/O abdominal hysterectomy History of cataract surgery Family History Sister Cancer Heart attack Brother Cancer Mother Heart attack Stroke Hypertension Father Hypertension Social History marital status: number of children: 4 household members: none Smoking Status: Former smoker alcohol intake: never Smoking Status: Former smoker alcohol intake frequency: 0-2 drinks per day Substance Use Type: does not use Exam Initial Vital Signs Initial Vital Signs: Vital Signs Temperature 97.6 F 03/09/24 14:28 Pulse Rate 67 03/09/24 14:28 Respiratory Rate 18 03/09/24 14:28 Blood Pressure 111/55 L 03/09/24 14:28 Pulse Oximetry 93 03/09/24 14:28 Oxygen Delivery Method Room Air 03/09/24 14:28 Course Orders Ordered: ED Orders 03/09/24 14:36 XR chest 1V Stat EKG-12 Lead Stat Measure peak expiratory flow ONCE RT Consult Eval and Treat NOW 03/09/24 14:50 Complete Blood Count AUTO DIFF Stat Comprehensive Metabolic Panel Stat Lactate (Lactic Acid) Stat NT-proBNP (BNP-Adult 18+) Stat Prothrombin Time INR Stat Troponin I Stat Vital Signs Vital signs: Vital Signs - 8 hr 03/09/24 14:28 03/09/24 14:48 03/09/24 15:00 Temperature 97.6 F Pulse Rate 67 71 69 Respiratory Rate 18 29 H 25 H Blood Pressure 111/55 L Pulse Oximetry 93 96 95 Oxygen Delivery Method Room Air 03/09/24 15:16 03/09/24 15:16 03/09/24 15:30 Temperature Pulse Rate 68 68 Respiratory Rate 26 H 25 H Blood Pressure 136/62 Pulse Oximetry 94 93 Oxygen Delivery Method 03/09/24 15:30 03/09/24 16:00 03/09/24 16:00 Temperature Pulse Rate 58 L Respiratory Rate 24 Blood Pressure 159/70 H 153/65 H Pulse Oximetry 94 Oxygen Delivery Method MDM - Chest Pain Lab Data 03/09/24 14:50 03/09/24 14:50 Labs: Lab Results 03/09/24 Range/Units 14:50 WBC 5.0 (4.5-11.0) X10^3/uL RBC 4.33 (4.0-5.2) X10^6/uL Hgb 13.8 (12.0-16.0) g/dL Hct 41.6 (36-46) % MCV 96.0 (80-100) fL MCH 31.8 (26-34) PG MCHC 33.1 (30-36) % RDW 14.3 (11.6-14.8) % Plt Count 145 L (150-400) X10^3/uL Neut % (Auto) 69.4 (50-75) % Lymph % (Auto) 18.2 L (25-40) % [place] % (Auto) 7.7 (3-14) % Eos % (Auto) 3.3 (2-4) % Baso % (Auto) 1.4 (0-2) % Neut # (Auto) 3500 (9647-1572) /uL Lymph # (Auto) 900 L (0928-2327) /uL [place] # (Auto) 400 (0-900) /uL Eos # (Auto) 200 (0-450) /uL Baso # (Auto) 100 (0-100) /uL PT 17.4 H (9.4-12.5) SECONDS INR 1.5 H (0.9-1.3) Sodium 140 (137-145) mmol/L Potassium 4.3 (3.4-5.1) mmol/L Chloride 104 (98-107) mmol/L Carbon Dioxide 22 (22-32) mmol/L BUN 43 H (7-17) mg/dL Creatinine 1.30 H (0.52-1.04) mg/dL Estimated GFR 40 L (>60) mL/min BUN/Creatinine Ratio 33.1 H (6-22) Glucose 91 (80-110) mg/dL Lactate 1.5 (0.7-2.1) mmol/L Calcium 9.5 (8.4-10.2) mg/dL Total Bilirubin 0.6 (0.2-1.3) mg/dL AST 34 (14-36) IU/L ALT 14 (<35) IU/L Alkaline Phosphatase 41 (38-126) U/L Troponin I < 0.012 (0.01-0.034) ng/mL NT-Pro-B Natriuret Pep 1240 H (<450) pg/mL Total Protein 7.5 (6.3-8.2) g/dL Albumin 4.4 (3.5-5.0) g/dL Globulin 3.1 (1.7-4.1) g/dL Albumin/Globulin Ratio 1.4 (1.0-2.8) Imaging Data Chest x-ray: Radiologist's Impression: Close Chest X-Ray (Signed) Hellen Martell - 03/09/24 Echocardiogram Ultrasound (Signed) Ioana Delgado - 04/30/[address] (Signed) Steffen Lazo - 03/26/[address] (Signed) Steffen Lazo - 03/26/23 Echocardiogram Ultrasound (Signed) Ioana Delgado - 04/21/22 Vascular Ultrasound (Signed) Ortiz Duvall - 06/13/21 Tibia/Fibula X-Ray (Signed) Noreen Monahan - 06/13/21 Knee X-Ray (Signed) Noreen Monahan - 06/13/21 Femur X-Ray (Signed) Noreen Monahan - 06/13/21 Radiology Report (Cancelled) Bettina Clemons - 06/07/21 Myocardial Perfusion Scan Nuc Med (Signed) Bettina Clemons - 06/07/21 Echocardiogram Ultrasound (Signed) Ioana Delgado - 06/06/21 Chest X-Ray (Signed) Eduard Buivelasquez - 04/24/21 DEXA Result 03/28/21 Bone Densitometry 03/28/21 Abdomen/Pelvis CT (Signed) Aldo Ray - 12/07/20 Radiology Report (Cancelled) Rah Mello - 06/23/20 Myocardial Perfusion Scan Nuc Med (Signed) Rah Mello - 06/23/20 Telemetry Strips 06/22/20 Chest X-Ray (Signed) Noreen Monahan - 06/22/[address] (Signed) Rod Duvallsse - 04/29/20 DI Result 04/21/20 Modified Barium Swallow (Signed) Ruma Hector - 03/31/20 Cervical Spine X-Ray (Signed) Esdras Greenwood - 03/10/20 Launch?Image [address] [address] XRay Report Signed Patient: Liana Power MR#: [id number] : 1935 Acct:[id number] Age/Sex: 88 / F Date of Service: 03/09/24 Loc: ED Accession Number: [id number] Procedure: XR chest 1V Ordering Provider: Reanna Garland D.O. PROCEDURE: XR CHEST 1V INDICATIONS: Shortness of breath TECHNIQUE: One view of the chest was acquired. [facility] 16[facility], 04/24/2021, 20:42. FINDINGS: Surgical changes and devices: None. Lungs and pleura: Lungs are clear. Apparent left retrocardiac opacity is favored to reflect overlying soft tissue. No pleural effusions or pneumothorax. Mediastinum: Mediastinal contours appear normal. Moderate to severe cardiomegaly, stable. Aortic arch is calcified, indicating atherosclerosis. Bones and chest wall: No suspicious bony lesions. Overlying soft tissues appear unremarkable. Degenerative changes of the right humeral head with remodeling. IMPRESSION: 1. No acute cardiopulmonary process. 2. Moderate to severe cardiomegaly, stable. Dictated by: Hellen Martell M.D. on 03/09/2024 at 14:09 Approved by: Hellen Martell M.D. on 03/09/2024 at 14:28 ECG Data Attestation: I personally reviewed and interpreted this ECG as follows: Prior ECG tracings: available for review Interpretation: EKG shows AFib, rate of 69 QRS of 90 QTC of 394, left axis deviation. Patient has prior from 918 which shows AFib right bundle-branch block with similar ST segments. MDM Narrative Medical decision making narrative: Labs show white count of hemoglobin of 13.8 platelets of 145, consistent with patient's priors patient appears to have chronic thrombocytopenia. INR 1.5. Sodium is 1.3 up from priors in August 2023 normal electrolytes BUN is 43, glucose is 91, lactate 1.5 with normal LFTs, troponin less than 0.012 with a BNP of 12 40. Patient actually appears to be higher on prior visits over the past several years. Chest x-ray is negative for acute change, moderate to severe cardiomegaly which is stable. EKG shows AFib, rate of 69 QRS of 90 QTC of 394, left axis deviation. Discharge Plan Departure Prescriptions: No Action potassium chloride 10 mEq tablet extended release 10 meq PO DAILY Qty: 30 2RF clobetasol 0.05 % gel See Rx Instructions .ROUTE .COMPLEX Qty: 30 3RF Dose Instruction: APPLY TO ITCHY AREA DAILY UNTIL SYMPTOMS RESOLVE. MAY USE INTERMITTENTLY NEEDED Rx Instructions: APPLY TO ITCHY AREA DAILY UNTIL SYMPTOMS RESOLVE. MAY USE INTERMITTENTLY NEEDED metoprolol succinate 25 mg tablet extended release 24 hr 25 mg PO DAILY nystatin 100,000 unit/gram ointment 1 applic topical BID Qty: 15 1RF levothyroxine 25 mcg tablet 25 mcg PO DAILY Qty: 90 1RF clomipramine 25 mg capsule 25 mg PO DAILY Qty: 90 1RF sertraline 100 mg tablet 100 mg PO DAILY Qty: 90 1RF ferrous sulfate [FeroSul] 325 mg (65 mg iron) tablet 325 mg PO 2XW Qty: 8 1RF Myrbetriq 50 mg tablet extended release 24 hr 50 mg PO DAILY Qty: 90 1RF Osphena 60 mg tablet 60 mg PO DAILY Qty: 90 5RF furosemide 40 mg tablet 40 mg PO DAILY lovastatin 20 mg tablet 20 mg PO DAILY Qty: 90 3RF VITAMIN E 400 unit PO DAILY Calicum 600 mg 2 tab PO DAILY apixaban 5 mg tablet 5 mg PO BID Qty: 60 11RF nystatin 100,000 unit/gram powder 1 applic topical BID Qty: 30 0RF sertraline 50 mg tablet 50 mg PO DAILY Qty: 30 3RF (DME) ResMed ASV See Rx Instructions .Route .MEDSUPPLY Rx Instructions: EPAP: 1.0 Min: 6 Max PS: 15 (DME) Aircurve 10 ASV See Rx Instructions .Route .MEDSUPPLY Rx Instructions: Pressure: EPAP 7 Min PS 6 Max PS 15 DME: [facility] 02/2022 cholecalciferol (vitamin D3) 50 mcg (2,000 unit) capsule 50 mcg PO DAILY mecobalamin (vitamin B12) 1,000 mcg tablet,chewable 1,000 mcg PO DAILY Referrals: Jasmin Boston DO [Primary Care Provider] -
[2024-03-09 17:37] LABS: Bacteria Urine Many (>30); Culture Indicated Urine Specimen Cultured; RBC Urine 0-1/HPF (0-5/HPF); Squamous Epithelial Cell Urine >30 /HPF (0-5/HPF); Urine Volume 10mL (spun); WBC Urine 30-100/HPF (0-5/HPF)
--- NOTE | 2024-03-09 17:38 | EKG_ITS ---
[address] [address] Test Date: 2024-03-09 Pat Name: Liana Power Department: Room: Gender: Female [employer]order [employer]: RIMA : 1935 Requested By: Order Number: [id number] Reading MD: Inocente Valladares MD Measurements Intervals [place] Rate: 69 P: AR: QRS: -23 QRSD: 90 T: 176 QT: 370 QTc: 396 Interpretive Statements Atrial fibrillation Low voltage QRS Inferior infarct , age undetermined Cannot rule out Anterior infarct , age undetermined Electronically Signed On 03-10-2024 8:59:10 PDT by Inocente Valladares MD
[2024-03-09 17:54] LABS: Troponin I < 0.012 ng/mL (0.01-0.034)
--- NOTE | 2024-03-09 19:07 | DI.CT.S_ITS ---
PROCEDURE: CT HEAD/BRAIN WO CON INDICATIONS: GLF, 'DIZZINESS' X 3 DAYS TECHNIQUE: Noncontrast 4.5 mm thick angled axial sections acquired from the foramen magnum to the vertex, with coronal and sagittal reformats. For radiation dose reduction, the following was used: automated exposure control, adjustment of mA and/or kV according to patient size. COMPARISON: [facility], CT, CT HEAD/BRAIN WO CON, 03/26/2023, 15:07. FINDINGS: Image quality: Diagnostic. CSF spaces: Basal cisterns are patent. No extra-axial fluid collections. The ventricles are symmetric in size and shape. Brain: No intracranial bleeds or masses. There is cerebral volume loss for age, with resultant ventricular and sulcal prominence. There are periventricular and deep white matter chronic small vessel ischemic changes. There is intracranial internal carotid artery atherosclerosis. Skull and face: Calvarium and visualized facial bones appear intact, without suspicious lesions. Sinuses: Prior endoscopic sinonasal surgery. Mild mucosal thickening. The mastoid air cells are clear. IMPRESSION: No acute intracranial pathology. Dictated by: Ubaldo Gardiner M.D. on 03/09/2024 at 19:33 Approved by: Ubaldo Gardiner M.D. on 03/09/2024 at 19:35
--- NOTE | 2024-03-09 19:08 | ED_ITS ---
HPI - Chest Pain General Chief Complaint: Chest Pain Stated Complaint: dizziness, chest pain, weakness Time Seen by Provider: 03/09/24 16:35 History of Present Illness HPI narrative: 88-year-old female with history of depression, hypertension, AFib on Eliquis, CHF, CAD presents with her son for multiple complaints. History obtained from son at bedside with the patient's permission. Several days ago patient had a fall in the bathroom after losing her balance. At that time she was evaluated by paramedics but she did not want to come to the ED. yesterday patient had chest pain but did not tell anyone about it until today. Continues to report dizziness that she can not describe, she sometimes states that she feels lightheaded, sometimes she states like ?the bed is rotating?. Son states that patient has not been eating or drinking very much over the last several days, not wanting to go out for meals and only eating peanut butter and jelly sandwiches. After telling her son about her chest pain son did not feel comfortable waiting for a primary care appointment and decided to take her into the emergency department. On the way to the ER patient also stated that she was having black stools. Related Data Home Medications Medication Instructions Recorded Confirmed VITAMIN E 400 unit PO DAILY 10/26/20 01/17/24 cholecalciferol (vitamin D3) 50 50 mcg PO DAILY 11/25/20 01/17/24 mcg (2,000 unit) capsule mecobalamin (vitamin B12) 1,000 1,000 mcg PO DAILY 11/25/20 01/17/24 mcg chewable tablet ResMed ASV 05/09/21 01/17/24 Aircurve 10 ASV 03/09/22 01/17/24 Calicum 2 tab PO DAILY 06/06/22 01/17/24 furosemide 40 mg tablet 40 mg PO DAILY 06/06/22 01/17/24 metoprolol succinate 25 mg 25 mg PO DAILY 06/06/22 01/17/24 tablet,extended release 24 hr Previous Rx's Medication Instructions Recorded apixaban 5 mg tablet 5 mg PO BID #60 tabs 06/22/21 potassium chloride 10 mEq 10 meq PO DAILY #30 tabs 06/22/21 tablet,extended release clobetasol 0.05 % topical gel See Rx Instructions .Route 11/14/21 .COMPLEX #30 grams lovastatin 20 mg tablet 20 mg PO DAILY #90 tabs 06/06/22 nystatin 100,000 unit/gram topical 1 applic topical BID #30 grams 11/23/23 powder nystatin 100,000 unit/gram topical 1 applic topical BID #15 grams 12/18/23 ointment sertraline 50 mg tablet 50 mg PO DAILY #30 tabs 12/19/23 clomipramine 25 mg capsule 25 mg PO DAILY OCD #90 caps 01/17/24 ferrous sulfate 325 mg (65 mg 325 mg PO 2XW #8 tabs 01/17/24 iron) tablet (FeroSul) levothyroxine 25 mcg tablet 25 mcg PO DAILY #90 tabs 01/17/24 sertraline 100 mg tablet 100 mg PO DAILY #90 tabs 01/17/24 mirabegron 50 mg tablet,extended 50 mg PO DAILY #90 tabs 01/18/24 release 24 hr (Myrbetriq) ospemifene 60 mg tablet (Osphena) 60 mg PO DAILY #90 tabs 01/21/24 cephalexin 500 mg capsule 500 mg PO BID #10 caps 03/09/24 Allergies Allergy/AdvReac Type Severity Reaction Status Date / Time gabapentin AdvReac Mild Sedation Verified 01/17/24 11:29 at 100mg Patient History Medical History (Updated 03/09/24 @ 20:11 by Reanna Puentes MD) CHF (congestive heart failure), NYHA class III Coronary artery disease with exertional angina Atrial fibrillation Sleep apnea OCD (obsessive compulsive disorder) Nose abnormality History of UTI Postmenopausal atrophic vaginitis Mixed incontinence High blood pressure Coronary artery disease involving [place] heart Chronic UTI Asthma Arthritis Anemia Rotator cuff arthropathy of right shoulder Postmenopausal atrophic vaginitis Osteoporosis Osteoarthritis Inflammatory bowel disease Depression COPD (chronic obstructive pulmonary disease) Obstructive sleep apnea Varicose vein of leg Constipation Major depression Mixed hyperlipidemia Essential hypertension Hypothyroidism Nasal septal perforation Surgical History History of liver biopsy History of knee replacement H/O vaginal hysterectomy History of bladder suspension procedure Total knee replacement status H/O cystoscopy Coronary stent patent Previous back surgery History of total bilateral knee replacement History of lumbar surgery History of appendectomy History of removal of ovarian cyst H/O abdominal hysterectomy History of cataract surgery Family History Sister Cancer Heart attack Brother Cancer Mother Heart attack Stroke Hypertension Father Hypertension Social History marital status: number of children: 4 household members: none Smoking Status: Former smoker alcohol intake: never Smoking Status: Former smoker alcohol intake frequency: 0-2 drinks per day Substance Use Type: does not use Exam Initial Vital Signs Initial Vital Signs: Vital Signs Temperature 97.6 F 03/09/24 14:28 Pulse Rate 67 03/09/24 14:28 Respiratory Rate 18 03/09/24 14:28 Blood Pressure 111/55 L 03/09/24 14:28 Pulse Oximetry 93 03/09/24 14:28 Oxygen Delivery Method Room Air 03/09/24 14:28 Const: Awake, alert, no acute distress, nontoxic appearing Cardiac: Irregularly irregular rhythm RESP: unlabored, clear bilaterally, no wheezing GI: Soft, nontender, nondistended Skin: Warm, Dry, intact, no rashes Neuro: AO x2, CN II-XII grossly intact, moves all extremities, ambulatory with walker Course Orders Ordered: Discontinued Medications Cephalexin HCl (Cephalexin 250 Mg Capsule) 500 mg PO NOW ONE Stop: 03/09/24 19:47 Last Admin: 03/09/24 19:53 Dose: 500 mg Documented By: SB Vital Signs Vital signs: Vital Signs - 8 hr 03/09/24 14:28 03/09/24 14:48 03/09/24 15:00 Temperature 97.6 F Pulse Rate 67 71 69 Respiratory Rate 18 29 H 25 H Blood Pressure 111/55 L Pulse Oximetry 93 96 95 Oxygen Delivery Method Room Air 03/09/24 15:16 03/09/24 15:16 03/09/24 15:30 Temperature Pulse Rate 68 68 Respiratory Rate 26 H 25 H Blood Pressure 136/62 Pulse Oximetry 94 93 Oxygen Delivery Method 03/09/24 15:30 03/09/24 16:00 03/09/24 16:00 Temperature Pulse Rate 58 L Respiratory Rate 24 Blood Pressure 159/70 H 153/65 H Pulse Oximetry 94 Oxygen Delivery Method 03/09/24 16:30 03/09/24 16:31 03/09/24 16:31 Temperature Pulse Rate 64 68 Respiratory Rate 24 24 Blood Pressure 174/70 H Pulse Oximetry 95 95 Oxygen Delivery Method 03/09/24 17:30 03/09/24 17:41 03/09/24 17:41 Temperature Pulse Rate 69 67 Respiratory Rate 24 25 H Blood Pressure 146/67 H Pulse Oximetry 96 97 Oxygen Delivery Method Room Air 03/09/24 18:00 03/09/24 18:01 03/09/24 18:01 Temperature Pulse Rate 67 68 Respiratory Rate Blood Pressure 153/76 H Pulse Oximetry 96 96 Oxygen Delivery Method 03/09/24 18:30 03/09/24 18:30 03/09/24 19:01 Temperature Pulse Rate 61 72 Respiratory Rate Blood Pressure 143/100 H Pulse Oximetry 96 94 Oxygen Delivery Method Room Air 03/09/24 19:02 03/09/24 19:02 03/09/24 19:30 Temperature Pulse Rate 69 63 Respiratory Rate Blood Pressure 205/89 H Pulse Oximetry 94 96 Oxygen Delivery Method 03/09/24 19:49 03/09/24 19:49 Temperature Pulse Rate 72 Respiratory Rate 18 Blood Pressure 166/77 H Pulse Oximetry 93 Oxygen Delivery Method MDM - Chest Pain Lab Data 03/09/24 14:50 03/09/24 14:50 Labs: Lab Results 03/09/24 03/09/24 03/09/24 Range/Units 14:50 17:06 17:22 WBC 5.0 (4.5-11.0) X10^3/uL RBC 4.33 (4.0-5.2) X10^6/uL Hgb 13.8 (12.0-16.0) g/dL Hct 41.6 (36-46) % MCV 96.0 (80-100) fL MCH 31.8 (26-34) PG MCHC 33.1 (30-36) % RDW 14.3 (11.6-14.8) % Plt Count 145 L (150-400) X10^3/uL Neut % (Auto) 69.4 (50-75) % Lymph % (Auto) 18.2 L (25-40) % [place] % (Auto) 7.7 (3-14) % Eos % (Auto) 3.3 (2-4) % Baso % (Auto) 1.4 (0-2) % Neut # (Auto) 3500 (1557-0757) /uL Lymph # (Auto) 900 L (3121-9074) /uL [place] # (Auto) 400 (0-900) /uL Eos # (Auto) 200 (0-450) /uL Baso # (Auto) 100 (0-100) /uL PT 17.4 H (9.4-12.5) SECONDS INR 1.5 H (0.9-1.3) Sodium 140 (137-145) mmol/L Potassium 4.3 (3.4-5.1) mmol/L Chloride 104 (98-107) mmol/L Carbon Dioxide 22 (22-32) mmol/L BUN 43 H (7-17) mg/dL Creatinine 1.30 H (0.52-1.04) mg/dL Estimated GFR 40 L (>60) mL/min BUN/Creatinine Ratio 33.1 H (6-22) Glucose 91 (80-110) mg/dL Lactate 1.5 (0.7-2.1) mmol/L Calcium 9.5 (8.4-10.2) mg/dL Total Bilirubin 0.6 (0.2-1.3) mg/dL AST 34 (14-36) IU/L ALT 14 (<35) IU/L Alkaline Phosphatase 41 (38-126) U/L Troponin I < 0.012 < 0.012 (0.01-0.034) ng/mL NT-Pro-B Natriuret Pep 1240 H (<450) pg/mL Total Protein 7.5 (6.3-8.2) g/dL Albumin 4.4 (3.5-5.0) g/dL Globulin 3.1 (1.7-4.1) g/dL Albumin/Globulin Ratio 1.4 (1.0-2.8) Urine RBC 0-1/hpf (0-5/HPF) Urine WBC 30-100/hpf H (0-5/HPF) Ur Squamous Epith Cells >30 /hpf H (0-5/HPF) Urine Bacteria Many (>30) H (None) Ur Culture Indicated? Specimen cultured Vol Urine Centrifuged 10ml (spun) Urine Dip Bedside Urine Glucose Negative Bedside Urine Bilirubin - Negative Bedside Urine Ketone - Negative Urine Specific [place] 1.015 Bedside Urine Occult Blood +/- Bedside Urine pH 6.0 Bedside Urine Protein +/- 15 Bedside Urine Urobilinogen - Negative Bedside Urine Nitrite + Positive Bedside Urine Leukocytes +++ 500 Esterase MDM Narrative Medical decision making narrative: Nontoxic appearing patient with multiple complaints. Poor historian, patient relies on her son for pretty much all of the history. Exam unremarkable, abdomen soft, lungs clear, patient has mild confusion but is pleasant and comfortable in ED bed. Laboratory work reviewed, no significant abnormalities identified. WBC count 5.0, hemoglobin 13.8, platelet count 145 (baseline 120-140), sodium 140, potassium 4.3, creatinine 1.30, mildly increased from baseline (0.8-1.0), troponin undetectable x2. Head CT negative for acute findings. Chest x-ray negative for acute process. With normal hemoglobin and absolutely no abdominal tenderness I have very low suspicion for GI bleed. Patient was ambulatory with a walker without any difficulty. EKG negative for signs of acute ischemia, and with undetectable troponins x2 unlikely to be ACS at this time. UA positive for WBCs, many bacteria, leukocyte esterase. Plan to treat empirically as urinary tract infection. It has been over a year since patient had culture in our facility, and so plan to start with empiric Keflex for treatment. First dose given in the emergency department and prescription sent to pharmacy of choice. Son at bedside strongly counseled to bring patient in for primary care follow up appointment. Discharge Plan Departure Patient Disposition: Home Clinical Impression: Dizziness, Chest pain, Acute UTI, Dark stools Instructions: DI for Urinary Tract Infection (UTI) Activity Restrictions/Additional Instructions: Your blood work today is reassuring, in your CT scan did not show any concerning findings.. You do have a urinary tract infection, which may be contributing to your symptoms. Finish all of your medications as prescribed. Your blood work is normal, I do not suspect that you have a GI bleed at this time. Follow up with your primary care doctor. Prescriptions: New cephalexin 500 mg capsule 500 mg PO BID Qty: 10 0RF No Action potassium chloride 10 mEq tablet extended release 10 meq PO DAILY Qty: 30 2RF clobetasol 0.05 % gel See Rx Instructions .ROUTE .COMPLEX Qty: 30 3RF Dose Instruction: APPLY TO ITCHY AREA DAILY UNTIL SYMPTOMS RESOLVE. MAY USE INTERMITTENTLY NEEDED Rx Instructions: APPLY TO ITCHY AREA DAILY UNTIL SYMPTOMS RESOLVE. MAY USE INTERMITTENTLY NEEDED metoprolol succinate 25 mg tablet extended release 24 hr 25 mg PO DAILY nystatin 100,000 unit/gram ointment 1 applic topical BID Qty: 15 1RF levothyroxine 25 mcg tablet 25 mcg PO DAILY Qty: 90 1RF clomipramine 25 mg capsule 25 mg PO DAILY Qty: 90 1RF sertraline 100 mg tablet 100 mg PO DAILY Qty: 90 1RF ferrous sulfate [FeroSul] 325 mg (65 mg iron) tablet 325 mg PO 2XW Qty: 8 1RF Myrbetriq 50 mg tablet extended release 24 hr 50 mg PO DAILY Qty: 90 1RF Osphena 60 mg tablet 60 mg PO DAILY Qty: 90 5RF furosemide 40 mg tablet 40 mg PO DAILY lovastatin 20 mg tablet 20 mg PO DAILY Qty: 90 3RF VITAMIN E 400 unit PO DAILY Calicum 600 mg 2 tab PO DAILY apixaban 5 mg tablet 5 mg PO BID Qty: 60 11RF nystatin 100,000 unit/gram powder 1 applic topical BID Qty: 30 0RF sertraline 50 mg tablet 50 mg PO DAILY Qty: 30 3RF (DME) ResMed ASV See Rx Instructions .Route .MEDSUPPLY Rx Instructions: EPAP: 1.0 Min: 6 Max PS: 15 (DME) Aircurve 10 ASV See Rx Instructions .Route .MEDSUPPLY Rx Instructions: Pressure: EPAP 7 Min PS 6 Max PS 15 DME: [employer] 02/2022 cholecalciferol (vitamin D3) 50 mcg (2,000 unit) capsule 50 mcg PO DAILY mecobalamin (vitamin B12) 1,000 mcg tablet,chewable 1,000 mcg PO DAILY Referrals: Jasmin Boston DO [Primary Care Provider] - Stand Alone Forms: Patient Portal/API
[2024-03-09] MEDS: cephALEXin 250 MG CAPSULE 500 MG PO (19:53)
--- NOTE | 2024-03-09 19:53 | PC.NURSE ---
did an ambulation trial with this pt, she reported dizziness throughout the entire walk but ambulated perfectly. We discussed her dizziness being a symptom of her UTI and not drinking water today.
== END 2024-03-09 20:30 | disposition home or self-care (01) ==
PROVIDERS: Emergency Medicine; Emergency Provider Emergency Medicine; Family Provider Student in an Organized Health Care Education/Training Program; PCP Family Medicine
DX: R07.9 Chest pain, unspecified (principal); N39.0 Urinary tract infection, site not specified; R42 Dizziness and giddiness; R19.5 Other fecal abnormalities; Z79.01 Long term (current) use of anticoagulants
CPT/HCPCS: 36415; 70450; 71045; 80053; 81003; 81015; 83605; 83880; 84484; 85025; 85610; 87077; 87086; 87186; 93005; 93010; 99284

== ENCOUNTER → 2024-03-21 10:50 | Outpatient (CLI) | payer MEDICARE, SELFPAY ==
[2020-09-02 15:51] VITALS: BMI 37.8
[2024-03-21 11:52] LABS: Appearance Urine UA SL CLOUDY; Bilirubin Urine UA NEGATIVE (NEGATIVE); Color Urine UA YELLOW; Glucose Urine UA NEGATIVE (Negative); Ketones Urine UA TRACE (NEGATIVE); Leukocyte Esterase Urine UA 2+ (NEGATIVE); Nitrite Urine UA NEGATIVE (Negative); Occult Blood Urine UA NEGATIVE (Negative); Protein Urine UA TRACE (Negative); Specific Gravity Urine UA 1.025 (1.000-1.035); Urobilinogen Urine UA 0.2 E.U./dL (0.2)
[2024-03-21 11:53] LABS: pH Urine UA 5.5 (4.5-8.0)
[2024-03-21 12:00] LABS: Urine Volume 10mL (spun)
[2024-03-21 12:01] LABS: RBC Urine None Seen (0-5/HPF); Squamous Epithelial Cell Urine 5-10 /HPF (0-5/HPF); WBC Urine 5-10/HPF (0-5/HPF)
[2024-03-21 12:02] LABS: Bacteria Urine Few (2-10); Culture Indicated Urine Specimen Cultured
[2024-03-21 12:17] LABS: BUN Creatinine Ratio 29.9 (6-22); Blood Urea Nitrogen 32 mg/dL (7-17); Calcium 9.1 mg/dL (8.4-10.2); Carbon Dioxide 26 mmol/L (22-32); Chloride 103 mmol/L (98-107); Estimated Glomerular Filt Rate 50 mL/min (>60); Glucose 93 mg/dL (80-110); HEMOLYSIS 25 (0-50); Phosphorous 3.7 mg/dL (2.8-4.1); Potassium 4.4 mmol/L (3.4-5.1); Sodium 138 mmol/L (137-145)
[2024-03-24 11:53] LABS: TSH w/ Reflex to FT4 5.49 uIU/mL (0.47-4.68)
[2024-03-24 12:27] LABS: Free T4, Direct Thyroxine 0.91 ng/dL (0.78-2.19)
== END ==
PROVIDERS: Family Provider Student in an Organized Health Care Education/Training Program; PCP Family Medicine; Referring Provider Family Medicine; Visit Provider Family Medicine
DX: E03.9 Hypothyroidism, unspecified (principal); R19.5 Other fecal abnormalities; N39.0 Urinary tract infection, site not specified; R42 Dizziness and giddiness; N17.9 Acute kidney failure, unspecified
CPT/HCPCS: 36415; 80069; 81001; 84439; 84443; 87086

== ENCOUNTER → 2024-03-24 09:53 | Outpatient (CLI) | payer MEDICARE, SELFPAY ==
[2020-09-02 15:51] VITALS: BMI 37.8
[2024-03-26 11:16] LABS: Fecal Immunochemical Test Negative (Negative)
== END ==
LOC: LAB 09:54
PROVIDERS: Family Provider Student in an Organized Health Care Education/Training Program; PCP Family Medicine; Referring Provider Family Medicine; Visit Provider Family Medicine
DX: R19.5 Other fecal abnormalities (principal); N39.0 Urinary tract infection, site not specified; R42 Dizziness and giddiness; E03.9 Hypothyroidism, unspecified; N17.9 Acute kidney failure, unspecified
CPT/HCPCS: 82274

== ENCOUNTER → 2024-04-21 12:25 | Outpatient (CLI) | payer MEDICARE, SELFPAY ==
[2020-09-02 15:51] VITALS: BMI 37.8
--- NOTE | 2024-04-21 12:26 | DI.ECHO.S_ITS ---
[facility] : : [id number] [place] : : [id number] : : Phone: [phone] Echocardiogram Report + + :Name: NATACHA ZAMUDIO Study Date: 04/21/2024 Height: 61 in : :[facility] ReadingLocation: Weight: 220 lb : : Gender: Female BSA: 2.0 m2 : :: 1935 Age: 88 yrs BP: 133/81 mmHg: :Reason For Study: SYSTOLIC HEART FAILURE : :Ordering Physician: MICHELE, : :IOANA Ramirez Performed By: Radha Adair : :Referring: IOANA BAUTISTA : + + Interpretation Summary The ejection fraction is estimated to be 35-40%. Diastolic function could not be accurately assessed due to atrial fibrillation. The left atrium is severely dilated. The right ventricle is normal in size and function. There is moderate mitral regurgitation. There is mild aortic regurgitation. There is moderate tricuspid regurgitation. The right ventricular systolic pressure is estimated to be at least 36 mmHg based on an estimated right atrial pressure of 3 mm Hg. Compared to the prior study dated 04/30/2023, no change. Procedure: A two-dimensional transthoracic echocardiogram with color flow and Doppler was performed. The study quality was technically adequate. Comparison is made with the echocardiogram of 04/30/2023. The patient was in atrial fibrillation with heart rates between 64-83 bpm during the exam. Left Ventricle: The left ventricle is normal in size. Left ventricular wall thickness is mildly increased. The ejection fraction is estimated to be 35- 40%. Diastolic function could not be accurately assessed due to atrial fibrillation. Right Ventricle: The right ventricle is normal in size and function. Atria: The left atrium is severely dilated. Right atrial size is normal. There is no Doppler evidence for an interatrial shunt. Mitral Valve: The mitral valve leaflets are mildly calcified. There is mild mitral annular calcification. Calcified mitral apparatus. There is moderate mitral regurgitation. Aortic Valve: The aortic valve is trileaflet. The aortic valve opens well. There is no aortic valve stenosis. There is mild aortic regurgitation. Tricuspid Valve: The tricuspid valve is normal in structure and function. There is moderate tricuspid regurgitation. The right ventricular systolic pressure is estimated to be at least 36 mmHg based on an estimated right atrial pressure of 3 mm Hg. Pulmonic Valve: The pulmonic valve leaflets are thin and pliable; valve motion is normal. There is mild pulmonic regurgitation. Great Vessels: The aortic root is normal size. The dimensions of the ascending aorta are normal. The IVC is of normal diameter and collapses greater than 50% with a sniff. This suggests a low right atrial pressure of 3 mm Hg. Pericardium/ Pleura There is no pericardial effusion. There is no pleural effusion. MMode/2D Measurements & Calculations LVIDd: 4.7 cm LVOT diam: 2.2 cm LVIDs: 3.8 cm Ao root diam: 3.7 cm FS: 19.3 % asc Aorta Diam: 3.3 cm IVSd: 0.92 cm Ao Arch Diam (Prox Trans): 2.2 cm LVPWd: 1.1 cm LV parrish. diameter/BSA (cm/m^2): 2.4 LV sys. diameter/BSA (cm/m^2): 1.9 LA A2 area: 42.6 cm2 RA long axis: 6.9 cm LA A4 area: 36.1 cm2 RA area: 20.7 cm2 LA length (vol): 7.2 cm RA vol: 52.8 ml LA vol: 180.9 ml RA : 26.8 ml/m2 LA vol index: 92.0 ml/m2 IVC diam: 1.6 cm RVD1 (basal): 3.1 cm RVD2 (mid): 2.4 cm TAPSE: 1.6 cm Doppler Measurements & Calculations Ao V2 max: 119.4 cm/sec LVOT Max Shahab: 64.5 cm/sec Ao V2 mean: 84.7 cm/sec LV V1 max P.7 mmHg Ao max P.7 mmHg LV V1 VTI: 14.8 cm Ao mean P.1 mmHg DIAMOND(I,D): 2.1 cm2 Ao V2 VTI: 27.9 cm DIAMOND(V,D): 2.1 cm2 sev ratio: 0.53 DIAMOND indexed to BSA (cm^2/m^2): 1.1 AI P1/2t: 552.8 msec AI dec slope: 202.3 cm/sec2 MV E max shahab: 135.2 cm/sec TR max shahab: 288.3 cm/sec MV A max shahab: 0.60 cm/sec TR max P.2 mmHg MV E/A: 226.1 PA V2 max: 69.0 cm/sec Med Peak E' Shahab: 4.7 cm/sec PA V2 mean: 48.7 cm/sec E/E' med: 28.9 PA mean P.0 mmHg Lat Peak E' Shahab: 7.8 cm/sec PA pr(Accel): 53.3 mmHg E/E' lat: 17.2 E/e' average: 23.1 MV dec time: 0.37 sec MVA(VTI): 1.4 cm2 MV V2 mean: 95.5 cm/sec SV(LVOT): 57.7 ml MV mean P.5 mmHg MV V2 VTI: 41.8 cm Reading Physician:07:45 PM
== END ==
LOC: ECHO 12:26
PROVIDERS: Family Provider Student in an Organized Health Care Education/Training Program; PCP Family Medicine; Referring Provider Internal Medicine Cardiovascular Disease; Visit Provider Internal Medicine Cardiovascular Disease
DX: I50.22 Chronic systolic (congestive) heart failure (principal); I08.3 Combined rheumatic disorders of mitral, aortic and tricuspid valves
CPT/HCPCS: 93306

== ENCOUNTER → 2024-05-30 09:01 | Outpatient (CLI) | payer MEDICARE, SELFPAY ==
[2020-09-02 15:51] VITALS: BMI 37.8
[2024-05-30 12:33] LABS: Appearance Urine UA CLEAR; Bilirubin Urine UA NEGATIVE (NEGATIVE); Color Urine UA YELLOW; Glucose Urine UA NEGATIVE (Negative); Ketones Urine UA NEGATIVE (NEGATIVE); Leukocyte Esterase Urine UA 1+ (NEGATIVE); Nitrite Urine UA NEGATIVE (Negative); Occult Blood Urine UA NEGATIVE (Negative); Protein Urine UA NEGATIVE (Negative); Urobilinogen Urine UA 0.2 E.U./dL (0.2)
[2024-05-30 12:34] LABS: pH Urine UA 5.5 (4.5-8.0)
[2024-05-30 12:35] LABS: Urine Volume 10mL (spun)
[2024-05-30 12:38] LABS: Bacteria Urine Few (2-10); Culture Indicated Urine Specimen Cultured; RBC Urine None Seen (0-5/HPF); Squamous Epithelial Cell Urine 1-5 /HPF (0-5/HPF); WBC Urine 1-5/HPF (0-5/HPF)
== END ==
PROVIDERS: Family Provider Student in an Organized Health Care Education/Training Program; PCP Family Medicine; Referring Provider Family Medicine; Visit Provider Family Medicine
DX: R30.0 Dysuria (principal)
CPT/HCPCS: 36415; 81001; 87077; 87086

== ENCOUNTER → 2024-07-18 10:26 | Outpatient (CLI) | payer MEDICARE, SELFPAY ==
[2020-09-02 15:51] VITALS: BMI 37.8
[2024-07-18 11:20] LABS: BUN Creatinine Ratio 31.3 (6-22); Blood Urea Nitrogen 35 mg/dL (7-17); Calcium 9.8 mg/dL (8.4-10.2); Carbon Dioxide 29 mmol/L (22-32); Chloride 104 mmol/L (98-107); Estimated Glomerular Filt Rate 47 mL/min (>60); Glucose 97 mg/dL (80-110); HEMOLYSIS < 15 (0-50); Potassium 4.7 mmol/L (3.4-5.1); Sodium 141 mmol/L (137-145)
[2024-07-18 15:10] LABS: Appearance Urine UA CLEAR; Bilirubin Urine UA NEGATIVE (NEGATIVE); Color Urine UA YELLOW; Glucose Urine UA NEGATIVE (Negative); Ketones Urine UA NEGATIVE (NEGATIVE); Leukocyte Esterase Urine UA 1+ (NEGATIVE); Nitrite Urine UA NEGATIVE (Negative); Occult Blood Urine UA NEGATIVE (Negative); Protein Urine UA NEGATIVE (Negative); Urobilinogen Urine UA 0.2 E.U./dL (0.2)
[2024-07-18 15:14] LABS: pH Urine UA 5.5 (4.5-8.0)
[2024-07-18 15:19] LABS: Bacteria Urine Moderate (10-30); RBC Urine 1-5/HPF (0-5/HPF); Squamous Epithelial Cell Urine 5-10 /HPF (0-5/HPF); Urine Volume 10mL (spun); WBC Urine 5-10/HPF (0-5/HPF)
[2024-07-18 15:20] LABS: Culture Indicated Urine Specimen Cultured
== END ==
LOC: LAB 10:27
PROVIDERS: Family Provider Student in an Organized Health Care Education/Training Program; PCP Family Medicine; Referring Provider Family Medicine; Visit Provider Family Medicine
DX: E66.01 Morbid (severe) obesity due to excess calories (principal); I50.9 Heart failure, unspecified; E03.9 Hypothyroidism, unspecified; I25.118 Atherosclerotic heart disease of native coronary artery with other forms of angina pectoris; F32.9 Major depressive disorder, single episode, unspecified; I11.0 Hypertensive heart disease with heart failure; G31.84 Mild cognitive impairment of uncertain or unknown etiology; Z87.440 Personal history of urinary (tract) infections; R30.9 Painful micturition, unspecified
CPT/HCPCS: 36415; 80048; 81001; 87086

== ENCOUNTER 2024-07-24 17:53 | Emergency (ER) | payer MEDICARE, SELFPAY ==
[2020-09-02 15:51] VITALS: BMI 37.8
[2024-07-24] VITALS (13 sets, daily range): BP systolic 134–159; BP diastolic 61–93; PULSE 65–79; RESP 14–26; TEMP 36.5; O2SAT 96–98; BMI 40.6
--- NOTE | 2024-07-24 18:13 | EKG_ITS ---
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
--- NOTE | 2024-07-24 19:31 | DI.CT.S_ITS ---
PROCEDURE: CT HEAD/BRAIN WO CON INDICATIONS: fall, hit head on eliquis TECHNIQUE: Noncontrast 4.5 mm thick angled axial sections acquired from the foramen magnum to the vertex, with coronal and sagittal reformats. For radiation dose reduction, the following was used: automated exposure control, adjustment of mA and/or kV according to patient size. COMPARISON: [facility], CT, CT HEAD/BRAIN WO CON, 03/09/2024, 19:13. FINDINGS: Image quality: Diagnostic CSF spaces: Basal cisterns are patent. Lateral ventricles are symmetric. Volume: Vascular calcifications. Periventricular white matter disease is commonly seen with chronic microangiopathy. Volume loss is present. These findings are [id number] Brain: No intracranial hemorrhage. Sales-white differentiation is grossly maintained. Craniofacial structures: Paranasal sinus postsurgical changes and mucosal thickening. IMPRESSION: No acute intracranial pathology. Dictated by: Stephen Covarrubias M.D. on 07/24/2024 at 20:19 Approved by: Stephen Covarrubias M.D. on 07/24/2024 at 20:21
--- NOTE | 2024-07-24 19:31 | DI.CT.S_ITS ---
PROCEDURE: CT CERVICAL SPINE WO CON INDICATIONS: fall, hit head on eliquis TECHNIQUE: Noncontrast 3 mm thick sections acquired from the skull base to the T4 level. Sagittal and coronal reformats were then constructed. For radiation dose reduction, the following was used: automated exposure control, adjustment of mA and/or kV according to patient size. COMPARISON: [facility], CT, CT CERVICAL SPINE WO CON, 03/26/2023, 15:07. FINDINGS: Image quality: Diagnostic Bones: Similar C1 on C2 interval to prior imaging with slight subluxation of the right-sided facet. There is also unchanged C4 on C5 trace anterolisthesis and reversal of the normal cervical lordosis. Vertebral body heights are well maintained. Moderate spondylotic changes overall. Prominent likely degenerative pannus around the C1-C2 articulation. Soft tissues: No pneumothorax at the lung apex. Prominent prevertebral soft tissues also similar to prior There are vascular calcifications. IMPRESSION: No displaced fracture or traumatic subluxation. Similar subluxed appearance of the C1-C2 articulation as before. Background moderate degenerative changes. If there is high concern for further derangement, consider MRI evaluation. Dictated by: Stephen Covarrubias M.D. on 07/24/2024 at 20:21 Approved by: Stephen Covarrubias M.D. on 07/24/2024 at 20:23
--- NOTE | 2024-07-24 19:43 | PC.NURSE ---
Pt to imaging via ED stretcher with automotive refinish technician
--- NOTE | 2024-07-24 20:21 | PC.NURSE ---
Assisted pt to restroom via wheel chair and 1 person assist.
--- NOTE | 2024-07-24 21:00 | ED.FALL ---
HPI - Fall General Chief Complaint: Trauma Stated Complaint: Fall on thinners Time Seen by Provider: 07/24/24 19:31 Source: patient and EMS Mode of arrival: EMS Limitations: no limitations History of Present Illness HPI Narrative: 88-year-old female on Eliquis for atrial fibrillation, history of CAD, CHF, mild cognitive impairment, dyslipidemia patient had reported mechanical ground level fall with a trip and fall face 1st hitting head and left elbow. Complaint of skin tear on the elbow denies any headache or neck pain, no nausea or vomiting no other complaints currently. Patient was walking states that she was sort of tripped over some laundry that fell onto the floor and went bent over and went forward when she went to pick it up. She states she did land on her face. She denies any pain of her face or head. No neck pain, no back pain. No chest pain or shortness of breath. Denies any nausea or vomiting. Main complaint is abrasion or skin tear on her right arm. Denies any other bony changes does have little bit discomfort in her knees sudden noted she was little contusion. But she has been ambulating on it without issue. She does take medication for hypertension, dyslipidemia has a history of COPD, chronic kidney disease and CHF son states EF was about 30-40% on last check. Has had a cardiac stent and bilateral knee replacement. Neither her nor something or tetanus is up-to-date. No allergies reported. No tobacco, alcohol or recreational drugs. Dr. Dorantes is her primary care physician. Related Data Home Medications Medication Instructions Recorded Confirmed VITAMIN E 400 unit PO DAILY 10/26/20 05/30/24 cholecalciferol (vitamin D3) 50 50 mcg PO DAILY 11/25/20 05/30/24 mcg (2,000 unit) capsule mecobalamin (vitamin B12) 1,000 1,000 mcg PO DAILY 11/25/20 05/30/24 mcg chewable tablet ResMed ASV 05/09/21 04/01/24 Aircurve 10 ASV 03/09/22 04/01/24 Calicum 2 tab PO DAILY 06/06/22 05/30/24 furosemide 40 mg tablet 40 mg PO DAILY 06/06/22 05/30/24 metoprolol succinate 25 mg 25 mg PO DAILY 06/06/22 05/30/24 tablet,extended release 24 hr Previous Rx's Medication Instructions Recorded apixaban 5 mg tablet 5 mg PO BID #60 tabs 06/22/21 potassium chloride 10 mEq 10 meq PO DAILY #30 tabs 06/22/21 tablet,extended release clobetasol 0.05 % topical gel See Rx Instructions .Route 11/14/21 .COMPLEX #30 grams lovastatin 20 mg tablet 20 mg PO DAILY #90 tabs 06/06/22 ospemifene 60 mg tablet (Osphena) 60 mg PO DAILY #90 tabs 01/21/24 sulfamethoxazole 800 1 tab PO BID #10 tabs 03/24/24 mg-trimethoprim 160 mg tablet (Bactrim DS) clomipramine 25 mg capsule 25 mg PO DAILY OCD #90 caps 05/30/24 levothyroxine 25 mcg tablet 25 mcg PO DAILY #90 tabs 05/30/24 mirabegron 50 mg tablet,extended 50 mg PO DAILY #90 tabs 05/30/24 release 24 hr (Myrbetriq) nystatin 100,000 unit/gram topical 1 applic topical BID #15 grams 05/30/24 ointment nystatin 100,000 unit/gram topical 1 applic topical BID #30 grams 05/30/24 powder sertraline 150 mg capsule 150 mg PO DAILY #90 caps 05/30/24 sulfamethoxazole 800 1 tab PO BID #10 tabs 05/30/24 mg-trimethoprim 160 mg tablet (Bactrim DS) ferrous sulfate 325 mg (65 mg 325 mg PO 2XW #8 tabs 06/24/24 iron) tablet (FeroSul) Allergies Allergy/AdvReac Type Severity Reaction Status Date / Time gabapentin AdvReac Mild Sedation Verified 05/30/24 11:19 at 100mg Review of Systems Review of Systems ROS Unobtainable: All systems reviewed & are unremarkable except as noted in HPI and below Patient History Medical History CHF (congestive heart failure), NYHA class III Coronary artery disease with exertional angina Atrial fibrillation Sleep apnea OCD (obsessive compulsive disorder) Nose abnormality History of UTI Postmenopausal atrophic vaginitis Mixed incontinence High blood pressure Coronary artery disease involving torres martinez heart Chronic UTI Asthma Arthritis Anemia Rotator cuff arthropathy of right shoulder Postmenopausal atrophic vaginitis Osteoporosis Osteoarthritis Inflammatory bowel disease Depression COPD (chronic obstructive pulmonary disease) Obstructive sleep apnea Varicose vein of leg Constipation Major depression Mixed hyperlipidemia Essential hypertension Hypothyroidism Nasal septal perforation Surgical History History of liver biopsy History of knee replacement H/O vaginal hysterectomy History of bladder suspension procedure Total knee replacement status H/O cystoscopy Coronary stent patent Previous back surgery History of total bilateral knee replacement History of lumbar surgery History of appendectomy History of removal of ovarian cyst H/O abdominal hysterectomy History of cataract surgery Family History Sister Cancer Heart attack Brother Cancer Mother Heart attack Stroke Hypertension Father Hypertension Social History marital status: number of children: 4 household members: none Smoking Status: Former smoker alcohol intake: never Smoking Status: Former smoker alcohol intake frequency: 0-2 drinks per day Exam Narrative Exam Narrative: GEN: Patient appears in mild distress. HEAD: No evidence of trauma, no raccoon/Tapia sign. NECK: Nontender, painless range of motion, trachea midline Negative Nexus criteria, midline line tenderness, distracting injury, altered mental status, neuro deficit, recent EtOH. EYES: PERRLA, EOMI ENT: External inspection normal, trachea is midline, TM's are normal no hemotypanum, Nares are clear, no septal hematoma, no dental or oral injury, airway is normal and with normal occlusion, No bony tenderness RESP: Chest is nontender and has symmetric movement, no ecchymosis, breath sounds are normal no crackles, wheezes or rales CVS: Heart sounds are normal, no murmur noted, No JVD. ABG/GI: Nontender, soft, normal bowel sounds, no distention, no organomegaly, pelvic rock is negative NEURO: Oriented AOx3, neuro is grossly intact, sensation and motor is normal all 4 extremities moving, cranial nerves II through XII are intact, GCS is 15 PSYCH: Normal mood and affect SKIN: Patient has a skin tear proximally 2 x 3 cm on the right proximal forearm on the dorsal side. warm and dry, no crepitus and without decubitus BACK: No CVA tenderness, no vertebral tenderness, no step-off's, no crepitus EXT: Atraumatic, hips are nontender, no pedal edema, normal color and temperature, normal range of motion of extremities with normal tendon exam, 2+ pulses in all four extremities Initial Vital Signs Initial Vital Signs: Vital Signs Pulse Rate 79 07/24/24 18:01 Respiratory Rate 25 H 07/24/24 18:01 Pulse Oximetry 97 07/24/24 18:01 Course Orders Ordered: ED Orders 07/24/24 19:31 CT cervical spine wo con Stat CT head/brain wo con Stat Discontinued Medications Diphtheria/Tetanus/Acell Pertussis (Tet,Diph,Pertuss(Acell),Vac/Pf 0.5 Ml Syringe) 0.5 ml IM .ONCE ONE Stop: 07/24/24 21:44 Last Admin: 07/24/24 21:49 Dose: 0.5 ml Documented By: VENESSA Vital Signs Vital signs: Vital Signs - 8 hr 07/24/24 20:30 07/24/24 21:00 07/24/24 21:09 Pulse Rate 74 67 65 Respiratory Rate 21 22 21 Blood Pressure Pulse Oximetry 98 96 97 Oxygen Delivery Method Room Air Room Air Room Air 07/24/24 21:09 07/24/24 21:30 07/24/24 21:31 Pulse Rate 73 71 Respiratory Rate 23 23 Blood Pressure 147/66 H Pulse Oximetry 97 97 Oxygen Delivery Method Room Air Room Air 07/24/24 21:31 Pulse Rate Respiratory Rate Blood Pressure 146/68 H Pulse Oximetry Oxygen Delivery Method MDM - Fall ECG Data Attestation: I personally reviewed and interpreted this ECG as follows: Interpretation: EKG shows atrial fibrillation rate of 70 [place] 86, ready QTC of 442, no acute ST changes MDM Narrative Medical decision making narrative: 88-year-old female anticoagulants Eliquis who had a mechanical ground level fall falling onto her face because she was anticoagulated and [address] was obtained no neck pain but because of extremity of age had cervical CT was included has sublux appearance at C1-C2 but appears similar to priors patient has no tenderness or discomfort suspect this is chronic. She is rate controlled but in AFib. Tetanus was updated. Patient had skin tear which was cleansed and had nonstick dressing applied. Discussed return precautions with the patient and family. Patient felt appropriate for discharge. Head CT shows no acute change CT cervical spine no acute fracture or traumatic subluxation similar subluxed appearance C1-C2 articulation is before background moderate degenerative changes. EKG shows AFib rate controlled Discharge Plan Departure Patient Disposition: Home Clinical Impression: Skin tear of left upper extremity, Fall Instructions: Closed Head Injury Activity Restrictions/Additional Instructions: You did have your tetanus updated today. Please follow up as needed. Wound Care: Keep wound(s) clean and dry. Wash daily with soap and water only. Do not use over the counter products (alcohol or peroxide)on the wounds unless instructed by a physician. You can use triple antibiotic ointment daily to the affected area. If wound condition worsens (increased/expanding redness, developing fluid blisters, or worsening pain), either contact your doctor for an urgent re-assessment , or return to the Emergency Department. Return if fever greater than 100.4 Fahrenheit, increased swelling, increasing pain or worsening symptoms such as increased discharge or spreading redness, any severe headaches, new neck or back pain, chest pain or shortness of breath, lightheadedness or passing out, any persistent vomiting or other new or concerning changes. Prescriptions: No Action potassium chloride 10 mEq tablet extended release 10 meq PO DAILY Qty: 30 2RF clobetasol 0.05 % gel See Rx Instructions .ROUTE .COMPLEX Qty: 30 3RF Dose Instruction: APPLY TO ITCHY AREA DAILY UNTIL SYMPTOMS RESOLVE. MAY USE INTERMITTENTLY NEEDED Rx Instructions: APPLY TO ITCHY AREA DAILY UNTIL SYMPTOMS RESOLVE. MAY USE INTERMITTENTLY NEEDED metoprolol succinate 25 mg tablet extended release 24 hr 25 mg PO DAILY Osphena 60 mg tablet 60 mg PO DAILY Qty: 90 5RF sulfamethoxazole-trimethoprim [Bactrim DS] 800-160 mg tablet 1 tab PO BID Qty: 10 0RF ferrous sulfate [FeroSul] 325 mg (65 mg iron) tablet 325 mg PO 2XW Qty: 8 1RF furosemide 40 mg tablet 40 mg PO DAILY lovastatin 20 mg tablet 20 mg PO DAILY Qty: 90 3RF clomipramine 25 mg capsule 25 mg PO DAILY Qty: 90 1RF levothyroxine 25 mcg tablet 25 mcg PO DAILY Qty: 90 3RF Myrbetriq 50 mg tablet extended release 24 hr 50 mg PO DAILY Qty: 90 3RF sulfamethoxazole-trimethoprim [Bactrim DS] 800-160 mg tablet 1 tab PO BID Qty: 10 0RF nystatin 100,000 unit/gram powder 1 applic topical BID Qty: 30 0RF nystatin 100,000 unit/gram ointment 1 applic topical BID Qty: 15 1RF sertraline 150 mg capsule 150 mg PO DAILY Qty: 90 3RF VITAMIN E 400 unit PO DAILY Calicum 600 mg 2 tab PO DAILY apixaban 5 mg tablet 5 mg PO BID Qty: 60 11RF (DME) ResMed ASV See Rx Instructions .Route .MEDSUPPLY Rx Instructions: EPAP: 1.0 Min: 6 Max PS: 15 (DME) Aircurve 10 ASV See Rx Instructions .Route .MEDSUPPLY Rx Instructions: Pressure: EPAP 7 Min PS 6 Max PS 15 DME: [employer] 02/2022 cholecalciferol (vitamin D3) 50 mcg (2,000 unit) capsule 50 mcg PO DAILY mecobalamin (vitamin B12) 1,000 mcg tablet,chewable 1,000 mcg PO DAILY Referrals: Jasmin Boston DO [Primary Care Provider] - Stand Alone Forms: Patient Portal/API/Survey
--- NOTE | 2024-07-24 21:39 | PC.NURSE ---
Dr. Garland in with patient
--- NOTE | 2024-07-24 21:46 | PC.NURSE ---
Left elbow skin tear cleansed with normal saline, dressed with xerofoam and non-adherent gauze then wrapped with gauze wrap.
[2024-07-24] MEDS: TET,DIPH,PERTUSS(ACELL),VAC/PF 0.5 ML SYRINGE IM (21:49)
== END 2024-07-24 22:10 | disposition home or self-care (01) ==
PROVIDERS: Emergency Provider Emergency Medicine; Family Provider Student in an Organized Health Care Education/Training Program; PCP Family Medicine
DX: S41.112A Laceration without foreign body of left upper arm, initial encounter (principal); S59.902A Unspecified injury of left elbow, initial encounter; S09.90XA Unspecified injury of head, initial encounter; I48.91 Unspecified atrial fibrillation; Z79.01 Long term (current) use of anticoagulants; W18.30XA Fall on same level, unspecified, initial encounter; Z23 Encounter for immunization
CPT/HCPCS: 70450; 72125; 90471; 93005; 93010; 99283; 99284; 90715

== ENCOUNTER → 2024-08-18 15:43 | Outpatient (CLI) | payer MEDICARE, SELFPAY ==
[2020-09-02 15:51] VITALS: BMI 37.8
[2024-08-18 16:02] LABS: Appearance Urine UA CLEAR; Bilirubin Urine UA NEGATIVE (NEGATIVE); Color Urine UA YELLOW; Glucose Urine UA NEGATIVE (Negative); Ketones Urine UA NEGATIVE (NEGATIVE); Leukocyte Esterase Urine UA 1+ (NEGATIVE); Nitrite Urine UA NEGATIVE (Negative); Occult Blood Urine UA NEGATIVE (Negative); Protein Urine UA NEGATIVE (Negative); Specific Gravity Urine UA 1.025 (1.000-1.035); Urobilinogen Urine UA 0.2 E.U./dL (0.2)
[2024-08-18 16:05] LABS: pH Urine UA 5.5 (4.5-8.0)
[2024-08-18 16:16] LABS: Bacteria Urine Few (2-10); Culture Indicated Urine Specimen Cultured; RBC Urine 1-5/HPF (0-5/HPF); Squamous Epithelial Cell Urine 1-5 /HPF (0-5/HPF); Urine Volume 10mL (spun); WBC Urine 5-10/HPF (0-5/HPF)
== END ==
PROVIDERS: Family Provider Student in an Organized Health Care Education/Training Program; PCP Family Medicine; Referring Provider Family Medicine; Visit Provider Family Medicine
DX: R30.0 Dysuria (principal)
CPT/HCPCS: 81001; 87086

== ENCOUNTER → 2025-02-12 08:46 | Outpatient (CLI) | payer MEDICARE, SELFPAY ==
[2020-09-02 15:51] VITALS: BMI 37.8
[2025-02-12 09:20] LABS: Add Manual Diff / Slide Review NO; Hematocrit 36.8 % (36-46); Hemoglobin 12.5 g/dL (12.0-16.0); Lymphocytes Absolute Auto 1300 /uL (1100-4500); Mean Corpuscular HGB Conc 34.0 % (30-36); Mean Corpuscular Hemoglobin 32.1 PG (26-34); Mean Corpuscular Volume 94.5 fL (80-100); Platelet Count 130 X10^3/uL (150-400)
[2025-02-12 09:38] LABS: Alanine Aminotransferase 18 IU/L (<35); Albumin 4.4 g/dL (3.5-5.0); Albumin Globulin Ratio 1.7 (1.0-2.8); Alkaline Phosphatase 63 U/L (38-126); Blood Urea Nitrogen 34 mg/dL (7-17); Calcium 9.1 mg/dL (8.4-10.2); Carbon Dioxide 26 mmol/L (22-32); Chloride 105 mmol/L (98-107); Cholesterol 136 mg/dL (140-199); Estimated Glomerular Filt Rate 43 mL/min (>60); Globulin 2.6 g/dL (1.7-4.1); Glucose 95 mg/dL (70-99); HDL Cholesterol 42 mg/dL (40-60); HEMOLYSIS < 15 (0-50); Potassium 4.4 mmol/L (3.4-5.1); Sodium 142 mmol/L (137-145); Total Protein 7.0 g/dL (6.3-8.2); Triglycerides 127 mg/dL (35-150)
[2025-02-12 10:06] LABS: TSH w/ Reflex to FT4 5.37 uIU/mL (0.47-4.68)
[2025-02-12 21:11] LABS: Free T4, Direct Thyroxine 1.02 ng/dL (0.78-2.19)
== END ==
PROVIDERS: PCP Family Medicine; Referring Provider Family Medicine; Visit Provider Family Medicine
DX: Z00.00 Encounter for general adult medical examination without abnormal findings (principal); E66.01 Morbid (severe) obesity due to excess calories; I50.9 Heart failure, unspecified; I25.118 Atherosclerotic heart disease of native coronary artery with other forms of angina pectoris; I48.91 Unspecified atrial fibrillation; E03.9 Hypothyroidism, unspecified; F32.9 Major depressive disorder, single episode, unspecified; E78.5 Hyperlipidemia, unspecified
CPT/HCPCS: 36415; 80053; 80061; 84439; 84443; 85025

== ENCOUNTER → 2025-03-25 12:15 | Outpatient (CLI) | payer MEDICARE, SELFPAY ==
[2020-09-02 15:51] VITALS: BMI 37.8
--- NOTE | 2025-03-25 12:16 | DI.RAD.S_ITS ---
PROCEDURE: FL JOINT INJECTION LARGE RT INDICATIONS: pain/arthritis COMPARISON: None. TECHNIQUE: The indications, alternatives, benefits, risks, and complications of the procedure were explained to the patient. Written informed consent was obtained and placed in the chart. The patient was placed in an appropriate position on the fluoroscopy table, and a site was chosen for percutaneous access under fluoroscopic guidance. The site was prepped and draped in a sterile fashion. Local anesthetic was administered using a 1% lidocaine solution. A hypodermic or spinal needle was then used to access the symptomatic joint. Intra-articular location of the needle tip was confirmed by injecting a small amount of contrast, followed by steroid administration. The needle was then withdrawn, and a bandage applied to the puncture site. FINDINGS: Joint injected: Right shoulder Medications injected: 4 mL of mixture containing 1 mL 40 mg/mL Kenalog and 3 mL 0.5% Ropivacain. Patient's pain before injection: 7 out of 10. Patient's pain after injection: 3 out of 10. Complications: None. IMPRESSION: Successful fluoroscopically guided administration of steroid and anaesthetic solution into the right shoulder joint. Dictated by: Ashvin Brown M.D. on 03/25/2025 at 13:59 Approved by: Ashvin Brown M.D. on 03/25/2025 at 14:02
[2025-03-25] MEDS: TRIAMCINOLONE 40 MG/ML VIAL INTRA-ARTI (13:54)
[2025-03-25] MEDS: LIDOCAINE 1% 20 ML INJ (13:54)
== END ==
LOC: RAD 12:15
PROVIDERS: PCP Family Medicine; Referring Provider Family Medicine; Visit Provider Radiology Diagnostic Radiology
DX: M19.011 Primary osteoarthritis, right shoulder (principal)
CPT/HCPCS: 20610; 77002; Q9967

== ENCOUNTER → 2025-05-04 17:18 | Outpatient (CLI) | payer MEDICARE, SELFPAY ==
[2020-09-02 15:51] VITALS: BMI 37.8
== END ==
PROVIDERS: PCP Family Medicine; Visit Provider Urology
DX: N39.0 Urinary tract infection, site not specified (principal)
CPT/HCPCS: 87077; 87086; 87186

== ENCOUNTER 2025-06-06 15:20 | Inpatient (IN) | payer MEDICARE, SELFPAY ==
[2020-09-02 15:51] VITALS: BMI 37.8
[2025-06-06 15:23] VITALS: BP 183/74; PULSE 91; RESP 18; O2SAT 98; BMI 45.1
--- NOTE | 2025-06-06 16:31 | DI.US.S_ITS ---
PROCEDURE: US PERIP VENOUS LOW EXTREM LT INDICATIONS: dvt rule out , lower extremity edema. TECHNIQUE: Real-time imaging, as well as color and pulse Doppler interrogation, were performed of the lower extremity deep veins from the inguinal ligament to the popliteal fossa, with documentation of the visualized calf veins. COMPARISON: [facility] VEN[facility] LOW [facility]TREM [facility], 06/13/2021, 13:45. FINDINGS: The common femoral, femoral, popliteal, and the visualized calf veins are normally compressible, and free of intraluminal thrombus. Color and pulse Doppler demonstrate normal phasic intraluminal flow. There is normal augmentation response to distal compression maneuver. IMPRESSION: No findings of lower extremity deep venous thrombosis. Dictated by: Fitz Foster M.D. on 06/06/2025 at 17:39 Approved by: Fitz Foster M.D. on 06/06/2025 at 17:39
--- NOTE | 2025-06-06 16:32 | DI.RAD.S_ITS ---
PROCEDURE: XR TIBIA FIBULA LT 2V INDICATIONS: dvt rule out, soft tissue swelling TECHNIQUE: 2 views of the tibia and fibula were acquired. COMPARISON: [facility], CR, XR TIBIA FIBULA LT 2V, 06/13/2021, 13:36. FINDINGS: Bones: No fractures or dislocations. No suspicious bony lesions. Changes of left total knee arthroplasty. Partially visualized internal fixation hardware in the 1st ray of the foot. Soft tissues: No suspicious soft tissue calcifications or masses. Vascular calcifications. Diffuse soft tissue swelling. IMPRESSION: No acute bony abnormality. Dictated by: Fitz Foster M.D. on 06/06/2025 at 18:04 Approved by: Fitz Foster M.D. on 06/06/2025 at 18:05
[2025-06-06 16:48] LABS: Add Manual Diff / Slide Review NO; Hematocrit 39.2 % (36-46); Hemoglobin 13.1 g/dL (12.0-16.0); Lactate (Lactic Acid) 2.1 mmol/L (0.7-2.1); Lymphocytes Absolute Auto 700 /uL (1100-4500); Mean Corpuscular HGB Conc 33.3 % (30-36); Mean Corpuscular Hemoglobin 31.2 PG (26-34); Mean Corpuscular Volume 93.6 fL (80-100); Platelet Count 143 X10^3/uL (150-400)
[2025-06-06 16:49] LABS: Alanine Aminotransferase 17 IU/L (<35); Albumin 4.3 g/dL (3.5-5.0); Albumin Globulin Ratio 1.3 (1.0-2.8); Alkaline Phosphatase 64 U/L (38-126); Blood Urea Nitrogen 37 mg/dL (7-17); Calcium 8.9 mg/dL (8.4-10.2); Carbon Dioxide 23 mmol/L (22-32); Chloride 103 mmol/L (98-107); Estimated Glomerular Filt Rate 51 mL/min (>60); Globulin 3.2 g/dL (1.7-4.1); Glucose 180 mg/dL (70-99); HEMOLYSIS 17 (0-50); Potassium 3.8 mmol/L (3.4-5.1); Sodium 139 mmol/L (137-145); Total Protein 7.5 g/dL (6.3-8.2)
--- NOTE | 2025-06-06 16:49 | ED.LOWEXIN ---
HPI - Extremity Injury (Lower) General Chief Complaint: Extremity Injury, Lower Stated Complaint: possible dvt Time Seen by Provider: 06/06/25 15:43 Source: EMS Mode of arrival: EMS History of Present Illness HPI Narrative: 89-year-old female history of atrial history of atrial fibrillation on Eliquis, CAD, CHF, mild cognitive impairment, dyslipidemia presents with left leg swelling ongoing for the past few days. Patient originally was told to double the dose of diuretics swelling did go down but has not gotten better and brought in for further evaluation. Patient denies any fever, chills, chest pain, shortness of breath, cough, sore throat. Other than what is stated 14 point review of system is negative. Related Data Home Medications ?Medication ?Instructions ?Recorded ?Confirmed cholecalciferol (vitamin D3) 50 50 mcg PO DAILY 11/25/20 05/04/25 mcg (2,000 unit) capsule mecobalamin (vitamin B12) 1,000 1,000 mcg PO DAILY 11/25/20 05/04/25 mcg chewable tablet ResMed ASV 05/09/21 05/04/25 Aircurve 10 ASV 03/09/22 05/04/25 furosemide 40 mg tablet 40 mg PO DAILY 06/06/22 05/04/25 calcium carbonate 1,200 mg PO DAILY 08/26/24 05/04/25 sacubitril 24 mg-valsartan 26 mg 1 tab PO BID 08/26/24 05/04/25 tablet (Entresto) spironolactone 25 mg tablet 25 mg PO DAILY 08/26/24 05/04/25 vitamin E mixed 400 unit capsule 400 unit PO DAILY 08/26/24 05/04/25 fexofenadine 180 mg tablet 180 mg PO DAILY 12/03/24 05/04/25 urea 40 % topical cream applic topical DAILY PRN 12/03/24 05/04/25 metoprolol succinate 25 mg 12.5 mg PO DAILY 06/03/25 tablet,extended release 24 hr Previous Rx's ?Medication ?Instructions ?Recorded apixaban 5 mg tablet 5 mg PO BID #60 tabs 06/22/21 potassium chloride 10 mEq 10 meq PO DAILY #30 tabs 06/22/21 tablet,extended release clobetasol 0.05 % topical gel See Rx Instructions .Route 05/09/22 .COMPLEX #30 grams lovastatin 20 mg tablet 20 mg PO DAILY #90 tabs 06/06/22 quetiapine 25 mg tablet 25 mg PO BEDTIME #30 tabs 03/23/25 ferrous sulfate 325 mg (65 mg 325 mg PO 2XW #8 tabs 04/10/25 iron) tablet (FeroSul) mirabegron 50 mg tablet,extended 50 mg PO DAILY #90 tabs 05/04/25 release 24 hr (Myrbetriq) ospemifene 60 mg tablet (Osphena) 60 mg PO DAILY #90 tabs 05/04/25 levothyroxine 25 mcg tablet 25 mcg PO DAILY #90 tabs 05/22/25 nystatin 100,000 unit/gram topical 1 applic topical BID #30 grams 05/22/25 powder Allergies Allergy/AdvReac Type Severity Reaction Status Date / Time gabapentin AdvReac Mild Sedation Verified 06/06/25 15:23 at 100mg nitrofurantoin AdvReac Unknown Diarrhea Verified 06/06/25 15:23 Review of Systems Review of Systems ROS Unobtainable: All systems reviewed & are unremarkable except as noted in HPI and below Patient History Medical History CHF (congestive heart failure), NYHA class III Coronary artery disease with exertional angina Atrial fibrillation Sleep apnea OCD (obsessive compulsive disorder) Nose abnormality History of UTI Postmenopausal atrophic vaginitis Mixed incontinence High blood pressure Coronary artery disease involving [place] heart Chronic UTI Asthma Arthritis Anemia Rotator cuff arthropathy of right shoulder Postmenopausal atrophic vaginitis Osteoporosis Osteoarthritis Inflammatory bowel disease Depression COPD (chronic obstructive pulmonary disease) Obstructive sleep apnea Varicose vein of leg Constipation Major depression Mixed hyperlipidemia Essential hypertension Hypothyroidism Nasal septal perforation Surgical History History of liver biopsy History of knee replacement H/O vaginal hysterectomy History of bladder suspension procedure Total knee replacement status H/O cystoscopy Coronary stent patent Previous back surgery History of total bilateral knee replacement History of lumbar surgery History of appendectomy History of removal of ovarian cyst H/O abdominal hysterectomy History of cataract surgery Family History Sister Cancer Heart attack Brother Cancer Mother Heart attack Stroke Hypertension Father Hypertension Social History marital status: number of children: 4 household members: none alcohol intake: never alcohol intake frequency: 0-2 drinks per day Exam Narrative Exam Narrative: GENERAL: [89 year old patient appears stated age. Well-developed patient, in mild distress. HEAD: Atraumatic. Normocephalic. EYES: Pupils equal round and reactive. Extraocular motions intact. No scleral icterus. No injection or drainage. ENT: Nose without bleeding, purulent drainage. Throat without erythema, tonsillar hypertrophy or exudate. Airway patent. NECK: Trachea midline. Non tender CARDIOVASCULAR: Regular rate and rhythm without murmurs, gallops, or rubs. RESPIRATORY: Clear to auscultation. Breath sounds equal bilaterally. No wheezes, rales, or rhonchi. GASTROINTESTINAL: Abdomen soft, non-tender, nondistended. EXTREMITIES: No edema or joint tenderness. Right lower extremity red warm tender soft tissue swelling to palpate mid to distal 2/3 extremity +2 DP +2 PT cap refill less than 2 seconds BACK: Nontender without deformity or crepitance. No flank tenderness. NEURO: AOx3. SKIN: No rash or erythema of visible areas Initial Vital Signs Initial Vital Signs: Vital Signs Pulse Rate 91 H 06/06/25 15:23 Respiratory Rate 18 06/06/25 15:23 Blood Pressure 183/74 H 06/06/25 15:23 Pulse Oximetry 98 06/06/25 15:23 Oxygen Delivery Method Room Air 06/06/25 15:23 Course Orders Ordered: ED Orders 06/06/25 16:27 CBC Auto Diff [Complete Blood Count AUTO DIFF] Stat CMP [Comprehensive Metabolic Panel] Stat Lactate (Lactic Acid) Stat 06/06/25 16:31 US periph venous low extrem lt Stat 06/06/25 16:32 XR tibia fibula LT 2V Stat 06/06/25 17:00 Blood Culture Stat Vancomycin HCl (Vancomycin) 1,000 mg in 200 mls @ 200 mls/hr IV NOW ONE Stop: 06/06/25 17:59 Discontinued Medications Piperacillin Sod/Tazobactam (Sod 4.5 gm/ Sodium Chloride) 100 mls @ 200 mls/hr IV NOW ONE Stop: 06/06/25 16:56 Last Admin: 06/06/25 17:34 Dose: 200 mls/hr Documented By: AI Vital Signs Vital signs: Vital Signs - 8 hr 06/06/25 15:23 Pulse Rate 91 H Respiratory Rate 18 Blood Pressure 183/74 H Pulse Oximetry 98 Oxygen Delivery Method Room Air MDM - Extremity Injury (Lower) Lab Data 06/06/25 16:27 06/06/25 16:27 Labs: Lab Results 06/06/25 Range/Units 16:27 WBC 4.3 L (4.5-11.0) X10^3/uL RBC 4.19 (4.0-5.2) X10^6/uL Hgb 13.1 (12.0-16.0) g/dL Hct 39.2 (36-46) % MCV 93.6 (80-100) fL MCH 31.2 (26-34) PG MCHC 33.3 (30-36) % RDW 14.6 (11.6-14.8) % Plt Count 143 L (150-400) X10^3/uL Neut % (Auto) 74.8 (50-75) % Lymph % (Auto) 17.3 L (25-40) % [place] % (Auto) 4.9 (3-14) % Eos % (Auto) 2.4 (2-4) % Baso % (Auto) 0.6 (0-2) % Neut # (Auto) 3200 (2335-8468) /uL Lymph # (Auto) 700 L (5603-5876) /uL [place] # (Auto) 200 (0-900) /uL Eos # (Auto) 100 (0-450) /uL Baso # (Auto) 0 (0-100) /uL Sodium 139 (137-145) mmol/L Potassium 3.8 (3.4-5.1) mmol/L Chloride 103 (98-107) mmol/L Carbon Dioxide 23 (22-32) mmol/L BUN 37 H (7-17) mg/dL Creatinine 1.04 (0.52-1.04) mg/dL Estimated GFR 51 L (>60) mL/min BUN/Creatinine Ratio 35.6 H (6-22) Glucose 180 H (70-99) mg/dL Lactate 2.1 (0.7-2.1) mmol/L Calcium 8.9 (8.4-10.2) mg/dL Total Bilirubin 0.5 (0.2-1.3) mg/dL AST 29 (14-36) IU/L ALT 17 (<35) IU/L Alkaline Phosphatase 64 (38-126) U/L Total Protein 7.5 (6.3-8.2) g/dL Albumin 4.3 (3.5-5.0) g/dL Globulin 3.2 (1.7-4.1) g/dL Albumin/Globulin Ratio 1.3 (1.0-2.8) Imaging Data US - DVT: Radiologist's Impression: [address] [id number] Ultrasound Report Signed Patient: Liana Power MR#: [id number] : 1935 Acct:[id number] Age/Sex: 89 / F Date of Service: 06/06/25 Loc: ED Accession Number: [id number] Procedure: US perip venous low extrem lt Ordering Provider: Inocente Herrera D.O. PROCEDURE: US PERIP VENOUS LOW EXTREM LT INDICATIONS: dvt rule out , lower extremity edema. TECHNIQUE: Real-time imaging, as well as color and pulse Doppler interrogation, were performed of the lower extremity deep veins from the inguinal ligament to the popliteal fossa, with documentation of the visualized calf veins. COMPARISON: [facility], PERIP VENOUS LOW EXTREM LT, 06/13/2021, 13:45. FINDINGS: The common femoral, femoral, popliteal, and the visualized calf veins are normally compressible, and free of intraluminal thrombus. Color and pulse Doppler demonstrate normal phasic intraluminal flow. There is normal augmentation response to distal compression maneuver. IMPRESSION: No findings of lower extremity deep venous thrombosis. Dictated by: Fitz Foster M.D. on 06/06/2025 at 17:39 Extremity x-ray #1: Radiologist's Impression: [address] [id number] XRay Report Signed Patient: Liana Power MR#: [id number] : 1935 Acct:[id number] Age/Sex: 89 / F Date of Service: 06/06/25 Loc: [facility] Accession Number: [id number] Procedure: XR tibia fibula LT 2V Ordering Provider: Herrera,Inocente C. D.O. PROCEDURE: XR TIBIA FIBULA LT 2V INDICATIONS: dvt rule out, soft tissue swelling TECHNIQUE: 2 views of the tibia and fibula were acquired. COMPARISON: [facility], CR, XR TIBIA FIBULA LT 2V, 06/13/2021, 13:36. FINDINGS: Bones: No fractures or dislocations. No suspicious bony lesions. Changes of left total knee arthroplasty. Partially visualized internal fixation hardware in the 1st ray of the foot. Soft tissues: No suspicious soft tissue calcifications or masses. Vascular calcifications. Diffuse soft tissue swelling. IMPRESSION: No acute bony abnormality. Dictated by: Fitz Foster M.D. on 06/06/2025 at 18:04 MDM Narrative Medical decision making narrative: All lab work, vital signs, nurse triage note, medication list, previous ER visits, and all imaging studies reviewed. WBC 4.3 hemoglobin 13.1 platelet 143 sodium 139 potassium 3.8 chloride 103 CO2 23 BUN 37 creatinine 1.04 glucose 180 lactic acid 2.1 LFTs normal. Ultrasound shows no DVT. Patient started on vancomycin and Zosyn here. Differential diagnosis cellulitis, MRSA, DVT. Case d/w hospitalist who has accepted pt for admission Discharge Plan Departure Patient Disposition: Admitted as Observation Clinical Impression: Cellulitis of leg Admit Date/Time: 06/06/25 17:58
[2025-06-06] MEDS: PIPERACILLIN/TAZO 4.5 GM in SODIUM CHLORIDE 0.9% 100 ML IV (17:34)
[2025-06-06 18:14] LABS: Reflexed Lactate in 2 Hours Y
[2025-06-06] MEDS: VANCOMYCIN 1,000 MG/200 ML PIGGYBACK 200 MG IV (18:40)
[2025-06-06 18:50] LABS: Lactate 2HR (Lactic Acid Rflx) 1.4 mmol/L (0.7-2.1)
--- NOTE | 2025-06-06 19:13 | PM.HP.1 ---
History of Present Illness History of Present Illness Date Patient Seen: 06/06/25 Chief complaint: possible dvt Narrative: Chief complaint: Left leg redness and swelling with cellulitis History of present illness: 12/04: 89-year-old female with chronic congestive heart failure had increased leg swelling bilaterally and had gone down with doubling her Lasix over the next couple of days when her son noticed that her left leg was red and warm came to the emergency room. Upon evaluation resume if it was obvious that this was cellulitis patient was given vancomycin and Zosyn referred for admission. Findings in the emergency department: CBC and hemogram unremarkable comprehensive metabolic unremarkable except BUN 37 creatinine 1.04 however this seems to be this patient's baseline Review of systems: No fever or chills rigors No chest pain palpitations no shortness for breath No abdominal pain nausea vomiting diarrhea No paresthesia paresis No urinary symptoms Physical exam: Elderly female in no acute distress very pleasant HEENT unremarkable No labored respirations Abdomen nondistended Extremities trace edema right lower extremity and 2+ edema left lower extremity with erythema to the upper lower leg Assessment and plan: Cellulitis left lower extremity Continue vancomycin as ceftriaxone Monitor progress of cellulitis Chronic congestive heart failure acute on chronic Compensated at this time Continue all goal-directed medical therapy Chronic medical conditions: CHF (congestive heart failure), NYHA class III Coronary artery disease with exertional angina Atrial fibrillation Sleep apnea OCD (obsessive compulsive disorder) Nose abnormality History of UTI Postmenopausal atrophic vaginitis Mixed incontinence High blood pressure Coronary artery disease involving [place] heart Chronic UTI Asthma Arthritis Anemia Rotator cuff arthropathy of right shoulder Postmenopausal atrophic vaginitis Osteoporosis Osteoarthritis Inflammatory bowel disease Depression COPD (chronic obstructive pulmonary disease) Obstructive sleep apnea Varicose vein of leg Constipation Major depression Mixed hyperlipidemia Essential hypertension Hypothyroidism Nasal septal perforation DVT prophylaxis: Covered with the apixaban Code status: Full code blue Disposition: Inpatient estimate 48 hours of IV antibiotics Time based billin minutes were involved in evaluation of this patient including [id number] evaluation review of previous medical records discussion with emergency provider discussion with son physical examination of the patient [facility] Medical History CHF (congestive heart failure), NYHA class III Coronary artery disease with exertional angina Atrial fibrillation Sleep apnea OCD (obsessive compulsive disorder) Nose abnormality History of UTI Postmenopausal atrophic vaginitis Mixed incontinence High blood pressure Coronary artery disease involving [place] heart Chronic UTI Asthma Arthritis Anemia Rotator cuff arthropathy of right shoulder Postmenopausal atrophic vaginitis Osteoporosis Osteoarthritis Inflammatory bowel disease Depression COPD (chronic obstructive pulmonary disease) Obstructive sleep apnea Varicose vein of leg Constipation Major depression Mixed hyperlipidemia Essential hypertension Hypothyroidism Nasal septal perforation Surgical History History of liver biopsy History of knee replacement H/O vaginal hysterectomy History of bladder suspension procedure Total knee replacement status H/O cystoscopy Coronary stent patent Previous back surgery History of total bilateral knee replacement History of lumbar surgery History of appendectomy History of removal of ovarian cyst H/O abdominal hysterectomy History of cataract surgery Family History Sister Cancer Heart attack Brother Cancer Mother Heart attack Stroke Hypertension Father Hypertension Social History marital status: number of children: 4 household members: none alcohol intake: never Meds Home Medications and Allergies Home Medications ?Medication ?Instructions ?Recorded ?Confirmed ?Type cholecalciferol (vitamin D3) 50 50 mcg PO DAILY 11/25/20 05/04/25 History mcg (2,000 unit) capsule mecobalamin (vitamin B12) 1,000 1,000 mcg PO DAILY 11/25/20 05/04/25 History mcg chewable tablet ResMed ASV 05/09/21 05/04/25 History apixaban 5 mg tablet 5 mg PO BID #60 tabs 06/22/21 05/04/25 Rx potassium chloride 10 mEq 10 meq PO DAILY #30 tabs 06/22/21 05/04/25 Rx tablet,extended release clobetasol 0.05 % topical gel See Rx Instructions .Route 11/14/21 05/04/25 Rx .COMPLEX #30 grams Aircurve 10 ASV 03/09/22 05/04/25 History furosemide 40 mg tablet 40 mg PO DAILY 06/06/22 05/04/25 History lovastatin 20 mg tablet 20 mg PO DAILY #90 tabs 06/06/22 05/04/25 Rx calcium carbonate 1,200 mg PO DAILY 08/26/24 05/04/25 History sacubitril 24 mg-valsartan 26 mg 1 tab PO BID 08/26/24 05/04/25 History tablet (Entresto) spironolactone 25 mg tablet 25 mg PO DAILY 08/26/24 05/04/25 History vitamin E mixed 400 unit capsule 400 unit PO DAILY 08/26/24 05/04/25 History fexofenadine 180 mg tablet 180 mg PO DAILY 12/03/24 05/04/25 History urea 40 % topical cream applic topical DAILY PRN 12/03/24 05/04/25 History quetiapine 25 mg tablet 25 mg PO BEDTIME #30 tabs 03/23/25 05/04/25 Rx ferrous sulfate 325 mg (65 mg 325 mg PO 2XW #8 tabs 04/10/25 05/04/25 Rx iron) tablet (FeroSul) mirabegron 50 mg tablet,extended 50 mg PO DAILY #90 tabs 05/04/25 05/04/25 Rx release 24 hr (Myrbetriq) ospemifene 60 mg tablet (Osphena) 60 mg PO DAILY #90 tabs 05/04/25 05/04/25 Rx levothyroxine 25 mcg tablet 25 mcg PO DAILY #90 tabs 05/22/25 Rx nystatin 100,000 unit/gram topical 1 applic topical BID #30 grams 05/22/25 Rx powder metoprolol succinate 25 mg 12.5 mg PO DAILY 06/03/25 History tablet,extended release 24 hr Allergies Allergy/AdvReac Type Severity Reaction Status Date / Time gabapentin AdvReac Mild Sedation Verified 06/06/25 15:23 at 100mg nitrofurantoin AdvReac Unknown Diarrhea Verified 06/06/25 15:23 Exam Vital Signs (past 8 hours): - 06/06/25 15:23 Pulse Rate 91 H Respiratory Rate 18 Blood Pressure 183/74 H Pulse Oximetry 98 Oxygen Delivery Method Room Air Oxygen Delivery Method Room Air Objective Labs 06/06/25 16:27 06/06/25 16:27 Labs: Laboratory Results - last 24 hr 06/06/25 06/06/25 16:27 18:27 WBC 4.3 L RBC 4.19 Hgb 13.1 Hct 39.2 MCV 93.6 MCH 31.2 MCHC 33.3 RDW 14.6 Plt Count 143 L Neut % (Auto) 74.8 Lymph % (Auto) 17.3 L [place] % (Auto) 4.9 Eos % (Auto) 2.4 Baso % (Auto) 0.6 Neut # (Auto) 3200 Lymph # (Auto) 700 L [place] # (Auto) 200 Eos # (Auto) 100 Baso # (Auto) 0 Sodium 139 Potassium 3.8 Chloride 103 Carbon Dioxide 23 BUN 37 H Creatinine 1.04 Estimated GFR 51 L BUN/Creatinine Ratio 35.6 H Glucose 180 H Lactate 2.1 1.4 Calcium 8.9 Total Bilirubin 0.5 AST 29 ALT 17 Alkaline Phosphatase 64 Total Protein 7.5 Albumin 4.3 Globulin 3.2 Albumin/Globulin Ratio 1.3 Assessment & Plan Time-Based Coding :: [TOTAL MINUTES] spent with patient and on the chart (including review of chart, obtaining history, exam, reviewing outside data, placing orders, documenting exam and treatment plan, and counseling patient) on [DATE].
[2025-06-06 19:52] VITALS: BP 161/70; PULSE 88; RESP 20; O2SAT 96
--- NOTE | 2025-06-06 20:28 | PC.NURSE ---
06/06/25 ~1700: this nurse and float RN assisted pt wiht brief change, redness was noted to skin folds of thighs/groin and under breasts. applied barrier cream, placed on purewick, boosted in bed and gave warm blanket
[2025-06-06] MEDS: ONDANSETRON 4 MG/2 ML INJ IV (20:44)
[2025-06-06] MEDS: ATORVASTATIN 20 MG TABLET 10 MG PO (20:45)
[2025-06-06] MEDS: HEPARIN 5,000 UNIT/ML VIAL 5000 UNIT SUBCUT (20:45)
[2025-06-06] MEDS: APIXABAN 5 MG TABLET PO (20:45)
--- NOTE | 2025-06-06 21:04 | PC.NURSE ---
emptied 1000ml from [place]
[2025-06-06 21:45] VITALS: BP 120/69; PULSE 76; RESP 17; TEMP 36.7; O2SAT 97
[2025-06-06 22:02] VITALS: BMI 45.1
[2025-06-06] MEDS: NYSTATIN POWDER 15GM 1 APPLIC TOP (22:07)
[2025-06-06] MEDS: ACETAMINOPHEN 325 MG TABLET 650 MG PO (22:18)
[2025-06-06 23:35] VITALS: O2SAT 97
[2025-06-06 23:53] VITALS: O2SAT 97
[2025-06-07] MEDS: ACETAMINOPHEN 325 MG TABLET 650 MG PO ×2 (03:53→12:21)
[2025-06-07] MEDS: LEVOTHYROXINE 25 MCG TABLET PO (06:49)
[2025-06-07 08:40] VITALS: BP 131/54; PULSE 73; RESP 16; TEMP 36.6; O2SAT 98
[2025-06-07] MEDS: CALCIUM CARBONATE 500 MG TAB 1000 MG PO (10:18)
[2025-06-07] MEDS: NYSTATIN POWDER 15GM 1 APPLIC TOP ×2 (10:19→21:41)
[2025-06-07] MEDS: oxyBUTYnin ER 5 MG TABLET 10 MG PO (10:19)
[2025-06-07] MEDS: POTASSIUM CHLORIDE 10 MEQ TAB PO (10:21)
[2025-06-07] MEDS: APIXABAN 5 MG TABLET PO ×2 (10:21→21:35)
[2025-06-07] MEDS: CHOLECALCIFEROL (VITAMIN D3) 1,000 UNIT TABLET 1000 UNIT PO (10:22)
[2025-06-07] MEDS: FUROSEMIDE 40 MG TABLET PO (10:22)
[2025-06-07] MEDS: SPIRONOLACTONE 25 MG TABLET PO (10:24)
[2025-06-07] MEDS: CYANOCOBALAMIN (VITAMIN B-12) 500 MCG TABLET 1000 MCG PO (10:39)
--- NOTE | 2025-06-07 11:47 | P.PN_ITS ---
Subjective Subjective Date Patient Seen: 06/07/25 Interval history: Chief complaint: Left leg redness and swelling with cellulitis History of present illness: 12/04: 89-year-old female with chronic congestive heart failure had increased leg swelling bilaterally and had gone down with doubling her Lasix over the next couple of days when her son noticed that her left leg was red and warm came to the emergency room. Upon evaluation resume if it was obvious that this was cellulitis patient was given vancomycin and Zosyn referred for admission. Findings in the emergency department: CBC and hemogram unremarkable comprehensive metabolic unremarkable except BUN 37 creatinine 1.04 however this seems to be this patient's baseline 12/05: Significantly less swelling today no swelling at all right leg in trace on the left with pruning there is less erythema and less rubor Review of systems: No fever or chills rigors No chest pain palpitations no shortness for breath No abdominal pain nausea vomiting diarrhea No paresthesia paresis No urinary symptoms Physical exam: Elderly female in no acute distress very pleasant HEENT unremarkable No labored respirations Abdomen nondistended Extremities no edema right lower extremity and trace edema left lower extremity with improved erythema to the upper lower leg Assessment and plan: Cellulitis left lower extremity * Continue vancomycin as ceftriaxone * Monitor progress of cellulitis Chronic congestive heart failure acute on chronic * Compensated at this time * Continue all goal-directed medical therapy Chronic medical conditions: * CHF (congestive heart failure), NYHA class III * Coronary artery disease with exertional angina * Atrial fibrillation * Sleep apnea * OCD (obsessive compulsive disorder) * Nose abnormality * History of UTI * Postmenopausal atrophic vaginitis * Mixed incontinence * High blood pressure * Coronary artery disease involving [place] heart * Chronic UTI * Asthma * Arthritis * Anemia * Rotator cuff arthropathy of right shoulder * Postmenopausal atrophic vaginitis * Osteoporosis * Osteoarthritis * Inflammatory bowel disease * Depression * COPD (chronic obstructive pulmonary disease) * Obstructive sleep apnea * Varicose vein of leg * Constipation * Major depression * Mixed hyperlipidemia * Essential hypertension * Hypothyroidism * Nasal septal perforation DVT prophylaxis: * Covered with the apixaban Code status: * Full code blue Disposition: * Inpatient estimate 24-48 hours of IV antibiotics Time based billing: * 35 minutes were involved in evaluation of this patient including [id number] evaluation review of previous medical records discussion with emergency provider discussion with son physical examination of the patient Exam Vital Signs (past 8 hours): - 06/07/25 08:40 Temperature 97.8 F Pulse Rate 73 Respiratory Rate 16 Blood Pressure 131/54 L Pulse Oximetry 98 Oxygen Flow Rate 0 Fraction of Inspired Oxygen 28 SaO2/FiO2 Ratio 346 Oxygen Delivery Method Nasal Cannula Oxygen Flow Rate 0 Objective Labs 06/06/25 16:27 06/06/25 16:27 Labs: Laboratory Results - last 24 hr 06/06/25 06/06/25 16:27 18:27 WBC 4.3 L RBC 4.19 Hgb 13.1 Hct 39.2 MCV 93.6 MCH 31.2 MCHC 33.3 RDW 14.6 Plt Count 143 L Neut % (Auto) 74.8 Lymph % (Auto) 17.3 L [place] % (Auto) 4.9 Eos % (Auto) 2.4 Baso % (Auto) 0.6 Neut # (Auto) 3200 Lymph # (Auto) 700 L [place] # (Auto) 200 Eos # (Auto) 100 Baso # (Auto) 0 Sodium 139 Potassium 3.8 Chloride 103 Carbon Dioxide 23 BUN 37 H Creatinine 1.04 Estimated GFR 51 L BUN/Creatinine Ratio 35.6 H Glucose 180 H Lactate 2.1 1.4 Calcium 8.9 Total Bilirubin 0.5 AST 29 ALT 17 Alkaline Phosphatase 64 Total Protein 7.5 Albumin 4.3 Globulin 3.2 Albumin/Globulin Ratio 1.3 PFSH Medical History CHF (congestive heart failure), NYHA class III Coronary artery disease with exertional angina Atrial fibrillation Sleep apnea OCD (obsessive compulsive disorder) Nose abnormality History of UTI Postmenopausal atrophic vaginitis Mixed incontinence High blood pressure Coronary artery disease involving [place] heart Chronic UTI Asthma Arthritis Anemia Rotator cuff arthropathy of right shoulder Postmenopausal atrophic vaginitis Osteoporosis Osteoarthritis Inflammatory bowel disease Depression COPD (chronic obstructive pulmonary disease) Obstructive sleep apnea Varicose vein of leg Constipation Major depression Mixed hyperlipidemia Essential hypertension Hypothyroidism Nasal septal perforation Surgical History History of liver biopsy History of knee replacement H/O vaginal hysterectomy History of bladder suspension procedure Total knee replacement status H/O cystoscopy Coronary stent patent Previous back surgery History of total bilateral knee replacement History of lumbar surgery History of appendectomy History of removal of ovarian cyst H/O abdominal hysterectomy History of cataract surgery Family History Sister Cancer Heart attack Brother Cancer Mother Heart attack Stroke Hypertension Father Hypertension Social History marital status: number of children: 4 household members: none Smoking Status: Former smoker alcohol intake: never Assessment & Plan Time-Based Coding :: [TOTAL MINUTES] spent with patient and on the chart (including review of chart, obtaining history, exam, reviewing outside data, placing orders, documenting exam and treatment plan, and counseling patient) on [DATE].
[2025-06-07] MEDS: VANCOMYCIN 1,250 MG/250 ML PIGGYBACK 250 MG IV (12:22)
--- NOTE | 2025-06-07 13:18 | CM.DANOTE ---
Addendum entered by VICENTE Fisher 06/07/25 15:44: DCP Update: Per PT, recommending SNF Rehab. During PT evaluation, son voiced concerns that patient might need to move into [facility] after rehab and stated preference to speak with an LOUNGE CAR ATTENDANT. LOUNGE CAR ATTENDANT re-entered room, introduced self to son, Raimundo. Patient was asleep during conversation. LOUNGE CAR ATTENDANT presented Medicare Choice list to patient son who stated the following concerns/preferences: 1. Preference for SNF is [facility] - LOUNGE CAR ATTENDANT and son discussed [facility] Medicare authorization process even if administratively accepted by SNF. Pt son verbalized understanding. CM team to send referral to [facility] for review. 2. Patient son discussed at length of his concerns for his mother staying at [facility] longterm as he suspects her mild cognitive impairment and CHF will progress and as her sole caregiver, he cannot provide the care she will eventually need. He is hopeful patient can go to a assisted living facility but he suspects pt will not qualify as she makes just a little more than the threshold from annuities. 3. Patient son voiced concerns of a negative experience with a home health agency in the past (could not recall agency name) and pt son stated preference to avoid home health as much as possible. 4. Patient son stated he has toured [facility] recently and would have utmost preference to have pt move-in there. Patient son is concerned that after 2year private pay, would patient automatically qualify for LTC Medicaid coverage? Patient son reports they have NOT attempted to apply for LTC Medicaid coverage yet. LOUNGE CAR ATTENDANT to provide number for [facility] for son to discuss this process specifically with them. 5. LOUNGE CAR ATTENDANT discussed possible plan for private caregivers at home while he coordinates a LTC plan; pt son agreeable to discussing with a caregiving agency options for personal care and medicare reminders. LOUNGE CAR ATTENDANT provided contact information for [facility]. Plan: Now anticipating SNF Rehab if accepted and insurance authorized. CM Team following for discharge coordination. Malaika Velazquez [facility] Original Note: DCP Assessment Note: Pt is a 89yo female, resident of [place], is admitted for cellulitis of left lower limb and CHF exacerbation. Pt is a resident at [facility]. Pt's Primary Care Provider is Dr. Jasmin Dorantes and insurance is [employer] Medicare. Reviewed chart and discussed with multidisciplinary team pt's medical status and initial discharge needs. Per hospitalist, patient to be admitted for IV abx and diuretic therapy. DCP met w/patient at bedside; introduced self and role. Patient was found in bed, alert and oriented, cooperative with assessment. Suspected mild cognitive impairment and hard of hearing. Pt confirmed living situation and good support in son who lives locally. Pt expressed preference in discharge home when leg swelling has subsided. Pt could not state if she had a history of SNF Rehab or Home health (EMR does not indicate any history). Pt agreeable to working with therapies and following their recommendations. PT entered room for evaluation when this LOUNGE CAR ATTENDANT completed assessment, following recommendations. Plan: Anticipating discharge home at [facility] when medically cleared, following for PT recommendations for referral. CM team will follow closely for coordination of discharge plans. Malaika Velazquez [facility] Discharge Planning/Care Management CM Discharge Assessment Start: 06/06/25 19:58 Freq: Status: Active Protocol: Document 06/07/25 13:16 MW (Rec: 06/07/25 13:18 MW [id number]) Discharge Planning Assessment Assigned Discharge VICENTE Dai Mobile Manager Provider Dr. Jasmin Dorantes Insurance [facility] DPOA/Assigned Trung Mcnulty Designee Name Contact Information [phone] Advance Directives? Yes: POLST Advance Directives No on File History Provided By Patient,Family Member,Medical Record Has Patient been No admitted in last 30 days? Prior Living Detention Facility Arrangements Household Members none Facility Name [facility] Admitted From: Willing to Return to Yes Facility? Independent with ADL Yes 's Is patient alert and No oriented? DME Already Rented / FWW / Walker Owned Discharge Plan Home with Home Health Transportation Son bedside and lives local and can provide transport Arrangement Additional Comment Pending PT/OT eval recommendations Review Status In Process Please Provide Date 06/07/25 Initial DC Assessment Was Performed Next Review Type Continued Stay Review
--- NOTE | 2025-06-07 15:36 | PT.IIE ---
Current Diagnoses Cellulitis of left lower limb (06/06/25) Surgical History (Last Reviewed 05/04/25 @ 13:07 by Alexis Medel DO) Coronary stent patent H/O abdominal hysterectomy H/O cystoscopy H/O vaginal hysterectomy History of appendectomy History of bladder suspension procedure History of cataract surgery History of knee replacement History of liver biopsy History of lumbar surgery History of removal of ovarian cyst History of total bilateral knee replacement Previous back surgery Total knee replacement status Medical History (Last Reviewed 05/04/25 @ 13:07 by Alexis Medel DO) Anemia Arthritis Asthma Atrial fibrillation CHF (congestive heart failure), NYHA class III Chronic UTI Constipation COPD (chronic obstructive pulmonary disease) Coronary artery disease involving [place] heart Coronary artery disease with exertional angina Depression Essential hypertension High blood pressure History of UTI Hypothyroidism Inflammatory bowel disease Major depression Mixed hyperlipidemia Mixed incontinence Nasal septal perforation Nose abnormality Obstructive sleep apnea OCD (obsessive compulsive disorder) Osteoarthritis Osteoporosis 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 Rotator cuff arthropathy of right shoulder Sleep apnea Varicose vein of leg Physical Therapy Inpatient Evaluation/Re-Eval M1 PT IP Prior Functional Status Start: 06/07/25 15:17 Freq: NEEDED Status: Active Protocol: Document 06/07/25 15:17 [facility] (Rec: 06/07/25 15:35 [facility] [id number]) Medical Review Prior Functional Status Medical History Yes Reviewed Diet/Fluid Regular Consistency Communication communication with nursing prior to PT visit to time brief change Mobility and Gait pt was ambulating Ind prior to hospital admit and lives at [facility] Social History Household Members none Living Arrangements [facility]pc Facility Additional Social pt has son, daughter in law and grandkids in town History Comment I spoke with her son and he let me know he is available to take her to appts and check in on her M2 PT-IP Current Condition Start: 06/07/25 15:17 Freq: NEEDED Status: Active Protocol: Document 06/07/25 15:17 [facility] (Rec: 06/07/25 15:35 [facility] [id number]) Physical Therapy Current Condition Current Condition Evaluation Date 06/07/25 Treatment Diagnosis L LE cellulitis, CHF exacerbation, mild cognitive impairment Onset Date 06/06/25 M3 PT-IP Subjective Start: 06/07/25 15:17 Freq: NEEDED Status: Active Protocol: Document 06/07/25 15:17 [facility] (Rec: 06/07/25 15:35 [facility] [id number]) Subjective Physical Therapy Visit Type Type Initial Evaluation Visit Start Time 13:50 Visit Stop Time 14:20 Physical Therapy Visit Comments Patient Comments pt has had pain meds and notes she feels much better with pain meds on board. (I had checked in a half a hour earlier and pt had been in pain so we timed PT with pain meds). She is sitting up in the bedside chair and agrees to work with PT Therapy Pain Assessment Pain When Pain Assessed At Rest Pain Present Pain Present Pain Reported Location Left Lower Leg Intensity 5 Pain Management Timing of Activity with Medications Techniques M4 PT-IP Mobility and Gait Start: 06/07/25 15:17 Freq: NEEDED Status: Active Protocol: Document 06/07/25 15:17 [facility] (Rec: 06/07/25 15:35 [facility] [id number]) PT-Bed Mobility Assessment Sit to Supine Sit to Supine Moderate Assistance Scooting Scooting Up and Down Maximum Assistance in Bed PT-Transfer Assessment Sit to and From Stand Sit to and from Minimal Assistance Stand Equipment Transfer Assistive Gait Belt,Front Wheeled Walker Device Orthotic/Prosthetic No Devices or Brace: Transfers Transfer Destination Chair Transfer Technique Stand Step Pivot Transfer Ability Level of Assist Minimal Assistance Comments Mobility Comments pt was min A with transfer from chair to standing with fww, she stood x 2 min for TICKETING CLERK to clean her and she started to note pain with standing at the 2 min yumiko. She has pain with WB on the left LE. She then took 3 -4 steps to transfer to sitting at the edge of the bed. She was able to stand one more time to move up in bed. She was mod A transferring from sit to supine and needed help with her legs, and max A x 2 to scoot her up in bed Gait Assessment Gait Gait Assistance Minimum Assistance Required: Distance (Feet) 2 Assistive Devices Assistive Device Gait Belt,Front Wheeled Walker Orthotic/Prosthetic No Devices or Brace: Gait Deviations General Gait Pattern Antalgic,Step-to Gait PT-Balance Assessment Sitting Balance and Reactions Static Sitting Fair Balance Ability Dynamic Sitting Fair Balance Ability Standing Balance and Reactions Static Standing Fair Balance Ability Dynamic Standing Fair Balance Ability M5 PT-IP Objective Assessments Start: 06/07/25 15:17 Freq: NEEDED Status: Active Protocol: Document 06/07/25 15:17 [facility] (Rec: 06/07/25 15:35 [facility] [id number]) Orientation Orientation/Cognition Level of Alertness Alert Language Function Hard of Hearing Ability Safety Awareness Decreased Safety Awareness Memory Description Short Term Impaired Comments mild cognitive impairment and short term memory impaired Gross Range of Motion Upper Extremity ROM Assessment Within Functional Limits Lower Extremity ROM Assessment Left Impaired Impairments decreased left ankle ROM due to pain/swelling Strength Upper Extremity Strength Assessment Within Functional Limits Lower Extremity Strength Assessment Left Impaired Comments Strength Comments generalized weakness and decreased tolerance for WB on the left LE M6 PT-IP Treatment Start: 06/07/25 15:17 Freq: NEEDED Status: Active Protocol: Document 06/07/25 15:17 [facility] (Rec: 06/07/25 15:35 [facility] [id number]) Physical Therapy Treatment Exercises Exercises Ankle Pumps Education Education Provided Weight Bearing Status,Safety M7 PT-IP Assessment and Plan Start: 06/07/25 15:17 Freq: NEEDED Status: Active Protocol: Document 06/07/25 15:17 [facility] (Rec: 06/07/25 15:35 [facility] [id number]) PT Summary Assessment and Plan Potential Rehabilitation Good Potential Status of Condition Evolving at Evaluation Summary Impairments Pain,ROM,Strength,Balance,Cognition,Bed Mobility, Transfers,Gait,Activity Tolerance Assessment Summary 89 yo female who is a resident of [facility] admitted with left LE cellulitis, mild cognitive impairment, CHF exacerbation. She presents with pain in the left LE and PT was timed today for after her pain meds. She requires Min A for transfers from sit -stand from bed side chair. She has decreased tolerance for standing due to pain with WB on the left LE. She ambulated 2 feet today to transfer to bed and this was her max due to pain. She required mod A for her legs to transfer back into bed and max A x 2 to scoot her up in bed. Recommend SNF rehab until her strength improves and pain decreases prior to her returning to Independently living at [facility]. Pt's son was present for treatment today Goals Bed Mobility Goal Independent Transfer Goal Independent Gait Goal Independent Days to Meet Goals 10 Frequency of Treatment Frequency Of Once a Day Treatment Treatment Plan Physical Therapy Bed Mobility Training,Transfer Training,Gait Training Treatment Plan Other increase distance for ambulation as pt can tolerate Recommendations and Next Treatment Focus Weight Bearing Status Weight Bearing Full Weight Bearing Status Recommendations To Nursing Amount of Assist 1 Person Assist Needed Discharge Recommendations PT Discharge SNF Rehab Recommendations Transportation Needs Wheelchair/Cabulance at Discharge
--- NOTE | 2025-06-07 15:47 | CM.DPC ---
DCP SNF Planning: Per PT, pt needing some assist and below baseline and feel pt would benefit from short SNF rehab stay before returning to independent living at [facility]. Son is hopeful for SNF but aware that pt's insurance might not approve SNF but preference is to try [facility]. If SNF not an option, then agreeable with d/c back to [facility] with HH and son looking into hiring a private CG if needed. SW made [facility] referral to see if they can accept and willing to submit for auth. PASRR needed if SNF. Nella Allison, QUALITY CONTROL INSPECTOR HEADING
--- NOTE | 2025-06-07 18:00 | INF.NOTE ---
pt has been a delight to staff, she in forgetful and calls for same questions, [place], up to chair c/o of her butt hurting which is slightly red but blanchable, off loaded and waffle cushion applied. pt medicated with tylenol and later with vicodin po and pt was able to sleep. PT worked with pt. son here to visit which is the person that manages her care
[2025-06-07] MEDS: ATORVASTATIN 20 MG TABLET 10 MG PO (21:32)
[2025-06-07] MEDS: METOPROLOL ER 25 MG TABLET 12.5 MG PO (21:41)
[2025-06-08] MEDS: LEVOTHYROXINE 25 MCG TABLET PO (06:08)
[2025-06-08 08:00] VITALS: BP 112/70; PULSE 62; RESP 17; TEMP 36.2; O2SAT 97
[2025-06-08] MEDS: POTASSIUM CHLORIDE 10 MEQ TAB PO (09:08)
[2025-06-08] MEDS: CHOLECALCIFEROL (VITAMIN D3) 1,000 UNIT TABLET 1000 UNIT PO (09:08)
[2025-06-08] MEDS: APIXABAN 5 MG TABLET PO (09:08)
[2025-06-08] MEDS: SPIRONOLACTONE 25 MG TABLET PO (09:08)
[2025-06-08] MEDS: oxyBUTYnin ER 5 MG TABLET 10 MG PO (09:08)
[2025-06-08] MEDS: CYANOCOBALAMIN (VITAMIN B-12) 500 MCG TABLET 1000 MCG PO (09:08)
[2025-06-08] MEDS: NYSTATIN POWDER 15GM 1 APPLIC TOP (09:09)
[2025-06-08] MEDS: CALCIUM CARBONATE 500 MG TAB 1000 MG PO (09:09)
[2025-06-08] MEDS: FUROSEMIDE 40 MG TABLET PO (09:11)
--- NOTE | 2025-06-08 09:35 | P.DS_ITS ---
History of Present Illness History of Present Illness Date Patient Seen: 06/08/25 Chief complaint: possible dvt Narrative: Chief complaint: Left leg redness and swelling with cellulitis History of present illness: 06/06: 89-year-old female with chronic congestive heart failure had increased leg swelling bilaterally and had gone down with doubling her Lasix over the next couple of days when her son noticed that her left leg was red and warm came to the emergency room. Upon evaluation resume if it was obvious that this was cellulitis patient was given vancomycin and Zosyn referred for admission. Findings in the emergency department: CBC and hemogram unremarkable comprehensive metabolic unremarkable except BUN 37 creatinine 1.04 however this seems to be this patient's baseline Hospital course: 06/07-06/08: Patient's erythema improved patient is still having lot of pain with trying to walk and ambulate approved to go to correction we will continue 5 days of oral antibiotics Review of systems: No fever or chills rigors No chest pain palpitations no shortness for breath No abdominal pain nausea vomiting diarrhea No paresthesia paresis No urinary symptoms Physical exam: Elderly female in no acute distress very pleasant HEENT unremarkable No labored respirations Abdomen nondistended Extremities trace edema right lower extremity and 2+ edema left lower extremity with erythema to the upper lower leg Assessment and plan: Cellulitis left lower extremity * Improving switch to oral cefdinir and doxycycline discharge to correction Chronic congestive heart failure acute on chronic * Compensated at this time * Continue all goal-directed medical therapy Chronic medical conditions: * CHF (congestive heart failure), NYHA class III * Coronary artery disease with exertional angina * Atrial fibrillation * Sleep apnea * OCD (obsessive compulsive disorder) * Nose abnormality * History of UTI * Postmenopausal atrophic vaginitis * Mixed incontinence * High blood pressure * Coronary artery disease involving [place] heart * Chronic UTI * Asthma * Arthritis * Anemia * Rotator cuff arthropathy of right shoulder * Postmenopausal atrophic vaginitis * Osteoporosis * Osteoarthritis * Inflammatory bowel disease * Depression * COPD (chronic obstructive pulmonary disease) * Obstructive sleep apnea * Varicose vein of leg * Constipation * Major depression * Mixed hyperlipidemia * Essential hypertension * Hypothyroidism * Nasal septal perforation DVT prophylaxis: * Covered with the apixaban Code status: * Full code blue Disposition: * Discharge to correction Time based billing: * 35 minutes were involved in evaluation of this patient including [id number] evaluation review of previous medical records discussion with emergency provider discussion with son physical examination of the patient Discharge Providers Provider Date of admission: 06/06/25 17:58 Discharge Date: 06/08/25 Primary care physician: Jasmin Boston DO Consults: 06/07/25 11:46 Consult to Occupational Therapy Evaluate & Treat Comment: Physician Instructions: Evaluate and treat Consult to Physical Therapy Evaluate & Treat Comment: Physician Instructions: Evaluate and Treat 06/07/25 15:01 Consult to Pharmacy Routine Comment: not indicated Discharge provider: Esdras Engle MD Exam Vital Signs (past 8 hours): - 06/08/25 08:00 Temperature 97.2 F L Pulse Rate 62 Respiratory Rate 17 Blood Pressure 112/70 Pulse Oximetry 97 Fraction of Inspired Oxygen 28 SaO2/FiO2 Ratio 346 Oxygen Delivery Method CPAP Oxygen Flow Rate 0 Objective Labs 06/06/25 16:27 06/06/25 16:27 [facility] Medical History CHF (congestive heart failure), NYHA class III Coronary artery disease with exertional angina Atrial fibrillation Sleep apnea OCD (obsessive compulsive disorder) Nose abnormality History of UTI Postmenopausal atrophic vaginitis Mixed incontinence High blood pressure Coronary artery disease involving [place] heart Chronic UTI Asthma Arthritis Anemia Rotator cuff arthropathy of right shoulder Postmenopausal atrophic vaginitis Osteoporosis Osteoarthritis Inflammatory bowel disease Depression COPD (chronic obstructive pulmonary disease) Obstructive sleep apnea Varicose vein of leg Constipation Major depression Mixed hyperlipidemia Essential hypertension Hypothyroidism Nasal septal perforation Surgical History History of liver biopsy History of knee replacement H/O vaginal hysterectomy History of bladder suspension procedure Total knee replacement status H/O cystoscopy Coronary stent patent Previous back surgery History of total bilateral knee replacement History of lumbar surgery History of appendectomy History of removal of ovarian cyst H/O abdominal hysterectomy History of cataract surgery Family History Sister Cancer Heart attack Brother Cancer Mother Heart attack Stroke Hypertension Father Hypertension Social History marital status: number of children: 4 household members: none Smoking Status: Former smoker alcohol intake: never Discharge Plan Discharge Plan Patient Disposition: SNF Transfer to: [facility] Discharge orders & Medications Prescriptions: New hydrocodone-acetaminophen 5-325 mg Tablet 1 tab PO Q4HR PRN (Reason: Pain, Moderate (4-6)) Qty: 6 0RF cefdinir 300 mg Capsule 300 mg PO BID Qty: 10 0RF doxycycline hyclate 100 mg Tablet 100 mg PO BID Qty: 10 0RF Continued quetiapine 25 mg tablet 25 mg PO BEDTIME Qty: 30 3RF potassium chloride 10 mEq tablet extended release 10 meq PO DAILY Qty: 30 2RF clobetasol 0.05 % gel See Rx Instructions .ROUTE .COMPLEX Qty: 30 3RF Dose Instruction: APPLY TO ITCHY AREA DAILY UNTIL SYMPTOMS RESOLVE. MAY USE INTERMITTENTLY NEEDED Rx Instructions: APPLY TO ITCHY AREA DAILY UNTIL SYMPTOMS RESOLVE. MAY USE INTERMITTENTLY NEEDED ferrous sulfate [FeroSul] 325 mg (65 mg iron) tablet 325 mg PO 2XW Qty: 8 3RF nystatin 100,000 unit/gram powder 1 applic topical BID Qty: 30 1RF levothyroxine 25 mcg tablet 25 mcg PO DAILY Qty: 90 3RF metoprolol succinate 25 mg tablet extended release 24 hr 12.5 mg PO DAILY furosemide 40 mg tablet 40 mg PO DAILY lovastatin 20 mg tablet 20 mg PO DAILY Qty: 90 3RF spironolactone 25 mg tablet 25 mg PO DAILY sacubitril-valsartan [Entresto] 24-26 mg tablet 1 tab PO BID vitamin E mixed 400 unit capsule 400 unit PO DAILY calcium carbonate 600 mg calcium (1,500 mg) tablet 1,200 mg PO DAILY urea 40 % cream topical DAILY PRN (Reason: skin irritation) fexofenadine 180 mg tablet 180 mg PO DAILY apixaban 5 mg tablet 5 mg PO BID Qty: 60 11RF (DME) ResMed ASV See Rx Instructions .Route .MEDSUPPLY Rx Instructions: EPAP: 1.0 Min: 6 Max PS: 15 (DME) Aircurve 10 ASV See Rx Instructions .Route .MEDSUPPLY Rx Instructions: Pressure: EPAP 7 Min PS 6 Max PS 15 DME: [employer] 02/2022 cholecalciferol (vitamin D3) 50 mcg (2,000 unit) capsule 50 mcg PO DAILY mecobalamin (vitamin B12) 1,000 mcg tablet,chewable 1,000 mcg PO DAILY mirabegron [Myrbetriq] 50 mg tablet extended release 24 hr 50 mg PO DAILY Qty: 90 3RF Osphena 60 mg tablet 60 mg PO DAILY Qty: 90 3RF Rx Instructions: must administer with food, preferably a high-fat meal Follow up/Referrals: Jasmin Boston DO [Primary Care Provider, Family Practice] Visit Report/Discharge Packet Stand Alone Forms: Patient Portal/API Discharge Data Primary Care Provider: Jasmin Boston
--- NOTE | 2025-06-08 11:40 | CM.DPC ---
DCP Discharge SNF Per MD, pt is medically stable to d/c to SNF today and orders placed and discharge completed. GAEL confirmed that [facility] obtained her insurance auth and can accept her today with transport around 1130. GAEL secure emailed pt's discharge summary, signed med list, script, PASEDITH, orders to review. Updated coat operator, GOPAL, and RN and provided number to call report. GAEL called pt's son Raimundo [phone] and updated on above and he remains in agreement with discharge plan above and confirms he has pt's two home meds needed at SNF and will bring them bedside prior to d/c to use at SNF and RN confirms pt's home CPAP bedside and will be sent with pt as well. Son requested GAEL to notify pt's provider Dr. Delgado at [facility] in [place] as pt had scheduled appointment today around 1230 and will miss this appointment from discharging today to SNF. GAEL called Dr. Delgado's office and updated. Plan: Patient to d/c to [facility] today at 1130 before return back to her apt at [facility]. Nella Allison, MIDDLE SCHOOL SPECIAL EDUCATION TEACHER
--- NOTE | 2025-06-08 11:44 | PC.NURSE ---
Addendum entered by Stacy Cortez RN 06/08/25 11:52: Called report to [phone] Original Note: Removed pt PIV, pt tolerated well. All belongings with pt or pt son; no belongings in safe, pharmacy, or drawer. Provided discharge paperwork to rep. Pt stated no needs at this time. VSWNL. Pt escorted via WC by rep [facility] for transport.
== END 2025-06-08 11:46 | DRG 603 ==
LOC: ED 17:57 → AC 17:58
PROVIDERS: Admitting Provider Internal Medicine; Emergency Provider Family Medicine; PCP Family Medicine; Referring Provider Family Medicine; Visit Provider Internal Medicine
DX: L03.116 Cellulitis of left lower limb (principal); I50.9 Heart failure, unspecified; F32.A Depression, unspecified; E03.9 Hypothyroidism, unspecified; I11.0 Hypertensive heart disease with heart failure; E78.2 Mixed hyperlipidemia; I48.91 Unspecified atrial fibrillation; G47.33 Obstructive sleep apnea (adult) (pediatric); I25.10 Atherosclerotic heart disease of native coronary artery without angina pectoris; Z87.891 Personal history of nicotine dependence; Z79.890 Hormone replacement therapy; Z79.01 Long term (current) use of anticoagulants
CPT/HCPCS: 36415; 73590; 80053; 83605; 85025; 87040; 93971; 96365; 96367; 96372; 96375; 97162; 97530; 99284; J0696; J1644; J2405; J2543; J3375; J7050

== ENCOUNTER 2025-06-11 10:50 | Emergency (ER) | payer MEDICARE, SELFPAY ==
[2025-06-11 11:21] VITALS: BP 126/65; PULSE 79; RESP 17; TEMP 36.3; O2SAT 99
--- NOTE | 2025-06-11 13:38 | ED.HA ---
HPI - Headache General Chief Complaint: Headache Stated Complaint: Chronic Sinus Pain Time Seen by Provider: 06/11/25 10:59 Mode of arrival: Family Vehicle History of Present Illness HPI Narrative: Ms. Liana Power is a very pleasant 89-year-old female with a past medical history of AFib on Eliquis, CAD, CHF, cognitive impairment, dyslipidemia, currently on doxycycline cefdinir for left leg cellulitis who presents to the emergency department via EMS from [facility] rehab for acute on chronic sinus congestion. Patient states that she has dealt with chronic sinus pain for many years, has had sinus surgery. Last night her sinus congestion was so bad that it prevented her from sleeping because she could not breathe through her nose. This caused her to have an anxiety attack. This morning EMS brought her to the emergency department and after getting fresh air on on the drive here her sinus congestion actually went away. She feels much better now. She feels relaxed. She does have residual postnasal drip. She is here with her son Raimundo who informs me that she has been dealing with this for many many years and she has OCD and worsening memory problems which is worsening her postnasal drip. The patient is not entirely satisfied with her current rehab care. She is currently under the care of a primary care doctor and psychiatrist but she can not see outpatient doctors while she is in the rehab facility therefore the son is trying to get her to see the facility psychiatric nurse practitioner. She was recently switched from sertraline Seroquel in his actually been doing better since then but they noticed that as the day goes on and it becomes nighttime she starts to get more confused and agitated. Related Data Home Medications ?Medication ?Instructions ?Recorded ?Confirmed cholecalciferol (vitamin D3) 50 50 mcg PO DAILY 11/25/20 06/06/25 mcg (2,000 unit) capsule mecobalamin (vitamin B12) 1,000 1,000 mcg PO DAILY 11/25/20 06/06/25 mcg chewable tablet ResMed ASV 05/09/21 05/04/25 Aircurve 10 ASV 03/09/22 05/04/25 furosemide 40 mg tablet 40 mg PO DAILY 06/06/22 06/06/25 calcium carbonate 1,200 mg PO DAILY 08/26/24 06/06/25 sacubitril 24 mg-valsartan 26 mg 1 tab PO BID 08/26/24 06/06/25 tablet (Entresto) spironolactone 25 mg tablet 25 mg PO DAILY 08/26/24 06/06/25 vitamin E mixed 400 unit capsule 400 unit PO DAILY 08/26/24 06/06/25 fexofenadine 180 mg tablet 180 mg PO DAILY 12/03/24 06/06/25 urea 40 % topical cream applic topical DAILY PRN skin 12/03/24 05/04/25 irritation metoprolol succinate 25 mg 12.5 mg PO DAILY 06/03/25 06/06/25 tablet,extended release 24 hr Previous Rx's ?Medication ?Instructions ?Recorded apixaban 5 mg tablet 5 mg PO BID #60 tabs 06/22/21 potassium chloride 10 mEq 10 meq PO DAILY #30 tabs 06/22/21 tablet,extended release clobetasol 0.05 % topical gel See Rx Instructions .Route 11/14/21 .COMPLEX #30 grams lovastatin 20 mg tablet 20 mg PO DAILY #90 tabs 06/06/22 quetiapine 25 mg tablet 25 mg PO BEDTIME #30 tabs 03/23/25 ferrous sulfate 325 mg (65 mg 325 mg PO 2XW #8 tabs 04/10/25 iron) tablet (FeroSul) mirabegron 50 mg tablet,extended 50 mg PO DAILY #90 tabs 05/04/25 release 24 hr (Myrbetriq) ospemifene 60 mg tablet (Osphena) 60 mg PO DAILY #90 tabs 05/04/25 levothyroxine 25 mcg tablet 25 mcg PO DAILY #90 tabs 05/22/25 nystatin 100,000 unit/gram topical 1 applic topical BID #30 grams 05/22/25 powder cefdinir 300 mg capsule 300 mg PO BID #10 caps 06/08/25 doxycycline hyclate 100 mg tablet 100 mg PO BID #10 tabs 06/08/25 hydrocodone 5 mg-acetaminophen 325 1 tab PO Q4HR PRN Pain, Moderate 06/08/25 mg tablet (4-6) #6 tabs fluticasone propionate 50 2 spray intranasal DAILY 1 month 06/11/25 mcg/actuation nasal #16 grams spray,suspension (Flonase Allergy Relief) Allergies Allergy/AdvReac Type Severity Reaction Status Date / Time gabapentin AdvReac Mild Sedation Verified 06/11/25 11:21 at 100mg nitrofurantoin AdvReac Unknown Diarrhea Verified 06/11/25 11:21 Review of Systems Review of Systems ROS Unobtainable: All systems reviewed & are unremarkable except as noted in HPI and below Patient History Medical History CHF (congestive heart failure), NYHA class III Coronary artery disease with exertional angina Atrial fibrillation Sleep apnea OCD (obsessive compulsive disorder) Nose abnormality History of UTI Postmenopausal atrophic vaginitis Mixed incontinence High blood pressure Coronary artery disease involving [place] heart Chronic UTI Asthma Arthritis Anemia Rotator cuff arthropathy of right shoulder Postmenopausal atrophic vaginitis Osteoporosis Osteoarthritis Inflammatory bowel disease Depression COPD (chronic obstructive pulmonary disease) Obstructive sleep apnea Varicose vein of leg Constipation Major depression Mixed hyperlipidemia Essential hypertension Hypothyroidism Nasal septal perforation Surgical History History of liver biopsy History of knee replacement H/O vaginal hysterectomy History of bladder suspension procedure Total knee replacement status H/O cystoscopy Coronary stent patent Previous back surgery History of total bilateral knee replacement History of lumbar surgery History of appendectomy History of removal of ovarian cyst H/O abdominal hysterectomy History of cataract surgery Family History Sister Cancer Heart attack Brother Cancer Mother Heart attack Stroke Hypertension Father Hypertension Social History marital status: number of children: 4 household members: none Smoking Status: Former smoker alcohol intake: never Smoking Status: Former smoker tobacco type: cigarettes alcohol intake frequency: 0-2 drinks per day Exam Narrative Exam Narrative: GENERAL: 89 year old patient appears stated age. Well-developed patient, in no acute distress. HEAD: Atraumatic. Normocephalic. EYES: No scleral icterus. No injection or drainage. ENT: Nose without bleeding, purulent drainage. Nares are patent. Throat without erythema, tonsillar hypertrophy or exudate. Uvula midline. Postnasal drip present. Airway patent. NECK: Trachea midline. Cervical ROM intact. CARDIOVASCULAR: Regular rate RESPIRATORY: ?Nonlabored respirations. ?Speaking in clear, full sentences. NEURO: Alert and oriented, answers questions appropriately. No facial asymmetry. Sensation intact to light touch throughout the face upper and lower extremities. SKIN: Left lower extremity with very mild edema, appears to be healing cellulitis. Initial Vital Signs Initial Vital Signs: Vital Signs Temperature 97.4 F L 06/11/25 11:21 Pulse Rate 79 06/11/25 11:21 Respiratory Rate 17 06/11/25 11:21 Blood Pressure 126/65 06/11/25 11:21 Pulse Oximetry 99 06/11/25 11:21 Oxygen Delivery Method Room Air 06/11/25 11:21 Course Vital Signs Vital signs: Vital Signs - 8 hr 06/11/25 11:21 06/11/25 13:39 Temperature 97.4 F L Pulse Rate 79 63 Respiratory Rate 17 18 Blood Pressure 126/65 140/64 Pulse Oximetry 99 97 Oxygen Delivery Method Room Air Room Air MDM - Headache Medical Records Attestation: I reviewed the patient's medical records. [facility] Narrative Medical decision making narrative: 89-year-old female with a past medical history of AFib on Eliquis, CAD, CHF, cognitive impairment, dyslipidemia, currently on doxycycline cefdinir for left leg cellulitis who presents to the emergency department via EMS from [facility]hab for acute on chronic sinus congestion. Her son contributes to the history. Differential diagnosis includes but is not limited to postnasal drip, sinusitis, acute on chronic sinusitis, etc. On exam patient is in no acute distress, nontoxic appearing, vital signs appropriate. She had a hard time sleeping last night because of acute on chronic sinus congestion, after EMS picked her up and brought her to the emergency department and she got some fresh air her symptoms have actually improved significantly and she is not having any concerns at this time. She is however concerned about her rehab facility as she is not entirely happy with it. I had an extensive discussion with the patient and her son at the bedside, her son is concerned that her symptoms are being exacerbated by underlying OCD, anxiety, possible cognitive impairment. She is currently being treated with Seroquel which has been helpful for her. He is in the process of having his mom speak with the psychiatric nurse practitioner at the rehab facility which I encouraged. The patient already is established with the ENT, we discussed that she can follow up with them for further management however in the meantime we will recommend Flonase, supportive care, ER return precautions. Patient and her son verbalized understanding of all information and are agreeable with the plan. He is not interested in speaking with social work as he is already working with social work at the facility as well. All questions answered, patient stable for discharge back to [facility]. Discharge Plan Departure Patient Disposition: Home Clinical Impression: Chronic congestion of paranasal sinus Instructions: DI for Sinusitis Activity Restrictions/Additional Instructions: Dear Ms. Power, Thank you for coming to the emergency department. Today you were evaluated for chronic pressure and congestion of your sinuses. I am sorry that you are dealing with this. I am glad that you are feeling better after getting some fresh air on the way here. As we discussed it is very important that he follow up with the ears Nose Throat specialist for further evaluation and treatment of this problem. You were currently on antibiotics for your like infection so I am not going to put you on any new antibiotics. I would like you to start using Flonase 2 sprays in each nostril every day to help with his chronic sinus congestion. You may find it helpful to sleep with the head of your bed elevated. Continue using sinus rinses to help drain mucus from your nostrils. Please return to the emergency department if develop any new or worsening symptoms or any other concerns. Please call and schedule an appointment with [facility], their information is listed below. Please follow up with your primary care doctor within the next 2-3 days for ER follow-up. (If you do not have a PCP you can call [phone]. ?to schedule an appointment with an [facility] Primary Care Provider) IF YOU DEVELOP ANY NEW OR WORSENING SYMPTOMS, RETURN TO THE ER! Please read the attached instructions, they highlight more specific treatments and interventions for you at home. Thank you for letting me participate in your care, Tori Lee PA-C Prescriptions: New fluticasone propionate [Flonase Allergy Relief] 50 mcg/actuation spray,suspension 2 spray intranasal DAILY 30 Days Qty: 16 0RF Rx Instructions: administer into each nostril No Action quetiapine 25 mg tablet 25 mg PO BEDTIME Qty: 30 3RF potassium chloride 10 mEq tablet extended release 10 meq PO DAILY Qty: 30 2RF clobetasol 0.05 % gel See Rx Instructions .ROUTE .COMPLEX Qty: 30 3RF Dose Instruction: APPLY TO ITCHY AREA DAILY UNTIL SYMPTOMS RESOLVE. MAY USE INTERMITTENTLY NEEDED Rx Instructions: APPLY TO ITCHY AREA DAILY UNTIL SYMPTOMS RESOLVE. MAY USE INTERMITTENTLY NEEDED ferrous sulfate [FeroSul] 325 mg (65 mg iron) tablet 325 mg PO 2XW Qty: 8 3RF nystatin 100,000 unit/gram powder 1 applic topical BID Qty: 30 1RF levothyroxine 25 mcg tablet 25 mcg PO DAILY Qty: 90 3RF metoprolol succinate 25 mg tablet extended release 24 hr 12.5 mg PO DAILY furosemide 40 mg tablet 40 mg PO DAILY lovastatin 20 mg tablet 20 mg PO DAILY Qty: 90 3RF spironolactone 25 mg tablet 25 mg PO DAILY sacubitril-valsartan [Entresto] 24-26 mg tablet 1 tab PO BID vitamin E mixed 400 unit capsule 400 unit PO DAILY calcium carbonate 600 mg calcium (1,500 mg) tablet 1,200 mg PO DAILY urea 40 % cream topical DAILY PRN (Reason: skin irritation) fexofenadine 180 mg tablet 180 mg PO DAILY apixaban 5 mg tablet 5 mg PO BID Qty: 60 11RF hydrocodone-acetaminophen 5-325 mg Tablet 1 tab PO Q4HR PRN (Reason: Pain, Moderate (4-6)) Qty: 6 0RF cefdinir 300 mg Capsule 300 mg PO BID Qty: 10 0RF doxycycline hyclate 100 mg Tablet 100 mg PO BID Qty: 10 0RF (DME) ResMed ASV See Rx Instructions .Route .MEDSUPPLY Rx Instructions: EPAP: 1.0 Min: 6 Max PS: 15 (DME) Aircurve 10 ASV See Rx Instructions .Route .MEDSUPPLY Rx Instructions: Pressure: EPAP 7 Min PS 6 Max PS 15 DME: [employer] 02/2022 cholecalciferol (vitamin D3) 50 mcg (2,000 unit) capsule 50 mcg PO DAILY mecobalamin (vitamin B12) 1,000 mcg tablet,chewable 1,000 mcg PO DAILY mirabegron [Myrbetriq] 50 mg tablet extended release 24 hr 50 mg PO DAILY Qty: 90 3RF Osphena 60 mg tablet 60 mg PO DAILY Qty: 90 3RF Rx Instructions: must administer with food, preferably a high-fat meal Referrals: Jefferson Newberry MD [Physician, Ear, Nose, Throat] Referral Note: Chronic Sinusitis Jasmin Boston DO [Primary Care Provider, Family Practice] Stand Alone Forms: Patient Portal/API
[2025-06-11 13:39] VITALS: BP 140/64; PULSE 63; RESP 18; O2SAT 97
== END 2025-06-11 14:10 | disposition home or self-care (01) ==
PROVIDERS: Emergency Provider Physician Assistant; PCP Family Medicine
DX: J34.89 Other specified disorders of nose and nasal sinuses (principal); Z87.891 Personal history of nicotine dependence
CPT/HCPCS: 99281

== ENCOUNTER → 2025-06-22 20:32 | Outpatient (ROUT) | payer MEDICARE, SELFPAY ==
[2025-06-06 22:02] VITALS: BMI 45.1
[2025-06-22 20:37] LABS: Appearance Urine UA CLEAR; Bilirubin Urine UA NEGATIVE (NEGATIVE); Color Urine UA YELLOW; Glucose Urine UA NEGATIVE (Negative); Ketones Urine UA NEGATIVE (NEGATIVE); Leukocyte Esterase Urine UA NEGATIVE (NEGATIVE); Nitrite Urine UA NEGATIVE (Negative); Occult Blood Urine UA NEGATIVE (Negative); Protein Urine UA NEGATIVE (Negative); Specific Gravity Urine UA 1.010 (1.000-1.035); Urobilinogen Urine UA 0.2 E.U./dL (0.2)
[2025-06-22 20:46] LABS: pH Urine UA 6.0 (4.5-8.0)
[2025-06-22 20:49] LABS: Culture Indicated Urine Cult Not Indicated
== END ==
PROVIDERS: PCP Family Medicine; Visit Provider Registered Nurse
DX: N39.0 Urinary tract infection, site not specified (principal)
CPT/HCPCS: 81001